=== PATIENT | female | born 1970 | race Caucasian/White ===

== ENCOUNTER → 2017-10-01 | Outpatient (CLI) | payer BC ==
--- NOTE | 2017-10-04 10:13 | MM ---
Reason for exam: screening (asymptomatic). Last mammogram was performed 1 year and 6 months ago. History: Patient is postmenopausal. Cancelled Right Mammotome of the right breast, April 04, 2008. Physical Findings: A clinical breast exam by your physician is recommended on an annual basis and results should be correlated with mammographic findings. MG Screening Mammo w CAD Bilateral CC and MLO view(s) were taken. Prior study comparison: April 14, 2016, bilateral MG screening mammo w CAD. September 18, 2014, bilateral MG screening mammo w CAD. The breast tissue is heterogeneously dense. This may lower the sensitivity of mammography. There is no discrete abnormality. ASSESSMENT: Negative, BI-RAD 1 RECOMMENDATION: Routine screening mammogram of both breasts in 1 year.
== END | disposition home or self-care (01) ==
LOC: RADMAMWWP 13:00
PROVIDERS: ATTEND Family Medicine
DX: Z12.31 Encounter for screening mammogram for malignant neoplasm of breast (principal)
CPT/HCPCS: 77067

== ENCOUNTER → 2018-02-28 | Outpatient (CLI) | payer BC ==
--- NOTE | 2018-03-01 12:53 | MR ---
EXAMINATION TYPE: MR lumbar spine wo con DATE OF EXAM: 02/28/2018 COMPARISON: NONE HISTORY: TECHNIQUE: Multiplanar, multisequence images of the lumbar spine were acquired. L1-L2: Normal disc appearance without desiccation. No herniation, protrusion or disc bulging. No ca nal stenosis is present. Foramina are patent bilaterally. L2-L3: Posterior broad-based disc bulge causes only minimal anterior mass effect on the thecal sac. N o significant foraminal encroachment or central canal stenosis. There is loss of disc height and sign al compatible disc desiccation and degenerative disc disease. L3-L4: There is a minimal posterior broad-based disc bulge causing only slight mass effect on the ant erior thecal sac, no significant foraminal encroachment. L4-L5: Small posterior disc bulge causes minimal anterior mass effect on the thecal sac. No significa nt spinal stenosis or foraminal encroachment. Facet arthropathy with hypertrophy of the ligamentum fl avum encroaches on the lateral recesses. L5-S1: Endplate discogenic marrow signal changes, spondylosis, vacuum phenomenon with loss of disc he ight and signal present at L5-S1, circumferential extension of endplate disc complex encroaches somew hat on the neural foramina. Posterior extension endplate disc complex may contact the anterior thecal sac, proximal S1 nerve roots. Lumbar segments are intact. No paraspinal masses are identified. Conus medullaris has a normal appe arance. Cystic foci present within the liver noted incidentally. IMPRESSION: Degenerative disc disease at, correlate for possible L5, S1 radiculopathy. Facet arthropathy change.
== END | disposition home or self-care (01) ==
LOC: RADMRIMAIN 15:21
PROVIDERS: ATTEND Physician Assistant Medical
DX: M51.16 Intervertebral disc disorders with radiculopathy, lumbar region (principal); M46.96 Unspecified inflammatory spondylopathy, lumbar region; R53.1 Weakness
CPT/HCPCS: 72148

== ENCOUNTER 2018-05-26 13:55 | Observation (INO) | payer BC ==
[2018-05-26] MEDS ORDERED: KETOROLAC 30 MG/ML 1 ML VIAL IVP STA (14:17)
[2018-05-26] MEDS ORDERED: HYDROmorphone 0.5 MG/0.5 ML SYRINGE IVP STA (14:17)
--- NOTE | 2018-05-26 14:28 | ED ---
General Adult HPI - General Chief complaint: Chest Pain Stated complaint: left side chest pain Time Seen by Provider: 05/26/18 13:55 Source: patient, RN notes reviewed Mode of arrival: ambulatory Limitations: no limitations - History of Present Illness Initial comments: This is a 47-year-old female presents emergency Department because of pleuritic like chest pain. Patient states about 2 weeks ago she had an upper respiratory infection and ever since then she's been getting more more chest pain. Patient states is much worse with inspiration or movement. Patient states she's been treated for pleurisy with some steroids but has not improved. Patient states this morning she went to work and the pain was so bad she decided it was time to go back to her doctor but her doctor told her to go to the emergency department. Patient states she's had a low-grade fever a couple weeks ago but not lately. Patient denies any shortness of breath. Patient states she has had no recent sore throat. 2 weeks ago she did have a sore throat as well. Patient denies any control. Patient denies any calf pain. Patient denies any leg swelling. - Related Data Home Medications Medication Instructions Recorded Confirmed Fluconazole [Diflucan] 150 mg PO QMONTH 06/25/16 05/26/18 Cyclobenzaprine [Flexeril] 10 mg PO TID PRN 05/26/18 05/26/18 Ibuprofen [Motrin] 400 mg PO TID PRN 05/26/18 05/26/18 predniSONE See Taper PO DAILY 05/26/18 05/26/18 Allergies Allergy/AdvReac Type Severity Reaction Status Date / Time Penicillins Allergy STRONG Verified 05/26/18 14:14 SIBLING REACTION OF ANAPHYLAXIS tree nut Allergy SKIN Verified 05/26/18 14:14 REACTION wheat Allergy CELIAC Verified 05/26/18 14:14 Review of Systems ROS Statement: Those systems with pertinent positive or pertinent negative responses have been documented in the HPI. ROS Other: All systems not noted in ROS Statement are negative. Past Medical History Past Medical History: GERD/Reflux Additional Past Medical History / Comment(s): celiac disease History of Any Multi-Drug Resistant Organisms: None Reported Past Surgical History: Cholecystectomy, Hysterectomy, Tonsillectomy Additional Past Surgical History / Comment(s): removal of tubal Past Anesthesia/Blood Transfusion Reactions: Previous Problems w/ Anesthesia Additional Past Anesthesia/Blood Transfusion Reaction / Comment(s): "diff coming out of anesthesia" Past Psychological History: No Psychological Hx Reported Smoking Status: Current every day smoker Past Alcohol Use History: Daily Past Drug Use History: None Reported - Past Family History Sister(s) Family Medical History: Cancer General Exam - General Exam Comments Initial Comments: GENERAL: Patient is well-developed and well-nourished. Patient is nontoxic and well- hydrated and is in mild distress. ENT: Neck is soft and supple. No significant lymphadenopathy is noted. Oropharynx is clear. Moist mucous membranes. Neck has full range of motion without eliciting any pain. EYES: The sclera were anicteric and conjunctiva were pink and moist. Extraocular movements were intact and pupils were equal round and reactive to light. Eyelids were unremarkable. PULMONARY: Unlabored respirations. Good breath sounds bilaterally. No audible rales rhonchi or wheezing was noted. CARDIOVASCULAR: There is a regular rate and rhythm without any murmurs gallops or rubs. Patient has chest pain with inspiration. ABDOMEN: Soft and nontender with normal bowel sounds. SKIN: Skin is clear with no lesions or rashes and otherwise unremarkable. NEUROLOGIC: Patient is alert and oriented x3. Cranial nerves II through XII are grossly intact. Motor and sensory are also intact. Normal speech, volume and content. Symmetrical smile. MUSCULOSKELETAL: Normal extremities with adequate strength and full range of motion. LYMPHATICS: No significant lymphadenopathy is noted PSYCHIATRIC: Normal psychiatric evaluation. Limitations: no limitations Course Vital Signs 05/26/18 13:56 Temperature 98.5 F Pulse Rate 77 Respiratory 18 Rate Blood Pressure 184/90 O2 Sat by Pulse 100 Oximetry Medical Decision Making - Medical Decision Making EKG shows normal sinus rhythm at 70 bpm MO interval is 136 QRS is 84 Q-T intervals 408 QTC is 440. Patient's EKG shows no ST segment elevation or depression or T wave abnormalities are noted. Chest x-ray shows no acute abnormality. Patient's not getting much relief from medications given to her in the emergency department. Patient states taking a deep breath causes significant increased pain. Patient did not feel comfortable going home because any time she relates the pain seems to get worse. I spoke with Dr. Mckinley he agreed to admit the patient admitted the patient wrote admitting orders I consult cardiology and ordered an echocardiogram. - Lab Data Result diagrams: 05/26/18 14:43 05/26/18 14:43 Lab Results 05/26/18 05/26/18 05/26/18 Range/Units 14:43 14:43 14:43 WBC 10.6 (3.8-10.6) k/uL RBC 4.29 (3.80-5.40) m/uL Hgb 14.3 (11.4-16.0) gm/dL Hct 44.5 (34.0-46.0) % MCV 103.6 H (80.0-100.0) fL MCH 33.3 (25.0-35.0) pg MCHC 32.2 (31.0-37.0) g/dL RDW 12.4 (11.5-15.5) % Plt Count 335 (150-450) k/uL Neutrophils % 89 % Lymphocytes % 6 % Monocytes % 4 % Eosinophils % 0 % Basophils % 0 % Neutrophils # 9.4 H (1.3-7.7) k/uL Lymphocytes # 0.7 L (1.0-4.8) k/uL Monocytes # 0.4 (0-1.0) k/uL Eosinophils # 0.0 (0-0.7) k/uL Basophils # 0.0 (0-0.2) k/uL Macrocytosis Slight PT (9.0-12.0) sec INR (<1.2) APTT (22.0-30.0) sec D-Dimer (<0.60) mg/L FEU Sodium 143 (137-145) mmol/L Potassium 4.9 (3.5-5.1) mmol/L Chloride 106 (98-107) mmol/L Carbon Dioxide 28 (22-30) mmol/L Anion Gap 9 mmol/L BUN 9 (7-17) mg/dL Creatinine 0.55 (0.52-1.04) mg/dL Est GFR (CKD-EPI)AfAm >90 (>60 ml/min/1.73 sqM) Est GFR (CKD-EPI)NonAf >90 (>60 ml/min/1.73 sqM) Glucose 92 (74-99) mg/dL Calcium 9.9 (8.4-10.2) mg/dL Magnesium 2.0 (1.6-2.3) mg/dL Total Bilirubin 0.4 (0.2-1.3) mg/dL AST 28 (14-36) U/L ALT 30 (9-52) U/L Alkaline Phosphatase 73 (38-126) U/L Total Creatine Kinase 73 (30-135) U/L CK-MB (CK-2) 1.1 (0.0-2.4) ng/mL CK-MB (CK-2) Rel Index 1.5 Troponin I <0.012 (0.000-0.034) ng/mL NT-Pro-B Natriuret Pep pg/mL Total Protein 7.8 (6.3-8.2) g/dL Albumin 4.7 (3.5-5.0) g/dL Amylase 58 (30-110) U/L Lipase 45 (23-300) U/L Heterophile Antibody (Negative) 05/26/18 05/26/18 05/26/18 Range/Units 14:43 14:43 14:43 WBC (3.8-10.6) k/uL RBC (3.80-5.40) m/uL Hgb (11.4-16.0) gm/dL Hct (34.0-46.0) % MCV (80.0-100.0) fL MCH (25.0-35.0) pg MCHC (31.0-37.0) g/dL RDW (11.5-15.5) % Plt Count (150-450) k/uL Neutrophils % % Lymphocytes % % Monocytes % % Eosinophils % % Basophils % % Neutrophils # (1.3-7.7) k/uL Lymphocytes # (1.0-4.8) k/uL Monocytes # (0-1.0) k/uL Eosinophils # (0-0.7) k/uL Basophils # (0-0.2) k/uL Macrocytosis PT 9.8 (9.0-12.0) sec INR 1.0 (<1.2) APTT 25.0 (22.0-30.0) sec D-Dimer 0.35 (<0.60) mg/L FEU Sodium (137-145) mmol/L Potassium (3.5-5.1) mmol/L Chloride (98-107) mmol/L Carbon Dioxide (22-30) mmol/L Anion Gap mmol/L BUN (7-17) mg/dL Creatinine (0.52-1.04) mg/dL Est GFR (CKD-EPI)AfAm (>60 ml/min/1.73 sqM) Est GFR (CKD-EPI)NonAf (>60 ml/min/1.73 sqM) Glucose (74-99) mg/dL Calcium (8.4-10.2) mg/dL Magnesium (1.6-2.3) mg/dL Total Bilirubin (0.2-1.3) mg/dL AST (14-36) U/L ALT (9-52) U/L Alkaline Phosphatase (38-126) U/L Total Creatine Kinase (30-135) U/L CK-MB (CK-2) (0.0-2.4) ng/mL CK-MB (CK-2) Rel Index Troponin I (0.000-0.034) ng/mL NT-Pro-B Natriuret Pep 255 pg/mL Total Protein (6.3-8.2) g/dL Albumin (3.5-5.0) g/dL Amylase (30-110) U/L Lipase (23-300) U/L Heterophile Antibody Negative (Negative) Disposition Clinical Impression: Chest pain Disposition: ADMITTED IP TO THIS HOSP Referrals: Curly Singh DO [Primary Care Provider] - 1-2 days Time of Disposition: 16:30
--- NOTE | 2018-05-26 15:16 | XR ---
EXAMINATION TYPE: XR chest 2V DATE OF EXAM: 05/26/2018 COMPARISON: 12/16/2014 INDICATION: Epigastric pain and chest pain TECHNIQUE: Frontal and lateral views of the chest are obtained. FINDINGS: The heart size is normal. The pulmonary vasculature is normal. The lungs are clear. IMPRESSION: 1. No acute pulmonary process.
[2018-05-26 15:24] LABS: Basophils % (A) 0 %; Eosinophils % (A) 0 %; HCT 44.5 % (34.0-46.0); HGB 14.3 gm/dL (11.4-16.0); Lymphocytes # (A) 0.7 k/uL (1.0-4.8); Lymphocytes % (A) 6 %; MCH 33.3 pg (25.0-35.0); MCHC 32.2 g/dL (31.0-37.0); MCV 103.6 fL (80.0-100.0); Macrocytosis Slight; Monocytes # (A) 0.4 k/uL (0-1.0); Monocytes % (A) 4 %; Neutrophils # (A) 9.4 k/uL (1.3-7.7); Neutrophils % (A) 89 %; Platelet Count 335 k/uL (150-450); RBC 4.29 m/uL (3.80-5.40); RDW 12.4 % (11.5-15.5); WBC 10.6 k/uL (3.8-10.6)
[2018-05-26 15:35] LABS: ALT 30 U/L (9-52); AST 28 U/L (14-36); Albumin 4.7 g/dL (3.5-5.0); Alkaline Phosphatase 73 U/L (38-126); Amylase 58 U/L (30-110); Anion Gap 9 mmol/L; Blood Urea Nitrogen 9 mg/dL (7-17); Calcium 9.9 mg/dL (8.4-10.2); Carbon Dioxide 28 mmol/L (22-30); Chloride 106 mmol/L (98-107); Creatine Kinase 73 U/L (30-135); Glucose 92 mg/dL (74-99); Lipase 45 U/L (23-300); Potassium 4.9 mmol/L (3.5-5.1); Sodium 143 mmol/L (137-145); Total Bilirubin 0.4 mg/dL (0.2-1.3); Total Protein 7.8 g/dL (6.3-8.2)
[2018-05-26 15:39] LABS: D-Dimer 0.35 mg/L FEU (<0.60); Prothrombin Time 9.8 sec (9.0-12.0)
[2018-05-26 15:49] LABS: Creatine Kinase MB 1.1 ng/mL (0.0-2.4); Troponin I <0.012 ng/mL (0.000-0.034)
[2018-05-26] MEDS ORDERED: SODIUM CHLORIDE 0.9% 1,000 ML IV ONE (16:30)
[2018-05-26] MEDS: HYDROmorphone 1 MG/ML 1 ML SYRINGE IVP PRN ×2 (18:30→22:06)
[2018-05-26] MEDS: KETOROLAC 30 MG/ML 1 ML VIAL IVP SCH (20:03)
[2018-05-26] MEDS ORDERED: LORazepam 1 MG TAB PO PRN (21:27)
[2018-05-26] MEDS ORDERED: TEMAZEPAM 15 MG CAP PO PRN (22:29)
[2018-05-26] MEDS ORDERED: ALPRAZolam 0.25 MG TAB PO PRN (22:29)
[2018-05-26] MEDS ORDERED: CYCLOBENZAPRINE 10 MG TAB PO PRN (22:29)
[2018-05-26] MEDS ORDERED: HYDROcodone/APAP 5-325MG 1 EACH TAB PO PRN (22:29)
[2018-05-26] MEDS ORDERED: ACETAMINOPHEN TAB 500 MG TAB PO PRN (22:29)
[2018-05-26] MEDS ORDERED: cloNIDine HCL 0.1 MG TAB PO PRN (22:42)
[2018-05-26] MEDS ORDERED: LEVOFLOXACIN 500MG-D5W PMX 500 MG in DEXTROSE/WATER 1 100ML.BAG IVPB SCH (23:00)
[2018-05-26] MEDS: METOPROLOL TARTRATE 12.5 MG TAB PO SCH (23:01)
--- NOTE | 2018-05-26 23:20 | HP ---
HISTORY AND PHYSICAL CHIEF COMPLAINT: Chest pain. HISTORY OF PRESENT ILLNESS: This 47-year-old woman with a past medical history of fibromyalgia, GERD, history of and cholecystectomy being followed by Dr. Singh in the outpatient setting was not feeling well for the past 2 weeks. The patient had upper respiratory infection about 2 weeks ago with sore throat and the sore throat came back and currently the patient is taking prednisone. Patient also complaining of epigastric pain which radiated to the left side of the chest which increases with respiration and the patient came to [facility] and admitted for further evaluation and treatment. The patient also has some low-grade fever. There is no history of any fever, rigors or chills. No history of headache, loss of consciousness, seizures at this time. The blood pressure was 184/91 on admission. PAST MEDICAL HISTORY: History of fibromyalgia, GERD, celiac disease, history of nicotine dependence, history of alcohol, 2-3 glasses of wine at night, cholecystectomy, history of adenoidectomy. MEDICATIONS: Prior to admission include prednisone taper, Motrin 400 mg t.i.d. p.r.n., Flexeril 10 mg t.i.d. p.r.n. and Diflucan 450 mg monthly. ALLERGIES: PENICILLIN, TREE NUT, WHEAT. FAMILY HISTORY: History of lupus, history of cancer in the family, celiac disease. SOCIAL HISTORY: History of smoking, alcohol as mentioned earlier. REVIEW OF SYSTEMS: ENT: No diminished hearing or vision. CARDIOVASCULAR: As mentioned earlier. RESPIRATORY: As mentioned earlier. GI mentioned earlier. no dysuria. Nervous system: No numbness or weakness. ALLERGY/IMMUNOLOGY: No asthma or hayfever. MUSCULOSKELETAL as mentioned earlier. HEMATOLOGY/ONCOLOGY: No history of anemia. ENDOCRINE: No history of diabetes or hypothyroidism. CONSTITUTIONAL: As mentioned earlier. Dermatology: Negative. Rheumatology: Negative. Psychiatry: As mentioned earlier. PHYSICAL EXAMINATION: Alert and oriented x2. Pulse is 52, blood pressure 160/82, respiratory rate 16, temperature is 98.7, pulse ox 100 percent on room air. HEENT: Conjunctivae normal. Oral mucosa moist. Neck is no jugular venous distention. No carotid bruit. No lymph node enlargement. Cardiovascular: S1, S2 muffled. Respiratory: Breath sounds diminished in the bases. A few scattered rhonchi. No crackles. ABDOMEN: Soft, nontender. No mass palpable. Legs no edema. No swelling. NERVOUS SYSTEM: Higher functions as mentioned earlier. Moves all 4 limbs. No focal motor or sensory deficits. LYMPHATICS: No lymph nodes palpable in the neck, axilla and groin. Skin: No ulcer, rash or bleeding. LABS: At this time shows WBC 10.6 and MCV 103.6. The CBC and BMP within normal limits otherwise. ASSESSMENT: 1. Left-sided chest pain, possible unstable angina, rule out pleural pericarditis. 2. History of nicotine dependence. 3. History of ETOH. 4. History of fibromyalgia. 5. History of gastroesophageal reflux disease. 6. Celiac disease. 7. History of Raynaud's. 8. History of hiatal hernia. 9. History of cholecystectomy. 10.Acute gastritis. 11.Hypertension. RECOMMENDATION AND DISCUSSION: This 47-year-old woman who presented with multiple complex medical issues, I would recommend to continue current medications, management and symptomatic treatment. Otherwise at this time, the EKG showed no acute abnormalities. Except abdomen no acute abnormalities and I recommend to continue to monitor. We will add a small dose of beta blockers. Otherwise, continue the rest of the medications. Cardiology consultation. Ativan p.r.n. Habitrol patch. Possible stress test. 2D echo with Doppler. Overall prognosis guarded because of multiple complex medical issues. Further recommendations to follow. We will rule out acute coronary syndrome by doing a set of troponins as well. Discussed with the patient who understands and agrees. A copy of dictation being forwarded to Dr. Singh who is the primary care physician. I would also recommend clonidine p.r.n. for blood pressure. Also see orders for details. MMODL / IJN: [id number] / MTDD
[2018-05-26 23:42] LABS: Appearance,Urine Clear (Clear); Bilirubin,Urine Negative (Negative); Blood,Urine Negative (Negative); Color,Urine Light Yellow; Glucose,Urine (UA) Negative (Negative); Ketones,Urine Negative (Negative); Leukocyte Esterase,Urine Negative (Negative); Nitrite,Urine Negative (Negative); PH, Urine 7.5 (5.0-8.0); Protein,Urine Negative (Negative); Specific Gravity,Urine 1.005 (1.001-1.035); Urobilinogen,Urine <2.0 mg/dL (<2.0)
[2018-05-27 00:03] LABS: Amphetamine Screen,Urine Not Detected (NotDetected); Barbiturate Screen,Urine Not Detected (NotDetected); Benzodiazepines Screen,Urine Not Detected (NotDetected); Cocaine Screen,Urine Not Detected (NotDetected); Methadone Screen, Urine Not Detected (NotDetected); Opiate Screen,Urine Detected (NotDetected); Oxycodone Screen, Urine Not Detected (NotDetected); Phencyclidine Screen,Urine Not Detected (NotDetected); Tricyclic Antidepressant,Urine Not Detected (NotDetected); Urn Cannabinoid Scrn Not Detected (NotDetected)
[2018-05-27] MEDS: KETOROLAC 30 MG/ML 1 ML VIAL IVP SCH ×3 (00:48→12:04)
[2018-05-27] MEDS: HYDROmorphone 1 MG/ML 1 ML SYRINGE IVP PRN (02:18)
[2018-05-27 03:15] LABS: Basophils # (A) 0.1 k/uL (0-0.2); Basophils % (A) 1 %; Eosinophils # (A) 0.2 k/uL (0-0.7); Eosinophils % (A) 2 %; HCT 38.5 % (34.0-46.0); HGB 12.6 gm/dL (11.4-16.0); Lymphocytes # (A) 2.6 k/uL (1.0-4.8); Lymphocytes % (A) 25 %; MCH 33.8 pg (25.0-35.0); MCHC 32.7 g/dL (31.0-37.0); MCV 103.2 fL (80.0-100.0); Macrocytosis Slight; Mean Platelet Volume 6.9; Monocytes # (A) 0.9 k/uL (0-1.0); Monocytes % (A) 8 %; Neutrophils # (A) 6.5 k/uL (1.3-7.7); Neutrophils % (A) 63 %; Platelet Count 282 k/uL (150-450); RBC 3.73 m/uL (3.80-5.40); RDW 12.3 % (11.5-15.5); WBC 10.3 k/uL (3.8-10.6)
[2018-05-27 03:34] LABS: Anion Gap 6 mmol/L; Blood Urea Nitrogen 7 mg/dL (7-17); C Reactive Protein <5.0 mg/L (<10.0); Calcium 9.1 mg/dL (8.4-10.2); Carbon Dioxide 26 mmol/L (22-30); Chloride 106 mmol/L (98-107); Glucose 83 mg/dL (74-99); Potassium 3.7 mmol/L (3.5-5.1); Sodium 138 mmol/L (137-145)
[2018-05-27 03:38] VITALS: RESP 18
[2018-05-27 04:29] LABS: T4, Free (Free Thyroxine) 0.95 ng/dL (0.78-2.19)
[2018-05-27 05:33] LABS: Erythrocyte Sedimentation Rate 2 mm/hr (0-20)
[2018-05-27] MEDS ORDERED: NICOTINE 14MG/24HR PATCH TRANSDERM SCH (09:00)
[2018-05-27] MEDS: METOPROLOL TARTRATE 12.5 MG TAB PO SCH (09:49)
--- NOTE | 2018-05-27 10:02 | P.CRDCN ---
History of Present Illness History of present illness: This is a pleasant 47-year-old female past medical history significant for fibromyalgia, GERD and chronic nicotine dependence. She denies history of coronary artery disease, hypertension, dyslipidemia or diabetes mellitus. She has never seen a chief of anesthesiology for any reason. We have been asked to see her in consultation for chest pain. She states 2 weeks ago was having throat pain and was diagnosed with upper respiratory infection. Last week Wednesday she started feeling a pain in the left precordial region associated with deep breath and movement. She saw her PCP and was diagnosed with possible pleurisy and started on steroids. The steroids didn't help the pain, it seemed to be getting worse. Yesterday the pain was so intense and constant she became alarmed. The pain starts in the left upper quadrant of her abdomen and radiates up into the precordial region and into the back at times. She denies radiation to the arm, neck or jaw. She doesn't feel short of breath however feels she can' t take a deep breath due to the pain. Denies dizziness, nausea, vomiting or palpitations. Pain has been relieved since admission with toradol, diluadid and norco. She still feels a dull ache in the chest. EKG reveals sinus mechanism with no acute ST or T-wave abnormalities noted. Chest xray negative for an acute cardiopulmonary process. Laboratory data reviewed, hgb 12.6, plt 282, d-dimer 0.35, sodium 138, potassium 3.7, magnesium 2.0, cardiac enzymes negative x3, creatinine 0.52, NTproBNP 255, TSH 5.32. She takes no daily cardiac medications. Review of Systems At the time of my exam: CONSTITUTIONAL: Denies fever. Denies chills. EYES: Denies blurred vision. Denies vision changes. Denies eye pain. EARS, NOSE, MOUTH & THROAT: Denies headache. Denies sore throat. Denies ear pain. CARDIOVASCULAR: Complains of dull pleuritic chest pain. Denies shortness of breath. Denies orthopnea. Denies PND. Denies palpitations. RESPIRATORY: Denies cough. GASTROINTESTINAL: Denies abdominal pain. Denies diarrhea. Denies constipation. Denies nausea. Denies vomiting. MUSCULOSKELETAL: Denies myalgias. INTEGUMENTARY: Denies pruitis. Denies rash. NEUROLOGIC: Denies numbness. Denies tingling. Denies weakness. PSYCHIATRIC: Denies anxiety. Denies depression. ENDOCRINE: Denies fatigue. Denies weight change. Denies polydipsia. Denies polyurina. GENITOURINARY: Denies burning, hematuria or urgency with micturation. HEMATOLOGIC: Denies history of anemia. Denies bleeding. Past Medical History Past Medical History: Fibromyalgia, GERD/Reflux Additional Past Medical History / Comment(s): celiac disease, "told she has raynaulds",small hiatal hernia. "pre cancerous colon polyps removed" History of Any Multi-Drug Resistant Organisms: None Reported Past Surgical History: Adenoidectomy, Cholecystectomy, Hysterectomy, Tonsillectomy Additional Past Surgical History / Comment(s): sx d/t tubal , pt stated" had repair of perforated side of appendix but was told they left the tip of appendix in", egd/colonoscopy, exploratoy laparoscopy,partial hysterectomy Past Anesthesia/Blood Transfusion Reactions: Previous Problems w/ Anesthesia Additional Past Anesthesia/Blood Transfusion Reaction / Comment(s): "diff coming out of anesthesia", clausterphobia Smoking Status: Current every day smoker - Past Family History Sister(s) Family Medical History: Cancer Mother Additional Family Medical History / Comment(s): lupus, mi age 52 Father Family Medical History: AFIB Medications and Allergies Home Medications Medication Instructions Recorded Confirmed Type Fluconazole [Diflucan] 150 mg PO QMONTH 06/25/16 05/26/18 History Cyclobenzaprine [Flexeril] 10 mg PO TID PRN 05/26/18 05/26/18 History Ibuprofen [Motrin] 400 mg PO TID PRN 05/26/18 05/26/18 History predniSONE See Taper PO DAILY 05/26/18 05/26/18 History Allergies Allergy/AdvReac Type Severity Reaction Status Date / Time Penicillins Allergy STRONG Verified 05/26/18 14:14 SIBLING REACTION OF ANAPHYLAXIS tree nut Allergy SKIN Verified 05/26/18 14:14 REACTION wheat Allergy CELIAC Verified 05/26/18 14:14 Physical Exam Vitals: Vital Signs Temp Pulse Pulse Resp BP BP BP 05/27/18 03:55 18 05/27/18 03:36 98.6 F 56 L 18 135/69 09/27/18 23:42 16 05/26/18 23:36 98.3 F 55 L 16 162/88 05/26/18 20:00 16 05/26/18 19:48 98.7 F 52 L 16 165/83 05/26/18 18:14 98.4 F 65 18 169/87 05/26/18 16:53 97.3 F L 75 18 161/76 05/26/18 13:56 98.5 F 77 18 184/90 Pulse Ox 05/27/18 03:55 05/27/18 03:36 99 05/26/18 23:42 05/26/18 23:36 99 05/26/18 20:00 05/26/18 19:48 100 05/26/18 18:14 99 05/26/18 16:53 98 05/26/18 13:56 100 Intake and Output 05/26/18 05/27/18 05/27/18 22:59 06:59 14:59 Intake Total 240 Balance 240 Intake: Oral 240 Other: Voiding Method Toilet Toilet # Voids 2 Weight 62.1 kg Blood pressure 118/75 heart rate 58 afebrile maintaining oxygen saturation GENERAL: This is a 47-year-old female in no apparent distress at the time of my examination. HEENT: Head is atraumatic, normocephalic. Pupils are equal, round. Sclerae anicteric. Conjunctivae are clear. Mucous membranes of the mouth are moist. Neck is supple. There is no jugular venous distention. No carotid bruit is heard. LUNGS: Clear to auscultation no wheezes, rales or rhonchi. No chest wall tenderness is noted on palpation or with deep breathing. HEART: Regular rate and rhythm without murmurs, rubs or gallops. S1 and S2 heard. ABDOMEN: Soft, nontender. Bowel sounds are heard. No organomegaly noted. EXTREMITIES: No evidence of peripheral edema and no calf tenderness noted. VASCULAR: Radial and dorsalis pedis pulses palpated, no evidence of clubbing. NEUROLOGIC: Patient is awake, alert and oriented x3. Results 05/27/18 02:15 05/27/18 02:15 Cardiac Enzymes 05/26/18 05/26/18 05/26/18 Range/Units 14:43 14:43 20:23 AST 28 (14-36) U/L CK-MB (CK-2) 1.1 (0.0-2.4) ng/mL Troponin I <0.012 <0.012 (0.000-0.034) ng/mL 05/27/18 Range/Units 02:15 AST (14-36) U/L CK-MB (CK-2) (0.0-2.4) ng/mL Troponin I <0.012 (0.000-0.034) ng/mL Coagulation 05/26/18 Range/Units 14:43 PT 9.8 (9.0-12.0) sec APTT 25.0 (22.0-30.0) sec CBC 05/26/18 05/27/18 Range/Units 14:43 02:15 WBC 10.6 10.3 (3.8-10.6) k/uL RBC 4.29 3.73 L (3.80-5.40) m/uL Hgb 14.3 12.6 (11.4-16.0) gm/dL Hct 44.5 38.5 (34.0-46.0) % Plt Count 335 282 (150-450) k/uL Comprehensive Metabolic Panel 05/26/18 05/27/18 Range/Units 14:43 02:15 Sodium 143 138 (137-145) mmol/L Potassium 4.9 3.7 (3.5-5.1) mmol/L Chloride 106 106 (98-107) mmol/L Carbon Dioxide 28 26 (22-30) mmol/L BUN 9 7 (7-17) mg/dL Creatinine 0.55 0.52 (0.52-1.04) mg/dL Glucose 92 83 (74-99) mg/dL Calcium 9.9 9.1 (8.4-10.2) mg/dL AST 28 (14-36) U/L ALT 30 (9-52) U/L Alkaline Phosphatase 73 (38-126) U/L Total Protein 7.8 (6.3-8.2) g/dL Albumin 4.7 (3.5-5.0) g/dL Current Medications Generic Name Dose Route Start Last Admin Trade Name Freq PRN Reason Stop Dose Admin Acetaminophen 500 mg 05/26/18 22:29 Tylenol Tab PO Q6HR PRN Fever and/ or Pain Hydrocodone Bitart/Acetaminophen 1 each 05/26/18 22:29 Maybeury 5-325 PO Q6HR PRN Pain Alprazolam 0.25 mg 05/26/18 22:29 05/26/18 23:02 Xanax PO 0.25 mg TID PRN Administration Anxiety Clonidine 0.1 mg 05/26/18 22:42 Catapres PO Q4HR PRN Hypertension Cyclobenzaprine HCl 10 mg 05/26/18 22:29 Flexeril PO TID PRN MUSCLE SPASM Fluconazole 150 mg 06/23/18 09:00 Diflucan PO QMONTH MIKE Folic Acid 1 mg 05/27/18 12:00 Folic Acid PO DAILY@1200 MIKE Hydromorphone HCl 0.5 mg 05/26/18 16:35 05/27/18 02:18 Dilaudid IVP 0.5 mg Q4HR PRN Administration Pain Levofloxacin 500 mg/ IV 100 mls @ 100 mls/hr 05/26/18 23:00 05/27/18 02:15 Solution IVPB 100 mls/hr Q24H MIKE Administration Ketorolac Tromethamine 30 mg 05/26/18 19:00 05/27/18 06:12 Toradol IVP 05/30/18 19:01 30 mg Q6HR MIKE Administration Metoprolol Tartrate 12.5 mg 05/26/18 22:45 05/26/18 23:01 Lopressor PO Not Given BID [facility]–1983 Multivitamins 1 each 05/27/18 12:00 Theragran PO DAILY@1200 MIKE Nicotine 1 patch 05/27/18 09:00 Habitrol 14mg/24hr Patch TRANSDERM DAILY [facility]1983 Temazepam 15 mg 05/26/18 22:29 Restoril PO HS PRN Insomnia Thiamine HCl 100 mg 05/27/18 12:00 Vitamin B-1 PO DAILY@1200 MIKE Intake and Output 05/26/18 05/27/18 05/27/18 22:59 06:59 14:59 Intake Total 240 Balance 240 Intake: Oral 240 Other: Voiding Method Toilet Toilet # Voids 2 Weight 62.1 kg 05/27/18 02:15 05/27/18 02:15 Assessment and Plan Assessment: ASSESSMENT Pleuritic chest pain, an acute coronary event is ruled out with no EKG evidence of ischemia and negative cardiac enzymes. Chronic nicotine dependence Fibromyalgia Gastroesophageal reflux disease PLAN 2-D echocardiogram and Doppler study has been obtained and reviewed and reveals normal LV systolic function with no evidence of valvular heart disease and no pericardial effusion. Chest pain is pleuritic in nature and not associated with exertion. Not indicative of angina. Ongoing medical management and anti-inflammatory pain control. Stable from a cardiac perspective. Thank you kindly for this consultation. Nurse Practitioner note has been reviewed, I agree with a documented findings and plan of care. Patient was seen and examined.
--- NOTE | 2018-05-27 10:16 | ECHOF ---
Referral Reason:Chest pain MEASUREMENTS -------- HEIGHT: 177.8 cm WEIGHT: 61.7 kg BP: 135/69 RVIDd: 3.1 cm (< 3.3) IVSd: 1.1 cm (0.6 - 1.1) LVIDd: 4.5 cm (3.9 - 5.3) LVPWd: 1.2 cm (0.6 - 1.1) IVSs: 1.5 cm LVIDs: 3.2 cm LVPWs: 1.8 cm LA Diam: 2.9 cm (2.7 - 3.8) LAESV Index (A-L): 19.81 ml/m Ao Diam: 3.6 cm (2.0 - 3.7) AV Cusp: 2.1 cm (1.5 - 2.6) MV EXCURSION: 22.560 mm (> 18.000) MV EF SLOPE: 149 mm/s (70 - 150) EPSS: 0.3 cm MV E Jin: 0.97 m/s MV DecT: 247 ms MV A Jin: 0.64 m/s MV E/A Ratio: 1.52 RAP: 5.00 mmHg RVSP: 22.27 mmHg FINDINGS -------- Sinus rhythm. This was a technically excellent study. The left ventricular size is normal. There is borderline concentric left ventricular hypertrophy. Overall left ventricular systolic function is normal with, an EF between 55 - 60 %. The right ventricle is normal in size. Normal LA size by volume 22+/-6 ml/m2. The right atrium is normal in size. The aortic valve is trileaflet and appears structurally normal. The mitral valve is normal. Mild tricuspid regurgitation present. Right ventricular systolic pressure is normal at < 35 mmHg. There is no pulmonic regurgitation present. The aortic root size is normal. Normal inferior vena cava with normal inspiratory collapse consistent with estimated right atrial pre ssure of 5 mmHg. There is no pericardial effusion. CONCLUSIONS -------- 1. Sinus rhythm. 2. This was a technically excellent study. 3. The left ventricular size is normal. 4. There is borderline concentric left ventricular hypertrophy. 5. Overall left ventricular systolic function is normal with, an EF between 55 - 60 %. 6. The right ventricle is normal in size. 7. Normal LA size by volume 22+/-6 ml/m2. 8. The right atrium is normal in size. 9. The aortic valve is trileaflet and appears structurally normal. 10. The mitral valve is normal. 11. Mild tricuspid regurgitation present. 12. Right ventricular systolic pressure is normal at < 35 mmHg. 13. There is no pulmonic regurgitation present. 14. The aortic root size is normal. 15. Normal inferior vena cava with normal inspiratory collapse consistent with estimated right atrial pressure of 5 mmHg. 16. There is no pericardial effusion. FACS TEACHER: Megan Lan RDCS
[2018-05-27 11:27] VITALS: BP 124/81; PULSE 52; TEMP 98.6
[2018-05-27] MEDS ORDERED: THIAMINE 100 MG TAB PO SCH (12:00)
[2018-05-27] MEDS ORDERED: MULTIVITAMINS, THERA 1 EACH TAB PO SCH (12:00)
[2018-05-27] MEDS ORDERED: FOLIC ACID 1 MG TAB PO SCH (12:00)
[2018-05-27] MEDS ORDERED: methylPREDNISolone ACETATE 80 MG/ML 1 ML VIAL IM STA (12:49)
[2018-05-27 13:14] VITALS: BMI 19.6
--- NOTE | 2018-05-27 22:51 | DS ---
DISCHARGE SUMMARY DATE OF SERVICE: 05/27/2018. FINAL DIAGNOSES: 1. Chest pain, possibly pleuritic. 2. Myocardial infarction ruled out. 3. History of nicotine dependence. 4. History of fibromyalgia. 5. History of EtOH. 6. History of gastroesophageal reflux disease. 7. Celiac disease history. 8. History of Raynaud. 9. History of hiatal hernia. 10.History of cholecystectomy. 11.Acute gastritis. 12.Hypertension. DISCHARGE CONDITION: The patient will be discharged in stable condition with guarded prognosis. Cardiology cleared the patient for discharge. HISTORY OF PRESENT ILLNESS: This 47-year-old woman with a past history of multiple medical problems, was admitted with chest pain. Myocardial infarction ruled out. Cardiology recommended outpatient followup. The patient was treated symptomatically. On exam, vital signs stable. Cardiovascular system normal. Abdomen soft. Nervous system, no focal deficits. DISCHARGE MEDICATIONS: 1. Flexeril 10 mg t.i.d. p.r.n. 2. Diflucan 150 mg monthly. 3. Tylenol 500 every 6 hours p.r.n. 4. Levaquin 500 mg p.o. daily for 3 days. 5. Multivitamins 1 p.o. daily. 6. Habitrol 14 daily. 7. Prilosec 40 mg p.o. b.i.d. FOLLOWUP: 1. Follow up with Dr. Singh in 2 to 3 days. 2. Follow up with Cardiology as recommended. MMODL / IJN: [id number] /
[2018-06-23] MEDS ORDERED: FLUCONAZOLE 150 MG TAB PO SCH (09:00)
== END 2018-05-27 14:23 | disposition home or self-care (01) ==
LOC: EC 13:55 → 3OBS 16:31
PROVIDERS: ADMIT Hospitalist; ATTEND Hospitalist
DX: R07.89 Other chest pain (principal); K29.00 Acute gastritis without bleeding; I10 Essential (primary) hypertension; K21.9 Gastro-esophageal reflux disease without esophagitis; K90.0 Celiac disease; J02.9 Acute pharyngitis, unspecified; F17.200 Nicotine dependence, unspecified, uncomplicated; M79.7 Fibromyalgia; Z72.89 Other problems related to lifestyle; I73.00 Raynaud's syndrome without gangrene; K44.9 Diaphragmatic hernia without obstruction or gangrene; F40.240 Claustrophobia; Z79.52 Long term (current) use of systemic steroids; Z79.899 Other long term (current) drug therapy; Z88.0 Allergy status to penicillin; Z91.018 Allergy to other foods; Z87.09 Personal history of other diseases of the respiratory system; Z90.49 Acquired absence of other specified parts of digestive tract; Z90.710 Acquired absence of both cervix and uterus; Z86.010 Personal history of colon polyps; Z80.9 Family history of malignant neoplasm, unspecified; Z83.79 Family history of other diseases of the digestive system; Z83.49 Family history of other endocrine, nutritional and metabolic diseases
CPT/HCPCS: 96365; 96372; 96376 ×2; 96375; 99285; 36415; 93005; 93306; 85379; 84439; 83880; 80053; 80048; 85652; 84443; 82150; 82550; 82553; 83690; 83735; 84484 ×2; 85025 ×2; 85610; 85730; 86140; 86308; 81003; 87040; 80306; 87086; 71046; G0378 ×2; S4990; J1040; J1956; J1885 ×2; J1170 ×3

== ENCOUNTER 2019-02-13 21:46 | Emergency (ER) | payer BC ==
[2019-02-13 22:01] VITALS: RESP 18
[2019-02-13] MEDS ORDERED: KETOROLAC 60 MG/2 ML VIAL IM STA (23:33)
--- NOTE | 2019-02-14 00:27 | CT ---
EXAM: CT Cervical Spine Without Intravenous Contrast CLINICAL HISTORY: Pain TECHNIQUE: Axial computed tomography images of the cervical spine without intravenous contrast. CTDI is 7.1 mGy and DLP is 235.5 mGy-cm. This CT exam was performed using one or more of the following dose reduction techniques: automated exposure control, adjustment of the mA and/or kV according to patient size, and/or use of iterative reconstruction technique. Coronal and sagittal reformatted images were created and reviewed. COMPARISON: No relevant prior studies available. FINDINGS: Vertebrae: Unremarkable. No acute fracture. Discs/spinal canal/neural foramina: No acute findings. No spinal canal stenosis. Minimal degenerative changes of C56. Minimal right neural foraminal effacement Soft tissues: Unremarkable. IMPRESSION: No evidence for fracture or malalignment of the cervical spine area degenerative changes noted at C5-6 with endplate osteophyte formation minimal neural foraminal effacement on the right
[2019-02-14] MEDS ORDERED: ACET/COD 300 MG/30 MG STARTER PACK 6 TAB BTL PO STA (00:54)
--- NOTE | 2019-02-14 00:54 | ED ---
General Adult HPI - General Chief complaint: Neck Pain/Injury Stated complaint: Neck Pain Time Seen by Provider: 02/13/19 22:25 Source: patient, RN notes reviewed, old records reviewed Mode of arrival: ambulatory Limitations: no limitations - History of Present Illness Initial comments: 48-year-old female patient past medical history of hysterectomy, xuan cystectomy, fibromyalgia, celiac disease presents ED with approximately 3 months of worsening neck pain. Patient also reports that she has some waxing and waning paresthesias that run down her upper and lower extremities. Patient states that she has been seen by her primary care provider for this and has been placed on steroids and anti-inflammatories which have not helped. Patient does have an appointment with orthospine surgery on Wednesday. Patient denies any chest pain shortness of breath abdominal pain nausea vomiting or diarrhea. Systemic: Pt denies fatigue, fever/chills, rash. Pt denies weakness, night sweats, weight loss. Neuro: Pt denies headache, visual disturbances, syncope or pre-syncope. HEENT: Pt denies ocular discharge or irritation, otalgia, rhinorrhea, pharyngitis or notable lymphadenopathy. Cardiopulmonary: Pt denies chest pain, SOB, heart palpitations, dyspnea on exertion. Abdominal/GI: Pt denies abdominal pain, n/v/d. : Pt denies dysuria, burning w/ urination, frequency/urgency. Denies new onset urinary or bowel incontinence. MSK: Pt denies myalgia, loss of strength or function in extremities. Neuro: Pt denies new onset weakness, paresthesias. - Related Data Home Medications Medication Instructions Recorded Confirmed Cyclobenzaprine [Flexeril] 10 mg PO TID PRN 05/26/18 02/13/19 Ibuprofen [Motrin] 400 mg PO TID PRN 02/13/19 02/13/19 Allergies Allergy/AdvReac Type Severity Reaction Status Date / Time Penicillins Allergy STRONG Verified 02/13/19 22:30 SIBLING REACTION OF ANAPHYLAXIS tree nut Allergy SKIN Verified 02/13/19 22:30 REACTION wheat Allergy CELIAC Verified 02/13/19 22:30 Review of Systems ROS Statement: Those systems with pertinent positive or pertinent negative responses have been documented in the HPI. ROS Other: All systems not noted in ROS Statement are negative. Past Medical History Past Medical History: Fibromyalgia, GERD/Reflux Additional Past Medical History / Comment(s): celiac disease, "told she has raynaulds",small hiatal hernia. "pre cancerous colon polyps removed" History of Any Multi-Drug Resistant Organisms: None Reported Past Surgical History: Adenoidectomy, Cholecystectomy, Hysterectomy, Tonsillectomy Additional Past Surgical History / Comment(s): sx d/t tubal , pt stated" had repair of perforated side of appendix but was told they left the tip of appendix in", egd/colonoscopy, exploratoy laparoscopy,partial hysterectomy Past Anesthesia/Blood Transfusion Reactions: Previous Problems w/ Anesthesia Additional Past Anesthesia/Blood Transfusion Reaction / Comment(s): "diff coming out of anesthesia", clausterphobia Past Psychological History: No Psychological Hx Reported Smoking Status: Current every day smoker Past Alcohol Use History: Daily Past Drug Use History: None Reported - Past Family History Sister(s) Family Medical History: Cancer Mother Additional Family Medical History / Comment(s): lupus, mi age 52 Father Family Medical History: AFIB General Exam - General Exam Comments Initial Comments: Constitutional: NAD, AOX3, Pt has pleasant affect. HEENT: NC/AT, trachea midline, neck supple, no lymphadenopathy. Posterior pharynx non erythematous, without exudates. External ears appear normal, without discharge. Mucous membranes moist. Eyes PERRLA, EOM intact. There is no scleral icterus. No pallor noted. Cardiopulmonary: RRR, no murmurs, rubs or gallops, no JVD noted. Lungs CTAB in anterior and posterior verduzco. No peripheral edema. Abdominal exam: Abdomen soft and non-distended. Abdomen non-tender to palpation in all 4 quadrants. Bowel sounds active in LLQ. No hepatosplenomegaly. No ecchymosis Neuro: CN II-XII grossly intact. No nuchal rigidity. No raccon eyes, no castillo sign, no hemotympanum. No cervical spinal tenderness. MSK: No cervical, thoracic, lumbar tenderness. Sensation intact in upper or lower extremities. 5 out of 5 strength upper and lower extremities. Ambulatory without difficulty. No posterior calf tenderness bilaterally, homans sign negative bilaterally. Posterior tibialis and radial pulse +2 bilaterally. Sensation intact in upper and lower extremities. Full active ROM in upper and lower extremities. Limitations: no limitations Course Vital Signs 02/13/19 21:59 Temperature 98.1 F Pulse Rate 79 Respiratory 18 Rate Blood Pressure 123/91 O2 Sat by Pulse 99 Oximetry Medical Decision Making - Medical Decision Making 48-year-old female patient past medical history of hysterectomy, cholecystectomy, fibromyalgia, celiac disease presents ED with approximately 3 months of worsening neck pain. Patient also reports that she has some waxing and waning paresthesias that run down her upper and lower extremities. Patient states that she has been seen by her primary care provider for this and has been placed on steroids and anti-inflammatories which have not helped. Patient does have an appointment with orthospine surgery on Wednesday. Patient denies any chest pain shortness of breath abdominal pain nausea vomiting or diarrhea. Patient vital signs stable, afebrile. Physical exam displayed: CN II-XII grossly intact. No nuchal rigidity. No raccon eyes, no castillo sign, no hemotympanum. No cervical spinal tenderness. No cervical, thoracic, lumbar tenderness. Sensation intact in upper or lower extremities. 5 out of 5 strength upper and lower extremities. Ambulatory without difficulty. No posterior calf tenderness bilaterally, homans sign negative bilaterally. Posterior tibialis and radial pulse +2 bilaterally. Sensation intact in upper and lower extremities. Full active ROM in upper and lower extremities. CT cervical spine displayed no evidence of fracture or malalignment cervical spine. Degenerative changes noted C5-C6 with endplate osteophyte formation minimal neural foraminal effacement on the right. Patient feeling improved with Toradol. Patient was discharged with Tylenol 3 starter pack. Pt will follow up with Dr. Barrera as scheduled. Pt will also f/u with PCP in 1-2 days. Pt nuris lreturn to ER if condition worsens anyway. Case discussed with Dr. Hoffman. Disposition Clinical Impression: Cervicalgia Disposition: HOME SELF-CARE Condition: Stable Instructions (If sedation given, give patient instructions): Cervical Strain (ED) Additional Instructions: Patient to adhere to previously discussed treatment plan and will take medication(s) as directed. Patient to follow up with PCP in 1-2 days. Patient to return to ED if symptoms do not improve. Follow up with PCP and orthopedic surgeon in 1-2 days. Return to ER if condition worsens in anyway. Is patient prescribed a controlled substance at d/c from ED?: No Referrals: Curly Singh DO [Primary Care Provider] - 1-2 days Andres Barrera DO [Doctor of Osteopathic Medicine] - 1-2 days
[2019-02-14 01:13] VITALS: BP 126/94; PULSE 84; TEMP 97.1
== END 2019-02-14 01:14 | disposition home or self-care (01) ==
LOC: EC 21:46
DX: M54.2 Cervicalgia (principal); R20.2 Paresthesia of skin; M25.78 Osteophyte, vertebrae; F17.200 Nicotine dependence, unspecified, uncomplicated; Z88.0 Allergy status to penicillin; Z91.018 Allergy to other foods
CPT/HCPCS: 72125; 99284; 96372; J1885

== ENCOUNTER → 2019-02-25 | Outpatient (CLI) | payer BC ==
[2019-02-25 09:30] LABS: Basophils # (A) 0.1 k/uL (0-0.2); Basophils % (A) 1 %; Eosinophils # (A) 0.2 k/uL (0-0.7); Eosinophils % (A) 3 %; HCT 42.8 % (34.0-46.0); HGB 14.1 gm/dL (11.4-16.0); Lymphocytes # (A) 1.2 k/uL (1.0-4.8); Lymphocytes % (A) 18 %; MCH 33.8 pg (25.0-35.0); MCHC 32.8 g/dL (31.0-37.0); MCV 103.1 fL (80.0-100.0); Macrocytosis Slight; Mean Platelet Volume 6.6; Monocytes # (A) 0.4 k/uL (0-1.0); Monocytes % (A) 6 %; Neutrophils # (A) 4.8 k/uL (1.3-7.7); Neutrophils % (A) 69 %; Platelet Count 305 k/uL (150-450); RBC 4.15 m/uL (3.80-5.40); RDW 12.6 % (11.5-15.5); WBC 6.9 k/uL (3.8-10.6)
[2019-02-25 09:39] LABS: INR 0.9 (<1.2); Partial Thromboplastin Time 27.9 sec (22.0-30.0); Prothrombin Time 9.8 sec (9.0-12.0)
[2019-02-25 09:40] LABS: African American GFR (CKD) >90 (>60 ml/min/1.73 sqM); Anion Gap 7 mmol/L; Blood Urea Nitrogen 9 mg/dL (7-17); Calcium 9.4 mg/dL (8.4-10.2); Carbon Dioxide 30 mmol/L (22-30); Chloride 103 mmol/L (98-107); Glucose 83 mg/dL (74-99); Potassium 4.5 mmol/L (3.5-5.1); Sodium 140 mmol/L (137-145)
[2019-02-25 10:36] LABS: Appearance,Urine Clear (Clear); Bilirubin,Urine Negative (Negative); Blood,Urine Negative (Negative); Color,Urine Yellow; Glucose,Urine (UA) Negative (Negative); Ketones,Urine Negative (Negative); Leukocyte Esterase,Urine Negative (Negative); Nitrite,Urine Negative (Negative); Protein,Urine Negative (Negative); Specific Gravity,Urine 1.007 (1.001-1.035); Urobilinogen,Urine <2.0 mg/dL (<2.0)
--- NOTE | 2019-02-25 14:03 | XR ---
EXAMINATION TYPE: XR chest 2V DATE OF EXAM: 02/25/2019 COMPARISON: 05/26/2018 HISTORY: Preoperative exam TECHNIQUE: Frontal and lateral views of the chest are obtained. FINDINGS: There is no focal air space opacity, pleural effusion, or pneumothorax seen. The cardiac silhouette size is within normal limits. The osseous structures are intact. IMPRESSION: No acute cardiopulmonary process.
== END ==
LOC: LABPAT 08:55
PROVIDERS: ATTEND Orthopaedic Surgery Orthopaedic Surgery of the Spine
DX: Z01.818 Encounter for other preprocedural examination (principal); M50.222 Other cervical disc displacement at C5-C6 level; Z01.812 Encounter for preprocedural laboratory examination
CPT/HCPCS: 36415; 71046; 80048; 81003; 85025; 85610; 85730; 86850; 86900; 86901

== ENCOUNTER 2019-03-06 13:06 | Observation (INO) | payer BC ==
[~2019-03-06 13:06] MED LIST: BACITRACIN 50,000 UNIT, POLYMYXIN B 500,000 UNIT in SODIUM CHLORIDE 0.9% IRRIGATIO 1,00... IRRIGATION ONE; KETAMINE 10 MG/ML 20 ML VIAL ONE; LIDOCAINE 1% INJ 10MG/ML (20 ML MDV) ONE; MIDAZOLAM 2 MG/2 ML VIAL ONE; PROPOFOL 10 MG/ML 20 ML VIAL IV ONE; SUCCINYLCHOLINE CHLORIDE 100 MG/5 ML SYR IV ONE; ceFAZolin IN SWFI 2 GM/20 ML SYRINGE IVP ONE; fentaNYL (PF) 50 MCG/ML 2 ML AMP ONE
[2019-03-06] MEDS ORDERED: ONDANSETRON 4 MG/2 ML VIAL IVP ONE (13:10)
[2019-03-06] MEDS ORDERED: LIDOCAINE 1% 20 ML VIAL (10MG/ML) FOR IV START INTRADERMA PRN (13:10)
[2019-03-06] MEDS ORDERED: DEXAMETHASONE SOD PHOSPHATE 10 MG/ML 1 ML VIAL IV ONE (13:10)
[2019-03-06] MEDS ORDERED: LACTATED RINGERS 1,000 ML IV SCH (13:10)
[2019-03-06] MEDS ORDERED: fentaNYL (PF) 50 MCG/ML 2 ML AMP IV ONE (13:30)
[2019-03-06] MEDS ORDERED: MIDAZOLAM (PF) 2 MG/2 ML VIAL IV ONE (14:39)
[2019-03-06] MEDS ORDERED: LIDOCAINE 1%-EPI 1:100,000 20 ML VIAL SQ ONE ×2 (15:35)
[2019-03-06] MEDS ORDERED: GELATIN SPONGE,ABSORBABLE 1 GM POWDER TOPICAL ONE (16:10)
[2019-03-06] MEDS ORDERED: HYDROmorphone 0.5 MG/0.5 ML SYRINGE IVP PRN (16:40)
[2019-03-06] MEDS ORDERED: ACETAMINOPHEN TAB 325 MG TAB PO PRN (16:40)
[2019-03-06] MEDS ORDERED: BENZOCAINE/MENTHOL LOZENG 1 EACH LOZENGE MUCOUS MEM PRN (16:40)
[2019-03-06] MEDS ORDERED: HYDROmorphone 1 MG/ML 1 ML SYRINGE IVP PRN (16:40)
[2019-03-06] MEDS ORDERED: Acetaminophen-Codeine 300-30mg TAB PO PRN ×2 (16:41)
[2019-03-06] MEDS ORDERED: CYCLOBENZAPRINE 10 MG TAB PO PRN (16:42)
--- NOTE | 2019-03-06 16:46 | P.OP ---
Date of Procedure: 03/06/19 Preoperative Diagnosis: Herniated nucleus pulposis C5 6, cervical stenosis C5 6, degenerative disc disease, upper extremity radiculopathy, right upper from a weakness Postoperative Diagnosis: Same Anesthesia: GETA Pathology: none sent Condition: stable Disposition: PACU Description of Procedure: BRIEF OPERATIVE NOTE Preoperative Diagnosis:Herniated nucleus pulposis C5 6, cervical stenosis C5 6, degenerative disc disease, upper extremity radiculopathy, right upper from a weakness Postoperative Diagnosis:Herniated nucleus pulposis C5 6, cervical stenosis C5 6, degenerative disc disease, upper extremity radiculopathy, right upper from a weakness Procedure: Anterior cervical decompression with discectomy and fusion C5 6 Placement of interbody graft C5 6 Application of anterior cervical plate C5 6 Surgeon: Dr. Barrera Dna Analyst: Terrence ADAMS who is present throughout the entire the case persistence during positioning, dissection, exposure, visualization, and all crucial elements of the case as well as closure. Anesthesia: General anesthesia per Dr. Cabello Estimated blood loss: Approximately 30 mL Complications: None apparent Components implanted: K2M [place] anterior cervical plate system with screws and Vikos interbody allograft bone graft OPERATIVE INDICATIONS The patient has had long-standing issues in their neck and upper extremities. She has been having significant worsening over the past several months. She was found have a disc herniation with stenosis at C5 6 with severe disc degeneration at C5 6 and motor changes. These changes correlate well with her neck and upper extremity symptoms where she was having some weakness and progressive worsening. The patient has been through conservative treatment. She is not having any benefit despite aggressive conservative care. We discussed various treatment options including surgery, and the patient wishes to proceed with surgery We discussed the risk, patient's alternatives and benefits of surgery including but not limited to, risk of bleeding risk of infection, risk of need for further surgery, risk of decreased, loss of motion, muscle function, malunion nonunion, hardware failure, nerve damage, paralysis, heart attack, and . OPERATIVE SUMMARY After discussing all the risks, patient alternatives and benefits at length, the patient elected to proceed with surgical intervention, signed informed consent, and presented for their procedure. The patient was seen and examined in the preoperative holding area and the surgical site was marked. The patient was given antibiotics and brought to the operating room. The patient was positioned on the operating room table in a supine position being careful to pad any bony prominences and pressure points. The patient was sedated and intubated by anesthesia in standard fashion. Once the airway and C- spine were stabilized the patient's arms were padded and tucked at her side, with her shoulders gently taped. The head was placed in a donut pad with the neck in good neutral alignment and position. We were careful to maintain the patient's cervical spine and good neutral alignment and position throughout. The patient was prepped and draped in a normal standard fashion. An appropriate timeout and keystone protocol performed. We were able to proceed with the surgery. The local wound area was infiltrated with local anesthetic. An incision was made transversely approximately 2-1/2 cm over the appropriate levels of C5 6. Dissection was taken down subcutaneously to the level of the platysma which was split in line with its fibers. Dissection was taken with a carotid approach, with the trachea and esophagus medial and the carotid sheath laterally. We dissected down to the anterior surface of the vertebral bodies of C5 6. Intraoperative x-ray was taken which showed a marker at the appropriate level of C 6 vertebral body. With the appropriate level positively confirmed, we were able to proceed with discectomy at the appropriate levels located the disc immediately cephalad to be C5 6. All of the operative levels were exposed appropriately. The patient had all their twitches back, and there was no evidence of recurrent laryngeal issue. The wound was copiously irrigated and suctioned dry as had been done periodically throughout the case. At the ap propriate level/of C5 6, I established an annulotomy with an 11 blade scalpel. A discectomy was performed with a combination of pituitary rongeurs, curettes, a high-speed bur, and Kerrison rongeurs. The posterior longitudinal ligament was taken down as were any posterior osteophytes. There was severe disc degeneration and complete disc height loss which was remedied with the decompression. I used a drill and bur as well as pituitaries and Kerrison rongeurs to remove any disc fragments and disc protrusion and herniation. This gave good central and bilateral foraminal decompression. There is no evidence of any dural tear or leak. The endplates were prepared with a high-speed bur. With the endplates in good parallel position, I was able to size for the appropriate size interbody graft. The wound was irrigated and suctioned dry the graft was prepared and malleted into position. It had good alignment and position with the anterior surface flush with the anterior surface of the reece tebral bodies. This was done similarly the appropriate levels at C5 6. With the grafts intact, I was able to measure and contour and appropriate sized plate. The plate was positioned at the midline over the appropriate levels. Screw holes were established with a hand drill and drill guide. Screws were placed in good alignment and position with excellent bony purchase. They were seated under the locking device. The construct was checked and found to be stable. Intraoperative x-ray was taken which showed good alignment and position of the implants at the appropriate levels. There was no evidence of any dural tear or leak. Good hemostasis was maintained. The wound was copiously irrigated and suctioned dry as had been done periodically throughout the case. The platysma was closed with absorbable suture. The subcutaneous tissue was closed. The subcuticular tissue was closed with absorbable suture. The wound was cleaned and dried and dressed appropriately. A soft cervical collar was placed appropriately. The patient was woken up by anesthesia, extubated, transferred back gently to their hospital bed and brought to the recovery room in good stable condition. The patient will be admitted to the hospital for appropriate postoperative care, medical management and monitoring. We will continue to follow them closely about the postoperative course.
--- NOTE | 2019-03-06 16:50 | XR ---
EXAMINATION TYPE: XR cervical spine 1V DATE OF EXAM: 03/06/2019 COMPARISON: None HISTORY: Needle placement intraoperative evaluation TECHNIQUE: A stable lateral cervical spine FINDINGS: There is a metallic needle directed towards the C6 vertebral level. Patient is intubated. T here is narrowing of the C5-6 disc space IMPRESSION: 1. Metallic device directed towards C6.
[2019-03-06] MEDS: HYDROmorphone 1 MG/ML 1 ML SYRINGE IVP ONE ×2 (17:20→17:46)
[2019-03-06] MEDS: SODIUM CHLORIDE 0.9% 1,000 ML IV SCH (20:27)
[2019-03-06] MEDS: ONDANSETRON 4 MG/2 ML VIAL IVP PRN (23:44)
[2019-03-06 23:47] LABS: Glucose,Whole Blood 92 mg/dL (75-99)
[2019-03-07 00:02] VITALS: BMI 20.2
[2019-03-07] MEDS: ceFAZolin IN SWFI 2 GM/20 ML SYRINGE IVP SCH ×2 (00:04→07:19)
--- NOTE | 2019-03-07 00:24 | XR ---
EXAMINATION TYPE: XR cervical spine 1V DATE OF EXAM: 03/06/2019 at 1623 hours COMPARISON: Earlier today at 1351 hours HISTORY: 48-year-old female hardware placement for cervical fusion TECHNIQUE: Single intraoperative crosstable lateral view FINDINGS: Patient is intubated. Interval placement of C5-C6 ACDF hardware. Alignment maintained. IMPRESSION: Interval placement of C5-C6 ACDF.
[2019-03-07 01:33] VITALS: RESP 14
[2019-03-07] MEDS: SODIUM CHLORIDE 0.9% 1,000 ML IV SCH (05:25)
[2019-03-07] MEDS: ONDANSETRON 4 MG/2 ML VIAL IVP PRN (07:14)
[2019-03-07] MEDS ORDERED: PANTOPRAZOLE 40 MG TABLET PO SCH (07:30)
[2019-03-07 07:47] VITALS: BP 127/82; PULSE 59; TEMP 98.6
--- NOTE | 2019-03-07 08:24 | P.DS ---
Providers Date of admission: 03/07/19 01:42 Expected date of discharge: 03/07/19 Attending physician: Andres Barrera Primary care physician: Curly Singh - Discharge Diagnosis(es) (1) Herniated nucleus pulposus, C5-6 Current Visit: Yes Status: Acute (2) Cervical stenosis of spinal canal Current Visit: Yes Status: Acute (3) Radiculopathy affecting upper extremity Current Visit: Yes Status: Acute (4) Upper extremity weakness Current Visit: Yes Status: Acute (5) Degenerative cervical disc Current Visit: Yes Status: Acute (6) Celiac disease Current Visit: Yes Status: Acute (7) Hyperlipidemia Current Visit: Yes Status: Acute Hospital Course: This is a pleasant 48 year old female who presented with C5-6 herniated nucleus pulposus, cervical stenosis, cervical degenerative disc disease, right upper extremity radiculopathy and right upper extremity weakness who failed outpatient conservative therapy. She admitted for an anterior cervical decompression and fusion. The patient tolerated the procedure well and did well postoperatively. She states her right shoulder has had significant improvement of pain postoperatively. She is also experiencing less pain in her lower extremities. She states this is that she is felt over the past 3 months. She is ready for discharge home. She was having some nausea last night postoperatively which has improved. She's been able to eat breakfast this morning. She is voiding without difficulty. Her pain has been adequately controlled. Condition on day of discharge stable. Patient will be discharged home. Patient was cleared preoperatively for surgery by Dr. Singh. Patient currently denies any nausea, vomiting, fever, or chills. Patient may shower Tegaderm dressing intact. Patient may remove Tegaderm dressing in 3 days and shower without a dressing at that time. Patient should keep Steri-Strips intact and allow them to fall off naturally. Patient should refrain from driving until at least after their first follow-up appointment in the office. Patient should avoid excessive neck flexion, extension, rotation, and lateral sidebending; no overhead lifting; no l ifting greater than 10 pounds. She has a medical history which includes celiac disease and hyperlipidemia. She may resume previously prescribed home medications. She should avoid anti-inflammatories over the next 6 weeks postoperatively. 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 strength, thumb strength, interosseous strength, biceps strength, triceps strength, and shoulder strength positive sustained bilaterally Soft cervical collar intact Incision is clean, dry, and intact; no erythema, purulence, or signs of infection Tegaderm dressing and non-stick Telfa intact Procedures: C5-6 anterior cervical decompression and fusion Patient Condition at Discharge: Stable Plan - Discharge Summary Discharge Rx Participant: Yes New Discharge Prescriptions: New Acetaminophen-Codeine 300-30mg [Tylenol w/codeine #3] 1 - 2 tab PO Q4-6H PRN #24 tablet PRN Reason: Pain No Action Cyclobenzaprine [Flexeril] 10 mg PO TID PRN PRN Reason: MUSCLE SPASM Ibuprofen [Motrin] 400 mg PO TID PRN PRN Reason: Pain Acetaminophen-Codeine 300-30mg [Tylenol w/codeine #3] 1 - 2 tab PO Q4-6H PRN PRN Reason: Pain Fluconazole [Diflucan] 150 mg PO Q30D Omeprazole [PriLOSEC] 20 mg PO DAILY Discharge Medication List Cyclobenzaprine [Flexeril] 10 mg PO TID PRN 05/26/18 [History] Ibuprofen [Motrin] 400 mg PO TID PRN 02/13/19 [History] Acetaminophen-Codeine 300-30mg [Tylenol w/codeine #3] 1 - 2 tab PO Q4-6H PRN 02/27/19 [History] Fluconazole [Diflucan] 150 mg PO Q30D 02/27/19 [History] Omeprazole [PriLOSEC] 20 mg PO DAILY 02/27/19 [History] Acetaminophen-Codeine 300-30mg [Tylenol w/codeine #3] 1 - 2 tab PO Q4-6H PRN #24 tablet 03/06/19 [Rx] Follow up Appointment(s)/Referral(s): Andres Barrera DO [Doctor of Osteopathic Medicine] - 2 Weeks Activity/Diet/Wound Care/Special Instructions: Keep site clean. May shower with waterproof Tegaderm intact. Do not soak in a tub. After 72 hours postoperatively, patient May remove dressing and then may shower with area uncovered. Leave Steri-Strips intact and allow them to fray off on their own. May ambulate as tolerated. Avoid heavy or rigorous activity. No repetitive bending twisting or lifting. No overhead work. May apply ice to the area 20 minutes at a time up to 3 times a day as necessary for pain
[2019-04-01] MEDS ORDERED: FLUCONAZOLE 150 MG TAB PO SCH (09:00)
== END 2019-03-07 10:25 | disposition home or self-care (01) ==
LOC: OR 13:06 → 4SSUR 18:22 → OR 03-07 03:42
PROVIDERS: ADMIT Orthopaedic Surgery Orthopaedic Surgery of the Spine; ATTEND Orthopaedic Surgery Orthopaedic Surgery of the Spine
DX: M50.122 Cervical disc disorder at C5-C6 level with radiculopathy (principal); E78.5 Hyperlipidemia, unspecified; K90.0 Celiac disease; F17.210 Nicotine dependence, cigarettes, uncomplicated; K21.9 Gastro-esophageal reflux disease without esophagitis; Z97.3 Presence of spectacles and contact lenses; Z88.0 Allergy status to penicillin; Z98.51 Tubal ligation status; Z90.49 Acquired absence of other specified parts of digestive tract; Z90.711 Acquired absence of uterus with remaining cervical stump; Z79.899 Other long term (current) drug therapy
CPT/HCPCS: 72020; 22551; 22845; 20931; G0378; C1713; C1762; J2250 ×2; J2405 ×2; J2001; J3010; J1170; J0330; J2704; J0690 ×2

== ENCOUNTER 2019-08-07 12:11 | Emergency (ER) | payer BC ==
[2019-08-07 12:24] VITALS: RESP 20; TEMP 98.4
[2019-08-07] MEDS ORDERED: KETOROLAC 30 MG/ML 1 ML VIAL IVP STA (14:02)
[2019-08-07] MEDS ORDERED: SODIUM CHLORIDE 0.9% 1,000 ML IV STA (14:02)
[2019-08-07 14:18] LABS: Appearance,Urine Clear (Clear); Bilirubin,Urine Negative (Negative); Blood,Urine Negative (Negative); Color,Urine Light Yellow; Glucose,Urine (UA) Negative (Negative); Ketones,Urine Negative (Negative); Leukocyte Esterase,Urine Negative (Negative); Nitrite,Urine Negative (Negative); PH, Urine 7.5 (5.0-8.0); Protein,Urine Negative (Negative); Specific Gravity,Urine 1.002 (1.001-1.035); Urobilinogen,Urine <2.0 mg/dL (<2.0)
[2019-08-07 14:26] LABS: Basophils % (A) 0 %; Eosinophils # (A) 0.1 k/uL (0-0.7); Eosinophils % (A) 1 %; HCT 44.1 % (34.0-46.0); HGB 15.6 gm/dL (11.4-16.0); Lymphocytes # (A) 1.2 k/uL (1.0-4.8); Lymphocytes % (A) 13 %; MCH 35.5 pg (25.0-35.0); MCHC 35.3 g/dL (31.0-37.0); MCV 100.5 fL (80.0-100.0); Mean Platelet Volume 8.7; Monocytes # (A) 0.7 k/uL (0-1.0); Monocytes % (A) 8 %; Neutrophils # (A) 7.3 k/uL (1.3-7.7); Neutrophils % (A) 77 %; Platelet Count 358 k/uL (150-450); RBC 4.39 m/uL (3.80-5.40); RDW 12.2 % (11.5-15.5); WBC 9.5 k/uL (3.8-10.6)
--- NOTE | 2019-08-07 14:27 | XR ---
EXAMINATION TYPE: XR KUB DATE OF EXAM: 08/07/2019 COMPARISON: NONE HISTORY: Pain TECHNIQUE: One view abdominal series FINDINGS: The osseous structures are intact. The bowel gas pattern is nonspecific. Lung bases are clear. Surg ical clips right upper quadrant. Calcifications in the pelvis are nonspecific. IMPRESSION: 1. Nonspecific abdomen. Correlate with CT scan as clinically warranted.
[2019-08-07 14:28] LABS: ALT 23 U/L (9-52); AST 27 U/L (14-36); African American GFR (CKD) >90 (>60 ml/min/1.73 sqM); Albumin 4.9 g/dL (3.5-5.0); Alkaline Phosphatase 84 U/L (38-126); Amylase 54 U/L (30-110); Anion Gap 8 mmol/L; Blood Urea Nitrogen 7 mg/dL (7-17); Calcium 9.8 mg/dL (8.4-10.2); Carbon Dioxide 28 mmol/L (22-30); Chloride 104 mmol/L (98-107); Glucose 75 mg/dL (74-99); Non-African American GFR(CKD) >90 (>60 ml/min/1.73 sqM); Potassium 4.6 mmol/L (3.5-5.1); Sodium 140 mmol/L (137-145); Total Bilirubin 0.6 mg/dL (0.2-1.3)
--- NOTE | 2019-08-07 16:08 | ED ---
General Adult HPI <Petey Posey - Last Filed: 08/07/19 16:47> - General Source: patient, RN notes reviewed Mode of arrival: ambulatory Limitations: no limitations <Hany King - Last Filed: 08/07/19 17:06> - General Chief complaint: Abdominal Pain Stated complaint: right side abd pain Time Seen by Provider: 08/07/19 12:56 - History of Present Illness Initial comments: 49-year-old female with a past medical history of celiac disease, fibromyalgia, GERD presents to the emergency determine for a chief complaint of right lower quadrant abdominal pain. Patient states that she has felt "twinges" of pain since March. However the past 2 weeks pain is increased. Sates that comes and goes. States she was seen at [facility] and had a computed tomography scan a few days ago. States that she was told it was normal. Patient is concerned because the last time she had appendicitis only an ultrasound localized and CT did not. Patient states he refused to give her an ultrasound at [facility].Patient has no other complaints at this time including shortness of breath, chest pain, vomiting, headache, or visual changes. (Hany King) - Related Data Home Medications Medication Instructions Recorded Confirmed Cyclobenzaprine [Flexeril] 10 mg PO TID PRN 05/26/18 03/07/19 Ibuprofen [Motrin] 400 mg PO TID PRN 02/13/19 03/07/19 Acetaminophen-Codeine 300-30mg 1 - 2 tab PO Q4-6H PRN 02/27/19 03/07/19 [Tylenol w/codeine #3] Fluconazole [Diflucan] 150 mg PO Q30D 02/27/19 03/07/19 Omeprazole [PriLOSEC] 20 mg PO DAILY 02/27/19 03/07/19 Previous Rx's Medication Instructions Recorded Acetaminophen-Codeine 300-30mg 1 - 2 tab PO Q4-6H PRN #24 tablet 03/06/19 [Tylenol w/codeine #3] Allergies Allergy/AdvReac Type Severity Reaction Status Date / Time Penicillins Allergy STRONG Verified 03/07/19 07:50 SIBLING REACTION OF ANAPHYLAXIS tree nut Allergy SKIN Verified 03/07/19 07:50 REACTION wheat Allergy CELIAC Verified 03/07/19 07:50 Review of Systems ROS Other: All systems not noted in ROS Statement are negative. <Petey Posey - Last Filed: 08/07/19 16:47> ROS Other: All systems not noted in ROS Statement are negative. <Hany King - Last Filed: 08/07/19 17:06> ROS Statement: Those systems with pertinent positive or pertinent negative responses have been documented in the HPI. Past Medical History Past Medical History: Fibromyalgia, GERD/Reflux Additional Past Medical History / Comment(s): celiac disease, "told she has raynaulds",small hiatal hernia. "pre cancerous colon polyps removed" History of Any Multi-Drug Resistant Organisms: None Reported Past Surgical History: Adenoidectomy, Cholecystectomy, Hysterectomy, Tonsillectomy Additional Past Surgical History / Comment(s): sx d/t tubal , pt stated" had repair of perforated side of appendix but was told they left the tip of appendix in", egd/colonoscopy, exploratoy laparoscopy,partial hysterectomy, neck fusion Past Anesthesia/Blood Transfusion Reactions: Previous Problems w/ Anesthesia Additional Past Anesthesia/Blood Transfusion Reaction / Comment(s): "diff coming out of anesthesia", claustrophobia Past Psychological History: No Psychological Hx Reported Smoking Status: Current every day smoker Past Alcohol Use History: Daily Past Drug Use History: None Reported - Past Family History Sister(s) Family Medical History: Cancer Mother Additional Family Medical History / Comment(s): lupus, mi age 52 Father Family Medical History: AFIB <Hany King P - Last Filed: 08/07/19 17:06> General Exam Limitations: no limitations General appearance: alert, in no apparent distress Head exam: Present: atraumatic, normocephalic, normal inspection Eye exam: Present: normal appearance, PERRL, EOMI. Absent: scleral icterus, conjunctival injection, periorbital swelling ENT exam: Present: normal exam, mucous membranes moist Neck exam: Present: normal inspection, full ROM. Absent: tenderness, meningismus, lymphadenopathy Respiratory exam: Present: normal lung sounds bilaterally. Absent: respiratory distress, wheezes, rales, rhonchi, stridor Cardiovascular Exam: Present: regular rate, normal rhythm, normal heart sounds. Absent: systolic murmur, diastolic murmur, rubs, gallop, clicks GI/Abdominal exam: Present: soft, tenderness (Mild tenderness noted right lower quadrant without guarding or rebound. No left lower quadrant tenderness. No upper abdominal tenderness.), normal bowel sounds. Absent: distended, guarding, rebound, rigid External exam: Present: normal external exam. Absent: erythema, swelling, lesions, lacerations, ecchymosis Speculum exam: Present: normal speculum exam. Absent: erythema, vaginal discharge, cervical discharge, vaginal bleeding, foreign body, tissue, laceration By manual exam: Present: normal by manual exam. Absent: cervical motion tenderness, adnexal tenderness, adnexal mass, uterine enlargement, uterine tend erness Neurological exam: Present: alert <Hany King - Last Filed: 08/07/19 17:06> Course <Petey Posey - Last Filed: 08/07/19 16:47> Vital Signs 08/07/19 12:20 Temperature 98.4 F Pulse Rate 86 Respiratory 20 Rate Blood Pressure 157/96 O2 Sat by Pulse 100 Oximetry - Reevaluation(s) Reevaluation #1: 08/07/19 16:47 Patient reevaluated by myself, Dr. Posey. Patient resting comfortably in bed. Patient appears mildly uncomfortable. Abdomen is soft with mild right lower tenderness. Patient states she has been having symptoms intermittently for months, somewhat worse over the past couple of weeks. Ultrasound report revi ewed. Case was discussed in detail Dr. Anguiano including patient presentation, examination and ultrasound report. She states patient can be discharged for follow-up tomorrow. She states ultrasound finding is nonspecific secondary to patient having nonsurgical abdomen and no mass. (Petey Posey) Medical Decision Making - Lab Data Result diagrams: 08/07/19 12:55 08/07/19 12:55 <Petey Posey - Last Filed: 08/07/19 16:47> - Lab Data Result diagrams: 08/07/19 12:55 08/07/19 12:55 <Hany King - Last Filed: 08/07/19 17:06> - Medical Decision Making XR KUB was obtained which is a nonspecific abdomen. Pelvic ultrasound was ordered which shows blood flow within the right ovary that is unable to be visualized. Clinical consideration for torsion is recommended. I did do a pelv ic examination does not have any significant ovarian tenderness. Dr. Posey spoke with Dr. Anguiano about this and at this time she does not believe abdomen is surgical as it is soft, nontender. She recommends following up in the office tomorrow. Patient will be discharged home. She'll return if she has any worsening symptoms. Despite multiple times as unable to obtain CT reports from [facility]. Patient reports that the CT was normal. (Hany King) - Lab Data Lab Results 08/07/19 08/07/19 08/07/19 Range/Units 12:55 12:55 12:55 WBC 9.5 (3.8-10.6) k/uL RBC 4.39 (3.80-5.40) m/uL Hgb 15.6 (11.4-16.0) gm/dL Hct 44.1 (34.0-46.0) % MCV 100.5 H (80.0-100.0) fL MCH 35.5 H (25.0-35.0) pg MCHC 35.3 (31.0-37.0) g/dL RDW 12.2 (11.5-15.5) % Plt Count 358 (150-450) k/uL Neutrophils % 77 % Lymphocytes % 13 % Monocytes % 8 % Eosinophils % 1 % Basophils % 0 % Neutrophils # 7.3 (1.3-7.7) k/uL Lymphocytes # 1.2 (1.0-4.8) k/uL Monocytes # 0.7 (0-1.0) k/uL Eosinophils # 0.1 (0-0.7) k/uL Basophils # 0.0 (0-0.2) k/uL Sodium 140 (137-145) mmol/L Potassium 4.6 (3.5-5.1) mmol/L Chloride 104 (98-107) mmol/L Carbon Dioxide 28 (22-30) mmol/L Anion Gap 8 mmol/L BUN 7 (7-17) mg/dL Creatinine 0.61 (0.52-1.04) mg/dL Est GFR (CKD-EPI)AfAm >90 (>60 ml/min/1.73 sqM) Est GFR (CKD-EPI)NonAf >90 (>60 ml/min/1.73 sqM) Glucose 75 (74-99) mg/dL Calcium 9.8 (8.4-10.2) mg/dL Total Bilirubin 0.6 (0.2-1.3) mg/dL AST 27 (14-36) U/L ALT 23 (9-52) U/L Alkaline Phosphatase 84 (38-126) U/L Total Protein 8.0 (6.3-8.2) g/dL Albumin 4.9 (3.5-5.0) g/dL Amylase 54 (30-110) U/L Lipase 45 (23-300) U/L Urine Color Light Yellow Urine Appearance Clear (Clear) Urine pH 7.5 (5.0-8.0) Ur Specific [place] 1.002 (1.001-1.035) Urine Protein Negative (Negative) Urine Glucose (UA) Negative (Negative) Urine Ketones Negative (Negative) Urine Blood Negative (Negative) Urine Nitrite Negative (Negative) Urine Bilirubin Negative (Negative) Urine Urobilinogen <2.0 (<2.0) mg/dL Ur Leukocyte Esterase Negative (Negative) Disposition <Petey Posey - Last Filed: 08/07/19 16:47> Is patient prescribed a controlled substance at d/c from ED?: No Time of Disposition: 17:00 <Hany King - Last Filed: 08/07/19 17:06> Clinical Impression: Abdominal pain Disposition: HOME SELF-CARE Condition: Good Instructions (If sedation given, give patient instructions): Abdominal Pain (ED) Additional Instructions: Please follow up with Dr Anguiano or Dr Basurto tomorrow. If you have worse ferny symptoms in the meantime return to the emergency department. Referrals: Curly Singh DO [Primary Care Provider] - 1-2 days Kamini Anguiano MD [STAFF PHYSICIAN] - 1-2 days Jordin Palmer MD [STAFF PHYSICIAN] - 1-2 days
--- NOTE | 2019-08-07 16:10 | US ---
EXAMINATION TYPE: US abdomen limited DATE OF EXAM: 08/07/2019 COMPARISON: CT 2015, US 2012 CLINICAL HISTORY: RLQ. Right sided abdomen pain and N/V x 2 weeks, history of cholecystectomy EXAM MEASUREMENTS: Liver Length: 15.0 cm CBD: 0.4 cm Right Kidney: 11.2 x 4.1 x 4.1 cm Pancreas: visualized portions wnl, tail limited by overlying midline bowel gas Liver: 2.9 x 2.9 x 2.9cm cyst adjacent to IVC, 1.0 x 0.7 x 0.7cm cyst posterior right lobe Gallbladder: surgically absent Evidence for sonographic Larkin's sign: yes CBD: wnl Right Kidney: wnl IMPRESSION: 1. Hepatic cysts. 2. No suspicious fluid collection post cholecystectomy
--- NOTE | 2019-08-07 16:16 | US ---
EXAMINATION TYPE: US transvaginal DATE OF EXAM: 08/07/2019 COMPARISON: CT 2015, US 2014 CLINICAL HISTORY: pain RLQ. Right sided abdomen pain and N/V x 2 weeks, 3, para 2, ectopic 1, history of partial hysterectomy 2016 TECHNIQUE: Transvaginal ER exam. Date of LMP: 2016 EXAM MEASUREMENTS: Right Ovary: 3.4 x 1.8 x 3.3 cm Left Ovary: 3.4 x 2.3 x 2.4 cm 1. Uterus: surgically absent 2. Endometrium: surgically absent 3. Right Ovary: small 1.1cm cystic area 4. Left Ovary: 1.3 x 1.2 x 1.4cm complex cyst like area with peripheral vascularity Spectral, color and waveform doppler imaging shows good arterial and venous flow within the left ov vitaly and good arterial flow within the right ovary, unable to obtain venous flow within the right ovar y. 5. Bilateral Adnexa: wnl 6. Posterior cul-de-sac: wnl IMPRESSION: 1. Blood flow within the right ovary is unable to be visualized. Clinical consideration for torsion i s recommended. Report was called to ER BRYAN Correia by Dr. Beaver by telephone at the time of in terpretation 1614 hours 08/07/2019
[2019-08-07] MEDS ORDERED: HYDROcodone/APAP 5-325MG 1 EACH TAB PO STA (16:59)
[2019-08-07 17:07] VITALS: BP 144/84; PULSE 65
== END 2019-08-07 17:08 | disposition home or self-care (01) ==
LOC: EC 12:11
DX: R10.31 Right lower quadrant pain (principal); K21.9 Gastro-esophageal reflux disease without esophagitis; K90.0 Celiac disease; M79.7 Fibromyalgia; F17.200 Nicotine dependence, unspecified, uncomplicated; Z79.899 Other long term (current) drug therapy; Z88.0 Allergy status to penicillin; Z91.018 Allergy to other foods; Z90.49 Acquired absence of other specified parts of digestive tract; Z87.19 Personal history of other diseases of the digestive system
CPT/HCPCS: 36415; 80053; 82150; 83690; 85025; 81003; 74018; 93975; 76705; 76830; 96374; 99284; J1885

== ENCOUNTER 2019-08-08 11:43 | Inpatient (IN) | payer BC ==
[2019-08-08] MEDS ORDERED: ONDANSETRON 4 MG/2 ML VIAL IVP STA (12:46)
[2019-08-08] MEDS ORDERED: SODIUM CHLORIDE 0.9% 1,000 ML IV STA (12:46)
[2019-08-08] MEDS ORDERED: IOPAMIDOL CONTRAST (ORAL USE) VIAL PO PRN ×3 (12:48→18:00)
[2019-08-08] MEDS: HYDROmorphone 1 MG/ML 1 ML SYRINGE IVP STA ×2 (13:15→15:18)
--- NOTE | 2019-08-08 13:15 | ED ---
General Adult HPI - General Chief complaint: Abdominal Pain Stated complaint: abdominal pain Time Seen by Provider: 08/08/19 12:30 Source: patient, RN notes reviewed, old records reviewed Mode of arrival: ambulatory Limitations: no limitations - History of Present Illness Initial comments: This is a 49-year-old female presents emergency Department with a past medical history significant for appendectomy a few years ago. Patient states she's been having right lower quadrant abdominal pain 1 month but a week ago Consider be worse. Patient has been seen in emergency department and followed up with the OB. The OB stated that the patient has no pelvic pain in the pelvic exam was completely normal the ultrasound was also normal according to him patient did have a CAT scan and another emergency department about a week ago and that was negative. OB was requesting we see the patient emergency department and repeat a CAT scan and then consult surgery. - Related Data Home Medications Medication Instructions Recorded Confirmed Cyclobenzaprine [Flexeril] 10 mg PO TID PRN 05/26/18 03/07/19 Ibuprofen [Motrin] 400 mg PO TID PRN 02/13/19 03/07/19 Acetaminophen-Codeine 300-30mg 1 - 2 tab PO Q4-6H PRN 02/27/19 03/07/19 [Tylenol w/codeine #3] Fluconazole [Diflucan] 150 mg PO Q30D 02/27/19 03/07/19 Omeprazole [PriLOSEC] 20 mg PO DAILY 02/27/19 03/07/19 Previous Rx's Medication Instructions Recorded Acetaminophen-Codeine 300-30mg 1 - 2 tab PO Q4-6H PRN #24 tablet 03/06/19 [Tylenol w/codeine #3] Allergies Allergy/AdvReac Type Severity Reaction Status Date / Time Penicillins Allergy STRONG Verified 08/08/19 12:33 SIBLING REACTION OF ANAPHYLAXIS tree nut Allergy SKIN Verified 08/08/19 12:33 REACTION wheat Allergy CELIAC Verified 08/08/19 12:33 Review of Systems ROS Statement: Those systems with pertinent positive or pertinent negative responses have been documented in the HPI. ROS Other: All systems not noted in ROS Statement are negative. Past Medical History Past Medical History: Fibromyalgia, GERD/Reflux Additional Past Medical History / Comment(s): celiac disease, "told she has raynaulds",small hiatal hernia. "pre cancerous colon polyps removed" History of Any Multi-Drug Resistant Organisms: None Reported Past Surgical History: Adenoidectomy, Cholecystectomy, Hysterectomy, Tonsillectomy Additional Past Surgical History / Comment(s): sx d/t tubal , pt stated" had repair of perforated side of appendix but was told they left the tip of appendix in", egd/colonoscopy, exploratoy laparoscopy,partial hysterectomy, neck fusion Past Anesthesia/Blood Transfusion Reactions: Previous Problems w/ Anesthesia Additional Past Anesthesia/Blood Transfusion Reaction / Comment(s): "diff coming out of anesthesia", claustrophobia Past Psychological History: No Psychological Hx Reported Smoking Status: Current every day smoker Past Alcohol Use History: Daily Past Drug Use History: None Reported - Past Family History Sister(s) Family Medical History: Cancer Mother Additional Family Medical History / Comment(s): lupus, mi age 52 Father Family Medical History: AFIB General Exam - General Exam Comments Initial Comments: GENERAL: Patient is well-developed and well-nourished. Patient is nontoxic and well- hydrated and is in mild distress. ENT: Neck is soft and supple. No significant lymphadenopathy is noted. Oropharynx is clear. Moist mucous membranes. Neck has full range of motion without eliciting any pain. EYES: The sclera were anicteric and conjunctiva were pink and moist. Extraocular movements were intact and pupils were equal round and reactive to light. Eyelids were unremarkable. PULMONARY: Unlabored respirations. Good breath sounds bilaterally. No audible rales rhonchi or wheezing was noted. CARDIOVASCULAR: There is a regular rate and rhythm without any murmurs gallops or rubs. ABDOMEN: Patient has pain in the right lower quadrant. SKIN: Skin is clear with no lesions or rashes and otherwise unremarkable. NEUROLOGIC: Patient is alert and oriented x3. Cranial nerves II through XII are grossly intact. Motor and sensory are also intact. Normal speech, volume and content. Symmetrical smile. MUSCULOSKELETAL: Normal extremities with adequate strength and full range of motion. No lower extremity swelling or edema. No calf tenderness. LYMPHATICS: No significant lymphadenopathy is noted PSYCHIATRIC: Normal psychiatric evaluation. Limitations: no limitations Course Vital Signs 08/08/19 12:30 Temperature 98.4 F Pulse Rate 76 Respiratory 18 Rate Blood Pressure 132/86 O2 Sat by Pulse 98 Oximetry Medical Decision Making - Medical Decision Making Computed tomography scan of the abdomen and pelvis with IV contrast and a small dose of oral contrast showed fluid-filled loops of large and small bowel could be an ileus versus an early small bowel structures. I spoke with Dr. Hoffman and she wanted a CAT scan repeated with just oral contrast. That the the admission I admitted the patient. - Lab Data Result diagrams: 08/08/19 12:59 08/08/19 12:59 Lab Results 08/08/19 08/08/19 08/08/19 Range/Units 12:59 12:59 13:15 WBC 6.9 (3.8-10.6) k/uL RBC 4.43 (3.80-5.40) m/uL Hgb 14.8 (11.4-16.0) gm/dL Hct 44.3 (34.0-46.0) % MCV 100.0 (80.0-100.0) fL MCH 33.5 (25.0-35.0) pg MCHC 33.5 (31.0-37.0) g/dL RDW 12.0 (11.5-15.5) % Plt Count 298 (150-450) k/uL Neutrophils % 69 % Lymphocytes % 21 % Monocytes % 7 % Eosinophils % 1 % Basophils % 1 % Neutrophils # 4.8 (1.3-7.7) k/uL Lymphocytes # 1.4 (1.0-4.8) k/uL Monocytes # 0.5 (0-1.0) k/uL Eosinophils # 0.1 (0-0.7) k/uL Basophils # 0.1 (0-0.2) k/uL Sodium 139 (137-145) mmol/L Potassium 4.4 (3.5-5.1) mmol/L Chloride 106 (98-107) mmol/L Carbon Dioxide 25 (22-30) mmol/L Anion Gap 8 mmol/L BUN 7 (7-17) mg/dL Creatinine 0.61 (0.52-1.04) mg/dL Est GFR (CKD-EPI)AfAm >90 (>60 ml/min/1.73 sqM) Est GFR (CKD-EPI)NonAf >90 (>60 ml/min/1.73 sqM) Glucose 78 (74-99) mg/dL Calcium 9.8 (8.4-10.2) mg/dL Total Bilirubin 0.7 (0.2-1.3) mg/dL AST 25 (14-36) U/L ALT 23 (9-52) U/L Alkaline Phosphatase 88 (38-126) U/L Total Protein 7.4 (6.3-8.2) g/dL Albumin 4.5 (3.5-5.0) g/dL Amylase 41 (30-110) U/L Lipase 35 (23-300) U/L Urine Color Light Yellow Urine Appearance Clear (Clear) Urine pH 6.5 (5.0-8.0) Ur Specific [place] 1.005 (1.001-1.035) Urine Protein Negative (Negative) Urine Glucose (UA) Negative (Negative) Urine Ketones Trace H (Negative) Urine Blood Trace H (Negative) Urine Nitrite Negative (Negative) Urine Bilirubin Negative (Negative) Urine Urobilinogen <2.0 (<2.0) mg/dL Ur Leukocyte Esterase Negative (Negative) Urine RBC 1 (0-5) /hpf Urine WBC <1 (0-5) /hpf Urine Bacteria Rare H (None) /hpf Disposition Clinical Impression: Small bowel obstruction Disposition: ADMITTED IP TO THIS HOSP Referrals: Curly Singh DO [Primary Care Provider] - 1-2 days Time of Disposition: 14:35
[2019-08-08 13:17] LABS: Basophils # (A) 0.1 k/uL (0-0.2); Basophils % (A) 1 %; Eosinophils # (A) 0.1 k/uL (0-0.7); Eosinophils % (A) 1 %; HCT 44.3 % (34.0-46.0); HGB 14.8 gm/dL (11.4-16.0); Lymphocytes # (A) 1.4 k/uL (1.0-4.8); Lymphocytes % (A) 21 %; MCH 33.5 pg (25.0-35.0); MCHC 33.5 g/dL (31.0-37.0); Mean Platelet Volume 7.5; Monocytes # (A) 0.5 k/uL (0-1.0); Monocytes % (A) 7 %; Neutrophils # (A) 4.8 k/uL (1.3-7.7); Neutrophils % (A) 69 %; Platelet Count 298 k/uL (150-450); RBC 4.43 m/uL (3.80-5.40); WBC 6.9 k/uL (3.8-10.6)
[2019-08-08 13:33] LABS: ALT 23 U/L (9-52); AST 25 U/L (14-36); African American GFR (CKD) >90 (>60 ml/min/1.73 sqM); Albumin 4.5 g/dL (3.5-5.0); Alkaline Phosphatase 88 U/L (38-126); Amylase 41 U/L (30-110); Anion Gap 8 mmol/L; Blood Urea Nitrogen 7 mg/dL (7-17); Calcium 9.8 mg/dL (8.4-10.2); Carbon Dioxide 25 mmol/L (22-30); Chloride 106 mmol/L (98-107); Glucose 78 mg/dL (74-99); Non-African American GFR(CKD) >90 (>60 ml/min/1.73 sqM); Potassium 4.4 mmol/L (3.5-5.1); Sodium 139 mmol/L (137-145); Total Bilirubin 0.7 mg/dL (0.2-1.3); Total Protein 7.4 g/dL (6.3-8.2)
[2019-08-08 13:41] LABS: Appearance,Urine Clear (Clear); Bacteria,Urine Rare /hpf; Bilirubin,Urine Negative (Negative); Blood,Urine Trace (Negative); Color,Urine Light Yellow; Glucose,Urine (UA) Negative (Negative); Ketones,Urine Trace (Negative); Leukocyte Esterase,Urine Negative (Negative); Nitrite,Urine Negative (Negative); PH, Urine 6.5 (5.0-8.0); Protein,Urine Negative (Negative); RBC,Urine 1 /hpf (0-5); Specific Gravity,Urine 1.005 (1.001-1.035); Urobilinogen,Urine <2.0 mg/dL (<2.0)
--- NOTE | 2019-08-08 14:16 | CT ---
EXAMINATION TYPE: CT abdomen pelvis w con DATE OF EXAM: 08/08/2019 HISTORY: Severe RLQ pain CT DLP: 775.2mGycm Automated Exposure Control for Dose Reduction was Utilized. CONTRAST: CT scan of the abdomen and pelvis is performed with IV Contrast, patient injected with 100 mL of Isov ue 300. COMPARISON: 06/25/2016 FINDINGS: LUNG BASES: The medial right basilar groundglass opacities likely represent atelectasis. LIVER/GB: Hepatic cyst is present adjacent to the inferior vena cava. Other smaller scattered hypoatt enuated lesions in the liver are too small to characterize but also likely represent cysts. Minimal i ntrahepatic biliary ductal dilatation likely on the basis of this patient's postcholecystectomy statu s.. PANCREAS: No significant abnormality is seen. SPLEEN: No significant abnormality is seen. ADRENALS: No significant abnormality is seen. KIDNEYS: Kidneys enhance and excrete symmetrically without hydronephrosis. BOWEL: Diffuse thickening of the gastric rugal folds particularly in the gastric fundus and body. Air -fluid levels are seen within the nondilated colon and small bowel is fluid-filled. Surgical sutures are seen around the cecum and appendix is presumed to be absent. Cecum is low-lying in the pelvis. r-fluid levels are seen within the nondilated small bowel. Multiple hyperdensities within the pelvis appear to be present on the prior of 06/25/2016 and could represent calcified lymph nodes or postsurg ical change. Multiple loops of matted bowel are seen in the low pelvis with some nondilated loops of bowel. LYMPH NODES: No greater than 1cm abdominal or pelvic lymph nodes are appreciated. OSSEOUS STRUCTURES: Mild retrolisthesis of L5 on S1 and posterior projecting osteophytes. Overall mil d multilevel degenerative disc disease of the lumbar spine. IMPRESSION: 1. Fluid-filled loops of large and small bowel may relate to ileus or early bowel obstruction as ther e is diffuse prominence without soco dilation of large or small bowel. Matted loops of bowel are see n in the central pelvis near postsurgical change and could be related to an area of adhesions. 2. Thickened gastric rugal folds, most commonly related to gastritis.
[2019-08-08] MEDS ORDERED: SODIUM CHLORIDE 0.9% 1,000 ML IV ONE (14:36)
[2019-08-08 15:21] VITALS: RESP 16
[2019-08-08] MEDS ORDERED: HYDROmorphone 0.5 MG/0.5 ML SYRINGE IVP PRN (16:03)
[2019-08-08] MEDS ORDERED: NALOXONE 0.4 MG/ML 1 ML VIAL IV PRN (16:03)
[2019-08-08] MEDS ORDERED: ONDANSETRON 4 MG/2 ML VIAL IVP PRN (16:03)
--- NOTE | 2019-08-08 16:03 | P.GSHP ---
History of Present Illness H&P Date: 08/08/19 Chief Complaint: Abdominal pain The patient is a 49-year-old female who has complaints of right lower quadrant abdominal pain. The pain is been present several months as twinges of pain. Nothing in particular would bring it on. The past 2 weeks the pain is gotten progressively worse. Over the last week she's developed nausea and lack of appetite. She feels "warm" but denies a fever. No chills. No cough or sore throat. No diarrhea or constipation. No blood in the stool or dark tarry stool. No one else is been ill. She was seen in the emergency department in [facility] and lab and CT were done which were unremarkable. Yesterday the pain got worse so she came to the emergency department in [place] and lab and CT were done along with a pelvic ultrasound. 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 That was ruled out. Dr. Palmer called my office this morning and I recommendation was a computed tomography scan repeated with oral and IV contrast. She came to the emergency room and I was called. The patient's concerned that this is appendicitis. She had an episode 7 years ago with what sounds like appendicitis with abscess. She had this treated laparoscopically along with several drains. She received IV antibiotics . Dr. Palmer reports that at the time of her hysterectomy and there was an elongated appendiceal stump. The patient had a colonoscopy in 2016 with removal of 2 polyps. No family history of inflammatory bowel disease. There is a family history of colon cancer - Review of Systems All systems: negative Past Medical History Past Medical History: Fibromyalgia, GERD/Reflux Additional Past Medical History / Comment(s): celiac disease, "told she has raynaulds",small hiatal hernia. "pre cancerous colon polyps removed" History of Any Multi-Drug Resistant Organisms: None Reported Past Surgical History: Adenoidectomy, Cholecystectomy, Hysterectomy, Tonsillectomy Additional Past Surgical History / Comment(s): sx d/t tubal , pt stated" had repair of perforated side of appendix but was told they left the tip of appendix in", egd/colonoscopy, exploratoy laparoscopy,partial hysterectomy, neck fusion Past Anesthesia/Blood Transfusion Reactions: Previous Problems w/ Anesthesia Additional Past Anesthesia/Blood Transfusion Reaction / Comment(s): "diff coming out of anesthesia", claustrophobia Past Psychological History: No Psychological Hx Reported Smoking Status: Current every day smoker Past Alcohol Use History: Daily Past Drug Use History: None Reported - Past Family History Sister(s) Family Medical History: Cancer Mother Additional Family Medical History / Comment(s): lupus, mi age 52 Father Family Medical History: AFIB Medications and Allergies Home Medications Medication Instructions Recorded Confirmed Type Ibuprofen [Motrin] 400 mg PO TID PRN 02/13/19 08/08/19 History Fluconazole [Diflucan] 150 mg PO Q30D 02/27/19 08/08/19 History Omeprazole [PriLOSEC] 20 mg PO DAILY 02/27/19 08/08/19 History Allergies Allergy/AdvReac Type Severity Reaction Status Date / Time Penicillins Allergy STRONG Verified 08/08/19 14:57 SIBLING REACTION OF ANAPHYLAXIS tree nut Allergy SKIN Verified 08/08/19 14:57 REACTION wheat Allergy CELIAC Verified 08/08/19 14:57 Surgical - Exam Osteopathic Statement: *. No significant issues noted on an osteopathic structural exam other than those noted in the History and Physical/Consult. Vital Signs Temp Pulse Resp BP Pulse Ox 98.4 F 76 18 132/86 98 08/08/19 12:30 08/08/19 12:30 08/08/19 12:30 08/08/19 12:30 08/08/19 12:30 - General Anxious - Eyes normal ocular movement - Neck trachea midline, no lymphadectomy - Respiratory normal expansion, normal respiratory effort, clear to auscultation - Cardiovascular Rhythm: regular Abnormal Heart Sounds: no systolic murmur - Abdomen Abdomen: soft, tender (Right lower quadrant without guarding or rebound), bowel sounds, distended (Mildly distended and tympanitic) Results - Labs 08/08/19 12:59 08/08/19 12:59 Abnormal Lab Results - Last 24 Hours (Table) 08/08/19 Range/Units 13:15 Urine Ketones Trace H (Negative) Urine Blood Trace H (Negative) Urine Bacteria Rare H (None) /hpf Diabetes panel 08/08/19 Range/Units 12:59 Sodium 139 (137-145) mmol/L Potassium 4.4 (3.5-5.1) mmol/L Chloride 106 (98-107) mmol/L Carbon Dioxide 25 (22-30) mmol/L BUN 7 (7-17) mg/dL Creatinine 0.61 (0.52-1.04) mg/dL Glucose 78 (74-99) mg/dL Calcium 9.8 (8.4-10.2) mg/dL AST 25 (14-36) U/L ALT 23 (9-52) U/L Alkaline Phosphatase 88 (38-126) U/L Total Protein 7.4 (6.3-8.2) g/dL Albumin 4.5 (3.5-5.0) g/dL Calcium panel 08/08/19 Range/Units 12:59 Calcium 9.8 (8.4-10.2) mg/dL Albumin 4.5 (3.5-5.0) g/dL Pituitary panel 08/08/19 Range/Units 12:59 Sodium 139 (137-145) mmol/L Potassium 4.4 (3.5-5.1) mmol/L Chloride 106 (98-107) mmol/L Carbon Dioxide 25 (22-30) mmol/L BUN 7 (7-17) mg/dL Creatinine 0.61 (0.52-1.04) mg/dL Glucose 78 (74-99) mg/dL Calcium 9.8 (8.4-10.2) mg/dL Adrenal panel 08/08/19 Range/Units 12:59 Sodium 139 (137-145) mmol/L Potassium 4.4 (3.5-5.1) mmol/L Chloride 106 (98-107) mmol/L Carbon Dioxide 25 (22-30) mmol/L BUN 7 (7-17) mg/dL Creatinine 0.61 (0.52-1.04) mg/dL Glucose 78 (74-99) mg/dL Calcium 9.8 (8.4-10.2) mg/dL Total Bilirubin 0.7 (0.2-1.3) mg/dL AST 25 (14-36) U/L ALT 23 (9-52) U/L Alkaline Phosphatase 88 (38-126) U/L Total Protein 7.4 (6.3-8.2) g/dL Albumin 4.5 (3.5-5.0) g/dL - Imaging CT scan - abdomen: report reviewed, image reviewed (The bowel does not have a good amount of oral contrast to evaluate the possible "matted loops "or to see whether there is an appendiceal stump) US - pelvic: report reviewed Assessment and Plan (1) Dehydration Current Visit: Yes Status: Acute Code(s): E86.0 - DEHYDRATION SNOMED Code(s): 37535982 (2) Abdominal pain Current Visit: No Status: Acute Code(s): R10.9 - UNSPECIFIED ABDOMINAL PAIN SNOMED Code(s): 55645833 Plan: The patient will be admitted. Serial exams and serial lab. Hydrate. Pain control. DVT and ulcer prophylaxis. The computed tomography scan will be repeated with a normal amount of oral contrast. Further recommendations to follow.
[2019-08-08] MEDS ORDERED: LEVOFLOXACIN 500MG-D5W PMX 500 MG in DEXTROSE/WATER 1 100ML.BAG IVPB STA (16:08)
--- NOTE | 2019-08-08 17:01 | CT ---
EXAMINATION TYPE: CT abdomen pelvis wo con DATE OF EXAM: 08/08/2019 COMPARISON: CT abdomen pelvis of 08/08/2019 earlier the same date HISTORY: Right sided abdominal pain and hematuria. CT DLP: 618 mGycm Automated exposure control for dose reduction was used. TECHNIQUE: Helical acquisition of images was performed from the lung bases through the pelvis. FINDINGS: The findings within the abdomen and pelvis other than the bowel findings are unchanged from the prior CT earlier on the same date. In regards to the bowel oral contrast extends through the nondilated loops of fluid-filled small bettie l into the pelvis and right lower quadrant however no extent into the colon is appreciated. Some thic kening of the ascending colon is now noted on image 44 and 42. A number of air-fluid levels in the [place] have decreased from the prior. Thickened rugal folds have improved given distention with oral con trast. Cluster loops of small bowel in the pelvis appear more than on the prior given admin istration of oral contrast. IMPRESSION: 1. Oral contrast extends into the prominent small bowel loops of the right lower quadrant and pelvis. Diminished air-fluid levels in the colon in comparison to the prior and improved separation of bowel loops in the pelvis after oral contrast administration. Findings are most likely related to ileus an d follow-up short-term x-ray could ensure oral contrast extends into the colon. 2. Haustral thickening and soft tissue density in the ascending colon. This may relate to nonformed s tool although colonoscopy could be considered if not recently performed after resolution of symptoms.
[2019-08-08] MEDS: HYDROmorphone 0.5 MG/0.5 ML SYRINGE IVP PRN (17:42)
[2019-08-08] MEDS: D5-0.45% NACL WITH KCL 20MEQ/L 1,000 ML IV SCH (17:48)
[2019-08-08] MEDS ORDERED: FLUCONAZOLE 100 MG TAB PO ONE (18:00)
[2019-08-08] MEDS: FAMOTIDINE 20 MG TAB PO SCH (21:15)
[2019-08-08] MEDS: KETOROLAC 30 MG/ML 1 ML VIAL IVP PRN (21:15)
[2019-08-09] MEDS: D5-0.45% NACL WITH KCL 20MEQ/L 1,000 ML IV SCH ×3 (03:35→23:07)
[2019-08-09] MEDS: KETOROLAC 30 MG/ML 1 ML VIAL IVP PRN ×2 (04:28→21:56)
[2019-08-09] MEDS: FAMOTIDINE 20 MG TAB PO SCH ×2 (08:28→21:55)
[2019-08-09 08:40] LABS: Basophils # (A) 0.1 k/uL (0-0.2); Basophils % (A) 1 %; Eosinophils # (A) 0.2 k/uL (0-0.7); Eosinophils % (A) 4 %; HCT 42.3 % (34.0-46.0); HGB 14.5 gm/dL (11.4-16.0); Lymphocytes % (A) 21 %; MCH 34.3 pg (25.0-35.0); MCHC 34.3 g/dL (31.0-37.0); MCV 100.1 fL (80.0-100.0); Mean Platelet Volume 7.4; Monocytes # (A) 0.4 k/uL (0-1.0); Monocytes % (A) 9 %; Neutrophils % (A) 63 %; Platelet Count 323 k/uL (150-450); RBC 4.23 m/uL (3.80-5.40); WBC 4.7 k/uL (3.8-10.6)
[2019-08-09 08:52] LABS: ALT 14 U/L (9-52); AST 23 U/L (14-36); African American GFR (CKD) >90 (>60 ml/min/1.73 sqM); Albumin 3.8 g/dL (3.5-5.0); Alkaline Phosphatase 57 U/L (38-126); Anion Gap 6 mmol/L; Blood Urea Nitrogen 5 mg/dL (7-17); Calcium 9.4 mg/dL (8.4-10.2); Carbon Dioxide 27 mmol/L (22-30); Chloride 105 mmol/L (98-107); Glucose 144 mg/dL (74-99); Non-African American GFR(CKD) >90 (>60 ml/min/1.73 sqM); Potassium 4.3 mmol/L (3.5-5.1); Sodium 138 mmol/L (137-145); Total Protein 6.4 g/dL (6.3-8.2)
[2019-08-09] MEDS ORDERED: FLUCONAZOLE 100 MG TAB PO ONE (09:00)
[2019-08-09 10:27] LABS: C Reactive Protein <5.0 mg/L (<10.0)
[2019-08-09] MEDS: HYDROmorphone 0.5 MG/0.5 ML SYRINGE IVP PRN (10:32)
[2019-08-09 10:42] LABS: Erythrocyte Sedimentation Rate 4 mm/hr (0-20)
[2019-08-09] MEDS ORDERED: METOCLOPRAMIDE 10 MG TAB PO PRN (11:16)
[2019-08-09] MEDS ORDERED: PEG 3350-NA SULF,BICARB,CL/KCL 4,000 ML BOTTLE PO ONE ×2 (11:17→17:00)
[2019-08-09 11:19] VITALS: BMI 18.6
--- NOTE | 2019-08-09 11:26 | P.PN ---
Subjective Progress Note Date: 08/09/19 Principal diagnosis: Abdominal pain The patient continues to have abdominal pain. It is right lower quadrant and burning. Radiates through to the back. She had several episodes of nausea and vomiting through the night. Pain is improved with pain medication. Objective - Vital Signs Vital signs: Vital Signs Temp 97.8 F 08/09/19 04:45 Pulse 44 L 08/09/19 04:45 Resp 16 08/09/19 08:00 BP 129/68 08/09/19 04:45 Pulse Ox 98 08/09/19 04:45 Intake & Output 08/08/19 08/09/19 08/09/19 18:59 06:59 18:59 Intake Total 100 Output Total 100 Balance 0 Weight 58.967 kg 58.967 kg Intake: Oral 100 Output: Emesis 100 Other: Voiding Method Toilet Toilet Toilet # Voids 3 # Emeses 2 - Constitutional General appearance: Present: cooperative, no acute distress - Respiratory Respiratory: bilateral: CTA - Cardiovascular Rhythm: regular - Gastrointestinal General gastrointestinal: Present: normal bowel sounds, soft, tenderness (Right lower quadrant without guarding or rebound). Absent: distended - Labs CBC & Chem 7: 08/09/19 08:18 08/09/19 08:18 Labs: Abnormal Lab Results - Last 24 Hours (Table) 08/08/19 08/09/19 08/09/19 Range/Units 13:15 08:18 08:18 MCV 100.1 H (80.0-100.0) fL BUN 5 L (7-17) mg/dL Glucose 144 H (74-99) mg/dL Urine Ketones Trace H (Negative) Urine Blood Trace H (Negative) Urine Bacteria Rare H (None) /hpf - Imaging and Cardiology CT scan - abdomen: report reviewed, image reviewed Assessment and Plan (1) Dehydration Current Visit: Yes Status: Acute Code(s): E86.0 - DEHYDRATION SNOMED Code(s): 64040369 (2) Abdominal pain Current Visit: No Status: Acute Code(s): R10.9 - UNSPECIFIED ABDOMINAL PAIN SNOMED Code(s): 05664667 (3) History of colon polyps Current Visit: Yes Status: Acute Code(s): Z86.010 - PERSONAL HISTORY OF COLONIC POLYPS SNOMED Code(s): 117577824 (4) Family history of colon cancer Current Visit: Yes Status: Acute Code(s): Z80.0 - FAMILY HISTORY OF MALIGNANT NEOPLASM OF DIGESTIVE ORGANS SNOMED Code(s): 215344700 Plan: The CT done with full oral contrast does not show any inflammatory change or bowel obstruction. What was previously loosely reported as possible matting of the small bowel is normal when the contrast was given. The wall of the cecum does appear to be somewhat thickened. No evidence of any localized inflammatory change or typhlitis. The patient was due for a colonoscopy this past summer, it was delayed as she had surgery for herniated disks in her neck. I'd recommend a colonoscopy to make sure that portion of the cecum is normal and there is no ulceration or inflammation causing the pain. Due to the nausea, do a EGD at the same time. Procedures and complications were discussed. The prep Will be started today. I'll do this for her tomorrow.
[2019-08-10] MEDS: FAMOTIDINE 20 MG TAB PO SCH (07:53)
[2019-08-10] MEDS: D5-0.45% NACL WITH KCL 20MEQ/L 1,000 ML IV SCH (07:55)
[2019-08-10] MEDS ORDERED: LIDOCAINE 1% INJ 10MG/ML (20 ML MDV) ONE (13:08)
[2019-08-10] MEDS ORDERED: PROPOFOL 10 MG/ML 20 ML VIAL IV ONE (13:08)
[2019-08-10] MEDS ORDERED: SODIUM CHLORIDE 0.9% 500 ML 500 ML IV ONE (13:12)
[2019-08-10 13:15] VITALS: BP 123/80; PULSE 48; TEMP 97.8
--- NOTE | 2019-08-10 13:49 | P.OP ---
Date of Procedure: 08/10/19 Preoperative Diagnosis: Abdominal pain, abnormal ct scan abdomen Postoperative Diagnosis: abdominal pain, abnormal ct scan abdomen, colon polyps Anesthesia: MAC Surgeon: Yanely Silva Pathology: other Condition: stable Disposition: PACU Description of Procedure: the patient presented with abdominal pain and a computed tomography scan showing possible thickening of the wall of the cecum. She's taken to the endoscopy suite were gastroscope is passed per mouth to the third and fourth portions of duodenum. Pharynx is unremarkable. The esophagus is without evidence of esophagitis or mass lesion. The stomach is without evidence of polyp, mass lesion, ulcer, other mucosal abnormality. Pylorus is unremarkable. There is possible villous thinning in the duodenum and cold biopsies were obtained. She is then repositioned in a colonoscope is passed per rectum to the cecum. She had a fairly good prep. There is some thicker fluid which could not totally be aspirated. A very small polyp could have been missed. The colon was very redundant. There was a small polyp in the cecum removed with hot biopsy forceps and another one at about 20 cm removed with hot biopsy forceps. Otherwise there is no evidence ofmass lesion ulcer or other mucosal abnormality. The cecum was without inflammatory change or mucosal thickening. The appendiceal orifice was obliterated without any evidence of external mass effect. Small internal hemorrhoids were seen on retroflexion of the scope. She tolerated the procedure without difficulty and was taken to her room in satisfactory condition. We'll start her on a diet and if she tolerates that she'll be discharged later today. Likely repeat colonoscopy in 5 years due to the family history.
--- NOTE | 2019-08-10 13:51 | P.PN ---
Subjective Progress Note Date: 08/10/19 Principal diagnosis: Abdominal pain the patient's feeling better today. The sharp pains have resolved. She has some aching near the umbilicus. She tolerated the prep without difficulty Objective - Vital Signs Vital signs: Vital Signs Temp 97.8 F 08/10/19 13:14 Pulse 48 L 08/10/19 13:14 Resp 16 08/10/19 13:14 BP 123/80 08/10/19 13:14 Pulse Ox 100 08/10/19 13:14 Intake & Output 08/09/19 08/10/19 08/10/19 18:59 06:59 18:59 Intake Total 540 Balance 540 Weight 58.967 kg Intake: Oral 540 Other: Voiding Method Toilet Toilet Toilet # Voids 3 3 # Bowel Movements 6 - Constitutional General appearance: Present: cooperative, no acute distress - Gastrointestinal General gastrointestinal: Present: normal bowel sounds, soft. Absent: tenderness - Labs CBC & Chem 7: 08/09/19 08:18 08/09/19 08:18 Assessment and Plan (1) Dehydration Current Visit: Yes Status: Acute Code(s): E86.0 - DEHYDRATION SNOMED Code(s): 28559675 (2) Abdominal pain Current Visit: No Status: Acute Code(s): R10.9 - UNSPECIFIED ABDOMINAL PAIN SNOMED Code(s): 12674441 (3) History of colon polyps Current Visit: Yes Status: Acute Code(s): Z86.010 - PERSONAL HISTORY OF COLONIC POLYPS SNOMED Code(s): 654841574 (4) Family history of colon cancer Current Visit: Yes Status: Acute Code(s): Z80.0 - FAMILY HISTORY OF MALIGNANT NEOPLASM OF DIGESTIVE ORGANS SNOMED Code(s): 954584239 Plan: we'll proceed with EGD and colonoscopy. If she tolerates that without difficulty she'll be discharged if she tolerates a meal.
== END 2019-08-10 16:14 | disposition home or self-care (01) | DRG 392 ==
LOC: EC 11:43 → 4MS4W 14:53
PROVIDERS: ADMIT Surgery; ATTEND Surgery
PROC: 0DB98ZX Excision of Duodenum, Via Natural or Artificial Opening Endoscopic, Diagnostic (ICD-10-PCS; principal; 2019-08-10 13:00)
PROC: 0DBH8ZX Excision of Cecum, Via Natural or Artificial Opening Endoscopic, Diagnostic (ICD-10-PCS; principal; 2019-08-10 13:00)
DX: R10.9 Unspecified abdominal pain (principal); E86.0 Dehydration; F17.200 Nicotine dependence, unspecified, uncomplicated; F40.240 Claustrophobia; K90.0 Celiac disease; M79.7 Fibromyalgia; Z80.0 Family history of malignant neoplasm of digestive organs; Z87.19 Personal history of other diseases of the digestive system; Z90.49 Acquired absence of other specified parts of digestive tract; Z90.711 Acquired absence of uterus with remaining cervical stump; Z98.1 Arthrodesis status; Z86.010 Personal history of colon polyps; Z82.49 Family history of ischemic heart disease and other diseases of the circulatory system; Z79.1 Long term (current) use of non-steroidal anti-inflammatories (NSAID); Z79.899 Other long term (current) drug therapy; Z91.018 Allergy to other foods; Z88.0 Allergy status to penicillin; K64.8 Other hemorrhoids
CPT/HCPCS: 36415; 43239; 45384; 74176; 74177; 80053; 81001; 82150; 83690; 85025; 85652; 86140; 88305; 96361; 96374; 96375; 96376; 99285

== ENCOUNTER → 2020-01-16 | Outpatient (CLI) | payer BC ==
--- NOTE | 2020-01-16 11:16 | XR ---
EXAMINATION TYPE: XR chest 2V DATE OF EXAM: 01/16/2020 COMPARISON: 02/25/2019 INDICATION: Presurgical lumbar spine x-ray TECHNIQUE: Frontal and lateral views of the chest are obtained. FINDINGS: The heart size is normal. The pulmonary vasculature is normal. The lungs are clear. Air is within loops of bowel under the right diaphragm. IMPRESSION: 1. No acute pulmonary process.
[2020-01-16 11:18] LABS: Appearance,Urine Clear (Clear); Bilirubin,Urine Negative (Negative); Blood,Urine Negative (Negative); Color,Urine Light Yellow; Glucose,Urine (UA) Negative (Negative); Ketones,Urine Negative (Negative); Leukocyte Esterase,Urine Negative (Negative); Nitrite,Urine Negative (Negative); Protein,Urine Negative (Negative); Specific Gravity,Urine 1.004 (1.001-1.035); Urobilinogen,Urine <2.0 mg/dL (<2.0)
[2020-01-16 11:23] LABS: Partial Thromboplastin Time 26.3 sec (22.0-30.0); Prothrombin Time 10.1 sec (9.0-12.0)
[2020-01-16 11:29] LABS: Basophils # (A) 0.1 k/uL (0-0.2); Basophils % (A) 2 %; Eosinophils # (A) 0.1 k/uL (0-0.7); Eosinophils % (A) 3 %; HCT 46.9 % (34.0-46.0); HGB 14.9 gm/dL (11.4-16.0); Lymphocytes # (A) 1.1 k/uL (1.0-4.8); Lymphocytes % (A) 27 %; MCH 33.7 pg (25.0-35.0); MCHC 31.8 g/dL (31.0-37.0); MCV 105.9 fL (80.0-100.0); Macrocytosis Slight; Mean Platelet Volume 7.7; Monocytes # (A) 0.4 k/uL (0-1.0); Monocytes % (A) 10 %; Neutrophils # (A) 2.1 k/uL (1.3-7.7); Neutrophils % (A) 55 %; Platelet Count 334 k/uL (150-450); RBC 4.43 m/uL (3.80-5.40); RDW 12.1 % (11.5-15.5); WBC 3.9 k/uL (3.8-10.6)
[2020-01-16 18:56] LABS: African American GFR (CKD) 117.1 (60.0-200.0); Albumin 4.7 g/dL (3.80-4.90); Albumin/Globulin Ratio 1.96 (1.60-3.17); Anion Gap 7.6 mmol/L (4.00-12.00); Calcium 9.8 mg/dL (8.7-10.3); Carbon Dioxide 30.4 mmol/L (21.6-31.8); Globulin 2.4 g/dL (1.6-3.3); Potassium 4.7 mmol/L (3.5-5.5); Total Bilirubin 0.8 mg/dL (0.2-1.2); Total Protein 7.1 g/dL (6.2-8.2)
== END | disposition home or self-care (01) ==
LOC: LABWHC1 10:12
PROVIDERS: ATTEND Orthopaedic Surgery Orthopaedic Surgery of the Spine
DX: Z01.818 Encounter for other preprocedural examination (principal); Z01.812 Encounter for preprocedural laboratory examination; M43.10 Spondylolisthesis, site unspecified
CPT/HCPCS: 36415; 71046; 80053; 81003; 85025; 85610; 85730; 87070

== ENCOUNTER → 2020-01-26 | Outpatient (CLI) | payer BC ==
[2020-01-30 08:09] LABS: Cotinine <2.0 ng/mL (<2.0); Nicotine <2.0 ng/mL (<2.0)
== END | disposition home or self-care (01) ==
LOC: LABPAT 14:01
PROVIDERS: ATTEND Orthopaedic Surgery Orthopaedic Surgery of the Spine
DX: Z01.818 Encounter for other preprocedural examination (principal); Z11.59 Encounter for screening for other viral diseases
CPT/HCPCS: 80323; U0003

== ENCOUNTER 2020-01-31 06:14 | Day surgery (SDC) | payer BC ==
[2020-01-30 09:27] VITALS: BMI 19.3
[~2020-01-31 06:14] MED LIST changes: +CLINDAMYCIN 900 MG in DEXTROSE 5% IN WATER 50 ML IVPB ONE; +DEXAMETHASONE SOD PHOSPHATE 10 MG/ML 1 ML VIAL IV ONE; -KETAMINE 10 MG/ML 20 ML VIAL ONE; +LIDOCAINE 1% (10MG/ML) FOR IV START INTRADERMA PRN; -LIDOCAINE 1% INJ 10MG/ML (20 ML MDV) ONE; +MIDAZOLAM 2 MG/2 ML VIAL IV PRN; -MIDAZOLAM 2 MG/2 ML VIAL ONE; +ONDANSETRON 4 MG/2 ML VIAL IVP ONE; -PROPOFOL 10 MG/ML 20 ML VIAL IV ONE; -SUCCINYLCHOLINE CHLORIDE 100 MG/5 ML SYR IV ONE; -ceFAZolin IN SWFI 2 GM/20 ML SYRINGE IVP ONE; +fentaNYL (PF) 50 MCG/ML 2 ML AMP IVP PRN; -fentaNYL (PF) 50 MCG/ML 2 ML AMP ONE
[2020-01-31] MEDS: LACTATED RINGERS 1,000 ML IV SCH (06:57)
[2020-01-31] MEDS ORDERED: fentaNYL (PF) 50 MCG/ML 2 ML AMP ONE (07:32)
[2020-01-31] MEDS ORDERED: PHENYLEPHRINE-0.9% NACL SYG 1 MG/10 ML SYRINGE ONE (07:32)
[2020-01-31] MEDS ORDERED: ROCURONIUM BROMIDE 10 MG/ML 5 ML VIAL IV ONE (07:32)
[2020-01-31] MEDS ORDERED: LIDOCAINE 1% INJ 10MG/ML (20 ML MDV) ONE (07:32)
[2020-01-31] MEDS ORDERED: ePHEDrine SULFATE/0.9% NACL/PF 50 MG/5 ML SYRINGE IV ONE (07:32)
[2020-01-31] MEDS ORDERED: KETAMINE 10 MG/ML 20 ML VIAL ONE (07:32)
[2020-01-31] MEDS ORDERED: MIDAZOLAM 2 MG/2 ML VIAL ONE (07:32)
[2020-01-31] MEDS ORDERED: SUCCINYLCHOLINE CHLORIDE 100 MG/5 ML SYR IV ONE (07:32)
[2020-01-31] MEDS ORDERED: ALFENTANIL 500 MCG/ML 2 ML AMP IV ONE (07:32)
[2020-01-31] MEDS ORDERED: PROPOFOL 10 MG/ML 20 ML VIAL IV ONE (07:32)
[2020-01-31] MEDS ORDERED: LIDOCAINE 0.5%-EPI 1:200,000 50 ML VIAL SQ ONE (07:39)
[2020-01-31] MEDS ORDERED: THROMBIN (BOVINE) 5,000 UNIT VIAL TOPICAL ONE (07:39)
[2020-01-31] MEDS ORDERED: GELATIN SPONGE,ABSORB (LARGE) 1 EACH SPONGE TOPICAL ONE (07:39)
[2020-01-31] MEDS ORDERED: LACTATED RINGERS 1,000 ML IV ONE ×3 (08:30→11:35)
--- NOTE | 2020-01-31 10:18 | FL ---
EXAMINATION TYPE: FL guidance operating room, XR lumbar spine 2 or 3V DATE OF EXAM: 01/31/2020 CLINICAL HISTORY: Low back pain. TECHNIQUE: Fluoroscopy. COMPARISON: CT abdomen and pelvis August 08, 2019. FINDINGS: Fluoroscopic guidance was provided during low back procedure performed by Dr. Barrera. A to eber of 30 seconds of fluoroscopic time was utilized during the procedure and four spot intraoperative images are acquired. Images acquired show placement of posterior interpedicular rods and screws at L 5-S1 level with stable and satisfactory alignment after surgery. IMPRESSION: As Above.
[2020-01-31] MEDS ORDERED: HYDROcodone/APAP 5-325MG 1 EACH TAB PO PRN ×2 (10:24)
[2020-01-31] MEDS ORDERED: MAGNESIUM HYDROXIDE 2,400 MG/10 ML CUP PO PRN (10:24)
[2020-01-31] MEDS ORDERED: BENZOCAINE/MENTHOL LOZENG 1 EACH LOZENGE MUCOUS MEM PRN (10:24)
[2020-01-31] MEDS ORDERED: HYDROmorphone 0.5 MG/0.5 ML SYRINGE IVP PRN (10:24)
[2020-01-31] MEDS ORDERED: traMADol 50 MG TAB PO PRN (10:27)
--- NOTE | 2020-01-31 10:42 | P.OP ---
Date of Procedure: 01/31/20 Preoperative Diagnosis: Retrolisthesis L5-S1, degenerative disc disease L5-S1, foraminal stenosis L5-S1, lower extremity radiculopathy, low back pain Postoperative Diagnosis: Same Anesthesia: GETA Pathology: none sent Condition: stable Disposition: PACU Description of Procedure: DESCRIPTION OF PROCEDURE(S): BRIEF OPERATIVE NOTE Preoperative Diagnosis: Spondylolisthesis L5-S1, degenerative disc disease L5- S1, foraminal stenosis L5-S1, low back pain, lower extremity radiculopathy Postoperative Diagnosis:Spondylolisthesis L5-S1, degenerative disc disease L5- S1, foraminal stenosis L5-S1, low back pain, lower extremity radiculopathy Procedure: Laminectomy and decompression L5-S1 Minimally invasive Posterior lateral decompression and fusion L5-S1 Minimally invasive Transforaminal lumbar interbody fusion for a 360 fusion L5-S1 Use of computer navigation for fusion at L5-S1 Use of fluoroscopic guidance Discectomy for decompression L5-S1 Placement of interbody graft L5-S1 Local autogenous bone grafting L5-S1 Harvesting of bone marrow aspirate via the pedicle and vertebral body of L5 Use of bone graft extenders Surgeon: Dr. Barrera [employer] Drier: Terrence Rodriguez is present throughout the entire the case persistence during positioning, dissection, exposure, visualization, and all crucial elements of the case as well as closure. Anesthesia: General anesthesia per Dr. Leong Estimated blood loss: Approximately 75 mL Complications: None apparent Components implanted: K2M minimally invasive Curran pedicle screw system with use of 4 screws measuring 6.5 mm in diameter with 2 rods and 1 [place] interbody peek cage measuring 6 mm along with DBX bone fibers and osteoamp bone graft enhancer to supplemental local otitis bone graft and bone marrow aspirate Disposition: To recovery room in good stable condition. OPERATIVE INDICATIONS The patient has had long-standing issues in their lower back and lower extremities. She has been having severe pain at her back and her lower extremit ies. She was found have dynamic instability at L5-S1 along with her foraminal stenosis. Her symptoms of severe pain correlate well with her imaging studies with MRI and x-rays. She had been through significant conservative treatment. She has been able to stop smoking completely over the past several months. The patient has been through conservative treatment. She is not having any benefit despite aggressive conservative care. We discussed various treatment options including surgery, and the patient wishes to proceed with surgery We discussed the risk, patient's alternatives and benefits of surgery including but not limited to, risk of bleeding risk of infection, risk of need for further surgery, risk of decreased, loss of motion, muscle function, malunion nonunion, hardware failure, nerve damage, paralysis, heart attack, blindness and . We also discussed with her the fact that there is a current pandemic and there is no way to completely eliminate risk of exposure. The patient understood these issues. OPERATIVE SUMMARY After discussing all the risks, patient alternatives and benefits at length, the patient elected to proceed with surgical intervention, signed informed consent, and presented for their procedure. The patient was seen and examined in the preoperative holding area and the surgical site was marked. The patient was given antibiotics and brought to the operating room. The patient was sedated and intubated by anesthesia in standard fashion. The patient was positioned on to the operating room table in a prone position on the appropriate frame which was well-padded and well molded. We were careful to pad any bony prominences and pressure points. We were careful to maintain the patient's cervical spine and good neutral alignment and position throughout. The patient was prepped and draped in a normal standard fashion. An appropriate timeout and keystone protocol performed. We were able to proceed with the surgery. The local wound area was infiltrated with local anesthetic. I was able utilize C-arm guidance to establish appropriate position over the pedicles bilaterally at the appropriate levels Of L5-S1 and the iliac crest. With the appropriate levels confirmed was able to make small stab incisions over the appropriate pedicle sites bilaterally. I was also able to establish access to the right iliac crest for placement of the computed navigation device guidance. I was able to place 2 guide pins into the iliac crest securely. This was used to seat the computer navigation guidance. Once the guidance was established as able to then use, patient of fluoroscopy and the navigation guidance for placement of the pedicle screws at L5 and S1. Utilizing C-arm in his house able to establish a Jamshidi needle over the lateral aspect of the pedicle and advanced the trocar into the pedicle being careful not to breech superiorly inferiorly medially or laterally. Position was confirmed regularly with AP and lateral images on C-arm. I was able to establish the trocar into the pedicle appropriately into the posterior aspect of the vertebral body bilaterally at the appropriate levels. This was done at each of the pedicle positions and each of the vertebrae At L5 and S1 bilaterally. I was able place the guidewire into the trocar and into the vertebral body appropriately under C- arm guidance. Dissection was taken down over the wire to the appropriate starting position for the screw placed. The appropriate length screw was chosen, threaded over the guidewire and screwed appropriately into the pedicle and vertebral body under C-arm guidance in excellent alignment and position with good bony purchase. This is done at each of the screw sites at the appropriate levels At L5 and S1 bilaterally. With the screws intact I extended the incision to connect the screw hole sites on the most symptomatic side On the left. I dissected down to establish access over the pars and lamina to the base of the spinous process. I was able to expose the facet joint. The capsule the facet was taken down and showed some facet arthrosis at the joint. note was made of significant arthrosis at the facet joints bilaterally. I was able to use a combination of curettes and Kerrison rongeurs and a high-speed drill to take down the facet joint and do a facetectomy. Partial laminectomy was also performed. I was able get excellent foraminal decompression and central decompression with undermining across midline to perform a laminectomy centrally and contralaterally. As able get good central decompression. The ligamentum flavum was taken down to further decompress centrally and at bilateral neural foramen. I was able to expose the disc space and visualize the traversing nerve root. Note was made of some disc protrusion at the level causing further compression of the nerve root. I was able to establish a annulotomy at the appropriate level protecting soft tissue and neural structures. Note was made of some severe disc desiccation at the disc and complete loss of disc height. I performed a complete discectomy with accommodation of curettes and rasps and scrapers. I was able get good endplate preparation at the disc space. I sized for the appropriate size interbody spacer protecting the soft tissue and neural structures. The wound was copiously irrigated and suctioned dry. There is no evidence of any dural tear or leak. I was able to pack the disc space with local autogenous bone graft as well as a small amount of bone graft which was also placed into the interbody cage itself. Protecting the soft tissue structures and neural structures I was able place the interbody cage which was 6 mm in good alignment and good position with good fit and fill at the interbody space Position was confirmed with C-arm guidance. Good hemostasis maintained. There is no evidence of any dural tear or leak. The wound was irrigated and suctioned dry. With the hardware intact, intraoperative C-arm imaging was again taken which showed good alignment and position of the hardware at the appropriate levels. We were then able to measure, contour and place the rods and appropriate hardware bilaterally. I was able to place capcrews, tighten them down, and torque them with the torque screwdriver appropriately. With this intact I was able to place the local autogenous bone graft with additional bone graft enhancer as necessary into the posterior lateral gutters over the decorticated transverse processes. The remainder of the bone graft was placed over the facet joint on the contralateral side after taking down the facet joint capsule. With the bone graft intact, a stable construct, and good decompression at the appropriate levels, we were able to proceed with closure. Good hemostasis was maintained. There is no evidence of dural tear or leak. The fascia was closed for a watertight closure. he subcuticular tissue was closed with absorbable suture. The wound was cleaned and dried and dressed with the appropriate dressing. The drapes were broken down. The patient was gently rolled back onto their hospital bed being careful to maintain their cervical spine and good neutral alignment and position. They were woken up by anesthesia, extubated, and brought to the recovery room in good stable condition. The patient will be admitted to the hospital for appropriate postoperative care, medical management and monitoring. We will continue to follow them closely about the postoperative course.
[2020-01-31] MEDS: HYDROmorphone 0.5 MG/0.5 ML SYRINGE IVP PRN ×4 (10:53→13:29)
[2020-01-31] MEDS: SODIUM CHLORIDE 0.9% 1,000 ML IV SCH (15:32)
[2020-01-31] MEDS: CLINDAMYCIN 900 MG in DEXTROSE 5% IN WATER 50 ML IVPB SCH ×4 (16:25→21:44)
[2020-01-31] MEDS: ONDANSETRON 4 MG/2 ML VIAL IVP PRN (16:44)
[2020-01-31] MEDS: HYDROmorphone 1 MG/ML 1 ML SYRINGE IVP PRN (21:09)
[2020-02-01] MEDS: SODIUM CHLORIDE 0.9% 1,000 ML IV SCH ×2 (00:05→13:46)
[2020-02-01] MEDS: HYDROmorphone 1 MG/ML 1 ML SYRINGE IVP PRN ×4 (01:20→13:47)
[2020-02-01] MEDS: ONDANSETRON 4 MG/2 ML VIAL IVP PRN (04:56)
[2020-02-01 07:01] LABS: Basophils % (A) 0 %; Eosinophils # (A) 0.1 k/uL (0-0.7); Eosinophils % (A) 2 %; HCT 39.3 % (34.0-46.0); HGB 13.2 gm/dL (11.4-16.0); Lymphocytes # (A) 0.4 k/uL (1.0-4.8); Lymphocytes % (A) 5 %; MCH 34.9 pg (25.0-35.0); MCHC 33.6 g/dL (31.0-37.0); MCV 103.8 fL (80.0-100.0); Macrocytosis Slight; Mean Platelet Volume 7.7; Monocytes # (A) 0.5 k/uL (0-1.0); Monocytes % (A) 6 %; Neutrophils # (A) 6.1 k/uL (1.3-7.7); Neutrophils % (A) 86 %; Platelet Count 289 k/uL (150-450); RBC 3.78 m/uL (3.80-5.40); RDW 12.1 % (11.5-15.5); WBC 7.1 k/uL (3.8-10.6)
[2020-02-01 07:11] LABS: African American GFR (CKD) >90 (>60 ml/min/1.73 sqM); Anion Gap 5 mmol/L; Blood Urea Nitrogen 7 mg/dL (7-17); Carbon Dioxide 32 mmol/L (22-30); Chloride 97 mmol/L (98-107); Glucose 99 mg/dL (74-99); Non-African American GFR(CKD) >90 (>60 ml/min/1.73 sqM); Potassium 3.9 mmol/L (3.5-5.1); Sodium 134 mmol/L (137-145)
[2020-02-01] MEDS ORDERED: PANTOPRAZOLE 40 MG TABLET PO SCH (07:30)
[2020-02-01] MEDS ORDERED: FLUCONAZOLE 150 MG TAB PO SCH (09:00)
[2020-02-01] MEDS ORDERED: SENNOSIDES-DOCUSATE SODIUM 1 EACH TAB PO SCH (09:00)
[2020-02-01] MEDS: LACTATED RINGERS 1,000 ML IV SCH (09:07)
--- NOTE | 2020-02-01 09:30 | P.DS ---
Providers Date of admission: 01/31/2020 Attending physician: Andres Barrera Consults: 01/31/20 10:24 Consult Physician Routine Consulting Provider: Mike Vásquez Consult Reason/Comments: Medical management Do you want consulting provider notified?: Yes [facility] Course: The patient presented on the day of admission as per their operative note.she had a spondylolisthesis with severe disc degeneration and stenosis at L5-S1 causing her severe low back pain and lower extremity radicular symptoms. She says that her pain at her leg is significantly improved. She says the pain off to the side of her back is significant better with her surgery. She has soreness around her incision site which is understandable. She denies any fevers chills or nausea or vomiting currently. She did have nausea last night but she says it has resolved. Physical Exam The incision site is clean dry and intact. There is no erythema no drainage. There is no purulence no evidence of infection.her back dressing is in tact. Her back is clear. Abdomen soft and nontender. Chest has good excursion with deep inspiration and expiration. The patient has active and passive range of motion intact at the upper and lower extremities. There is no acute change in neurologic status.she has sustained dorsal to plantar flexion and EHL intact. Her calves and thighs are soft and nontender. Hospital Course postoperative day #1 status post minimally invasive decompression and fusion L5- S1 for her spondylolisthesis with stenosis and lower extremity radiculopathy. The patient feels that she is doing much better. She has soreness around her surgical site but she feels that this is adequately controlled with pain medicine. The patient has been making good progress postoperatively. They have completed the prophylactic antibiotics without any signs or symptoms of infection. The patient has been able to advance their diet, and is tolerating diet adequately. The pain was initially controlled with IV medications and is now controlled appropriately with oral medications. The patient has been able to increase their mobilization.the patient has been able to get in and out of bed on her own several times and is voiding freely. She is tolerating her breakfast well. The patient has progressed appropriately. I think they are in good stable condition for discharge todayas long she continues to maintain her progress. They will be sent home with appropriate prescriptions. I answered their questions to the best of my ability in a language that they can understand and they are agreeable with the plan. we will send her home with oral pain medications and muscle relaxants. I gave her some instructions to ice her lower back to her 3 times a day for 20 minutes of time. Her bedroom is upstairs but the bathroom is on the main level. I will give her prescription for a bedside commode for short-term use for home if she needs it. They will follow up as directedin the proximal we 2 weeks or sooner if she is having any problems. Plan - Discharge Summary Discharge Rx Participant: Yes New Discharge Prescriptions: New Cyclobenzaprine [Flexeril] 10 mg PO TID PRN #90 tab PRN Reason: Spasms HYDROcodone/APAP 7.5-325MG [[place] 7.5-325] 1 tab PO Q4H PRN 7 Days #42 tab PRN Reason: Pain No Action Omeprazole [PriLOSEC] 20 mg PO DAILY traMADol HCL [Ultram] 50 mg PO Q6HR PRN PRN Reason: Pain Fluconazole [Diflucan] 150 mg PO Q30D Discharge Medication List Omeprazole [PriLOSEC] 20 mg PO DAILY 02/27/19 [History] Fluconazole [Diflucan] 150 mg PO Q30D 01/30/20 [History] traMADol HCL [Ultram] 50 mg PO Q6HR PRN 01/30/20 [History] Cyclobenzaprine [Flexeril] 10 mg PO TID PRN #90 tab 02/01/20 [Rx] HYDROcodone/APAP 7.5-325MG [[place] 7.5-325] 1 tab PO Q4H PRN 7 Days #42 tab 02/01/20 [Rx] Activity/Diet/Wound Care/Special Instructions: Keep site clean. May shower with waterproof Tegaderm intact. Do not soak in a tub. After 72 hours postoperatively, patient May remove dressing and then may shower with area uncovered. Leave Steri-Strips intact and allow them to fray off on their own. May ambulate as tolerated. Avoid heavy or rigorous activity. No repetitive bending twisting or lifting. No overhead work. Discharge Disposition: HOME SELF-CARE
--- NOTE | 2020-02-01 12:55 | P.CONS ---
History of Present Illness - Reason for Consult Hyponatremia - History of Present Illness Patient was a pleasant 49-year-old female admitted for spondylolisthesis and patient underwent the laminectomy and decompression surgery for L5 and S1. Patient denied any fever chills nausea vomiting dysuria patient fully catheter is out patient is mildly hyponatremic patient is presently receiving IV fluids in the form of normal saline at this time. Patient also has elevated MCV patient denied any cough Review of Systems REVIEW OF SYSTEMS: CONSTITUTIONAL: No fever, no malaise, no fatigue. HEENT: No recent visual problems or hearing problems. Denied any sore throat. CARDIOVASCULAR: No chest pain, orthopnea, PND, no palpitations, no syncope. PULMONARY: No shortness of breath, no cough, no hemoptysis. GASTROINTESTINAL: No diarrhea, no nausea, no vomiting, no abdominal pain. NEUROLOGICAL: No headaches, no weakness, no numbness. HEMATOLOGICAL: Denies any bleeding or petechiae. GENITOURINARY: Denies any burning micturition, frequency, or urgency. MUSCULOSKELETAL/RHEUMATOLOGICAL: Denies any joint pain, swelling, or any muscle pain. ENDOCRINE: Denies any polyuria or polydipsia. The rest of the 14-point review of systems is negative. Past Medical History Past Medical History: Fibromyalgia, GERD/Reflux, Musculoskeletal Disorder Additional Past Medical History / Comment(s): celiac disease, "told she has raynauds", small hiatal hernia. numbess toes on left foot, burning sensation hip History of Any Multi-Drug Resistant Organisms: None Reported Past Surgical History: Adenoidectomy, Appendectomy, Cholecystectomy, Hysterectomy, Orthopedic Surgery, Tonsillectomy Additional Past Surgical History / Comment(s): Appendectomy with mesenteric mass excision, diagnostic exploratory laprascopy, surgery for tubal , EGD, colonoscopy, cervical fusion/decompression. Past Anesthesia/Blood Transfusion Reactions: Previous Problems w/ Anesthesia, Motion Sickness, Postoperative Nausea & Vomiting (PONV) Additional Past Anesthesia/Blood Transfusion Reaction / Comm: Slow to wake Past Psychological History: No Psychological Hx Reported Additional Psychological History / Comment(s): Pt resides with her spouse. She is independent. Smoking Status: Former smoker Past Alcohol Use History: Daily Additional Past Alcohol Use History / Comment(s): quit smoking 4 1/2 months ago, started smoking in 2007 3 ppd smoker. She drinks 2 glasses of wine at night. Past Drug Use History: None Reported - Past Family History Sister(s) Family Medical History: Cancer Additional Family Medical History / Comment(s): Stage III colon cancer. Mother Additional Family Medical History / Comment(s): lupus, mi of at age 52 Father Family Medical History: AFIB Medications and Allergies Home Medications Medication Instructions Recorded Confirmed Type Omeprazole [PriLOSEC] 20 mg PO DAILY 02/27/19 01/31/20 History Fluconazole [Diflucan] 150 mg PO Q30D 01/30/20 01/31/20 History traMADol HCL [Ultram] 50 mg PO Q6HR PRN 01/30/20 01/30/20 History Cyclobenzaprine [Flexeril] 10 mg PO TID PRN #90 tab 02/01/20 Rx HYDROcodone/APAP 7.5-325MG [[place] 1 tab PO Q4H PRN 7 Days #42 tab 02/01/20 Rx 7.5-325] Allergies Allergy/AdvReac Type Severity Reaction Status Date / Time Penicillins Allergy STRONG Verified 01/31/20 06:37 SIBLING REACTION OF ANAPHYLAXIS tree nut Allergy SKIN Verified 01/31/20 06:37 REACTION wheat Allergy CELIAC Verified 01/31/20 06:37 Physical Exam Vitals: Vital Signs Temp Pulse Pulse Resp BP Pulse Ox 02/01/20 05:32 98.6 F 72 18 119/69 99 01/31/20 22:02 97.9 F 79 22 167/96 99 01/31/20 16:23 77 130/81 99 01/31/20 16:00 77 16 01/31/20 15:30 78 150/88 95 01/31/20 15:15 75 16 144/79 97 01/31/20 14:45 97.8 F 75 16 124/71 98 01/31/20 14:32 97.8 F 75 16 124/71 98 01/31/20 14:02 82 16 113/71 99 01/31/20 13:29 79 16 110/57 99 01/31/20 12:48 82 16 134/74 94 L Intake and Output 01/31/20 02/01/20 02/01/20 22:59 06:59 14:59 Intake Total 650 Balance 650 Intake: Intake, IV Titration 650 Amount Clindamycin 900 mg In 50 Dextrose 5% in Water 50 ml @ 50 mls/hr IVPB Q6H [facility] Rx#:[id number] Sodium Chloride 0.9% 1, 600 000 ml @ 75 mls/hr IV . [id number] [facility] Rx#:[id number] Other: Voiding Method Toilet Toilet # Voids 1 PHYSICAL EXAMINATION: GENERAL: The patient is alert and oriented x3, not in any acute distress. Well developed, well nourished. HEENT: Pupils are round and equally reacting to light. EOMI. No scleral icterus. No conjunctival pallor. Normocephalic, atraumatic. No pharyngeal erythema. No thyromegaly. CARDIOVASCULAR: S1 and S2 present. No murmurs, rubs, or gallops. PULMONARY: Chest is clear to auscultation, no wheezing or crackles. ABDOMEN: Soft, nontender, nondistended, normoactive bowel sounds. No palpable organomegaly. MUSCULOSKELETAL: No joint swelling or deformity. EXTREMITIES: No cyanosis, clubbing, or pedal edema. NEUROLOGICAL: Gross neurological examination did not reveal any focal deficits. SKIN: Surgical site area and the back appears to be clean Results CBC & Chem 7: 02/01/20 06:31 02/01/20 06:31 Labs: Abnormal Lab Results - Last 24 Hours (Table) 02/01/20 02/01/20 Range/Units 06:31 06:31 RBC 3.78 L (3.80-5.40) m/uL MCV 103.8 H (80.0-100.0) fL Lymphocytes # 0.4 L (1.0-4.8) k/uL Sodium 134 L (137-145) mmol/L Chloride 97 L (98-107) mmol/L Carbon Dioxide 32 H (22-30) mmol/L Assessment and Plan Plan: -Hyponatremia possibly hypervolemic hypernatremia patient received IV fluids may have improved by now patient can be discharged from medical perspective patient only has mild hyponatremia -Elevated MCV patient patient will need to be checked for B12 and folate levels patient had a B12 level in 2013 was within normal limits patient will not need to stay in the hospital for this. -Gastroesophageal reflux disease -Low back pain status post a laminectomy pain management and due to prophylaxis as per primary service. Patient can be discharged from medical perspective
[2020-02-01 13:15] VITALS: BP 127/78; TEMP 98.1
[2020-02-01 13:17] VITALS: RESP 17
[2020-02-01 13:42] VITALS: PULSE 72
== END 2020-02-01 14:35 | disposition home or self-care (01) ==
LOC: OR 06:14 → 5NMEDONC 13:49 → OR 02-01 14:35
PROVIDERS: ATTEND Orthopaedic Surgery Orthopaedic Surgery of the Spine
DX: M51.17 Intervertebral disc disorders with radiculopathy, lumbosacral region (principal); M43.17 Spondylolisthesis, lumbosacral region; M48.062 Spinal stenosis, lumbar region with neurogenic claudication; K90.0 Celiac disease; E87.1 Hypo-osmolality and hyponatremia; M79.7 Fibromyalgia; K21.9 Gastro-esophageal reflux disease without esophagitis; E78.5 Hyperlipidemia, unspecified; K44.9 Diaphragmatic hernia without obstruction or gangrene; Z98.1 Arthrodesis status; Z98.51 Tubal ligation status; Z90.710 Acquired absence of both cervix and uterus; Z90.49 Acquired absence of other specified parts of digestive tract; Z90.89 Acquired absence of other organs; Z98.890 Other specified postprocedural states; Z88.0 Allergy status to penicillin; Z97.3 Presence of spectacles and contact lenses; Z79.899 Other long term (current) drug therapy; Z88.1 Allergy status to other antibiotic agents; Z91.011 Allergy to milk products; Z91.018 Allergy to other foods; Z87.891 Personal history of nicotine dependence; Z80.0 Family history of malignant neoplasm of digestive organs; Z82.49 Family history of ischemic heart disease and other diseases of the circulatory system
CPT/HCPCS: 97162; 81025; 86900; 86901; 80048; 85025; 86850; 72100; 22633; 22853; 20939; 20936; C1713; J2250; J2405 ×2; J2001; J3010; J1170 ×3; J2370; J0330; J2704

== ENCOUNTER 2024-03-23 23:42 | Inpatient (IN) | payer BC ==
[2024-03-24] MEDS ORDERED: NALOXONE 0.4 MG/ML 1 ML VIAL IV PRN ×2 (02:00→19:53)
--- NOTE | 2024-03-24 02:04 | ED ---
Recheck HPI - General Stated Complaint: Abd pain Time Seen by Provider: 03/23/24 23:50 Source: RN notes reviewed, old records reviewed Limitations: no limitations - History of Present Illness Initial Comments: This is a 53-year-old female to the ER for evaluation of significant abdominal pain persistent abdominal pain with nausea vomiting here in the ER, patient was transferred to us for evaluation MD Complaint: other -: days(s) Returns Today for: Called Because of Abnormal Lab/Test, persistent/worsening pain related to initial visit Symptoms Since Prior Visit: worsening pain Associated Symptoms: malaise, nausea Treatments Prior to Arrival: other (0) - Related Data Home Medications Medication Instructions Recorded Confirmed Omeprazole [PriLOSEC] 20 mg PO DAILY 02/27/19 01/31/20 Fluconazole [Diflucan] 150 mg PO Q30D 01/30/20 01/31/20 traMADol HCL [Ultram] 50 mg PO Q6HR PRN 01/30/20 01/30/20 Previous Rx's Medication Instructions Recorded Cyclobenzaprine [Flexeril] 10 mg PO TID PRN #90 tab 02/01/20 HYDROcodone/APAP 7.5-325MG [[place] 1 tab PO Q4H PRN 7 Days #42 tab 02/01/20 7.5-325] Allergies Allergy/AdvReac Type Severity Reaction Status Date / Time Penicillins Allergy STRONG Verified 01/31/20 06:37 SIBLING REACTION OF ANAPHYLAXIS tree nut Allergy SKIN Verified 01/31/20 06:37 REACTION wheat Allergy CELIAC Verified 01/31/20 06:37 Review of Systems ROS Statement: Those systems with pertinent positive or pertinent negative responses have been documented in the HPI. ROS Other: All systems not noted in ROS Statement are negative. Past Medical History Past Medical History: Fibromyalgia, GERD/Reflux Additional Past Medical History / Comment(s): celiac disease, "told she has raynaulds", small hiatal hernia. "precancerous colon polyps removed" History of Any Multi-Drug Resistant Organisms: None Reported Past Surgical History: Adenoidectomy, Appendectomy, Cholecystectomy, Hysterectomy, Orthopedic Surgery, Tonsillectomy Additional Past Surgical History / Comment(s): Appendectomy with mesenteric mass excision, diagnostic exploratory laprascopy, surgery for tubal , EGD, colonoscopy, cervical fusion/decompression. Past Anesthesia/Blood Transfusion Reactions: Previous Problems w/ Anesthesia, Motion Sickness, Postoperative Nausea & Vomiting (PONV) Additional Past Anesthesia/Blood Transfusion Reaction / Comment(s): Slow to wake Additional Past Alcohol Use History / Comment(s): Pt started smoking in 2007 and is 3/4 ppd smoker. She drinks 2-3 glasses of wine at night. - Past Family History Sister(s) Family Medical History: Cancer Additional Family Medical History / Comment(s): Stage III colon cancer. Mother Additional Family Medical History / Comment(s): lupus, mi of at age 52 Father Family Medical History: AFIB General Exam General appearance: alert, in no apparent distress Head exam: Present: atraumatic, normocephalic, normal inspection Eye exam: Present: normal appearance, PERRL, EOMI. Absent: scleral icterus, conjunctival injection, periorbital swelling ENT exam: Present: normal exam, mucous membranes moist Neck exam: Present: normal inspection. Absent: tenderness, meningismus, lymp hadenopathy Respiratory exam: Present: normal lung sounds bilaterally. Absent: respiratory distress, wheezes, rales, rhonchi, stridor Cardiovascular Exam: Present: regular rate, normal rhythm, normal heart sounds. Absent: systolic murmur, diastolic murmur, rubs, gallop, clicks GI/Abdominal exam: Present: soft, normal bowel sounds. Absent: distended, tenderness, guarding, rebound, rigid Extremities exam: Present: normal inspection, full ROM, normal capillary refill. Absent: tenderness, pedal edema, joint swelling, calf tenderness Back exam: Present: normal inspection Neurological exam: Present: alert, oriented X3, CN II-XII intact Psychiatric exam: Present: normal affect, normal mood Skin exam: Present: warm, dry, intact, normal color. Absent: rash Course Vital Signs 03/24/24 03/24/24 03:14 03:55 Pulse Rate 67 72 Respiratory 16 16 Rate Blood Pressure 107/54 123/87 O2 Sat by Pulse 96 93 L Oximetry - Reevaluation(s) Reevaluation #1: 03/24/24 02:03 Medical records reviewed Reevaluation #2: 03/24/24 02:03 Patient symptoms improved Reevaluation #3: 03/24/24 02:03 Patient informed of results and questions answered Reevaluation #4: Was pt. sent in by a medical professional or institution (BRYAN Vaughn, [employer], urgent care, hospital, or detention...) When possible be specific @ -no Did you speak to anyone other than the patient for history (EMS, parent, family, police, friend...)? What history was obtained from this source @ -no Did you review nursing and triage notes (agree or disagree)? Why? @ -agree Are old charts reviewed (outside hosp., previous admission, EMS record, old EKG, old radiological studies, urgent care reports/EKG's, detention records)? Report findings @ -yes Differential Diagnosis (chest pain, altered mental status, abdominal pain women, abdominal pain men, vaginal bleeding, weakness, fever, dyspnea, syncope, headache, dizziness, GI bleed, back pain, seizure, CVA, palpatations, mental health, musculoskeletal)? @ -prior EKG interpreted by me (3pts min.). @ -no X-rays interpreted by me (1pt min.). @ -no CT interpreted by me (1pt min.). @ -no U/S interpreted by me (1pt. min.). @ -no What testing was considered but not performed or refused? (CT, X-rays, U/S, labs)? Why? @ -none What meds were considered but not given or refused? Why? @ -none Did you discuss the management of the patient with other professionals (professionals i.e. BRYAN Vaughn, [employer], lab, RT, psych nurse, social research assistant, dietary assistant, teacher, commanding officer traffic division, assistant case manager)? Give summary @ -no Was smoking cessation discussed for >3mins.? @ -no Was critical care preformed (if so, how long)? @ -no Were there social determinants of health that impacted care today? How? (Homelessness, low income, unemployed, alcoholism, drug addiction, transportation, low edu. Level, literacy, decrease access to med. care, detention, rehab)? @ -none Was there de-escalation of care discussed even if they declined (Discuss DNR or withdrawal of care, Hospice)? DNR status @ -no What co-morbidities impacted this encounter? (DM, HTN, Smoking, COPD, CAD, Cancer, CVA, ARF, Chemo, Hep., AIDS, mental health diagnosis, sleep apnea, morbid obesity)? @ -none Was patient admitted / discharged? Hospital course, mention meds given and route, prescriptions, significant lab abnormalities, going to OR and other pertinent info. @ - 53 female to the ER for evaluation patient will be admitted for cecal volvulus as well as nausea vomiting abdominal pain for surgical evaluation Admitted Undiagnosed new problem with uncertain prognosis? @ -no Drug Therapy requiring intensive monitoring for toxicity (Heparin, Nitro, Insulin, Cardizem)? @ -no Were any procedures done? @ -no Diagnosis/symptom? @ - Acute, or Chronic, or Acute on Chronic? @ -Acute Uncomplicated (without systemic symptoms) or Complicated (systemic symptoms)? @ -Complicated Side effects of treatment? @ -no Exacerbation, Progression, or Severe Exacerbation? @ -exacerbation Poses a threat to life or bodily function? How? (Chest pain, [place], [place], pneumonia, PE, COPD, DKA, ARF, appy, cholecystitis, CVA, Diverticulitis, Homicidal, Suicidal, threat to staff... and all critical care pts) @ -yes significant surgical complaint cecal volvulus Reevaluation #5: Differential Abdominal Pain Women: Appendicitis, Cholecystitis, diverticulosis, ischemic bowel, pancreatitis, hepatitis, UTI, gastroenteritis, AAA, incarcerated hernia, bowel obstruction, constipation, inflammatory bowel, hepatitis, peptic ulcer disease, splenic infarction, perforated viscus, vulvitis, ovarian torsion, PID, kidney stone, placenta abruption, this is not meant to be an all-inclusive list - Consultations Consultation #1: Admitting sound who agrees to admit this patient Medical Decision Making - Medical Decision Making 53 female to the ER for evaluation patient will be admitted for cecal volvulus as well as nausea vomiting abdominal pain for surgical evaluation Disposition Clinical Impression: Cecal volvulus, Dehydration, Abdominal pain, Nausea & vomiting Disposition: ADMITTED IP TO THIS HOSP Condition: Fair Is patient prescribed a controlled substance at d/c from ED?: No Time of Disposition: 02:00
[2024-03-24] MEDS: ONDANSETRON 4 MG/2 ML VIAL IVP PRN ×2 (02:10→14:50)
[2024-03-24] MEDS: SODIUM CHLORIDE 0.9% 1,000 ML IV SCH (02:10)
--- NOTE | 2024-03-24 05:46 | P.HPIM ---
History of Present Illness H&P Date: 03/24/24 Chief Complaint: Abdominal pain, cecal volvulus Patient is a 53-year-old female with history of GERD and celiac disease as a transfer from [facility] where she presented earlier with a sudden onset of epigastric abdominal pain. Patient reports that she came back from work around 4:30 PM and had a bowel soup when she experienced sudden onset, sharp, 10/10, epigastric pain radiating to her chest and neck associated with nausea and multiple episodes of nonbloody bloody vomitus. Patient reports that it was worse with the movement such as walking and better with rest. Patient denies any previous episodes of abdominal pain of this kind. At the time of interview, patient is still complaining of abdominal pain which she states is 5/10 and is diffuse. She continues to be nauseated but no vomiting. She is also feeling generalized weakness, lightheadedness, but no chest pain, shortness of breath, numbness or tingling in upper and lower extremities. Patient had extensive medical evaluation at the [facility]. Laboratory evaluation in [facility] showed WBC 8.3, with neutrophil count of 4.6, sodium 138, potassium 4.7, chloride 102, bicarb 31, glucose 117, AST 45, ALT 22, alkaline phos at 99, total bili 0.4, INR 0.96, PTT 29.1, D-dimer 0.26, lipase 93, magnesium 2.1, phosphorus 4.0, troponin I less than 0.012, lactic acid 1.6, EKG at [facility] was unremarkable with sinus rhythm. Heart rate 72, ID interval 139, QTc 450, no ST or T wave changes noted. CT abdomen and pelvis at [facility] shows distended loop of bowel rotated into the left upper quadrant of the abdomen concerning for cecal volvulus closed-loop bowel obstruction. Review of systems: Pertinent positives and negatives as discussed in HPI, a complete review of systems was performed and all other systems are negative. Social history: Tobacco: 1 pack/day x 20 years Alcohol: 2 glass of wine x 5 years Recreational drugs: None Travel: None Occupation: Employed Family History: Nonsignificant Physical examination: Vital signs reviewed General: non toxic, no distress, appears at stated age, normal weight Derm: no unusual rashes/lesions, warm Head: atraumatic, normocephalic, symmetric Eyes: EOMI, no lid lag, anicteric sclera, pupils equal round reactive to light ENT: Nose and ears atraumatic Neck: No cervical lymphadenopathy, trachea midline, supple Mouth: no lip lesion, mucus membranes moist Cardiovascular: S1S2 reg, no murmur, positive dorsalis pedis pulse bilateral, no edema Lungs: CTA bilateral, no rhonchi, no rales, no accessory muscle use Abdominal: soft, diffuse tenderness to palpation, no guarding, bowel sounds are positive Ext: muscle strength 5 out of 5 in all 4 extremities grossly, no gross muscle atrophy, no contractures, Neuro: CN II-XI grossly intact, no gross focal neuro deficits Psych: Alert, oriented, appropriate affect Assessment/Plan: 53-year-old female with a past history of GERD and celiac disease is a transfer from [facility] with a chief complaint of sudden onset epigastric abdominal pain that started on the evening of 03/23/[address] of the abdomen/pelvis at the [facility] shows cecal volvulus. # Cecal volvulus CT abdomen and pelvis shows distended loop of bowel rotated into the left upper quadrant of the abdomen concerning for cecal volvulus closed-loop bowel obst ruction Continue with Dilaudid 1 mg IVP every 3 hours as needed for pain Continue with Zofran 4 mg IVP every 6 hours as needed for nausea and vomiting Continue IV normal saline 75 cc/h Consult general surgery Continue with n.p.o. diet Blood culture order WBC 8.3, with neutrophil count of 4.6 Continue monitor CBC with differential #Metabolic alkalosis secondary to vomiting sodium 138, potassium 4.7, chloride 102, bicarb 31 Continue monitor bicarb levels IVF hydration as above #Hyperglycemia Glucose 117 Check HbA1c Ordered sliding scale short acting insulin Continue monitor glucose level DVT prophylaxis: Lovenox 40 mg subcu daily The patient is admitted with an anticipated greater than than 2 midnight stay for evaluation of cecal volvulus CODE STATUS: Full code Discussed with: Patient Anticipated discharge place: Home Past Medical History Past Medical History: Fibromyalgia, GERD/Reflux Additional Past Medical History / Comment(s): celiac disease, "told she has raynaulds", small hiatal hernia. "precancerous colon polyps removed" History of Any Multi-Drug Resistant Organisms: None Reported Past Surgical History: Adenoidectomy, Appendectomy, Cholecystectomy, Hysterectomy, Orthopedic Surgery, Tonsillectomy Additional Past Surgical History / Comment(s): Appendectomy with mesenteric mass excision, diagnostic exploratory laprascopy, surgery for tubal , EGD, c olonoscopy, cervical fusion/decompression. Past Anesthesia/Blood Transfusion Reactions: Previous Problems w/ Anesthesia, Motion Sickness, Postoperative Nausea & Vomiting (PONV) Additional Past Anesthesia/Blood Transfusion Reaction / Comment(s): Slow to wake Additional Past Alcohol Use History / Comment(s): Pt started smoking in 2007 and is 3/4 ppd smoker. She drinks 2-3 glasses of wine at night. - Past Family History Sister(s) Family Medical History: Cancer Additional Family Medical History / Comment(s): Stage III colon cancer. Mother Additional Family Medical History / Comment(s): lupus, mi of at age 52 Father Family Medical History: AFIB Medications and Allergies Home Medications Medication Instructions Recorded Confirmed Type Omeprazole [PriLOSEC] 20 mg PO DAILY 02/27/19 01/31/20 History Fluconazole [Diflucan] 150 mg PO Q30D 01/30/20 01/31/20 History traMADol HCL [Ultram] 50 mg PO Q6HR PRN 01/30/20 01/30/20 History Cyclobenzaprine [Flexeril] 10 mg PO TID PRN #90 tab 02/01/20 Rx HYDROcodone/APAP 7.5-325MG [[place] 1 tab PO Q4H PRN 7 Days #42 tab 02/01/20 Rx 7.5-325] Allergies Allergy/AdvReac Type Severity Reaction Status Date / Time Penicillins Allergy STRONG Verified 01/31/20 06:37 SIBLING REACTION OF ANAPHYLAXIS tree nut Allergy SKIN Verified 01/31/20 06:37 REACTION wheat Allergy CELIAC Verified 01/31/20 06:37 Physical Exam Vitals: Vital Signs Pulse Resp BP Pulse Ox 03/24/24 03:55 72 16 123/87 93 L 03/24/24 03:14 67 16 107/54 96 Intake and Output 03/23/24 03/23/24 03/24/24 14:59 22:59 06:59 Other: Weight 61.235 kg Assessment and Plan Assessment: I have seen and evaluated the patient today. I Discussed the case with the resident and agree with the resident's findings I edited the assessment and plan as necessary as documented in the resident's note.
[2024-03-24] MEDS: HYDROmorphone 1 MG/ML 1 ML SYRINGE IVP PRN (09:23)
[2024-03-24] MEDS: HEPARIN SODIUM,PORCINE 5,000 UNIT/ML 1 ML VIAL SQ SCH (09:24)
[2024-03-24] MEDS: PANTOPRAZOLE 40 MG/10 ML VIAL IV SCH (09:24)
[2024-03-24 12:00] LABS: Glucose,Whole Blood 93 mg/dL (70-110)
[2024-03-24 12:20] LABS: Basophils % (A) 0 %; Eosinophils # (A) 0.1 k/uL (0-0.7); Eosinophils % (A) 1 %; HCT 39.8 % (34.0-46.0); HGB 13.5 gm/dL (11.4-16.0); Lymphocytes # (A) 1.7 k/uL (1.0-4.8); Lymphocytes % (A) 22 %; MCH 33.6 pg (25.0-35.0); MCV 98.8 fL (80.0-100.0); Mean Platelet Volume 8.1; Monocytes # (A) 0.5 k/uL (0-1.0); Monocytes % (A) 7 %; Neutrophils # (A) 5.3 k/uL (1.3-7.7); Neutrophils % (A) 69 %; Platelet Count 285 k/uL (150-450); RBC 4.03 m/uL (3.80-5.40); RDW 12.6 % (11.5-15.5); WBC 7.7 k/uL (3.8-10.6)
[2024-03-24 12:39] LABS: ALT 14 U/L (4-34); AST 23 U/L (14-36); African American GFR (CKD) >90 (>60 ml/min/1.73 sqM); Albumin 3.8 g/dL (3.5-5.0); Albumin/Globulin Ratio 1.7; Alkaline Phosphatase 89 U/L (38-126); Amylase 39 U/L (30-110); Anion Gap 3 mmol/L; Blood Urea Nitrogen 11 mg/dL (7-17); Calcium 9.2 mg/dL (8.4-10.2); Carbon Dioxide 29 mmol/L (22-30); Chloride 107 mmol/L (98-107); Globulin 2.2 g/dL; Glucose 91 mg/dL (74-99); Lipase 38 U/L (23-300); Non-African American GFR(CKD) >90 (>60 ml/min/1.73 sqM); Potassium 4.1 mmol/L (3.5-5.1); Sodium 139 mmol/L (137-145); Total Bilirubin 0.6 mg/dL (0.2-1.3)
--- NOTE | 2024-03-24 14:19 | P.GSCN ---
History of Present Illness Consult date: 03/24/24 History of present illness: CHIEF COMPLAINT: Abdominal pain HISTORY OF PRESENT ILLNESS: The patient is a 53-year-old female who presents as a transfer [facility] after developing acute onset abdominal pain late yesterday afternoon. She reports otherwise she had been done well. Her last event of a pain of this character was for her appendicitis over 14 years ago. She reports having a hysterectomy, cholecystectomy, appendectomy in the past. Her last bowel movement was yesterday morning. No recent blood. She reports unable to pass flatus as of yesterday evening. She reports thirst. She has a pre-existing history of celiac disease as well. She reports new abdominal distention since yesterday evening. PAST MEDICAL HISTORY: See list and reviewed PAST SURGICAL HISTORY: See list and reviewed MEDICATIONS: See list and reviewed ALLERGIES: See list and reviewed SOCIAL HISTORY: See list and reviewed FAMILY HISTORY: See list and reviewed REVIEW OF ORGAN SYSTEMS: CONSTITUTIONAL: No fevers or chills. No recent weight loss. EYES: Denies any trouble with vision. No glasses. HEENT: No difficulties with hearing. No nosebleeds. No difficulty swallowing. RESPIRATORY: Denies pneumonia. Denies any troubles with breathing or dyspnea on exertion. CARDIOVASCULAR: Denies any chest pain, palpitations, or recent heart attacks. GASTROINTESTINAL: Has celiac disease. Prior appendectomy, cholecystectomy. Reports food intolerances due to celiac disease. She avoids artificial sweeteners. Gastroesophageal reflux disease GENITOURINARY: Denies any blood in urine or increased urinary frequency. Prior hysterectomy. NEUROLOGICAL: Denies any numbness or tingling along the distal extremities. No seizure disorders or headaches. MUSCULOSKELETAL: Has back pain, stiffness or joint arthritis. Has fibromyalgia SKIN: No current skin cancer. No rash. PSYCHIATRIC: Denies current depression or suicidal thoughts. ENDOCRINE: Denies current thyroid disorders. Denies any blood sugar glucose intolerance. HEME/LYMPHATIC: Denies any lumps and bumps around the neck. No recent deep venous thrombosis. ALLERGY/IMMUNOLOGY: No immunoglobulin therapy. No immune deficiencies. BREAST: Denies current breast lumps, pain or nipple discharge. PHYSICAL EXAM: VITALS: Reviewed CONSTITUTIONAL: Well developed and in no acute distress. EYES: Conjuctivae without sclera icterus. Extraocular movements grossly intact. HEAD, EARS, NOSE, THROAT: Moist buccal mucosa. Head is atraumatic, normocephalic. Hears conversational speech. No nasal drainage. NECK: Supple. No JV distention. No thyroidomegaly. RESPIRATORY: Non-labored respirations and equal bilateral excursions. No gross wheezes. CARDIOVASCULAR: Palpable 2+ radial pulses. ABDOMEN: Mildly distended. No diffuse peritonitis. Mild tenderness left upper quadrant. LYMPH: No neck lymphadenopathy. MUSCULOSKELETAL: No clubbing cyanosis or edema SKIN: Warm and well perfused with good skin turgor. NEUROLOGIC: Cranial nerves II through XII grossly intact. No focal or lateralizing signs. PSYCH: Appropriate affect. Alert and oriented to person, place and time. Displays appropriate insight. CLINCAL LABS: Reviewed. New labs ordered by me demonstrates no lactic acidosis or leukocytosis. IMAGING: Independently reviewed. CT of the abdomen pelvis from outside facility reviewed demonstrates moderate distention of the cecum over 8 cm with mesenteric swirl. Findings consistent with cecal volvulus. RECORDS: previous old records reviewed. Prior CT of the abdomen pelvis from 2019 reviewed including hospital records from 2019 demonstrates patient was being treated for bowel obstruction. Colonoscopy demonstrated colon polyps. ASSESSMENT: 1. Abdominal pain due to cecal volvulus 2. Celiac disease 3. Gastroesophageal reflux disease 4. Fibromyalgia PLAN: 1. Patient may have ice chips in the interim. She declined popsicles due to allergy to additives. 2. Initial option for further diagnostic imaging with barium enema described however CT findings consistent with cecal volvulus. Given the large size of the cecum, endoscopic decompression versus immediate surgery was offered to the patient. She elected for surgical intervention. 3. Possibility of open colectomy, colostomy bag also described with patient. 4. I had personally ordered her CBC, CMP, amylase, lipase, lactic acid level which were all grossly within normal limits. ADVANCE DIRECTIVE: CODE STATUS in chart Thank you for this kind consultation. Past Medical History Past Medical History: Fibromyalgia, GERD/Reflux Additional Past Medical History / Comment(s): celiac disease, "told she has raynaulds", small hiatal hernia. "precancerous colon polyps removed" History of Any Multi-Drug Resistant Organisms: None Reported Past Surgical History: Adenoidectomy, Appendectomy, Cholecystectomy, Hysterectomy, Orthopedic Surgery, Tonsillectomy Additional Past Surgical History / Comment(s): Appendectomy with mesenteric mass excision, diagnostic exploratory laprascopy, surgery for tubal , EGD, colonoscopy, cervical fusion/decompression. Past Anesthesia/Blood Transfusion Reactions: Previous Problems w/ Anesthesia, Motion Sickness, Postoperative Nausea & Vomiting (PONV) Additional Past Anesthesia/Blood Transfusion Reaction / Comm: Slow to wake Additional Past Alcohol Use History / Comment(s): Pt started smoking in 2007 and is 3/4 ppd smoker. She drinks 2-3 glasses of wine at night. - Past Family History Sister(s) Family Medical History: Cancer Additional Family Medical History / Comment(s): Stage III colon cancer. Mother Additional Family Medical History / Comment(s): lupus, mi of at age 52 Father Family Medical History: AFIB Medications and Allergies Home Medications Medication Instructions Recorded Confirmed Type Omeprazole Magnesium [PriLOSEC OTC] 20 mg PO DAILY 03/24/24 03/24/24 History Allergies Allergy/AdvReac Type Severity Reaction Status Date / Time gluten Allergy CELIAC Verified 03/24/24 08:56 Penicillins Allergy STRONG Verified 03/24/24 08:56 SIBLING REACTION OF ANAPHYLAXIS Sulfa (Sulfonamide Allergy Unknown Verified 03/24/24 08:56 Antibiotics) Childhood tree nut Allergy SKIN Verified 03/24/24 08:56 REACTION wheat Allergy CELIAC Verified 03/24/24 08:56 Surgical - Exam Vital Signs Pulse Resp BP Pulse Ox 67 16 107/54 96 03/24/24 03:14 03/24/24 03:14 03/24/24 03:14 03/24/24 03:14 Results - Labs 03/24/24 12:02 03/24/24 12:02 Abnormal Lab Results - Last 24 Hours (Table) 03/24/24 Range/Units 12:02 Total Protein 6.0 L (6.3-8.2) g/dL Diabetes panel 03/24/24 Range/Units 12:02 Sodium 139 (137-145) mmol/L Potassium 4.1 (3.5-5.1) mmol/L Chloride 107 (98-107) mmol/L Carbon Dioxide 29 (22-30) mmol/L BUN 11 (7-17) mg/dL Creatinine 0.59 (0.52-1.04) mg/dL Glucose 91 (74-99) mg/dL Calcium 9.2 (8.4-10.2) mg/dL AST 23 (14-36) U/L ALT 14 (4-34) U/L Alkaline Phosphatase 89 (38-126) U/L Total Protein 6.0 L (6.3-8.2) g/dL Albumin 3.8 (3.5-5.0) g/dL Calcium panel 03/24/24 Range/Units 12:02 Calcium 9.2 (8.4-10.2) mg/dL Albumin 3.8 (3.5-5.0) g/dL Pituitary panel 03/24/24 Range/Units 12:02 Sodium 139 (137-145) mmol/L Potassium 4.1 (3.5-5.1) mmol/L Chloride 107 (98-107) mmol/L Carbon Dioxide 29 (22-30) mmol/L BUN 11 (7-17) mg/dL Creatinine 0.59 (0.52-1.04) mg/dL Glucose 91 (74-99) mg/dL Calcium 9.2 (8.4-10.2) mg/dL Adrenal panel 03/24/24 Range/Units 12:02 Sodium 139 (137-145) mmol/L Potassium 4.1 (3.5-5.1) mmol/L Chloride 107 (98-107) mmol/L Carbon Dioxide 29 (22-30) mmol/L BUN 11 (7-17) mg/dL Creatinine 0.59 (0.52-1.04) mg/dL Glucose 91 (74-99) mg/dL Calcium 9.2 (8.4-10.2) mg/dL Total Bilirubin 0.6 (0.2-1.3) mg/dL AST 23 (14-36) U/L ALT 14 (4-34) U/L Alkaline Phosphatase 89 (38-126) U/L Total Protein 6.0 L (6.3-8.2) g/dL Albumin 3.8 (3.5-5.0) g/dL
[2024-03-24] MEDS: DEXAMETHASONE SOD PHOSPHATE 4 MG/ML 1 ML VIAL IM STA (15:26)
[2024-03-24] MEDS: FAMOTIDINE 20 MG/2 ML VIAL IV STA (15:26)
[2024-03-24] MEDS: MIDAZOLAM 2 MG/2 ML VIAL IV ONE (15:27)
[2024-03-24] MEDS ORDERED: DEXAMETHASONE SOD PHOSPHATE 4 MG/ML 1 ML VIAL ONE (15:39)
[2024-03-24] MEDS ORDERED: HEPARIN SODIUM,PORCINE 5,000 UNIT/ML 1 ML VIAL ONE (15:39)
[2024-03-24] MEDS ORDERED: HYDROmorphone (PF) 1 MG/ML ONE (15:39)
[2024-03-24] MEDS ORDERED: SUCCINYLCHOLINE CHLORIDE 200 MG/10 ML VIAL IV ONE (15:39)
[2024-03-24] MEDS ORDERED: PHENYLEPHRINE-0.9% NACL SYG 1,000 MCG/10 ML SYRINGE ONE (15:39)
[2024-03-24] MEDS ORDERED: ROCURONIUM 10 MG/ML (5 ML VIAL) IV ONE (15:39)
[2024-03-24] MEDS ORDERED: KETAMINE HCL IN 0.9 % NACL 50 MG/5 ML SYRINGE ONE (15:39)
[2024-03-24] MEDS ORDERED: PROPOFOL 10 MG/ML 20 ML VIAL IV ONE (15:39)
[2024-03-24] MEDS ORDERED: MIDAZOLAM 2 MG/2 ML VIAL ONE (15:39)
[2024-03-24] MEDS ORDERED: ROPIVACAINE 5 MG/ML 30 ML VIAL ONE (15:39)
[2024-03-24] MEDS ORDERED: SUGAMMADEX SODIUM 200 MG/2 ML SDV IV ONE (15:39)
[2024-03-24] MEDS ORDERED: LIDOCAINE 1% INJ 10MG/ML (20 ML MDV) ONE (15:39)
[2024-03-24] MEDS ORDERED: fentaNYL (PF) 50 MCG/ML 2 ML AMP ONE (15:39)
--- NOTE | 2024-03-24 15:40 | P.ANPRN ---
Procedure Note - Anesthesia - Nerve Block Performed Bilateral Erector Spinae Single Time Out Performed: Yes Date of Procedure: 03/24/24 Procedure Start Time: 15: Procedure Stop Time: 15:32 Location of Patient: PreOp Indication: Acute Post-Operative Pain, Analgesia, Requested by Surgeon Sedation Type: Sedate with meaningful contact maintained Preparation: Sterile Prep Position: Sitting Catheter: None Needle Types: Pajunk Needle Gauge: 21 Ultrasound used to visualize needle placement: Yes Ultrasound used to observe medication spread: Yes Injectate: 0.5% Ropivacaine (see comment for volume) (rOPIV 20ML+dECADRON 4MG---eACH SIDE) Blood Aspirated: No Pain Paresthesia on Injection Noted: No Resistance on Injection: Normal Image Stored and Saved: Yes Events: Uneventful and Well Tolerated
[2024-03-24] MEDS: LACTATED RINGERS 1,000 ML IV ONE ×3 (15:43→19:15)
[2024-03-24] MEDS: LIDOCAINE 1%-EPI 1:100,000 20 ML VIAL SQ ONE (16:31)
[2024-03-24] MEDS ORDERED: diphenhydrAMINE 50 MG/ML 1 ML VIAL IVP PRN (19:57)
--- NOTE | 2024-03-24 20:15 | P.OP ---
Date of Procedure: 03/24/24 Description of Procedure: SURGEON: TIFFANIE ARELLANO MD Preoperative Diagnosis: 1. Cecal volvulus 2. Large bowel obstruction 3. Celiac disease 4. Tobacco abuse disorder 5. Gastroesophageal reflux disease 6. History of appendectomy 7. History of bowel obstruction Postoperative Diagnosis: 1. 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 Large bowel obstruction 3. Celiac disease 4. Tobacco abuse disorder 5. Gastroesophageal reflux disease 6. History of appendectomy 7. History of bowel obstruction 8. Retained chronic appendicitis 9. Internal hernia 10. Early intestinal ischemia, cecum Procedure(s) Performed: 1. Robot-assisted daVinci Xi laparoscopic partial colectomy with right hemicolectomy 2. Decompressive colotomy with closure of colotomy Anesthesia: GETA, local, regional block Estimated Blood Loss (ml): 20 Condition: stable SPECIMENS REMOVED: terminal ileum and extended right colon en bloc COMPLICATIONS: None. Disposition: floor Operative Findings: 1. Intestinal volvulus involving small bowel, ileum, jejunum and cecum with moderate dilation due to internal hernia 2. Moderate distention cecum with early intestinal ischemia 3. Moderate residual appendix from prior appendectomy 4. Highly redundant transverse colon 5. Due to moderately distended cecum, decompressive colotomy performed along the anterior serosa allowing performance of laparoscopic approach. INDICATIONS: The patient is a 53-year-old female transferred from outside facility for cecal volvulus. She reports obstipation with bowel obstruction. Benefits and risks, including infection, injury to adjacent structures, open surgery possibility for additional surgery was discussed at length. Informed consent was obtained. All questions of the patient and family were answered. DESCRIPTION: Preoperatively, patient had a regional block. The patient was transferred to the operating room and placed in supine position. After general anesthetic, a almeida catheter was placed. The abdomen was prepped and draped in standard sterile fashion as Ioban was placed along the abdomen to minimize any contamination of skin floor. Patient pre-existing CT scan demonstrated moderate distention of the cecum incorporating the entire left upper quadrant. First entry was performed along t he contralateral upper abdomen. After a timeout protocol was performed, attention was then brought to the right upper quadrant whereby a 0 degree 5 mm laparoscopic trocar entry was performed. The abdominal cavity was entered and insufflated to 15 mmHg pressure, which was tolerated well. Diagnostic laparoscopy demonstrated no injury to bowel or mesentery. A small 5 mm defect of the right lower lobe serosa was identified without bleeding. This area was later cauterized. Moderate distention of the cecum incorporating the left side of the abdomen was found. Next trochars were placed along the left lateral abdomen under direct respiratory localization as the cecum was mobilized from the left side of the abdomen to the right side of the abdomen. Two robotic 8-mm trocars were placed along the left lower abdomen. Two 12 mm ports was placed along the left upper quadrant. Ports were placed 9 cm apart from each other including 15-20 cm away from the target anatomy of the right pelvis. The patient was then placed in reverse Trendelenburg 7. The robotic da Amado XI system was primed and docked from the left side of the patient. Using atraumatic graspers and vessel sealer, the robotic system was docked and primed as described. Instruments were interchanged by the insurance assistant including scissors, needle truck driver, robotic stapler and vessel sealer. Next, attention was brought to the cecum anterior surface. A pursestring suture using 3-0 silk was placed along the anterior serosa of the cecum. A colotomy was performed with immediate suction of the air and stool decompressed in the cecum. A 60 mm blue staple load was fired across the colotomy without spillage of stool. A tight portion of the cecum was confirmed also incorporating the terminal ileum. The ascending colon was also incorporated within the torsion. The mid transverse colon was identified and tagged using 3-0 silk. A window along the mesentery of the mid transverse colon was performed using hook cautery including blunt dissection. A 60 mm robotic screen load was fired right lateral to the mid transverse colon. Hemostasis was checked using hook cautery along the staple edges. Once divided, attempted reduction from the terminal ileum was performed however without success. Next attention was brought to the ligament of Treitz. The small bowel was run distally from the ligament of Treitz where a confirmed internal hernia with small bowel volvulus involvement was found of the left abdomen. The internal hernia was reduced including the reduction of the cecal volvulus. The terminal ileum was tagged for division approximately 5 cm distal to the ileocecal valve. A window was created along the mesentery using hook cautery and blunt dissection. A robotic 60 mm blue staple load was fired across the terminal ileum proximal to the tagged edge. Tube appeared for a ileocolic anastomosis, the mid transverse colon and ileum were tagged together using 3-0 silk. The rest of terminal ileum and ascending colon mesentery were mobilized using a vessel sealer. The cecum was moderately redundant requiring additional dissection including blunt dissection. The vascular pedicle of the ileocolic ar yaritza was controlled using vessel sealer. The mid transverse colon and distal ileum was brought in a side to side antiperistaltic anastomotic fashion after placing interrupted sutures along the proposed michele-lumen using 3-0 silk. A colotomy and enterotomy was prepared along both limbs along the antimesenteric border. Next, 60 mm green stapler loads were fired to create the michele-lumen and hemostatic. The michele-lumen was reapproximated using 3-0 silk followed by 60 mm green loads for closure of the enterostomy. The mesenteric defect was closed using green 9 inch 2-0 VLOC to prevent internal hernia. All needles and sponges were removed from the abdominal cavity. Next, a 15 mm Endo Catch bag was placed by the insurance assistant through the 12 mm trocar of the left upper quadrant. Specimen was placed. The robot was undocked. I re-scrubbed into the case. Via the 12 mm port of the left upper quadrant, the right colon was removed after widening the skin incision to 3-cm using Bovie cautery for the 15-mm Endo Catch bag. The fascial defect was oversewn using 0 Vicryl and Bernardo Jefferson. Next all pneumoperitoneum was evacuated from the abdominal cavity. The 8-mm trocar sites were reapproximated using 4-0 Monocryl in an interrupted subcuticular fashion. Local anesthetic was infiltrated to all wounds for postop analgesia. All incisions were also cleansed with diluted hydrogen peroxide. Liquid was applied to the rest of the skin incisions. An Optifoam dressing was placed along the specimen extraction site. Abdominal binder was placed. The patient had tolerated the procedure well. The patient was extubated successfully. Intraoperative photos were reviewed with the patient's family who were overall pleased with the level of care. The patient was transferred to the postanesthe [facility] care unit in stable condition.
[2024-03-24] MEDS: fentaNYL PCA 500 MCG/50 ML BAG IV SCH (21:23)
[2024-03-24] MEDS: SODIUM CHLORIDE 0.9% 2,000 ML IV ONE (22:00)
[2024-03-24] MEDS: GABAPENTIN 300 MG CAP PO SCH (22:07)
[2024-03-24] MEDS: ACETAMINOPHEN TAB 325 MG TAB PO SCH (23:43)
[2024-03-24] MEDS: FLUCONAZOLE 150 MG TAB PO STA (23:44)
[2024-03-24] MEDS: metroNIDAZOLE-NS PMX 500 MG in SALINE 1 100ML.BAG IVPB SCH (23:45)
[2024-03-25 04:03] LABS: Basophils % (A) 0 %; Eosinophils % (A) 0 %; HCT 38.2 % (34.0-46.0); HGB 12.6 gm/dL (11.4-16.0); Lymphocytes # (A) 0.8 k/uL (1.0-4.8); Lymphocytes % (A) 7 %; MCH 32.5 pg (25.0-35.0); MCV 98.8 fL (80.0-100.0); Mean Platelet Volume 8.1; Monocytes # (A) 0.8 k/uL (0-1.0); Monocytes % (A) 6 %; Neutrophils # (A) 11.1 k/uL (1.3-7.7); Neutrophils % (A) 86 %; Platelet Count 273 k/uL (150-450); RBC 3.87 m/uL (3.80-5.40); RDW 12.6 % (11.5-15.5); WBC 12.9 k/uL (3.8-10.6)
[2024-03-25 04:19] LABS: ALT 16 U/L (4-34); AST 30 U/L (14-36); African American GFR (CKD) >90 (>60 ml/min/1.73 sqM); Albumin 3.5 g/dL (3.5-5.0); Albumin/Globulin Ratio 1.7; Alkaline Phosphatase 83 U/L (38-126); Anion Gap 5 mmol/L; Blood Urea Nitrogen 8 mg/dL (7-17); Calcium 8.4 mg/dL (8.4-10.2); Carbon Dioxide 25 mmol/L (22-30); Chloride 103 mmol/L (98-107); Globulin 2.1 g/dL; Glucose 121 mg/dL (74-99); Lipase 23 U/L (23-300); Magnesium 1.3 mg/dL (1.6-2.3); Non-African American GFR(CKD) >90 (>60 ml/min/1.73 sqM); Phosphorus 4.4 mg/dL (2.5-4.5); Potassium 3.9 mmol/L (3.5-5.1); Sodium 133 mmol/L (137-145); Total Bilirubin 0.4 mg/dL (0.2-1.3); Total Protein 5.6 g/dL (6.3-8.2)
[2024-03-25 06:04] LABS: Glucose,Whole Blood 131 mg/dL (70-110)
[2024-03-25] MEDS: MAGNESIUM SULFATE-D5W PMX 1 GM in DEXTROSE/WATER 1 100ML.BAG IVPB SCH (10:21)
--- NOTE | 2024-03-25 11:03 | P.PN ---
Subjective Progress Note Date: 03/25/24 Subjective: Patient seen and examined at bedside. No acute events overnight. Villa catheter removed. She is ambulating across room. In moderate pain. Pertinent positives and negatives as discussed above, a complete review of systems was performed and all other systems are negative. Vitals: Signs Reviewed Physical Exam: General: nontoxic, no distress, appears at stated age Derm: warm, dry, intact Head: atraumatic, normocephalic, symmetric Eyes: EOMI, no lid lag, anicteric sclera Mouth: no lip lesion, mucus membranes moist Cardiovascular: S1 S2 reg, no murmur, rubs, or gallops Lungs: CTA bilateral, no rhonchi, no rales, no accessory muscle use Abdominal: soft, non-tender to palpataion, no appreciable organomegaly Extremities: no gross muscle atrophy, no edema, no contractures Neuro: Alert, Oriented, CNII-XII grossly intact, gait normal Psych: well appearing, appropriate affect Data Received Today: Pertinent Labs: WBC 12.9 Imaging: None Assessment and Plan: 53-year-old female with a past history of GERD and celiac disease is a transfer from [facility] with a chief complaint of sudden onset epigastric abdominal pain that started on the evening of 03/23/[address] of the abdomen/pelvis at the [facility] shows cecal volvulus. POD 1. Cecal volvulus: POD 1. Pain management with Fentanyl BOOMBOAT OPERATOR pump. Dilaudid 1 mg IV Q3H PRN for pain. Reglan 10 mg IV Q6H PRN or Zofran 4 mg IV Q6H PRN for N/V. Protonix 40 mg IV QD. Tylenol 650 mg PO Q4H scheduled. Leukocytosis likely reactive from surgery without any signs of infection. Currently on Flagyl 500 mg IV TID and Cefzolin 2g IV TID per surgery. Hyponatremia: Continue NS at 75 cc/hr. Hypomagnesemia: 4g Mag sulfate ordered. DVT prophylaxis: Lovenox 40 mg subcu daily F: NS at 75cc/hr E: Replete as needed N: Low fiber diet, gluten-free, vegetarian A: Ambulatory DVT ppx: Heparin subcu Code status: Full Anticipated discharge place: Pending clinical course Anticipated discharge time: Pending clinical course I have seen and evaluated the patient today. Discussed with the resident and agree with the residents subjective and objective as documented in the resident's note. The assessment and plan was discussed and outlined as below. Patient reports moderately controlled pain at the site of surgery. Tolerating diet well. POD 1 laparoscopic partial colectomy with right hemicolectomy, decompressive colotomy with closure of colotomy. Cecal volvulus: POD 1. Pain management with Fentanyl BOOMBOAT OPERATOR pump. Dilaudid 1 mg IV Q3H PRN for pain. Reglan 10 mg IV Q6H PRN or Zofran 4 mg IV Q6H PRN for N/V. Protonix 40 mg IV QD. Tylenol 650 mg PO Q4H scheduled. Leukocytosis likely reactive from surgery without any signs of infection. Cur rently on Flagyl 500 mg IV TID and Cefzolin 2g IV TID per surgery. Hyponatremia: Continue NS at 75 cc/hr. Hypomagnesemia: 4g Mag sulfate ordered. Objective - Vital Signs Vital signs: Vital Signs Temp 97.9 F 03/25/24 07:37 Pulse 58 L 03/25/24 07:37 Resp 18 03/25/24 07:37 BP 133/68 03/25/24 07:37 Pulse Ox 96 03/25/24 07:37 FiO2 Intake & Output 03/24/24 03/25/24 03/25/24 18:59 06:59 18:59 Intake Total 1999 400 Output Total 2069 3100 Balance 1999 -1670 -3100 Intake: IV 1999 400 Output: Urine 2049 3100 Uretheral (Villa) 2400 Estimated Blood Loss 20 Other: Voiding Method Indwelling Catheter Indwelling Catheter # Voids 1 - Labs CBC & Chem 7: 03/25/24 03:21 03/25/24 03:21 Labs: Abnormal Lab Results - Last 24 Hours (Table) 03/24/24 03/25/24 03/25/24 Range/Units 12:02 03:21 03:21 WBC 12.9 H (3.8-10.6) k/uL Neutrophils # 11.1 H (1.3-7.7) k/uL Lymphocytes # 0.8 L (1.0-4.8) k/uL Sodium 133 L (137-145) mmol/L Creatinine 0.46 L (0.52-1.04) mg/dL Glucose 121 H (74-99) mg/dL POC Glucose (mg/dL) (70-110) mg/dL Magnesium 1.3 L (1.6-2.3) mg/dL Total Protein 6.0 L 5.6 L (6.3-8.2) g/dL 03/25/24 Range/Units 06:02 WBC (3.8-10.6) k/uL Neutrophils # (1.3-7.7) k/uL Lymphocytes # (1.0-4.8) k/uL Sodium (137-145) mmol/L Creatinine (0.52-1.04) mg/dL Glucose (74-99) mg/dL POC Glucose (mg/dL) 131 H (70-110) mg/dL Magnesium (1.6-2.3) mg/dL Total Protein (6.3-8.2) g/dL
[2024-03-25 11:35] LABS: Glucose,Whole Blood 139 mg/dL (70-110)
[2024-03-25 16:36] LABS: Glucose,Whole Blood 116 mg/dL (70-110)
[2024-03-25 20:24] LABS: Glucose,Whole Blood 127 mg/dL (70-110)
--- NOTE | 2024-03-26 00:25 | P.PN ---
Subjective Patient seen and evaluated at bedside. Doing well, moving around easily, admits to discomfort only, tolerated diet. Objective - Vital Signs Vital signs: Vital Signs Temp 98.1 F 03/25/24 19:32 Pulse 65 03/25/24 19:32 Resp 18 03/25/24 19:32 BP 166/93 03/25/24 19:32 Pulse Ox 96 03/25/24 19:32 FiO2 Intake & Output 03/25/24 03/25/24 03/26/24 06:59 18:59 06:59 Intake Total 400 Output Total 2069 3800 Balance -1670 -3800 Intake: IV 400 Output: Urine 2049 380 Uretheral (Villa) 2400 Estimated Blood Loss 20 Other: Voiding Method Indwelling Catheter Indwelling Catheter - Exam gen: nad cv: rrr pul: non labored breathing abd: incisions are c/d/i, abdominal binder in place, patient c/o discomfort with binder - Labs CBC & Chem 7: 03/25/24 03:21 03/25/24 03:21 Labs: Abnormal Lab Results - Last 24 Hours (Table) 03/25/24 03/25/24 03/25/24 Range/Units 03:21 03:21 06:02 WBC 12.9 H (3.8-10.6) k/uL Neutrophils # 11.1 H (1.3-7.7) k/uL Lymphocytes # 0.8 L (1.0-4.8) k/uL Sodium 133 L (137-145) mmol/L Creatinine 0.46 L (0.52-1.04) mg/dL Glucose 121 H (74-99) mg/dL POC Glucose (mg/dL) 131 H (70-110) mg/dL Magnesium 1.3 L (1.6-2.3) mg/dL Total Protein 5.6 L (6.3-8.2) g/dL 03/25/24 03/25/24 03/25/24 Range/Units 11:34 16:35 20:22 WBC (3.8-10.6) k/uL Neutrophils # (1.3-7.7) k/uL Lymphocytes # (1.0-4.8) k/uL Sodium (137-145) mmol/L Creatinine (0.52-1.04) mg/dL Glucose (74-99) mg/dL POC Glucose (mg/dL) 139 H 116 H 127 H (70-110) mg/dL Magnesium (1.6-2.3) mg/dL Total Protein (6.3-8.2) g/dL Assessment and Plan Assessment: 53 yo female s/p right dell colectomy -patient not comfortable going home today, will attemmpt tomorrow continue diet encourage ambulation encourage incentive spirometer use Time with Patient: Less than 30
[2024-03-26] MEDS: hydrALAZINE HCL 25 MG TAB PO STA (03:06)
[2024-03-26] MEDS: METOCLOPRAMIDE 5 MG/ML 2 ML VIAL IVP PRN (03:12)
[2024-03-26 05:32] LABS: African American GFR (CKD) >90 (>60 ml/min/1.73 sqM); Anion Gap 7 mmol/L; Blood Urea Nitrogen 10 mg/dL (7-17); Calcium 9.4 mg/dL (8.4-10.2); Carbon Dioxide 28 mmol/L (22-30); Chloride 101 mmol/L (98-107); Glucose 134 mg/dL (74-99); Non-African American GFR(CKD) >90 (>60 ml/min/1.73 sqM); Potassium 3.6 mmol/L (3.5-5.1); Sodium 136 mmol/L (137-145)
[2024-03-26] MEDS: SIMETHICONE 40 MG/0.6 ML DROPS 2,000 MG/30 ML BOTTLE PO PRN (05:39)
[2024-03-26 05:46] LABS: HCT 47.9 % (34.0-46.0); MCH 32.3 pg (25.0-35.0); MCHC 32.8 g/dL (31.0-37.0); MCV 98.5 fL (80.0-100.0); Mean Platelet Volume 8.1; Platelet Count 272 k/uL (150-450); RBC 4.86 m/uL (3.80-5.40); RDW 12.5 % (11.5-15.5); WBC 12.8 k/uL (3.8-10.6)
[2024-03-26 06:02] LABS: HGB 15.7 gm/dL (11.4-16.0)
[2024-03-26 06:16] LABS: Glucose,Whole Blood 126 mg/dL (70-110)
--- NOTE | 2024-03-26 07:59 | XR ---
KUB. HISTORY: Abdominal pain. COMPARISON: None. TECHNIQUE: 2 upright views of the abdomen were obtained. FINDINGS: The lung bases are clear. There is no free intraperitoneal air beneath the diaphragm. There are multiple air and fluid-filled dilated loops of small bowel with air-fluid levels consistent with a mid to distal small bowel obstruction. No suspicious abdominal or pelvic calcifications are seen. The osseous structures are intact. IMPRESSION: Bowel gas pattern consistent with a mid to distal small bowel obstruction.
[2024-03-26] MEDS: METOCLOPRAMIDE 5 MG/ML 2 ML VIAL IVP SCH (10:44)
[2024-03-26] MEDS: SIMETHICONE 40 MG/0.6 ML DROPS 2,000 MG/30 ML BOTTLE PO SCH (10:46)
[2024-03-26 11:23] LABS: Glucose,Whole Blood 111 mg/dL (70-110)
--- NOTE | 2024-03-26 12:17 | P.PN ---
Subjective Progress Note Date: 03/26/24 CHIEF COMPLAINT: Cecal volvulus HISTORY OF PRESENT ILLNESS: The patient is a 53-year-old female with pre- existing history of cecal volvulus. She is status post partial colectomy, robotic she ate high-fiber food yesterday including grapes and cantaloupe and had immediate abdominal pain. She reports abdominal gas bloat. She had nausea and vomiting throughout the night. This is now settled this morning. No passage of flatus. She is ambulating. is at bedside. Patient reports family history of colon cancer versus at the age of [age] years old. Last colonoscopy 4 years ago. ROS: No bowel movements. No fevers or chills. No new chest pain. No productive sputum PHYSICAL EXAM: VITAL SIGNS: Reviewed CONSTITUTIONAL: Well developed and in no acute distress. EYES: Conjuctivae without sclera icterus. Extraocular movements grossly intact. HEAD, EARS, NOSE, THROAT: Moist buccal mucosa. Head is atraumatic, normocephalic. Hears conversational speech. No nasal drainage. RESPIRATORY: Non-labored respirations and equal bilateral excursions. CARDIOVASCULAR: Palpable 2+ radial pulses. ABDOMEN: Incision clean dry intact. MUSCULOSKELETAL: No gross deformity of the lower extremities noted. No clubbing. No cyanosis. SKIN: Good skin turgor. Well perfused. NEUROLOGIC: Cranial nerves II through XII grossly intact. No focal or lateralizing signs. PSYCH: Appropriate affect. Alert and oriented to person, place and time. CLINICAL LABS: Reviewed. Labs reviewed demonstrating postinflammatory leukocytosis 12.6. Hemoglobin artificially elevated 15.6. STUDIES: Abdominal x-ray independently reviewed demonstrates ileus. ASSESSMENT: 1. Cecal volvulus. 2. Family history colon cancer. PLAN: 1. Recommend downgrade and education of low fiber diet. Patient accidentally had high-fiber diet yesterday which was contraindicated for her dietary plan. 2. Ice chips and cup of water given at bedside. 3. Recommend bowel rest. 4. Medications adjusted including Zofran scheduled, Reglan scheduled, simethicone scheduled 5. Will need protein intake of 75 to 80 g daily for optimal nutrition and recovery. 6. Return to work anticipated for May 03. 7. Images of her surgery reviewed in given to her for her partial colectomy Objective - Vital Signs Vital signs: Vital Signs Temp 98.6 F 03/26/24 07:04 Pulse 75 03/26/24 07:04 Resp 18 03/26/24 07:04 BP 167/89 03/26/24 08:49 Pulse Ox 97 03/26/24 07:04 FiO2 Intake & Output 03/25/24 03/26/24 03/26/24 18:59 06:59 18:59 Output Total 3800 200 Balance -3800 -200 Output: Urine 3800 Uretheral (Villa) 2400 Emesis 200 Other: Voiding Method Indwelling Catheter # Voids 2 - Labs CBC & Chem 7: 03/26/24 04:57 03/26/24 04:57 Labs: Abnormal Lab Results - Last 24 Hours (Table) 03/25/24 03/25/24 03/26/24 Range/Units 16:35 20:22 04:57 WBC 12.8 H (3.8-10.6) k/uL Hct 47.9 H (34.0-46.0) % Sodium (137-145) mmol/L Creatinine (0.52-1.04) mg/dL Glucose (74-99) mg/dL POC Glucose (mg/dL) 116 H 127 H (70-110) mg/dL 03/26/24 03/26/24 03/26/24 Range/Units 04:57 06:14 11:22 WBC (3.8-10.6) k/uL Hct (34.0-46.0) % Sodium 136 L (137-145) mmol/L Creatinine 0.50 L (0.52-1.04) mg/dL Glucose 134 H (74-99) mg/dL POC Glucose (mg/dL) 126 H 111 H (70-110) mg/dL
--- NOTE | 2024-03-26 12:39 | P.PN ---
Subjective Progress Note Date: 03/26/24 53 year old F with PMH of GERD and celiac disease presents as a transfer from [facility] for acute onset abdominal pain. Hospital course from [facility] was reviewed. CBC, CMP, Coag panel significant for bicarb 31, glu 117. D-Dimer 0.26. Lipase 93. Mag 2.1. Phos 4.0. Troponin < 0.012. Lactic acid 1.6. EKG showed NSR. CT AP showed distended loop of bowel rotated into the LUQ of the abdomen concerning for cecal volvulus closed-loop bowel obstruction. She was transferred to [facility] for surgery evaluation. She underwent laparoscopic partial colectomy with right hemicolectomy, decompressive colotomy with closure of colotomy with Dr. Dudley on 03/24. 03/26 Patient was seen and examined. Last night she had elevated BP as high as SBP 194 requiring Hydralazine 25 mg PO x 1. She reports moderate abdominal pain and distention. Currently on Fentayl QA MANAGER pump. KUB was obtained which seems to suggest ileus. CBC WBC 12.8, Hct 47.9. BMP Na 136, Cr 0.5, glu 134. Mag 2.0. General: non toxic, mild distress, appears at stated age Derm: warm, dry Head: atraumatic, normocephalic, symmetric Eyes: EOMI, no lid lag, anicteric sclera Mouth: no lip lesion, mucus membranes moist Cardiovascular: S1S2 reg, no murmur Lungs: CTA bilateral, no rhonchi, no rales , no accessory muscle use Abd: Surgical scar clean. + BS. Distended. TTP in bilateral LQs without rebound. Ext: no gross muscle atrophy, no edema, no contractures Neuro: no focal neuro deficits Psych: Alert, oriented, appropriate affect Based on my assessment of this patient, this patient meets a high complexity level of care. Cecal volvulus: POD 2. Pain management with Fentanyl QA MANAGER pump. Dilaudid 1 mg IV Q3H PRN for pain. Reglan 10 mg IV Q6H scheduled + Zofran 4 mg IV Q6H scheduled. Protonix 40 mg IV QD. Tylenol 650 mg PO Q4H scheduled. Post operative ileus: As seen on KUB. Reglan has been scheduled rather than PRN. Diet downgraded. Surgery on board. Elevated BP without the diagnosis of HTN: Likely related to the above. Pain appears well controlled. Most recent BP 167/89. Continue to monitor and start antihypertensive medication if necessary. Leukocytosis likely reactive from surgery without any signs of infection. Currently on Flagyl 500 mg IV TID and Cefzolin 2g IV TID per surgery. Hyponatremia: Continue NS at 75 cc/hr. Resolved: Hypomagnesemia CODE STATUS: FULL CODE DVT Prophylaxis: SCD GI Prophylaxis: Protonix IV Designated medical POA if patient is not able to make medical decisions for themselves: I have reviewed the following business development consultant notes: Surgery note. I have reviewed the results of the following tests: CBC, BMP, Mag. I have ordered the following tests: I have discussed the care of this patient with the following independent historian: I have independently interpreted the following test below: KUB I have discussed the management of this patient with the following physician: Objective - Vital Signs Vital signs: Vital Signs Temp 98.6 F 03/26/24 07:04 Pulse 75 03/26/24 07:04 Resp 18 03/26/24 07:04 BP 167/89 03/26/24 08:49 Pulse Ox 97 03/26/24 07:04 FiO2 Intake & Output 03/25/24 03/26/24 03/26/24 18:59 06:59 18:59 Output Total 3800 200 Balance -3800 -200 Output: Urine 3800 Uretheral (Villa) 2400 Emesis 200 Other: Voiding Method Indwelling Catheter # Voids 2 - Labs CBC & Chem 7: 03/26/24 04:57 03/26/24 04:57 Labs: Abnormal Lab Results - Last 24 Hours (Table) 03/25/24 03/25/24 03/26/24 Range/Units 16:35 20:22 04:57 WBC 12.8 H (3.8-10.6) k/uL Hct 47.9 H (34.0-46.0) % Sodium (137-145) mmol/L Creatinine (0.52-1.04) mg/dL Glucose (74-99) mg/dL POC Glucose (mg/dL) 116 H 127 H (70-110) mg/dL 03/26/24 03/26/24 03/26/24 Range/Units 04:57 06:14 11:22 WBC (3.8-10.6) k/uL Hct (34.0-46.0) % Sodium 136 L (137-145) mmol/L Creatinine 0.50 L (0.52-1.04) mg/dL Glucose 134 H (74-99) mg/dL POC Glucose (mg/dL) 126 H 111 H (70-110) mg/dL
[2024-03-26] MEDS: ONDANSETRON 4 MG/2 ML VIAL IVP SCH (12:46)
[2024-03-26 16:23] LABS: Glucose,Whole Blood 122 mg/dL (70-110)
[2024-03-26 20:21] LABS: Glucose,Whole Blood 113 mg/dL (70-110)
[2024-03-27 06:35] LABS: Glucose,Whole Blood 107 mg/dL (70-110)
[2024-03-27 09:48] LABS: HCT 48.2 % (34.0-46.0); MCH 32.8 pg (25.0-35.0); MCHC 33.2 g/dL (31.0-37.0); Mean Platelet Volume 7.3; Platelet Count 332 k/uL (150-450); RBC 4.87 m/uL (3.80-5.40); RDW 12.1 % (11.5-15.5); WBC 10.5 k/uL (3.8-10.6)
[2024-03-27 10:04] LABS: African American GFR (CKD) >90 (>60 ml/min/1.73 sqM); Anion Gap 7 mmol/L; Blood Urea Nitrogen 16 mg/dL (7-17); Calcium 9.6 mg/dL (8.4-10.2); Carbon Dioxide 29 mmol/L (22-30); Chloride 101 mmol/L (98-107); Glucose 107 mg/dL (74-99); Magnesium 1.8 mg/dL (1.6-2.3); Non-African American GFR(CKD) >90 (>60 ml/min/1.73 sqM); Potassium 4.4 mmol/L (3.5-5.1); Sodium 137 mmol/L (137-145)
[2024-03-27 11:07] LABS: Glucose,Whole Blood 98 mg/dL (70-110)
--- NOTE | 2024-03-27 11:26 | P.PN ---
Subjective Progress Note Date: 03/27/24 Principal diagnosis: 53 year old F with PMH of GERD and celiac disease presents as a transfer from [facility] for acute onset abdominal pain. Hospital course from [facility] was reviewed. CBC, CMP, Coag panel significant for bicarb 31, glu 117. D-Dimer 0.26. Lipase 93. Mag 2.1. Phos 4.0. Troponin < 0.012. Lactic acid 1.6. EKG showed NSR. CT AP showed distended loop of bowel rotated into the LUQ of the abdomen concerning for cecal volvulus closed-loop bowel obstruction. She was transferred to [facility] for surgery evaluation. She underwent laparoscopic partial colectomy with right hemicolectomy, decompressive colotomy with closure of colotomy with Dr. Dudley on 03/24. 03/26 Patient was seen and examined. Last night she had elevated BP as high as SBP 194 requiring Hydralazine 25 mg PO x 1. She reports moderate abdominal pain and distention. Currently on Fentayl PILOT CAPTAIN pump. KUB was obtained which seems to suggest ileus. CBC WBC 12.8, Hct 47.9. BMP Na 136, Cr 0.5, glu 134. Mag 2.0. 03/27 patient was seen and examined today. BP today is 161/94. She reports tender abdomen and abdominal distention and weakness. Currently on fentanyl PILOT CAPTAIN pump. Labs show hematocrit 48.2, glucose 107, magnesium 1.8. General: non toxic, mild distress, appears at stated age Derm: warm, dry Head: atraumatic, normocephalic, symmetric Eyes: EOMI, no lid lag, anicteric sclera Mouth: no lip lesion, mucus membranes moist Cardiovascular: S1S2 reg, no murmur Lungs: CTA bilateral, no rhonchi, no rales , no accessory muscle use Abd: Surgical scar clean. + BS. Distended. TTP in bilateral LQs without rebound. Ext: no gross muscle atrophy, no edema, no contractures Neuro: no focal neuro deficits Psych: Alert, oriented, appropriate affect Based on my assessment of this patient, this patient meets a high complexity level of care. Cecal volvulus: POD 3. Pain management with Fentanyl PILOT CAPTAIN pump. Dilaudid 1 mg IV Q3H PRN for pain. Reglan 10 mg IV Q6H scheduled + Zofran 4 mg IV Q6H scheduled. Protonix 40 mg IV QD. Tylenol 650 mg PO Q4H scheduled. Post operative ileus: As seen on KUB. Reglan has been scheduled rather than PRN. Diet downgraded. Surgery on board. Elevated BP without the diagnosis of HTN: Likely related to the above. Pain appears well controlled. Most recent BP 161/94. Continue to monitor and start antihypertensive medication if necessary. Leukocytosis likely reactive from surgery without any signs of infection. Currently on Flagyl 500 mg IV TID and Cefzolin 2g IV TID per surgery. Hyponatremia: Continue NS at 75 cc/hr. Resolved: Hypomagnesemia CODE STATUS: FULL CODE DVT Prophylaxis: SCD GI Prophylaxis: Protonix IV Designated medical POA if patient is not able to make medical decisions for themselves: I have reviewed the following senior microsoft consultant notes: Surgery note. I have reviewed the results of the following tests: CBC, BMP, Mag. I have ordered the following tests: I have discussed the care of this patient with the following independent historian: I have independently interpreted the following test below: KUB I have discussed the management of this patient with the following physician: I have seen and evaluated the patient today. Discussed with the resident and agree with the residents subjective and objective as documented in the resident's note. The assessment and plan was discussed and changes outlined bel ow. Patient still distended. Pain better than yesterday. Bloated. Surgery note reviewed: Continue NPO and present management. Leukocytosis has resolved. No KUB was performed or interpreted today. Objective - Vital Signs Vital signs: Vital Signs Temp 97.5 F L 03/27/24 07:08 Pulse 84 03/27/24 08:24 Resp 18 03/27/24 08:24 BP 142/83 03/27/24 07:08 Pulse Ox 95 03/27/24 07:08 FiO2 Intake & Output 03/26/24 03/27/24 03/27/24 18:59 06:59 18:59 Other: Voiding Method Toilet Toilet # Voids 3 1 - Labs CBC & Chem 7: 03/27/24 09:25 03/27/24 09:25 Labs: Abnormal Lab Results - Last 24 Hours (Table) 03/26/24 03/26/24 03/26/24 Range/Units 11:22 16:21 20:19 Hct (34.0-46.0) % Glucose (74-99) mg/dL POC Glucose (mg/dL) 111 H 122 H 113 H (70-110) mg/dL 03/27/24 03/27/24 Range/Units 09:25 09:25 Hct 48.2 H (34.0-46.0) % Glucose 107 H (74-99) mg/dL POC Glucose (mg/dL) (70-110) mg/dL
--- NOTE | 2024-03-27 12:55 | P.PN ---
Subjective Progress Note Date: 03/27/24 CHIEF COMPLAINT: Cecal volvulus HISTORY OF PRESENT ILLNESS: The patient is a 53-year-old female with pre- existing history of cecal volvulus. She is status post Robotic partial colectomy. After eating high fiber food patient had abdominal pain with nausea and vomiting. Patient reports that her pain is improving. However her abdomen does remain distended. She is having a lot of belching. She does reports nausea and vomiting improved. However a bedside bucket does have a clearish liquid noted. She denies any flatus or bowel movement. Afebrile. WBC is down from 12.8-10.5 Hgb 16 platelets 332 magnesium 1.8 PHYSICAL EXAM: VITAL SIGNS: Reviewed GENERAL: Well-developed in no acute distress. HEENT: No sclera icterus. Extraocular movements grossly intact. Moist buccal mucosa. Head is atraumatic, normocephalic. Hears conversational speech. No nasal drainage. NECK: Supple without lymphadenopathy. CHEST: Non-labored respirations and equal bilateral excursions. CARDIOVASCULAR: Palpable 2+ radial pulses. ABDOMEN: Mildly distended. Incision clean dry and intact MUSCULOSKELETAL: No clubbing or cyanosis. NEUROLOGIC: No focal or lateralizing signs. Cranial nerves II through XII gr ossly intact. PSYCH: Appropriate affect. Alert and oriented to person, place and time. SKIN: Well perfused. Good skin turgor. ASSESSMENT: 1. Cecal volvulus. 2. Family history colon cancer. PLAN: -Keep patient n.p.o. except for ice chips -Continue bowel rest -Encourage patient to ambulate -Continue Reglan -Continue antibiotics -Continue pain management -Continue IV fluids -DVT prophylaxis subcu heparin Physician Installation Tech note has been reviewed by physician. Signing provider agrees with the documented findings, assessment, and plan of care. Objective - Vital Signs Vital signs: Vital Signs Temp 97.5 F L 03/27/24 07:08 Pulse 84 03/27/24 08:24 Resp 18 03/27/24 08:24 BP 142/83 03/27/24 07:08 Pulse Ox 95 03/27/24 07:08 FiO2 Intake & Output 03/26/24 03/27/24 03/27/24 18:59 06:59 18:59 Other: Voiding Method Toilet Toilet # Voids 3 1 - Labs CBC & Chem 7: 03/27/24 09:25 03/27/24 09:25 Labs: Abnormal Lab Results - Last 24 Hours (Table) 03/26/24 03/26/24 03/27/24 Range/Units 16:21 20:19 09:25 Hct 48.2 H (34.0-46.0) % Glucose (74-99) mg/dL POC Glucose (mg/dL) 122 H 113 H (70-110) mg/dL 03/27/24 Range/Units 09:25 Hct (34.0-46.0) % Glucose 107 H (74-99) mg/dL POC Glucose (mg/dL) (70-110) mg/dL
--- NOTE | 2024-03-27 13:56 | CDI ---
Documentation Clarification Form Date: 03/27/2024 From: Pretty Damon Phone: [phone] Admit Date: 03/24/2024 02:01:00 AM Patient Name: Glenny Jimenez Visit Number: [id number] Discharge Date: ATTENTION: The Clinical Documentation Specialists (CDI) and [facility] Coding Staff appreciate your assistance in clarifying documentation. Please respond to the clarification below the line at the bottom and electronically sign. The CDI & [facility] Coding staff will review the response and follow-up if needed. Please note: Queries are made part of the Legal Health Record. If you have any questions, please contact the author of this message via ITS. Doctor/Provider: Bella Dudley MD: Post-operative ileus is documented in the IM progress note 03/26. Additional clarification regarding the post-operative ileus is requested. 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 Robot-assisted daVinci Xi laparoscopic partial colectomy with right hemicolectomy. 2. Decompressive colotomy with closure of colotomy." History/Risk Factors: 53-year-old Female with a history of GERD and celiac disease who presented with sudden onset of epigastric pain Clinical Indicators: 03/26 IM PN: "Post-operative ileus: As seen on KUB. Reglan has been scheduled rather than PRN. Diet downgraded." 03/26 Surgery PN, Studies: "Abdominal x-ray independently reviewed demonstrates ileus." 03/26 KUB, Impression: "Bowel gas pattern consistent with a mid to distal small bowel obstruction." Treatment: NPO for surgery, Clear liquid diet 03/24, Low fiber diet 03/25, NPO 03/26 Please clarify if post-operative ileus is a complication of the surgical procedure? [ ] Yes [X ] No -not a complication of procedure, consistent with intestinal ischemia and comorbidity [ ] Other, please specify [ ] Unable to determine MTDD
[2024-03-27 16:35] LABS: Glucose,Whole Blood 98 mg/dL (70-110)
[2024-03-27 20:39] LABS: Glucose,Whole Blood 93 mg/dL (70-110)
[2024-03-28 05:51] LABS: Glucose,Whole Blood 88 mg/dL (70-110)
[2024-03-28 05:53] LABS: HGB 14.2 gm/dL (11.4-16.0); MCH 32.1 pg (25.0-35.0); MCV 97.2 fL (80.0-100.0); Mean Platelet Volume 7.5; Platelet Count 306 k/uL (150-450); RBC 4.42 m/uL (3.80-5.40); RDW 11.8 % (11.5-15.5); WBC 9.3 k/uL (3.8-10.6)
[2024-03-28 06:02] LABS: African American GFR (CKD) >90 (>60 ml/min/1.73 sqM); Anion Gap 8 mmol/L; Blood Urea Nitrogen 14 mg/dL (7-17); Calcium 8.7 mg/dL (8.4-10.2); Carbon Dioxide 22 mmol/L (22-30); Chloride 100 mmol/L (98-107); Glucose 87 mg/dL (74-99); Magnesium 1.6 mg/dL (1.6-2.3); Non-African American GFR(CKD) >90 (>60 ml/min/1.73 sqM); Potassium 3.6 mmol/L (3.5-5.1); Sodium 130 mmol/L (137-145)
--- NOTE | 2024-03-28 09:55 | P.PN ---
Subjective Progress Note Date: 03/28/24 Principal diagnosis: 03/27 patient was seen and examined today. BP today is 161/94. She reports tender abdomen and abdominal distention and weakness. Currently on fentanyl ENVIRONMENTAL TECHNICIAN pump. Labs show hematocrit 48.2, glucose 107, magnesium 1.8. 03/28 43-year-old female seen in her room 454 today. She is feeling better today. She was up walking last night and did pass flatus, no bowel movement. There is some improvement but still has abdominal distention. She is currently on the fentanyl pump, normal saline at 75 cc/h. Her blood pressure today is 148/82. Her labs are significant for a sodium of 130. She is postop day 4 today and is currently n.p.o. with being able to consume hot beverages and is on metronidazole 40 mg, cefazolin 2 g and metoclopramide 10 mg. Physical Exam: General: nontoxic, no distress, appears at stated age Derm: warm, dry, intact Head: atraumatic, normocephalic, symmetric Eyes: EOMI, no lid lag, anicteric sclera Mouth: no lip lesion, mucus membranes moist Cardiovascular: S1 S2 reg, no murmur, rubs, or gallops Lungs: CTA bilateral, no rhonchi, no rales, no accessory muscle use Abdominal: abdominal distension, no appreciable organomegaly Extremities: no gross muscle atrophy, no edema, no contractures Neuro: Alert, Oriented, CNII-XII grossly intact, gait normal Psych: well appearing, appropriate affect Assessment and Plan: Cecal volvulus:. Today's postop day 4 and she is getting fentanyl ENVIRONMENTAL TECHNICIAN pump, Dilaudid 1 mg IV every 3 hours as needed, acetaminophen 650 mg for pain. Also currently on cefazolin 2 g, metronidazole 500mg, metoclopramide 10 mg, ondansetron 4 mg. Elevated Blood Pressure: BP today is 148/82. Will continue to monitor Hyponatremia: Patient is on 75 cc/h of normal saline GI prophylaxis: Pantoprazole 40 mg IV daily DVT prophylaxis: Heparin 5000 units Resolved: Hypomagnesemia I have seen and evaluated the patient today. Discussed with the resident and agree with the residents subjective and objective as documented in the resident's note. The assessment and plan was discussed and changes outlined below. Patient improved distention. Pain better than yesterday. Passing gas. Mag 1.6. Replace Mag sulfate 4g IV. Diet upgraded to low fiber diet. Surgery is on board. Objective - Vital Signs Vital signs: Vital Signs Temp 98.2 F 03/28/24 07:18 Pulse 67 03/28/24 07:18 Resp 17 03/28/24 07:18 BP 148/82 03/28/24 07:18 Pulse Ox 98 03/28/24 07:18 FiO2 Intake & Output 03/27/24 03/28/24 03/28/24 18:59 06:59 18:59 Other: Voiding Method Toilet # Voids 3 - Labs CBC & Chem 7: 03/28/24 05:31 03/28/24 05:31 Labs: Abnormal Lab Results - Last 24 Hours (Table) 03/27/24 03/27/24 03/28/24 Range/Units 09:25 09:25 05:31 Hct 48.2 H (34.0-46.0) % Sodium 130 L (137-145) mmol/L Glucose 107 H (74-99) mg/dL
[2024-03-28 11:38] LABS: Glucose,Whole Blood 87 mg/dL (70-110)
[2024-03-28] MEDS: MAGNESIUM SULFATE-D5W PMX 1 GM in DEXTROSE/WATER 1 100ML.BAG IVPB SCH (13:14)
[2024-03-28] MEDS: POTASSIUM CHLORIDE 10 MEQ in WATER FOR INJECTION 1 100ML.BAG IVPB SCH (14:07)
--- NOTE | 2024-03-28 14:24 | P.PN ---
Subjective Progress Note Date: 03/28/24 CHIEF COMPLAINT: Cecal volvulus HISTORY OF PRESENT ILLNESS: The patient is a 53-year-old female with pre- existing history of cecal volvulus. She is status post Robotic partial colectomy. After eating high fiber food patient had abdominal pain with nausea and vomiting. Patient reports that she is feeling better today. Patient reports her abdomen distention is than yesterday. She is having a large amount of flatus. She denies any nausea or vomiting. She is not belching as frequently. She has been up and ambulating. Patient reports that she is starving and wants to eat. Afebrile. WBC 9.3 Hgb 14.2 platelets 306 sodium 130 PHYSICAL EXAM: VITAL SIGNS: Reviewed GENERAL: Well-developed in no acute distress. HEENT: No sclera icterus. Extraocular movements grossly intact. Moist buccal m ucosa. Head is atraumatic, normocephalic. Hears conversational speech. No nasal drainage. NECK: Supple without lymphadenopathy. CHEST: Non-labored respirations and equal bilateral excursions. CARDIOVASCULAR: Palpable 2+ radial pulses. ABDOMEN: distended. Less distended than yesterday. incision clean dry and intact MUSCULOSKELETAL: No clubbing or cyanosis. NEUROLOGIC: No focal or lateralizing signs. Cranial nerves II through XII grossly intact. PSYCH: Appropriate affect. Alert and oriented to person, place and time. SKIN: Well perfused. Good skin turgor. ASSESSMENT: 1. Cecal volvulus. 2. Family history colon cancer. PLAN: -Advance diet to low fiber -Encourage patient to ambulate -Continue Reglan -Continue antibiotics -Continue pain management -Continue IV fluids -Continue to correct electrolytes -DVT prophylaxis subcu heparin Physician Manager Machine note has been reviewed by physician. Signing provider agrees with the documented findings, assessment, and plan of care. Objective - Vital Signs Vital signs: Vital Signs Temp 98.2 F 03/28/24 13:12 Pulse 74 03/28/24 13:12 Resp 16 03/28/24 13:12 BP 185/96 03/28/24 13:12 Pulse Ox 98 03/28/24 13:12 FiO2 Intake & Output 03/27/24 03/28/24 03/28/24 18:59 06:59 18:59 Other: Voiding Method Toilet # Voids 3 - Labs CBC & Chem 7: 03/28/24 05:31 03/28/24 05:31 Labs: Abnormal Lab Results - Last 24 Hours (Table) 03/28/24 Range/Units 05:31 Sodium 130 L (137-145) mmol/L
[2024-03-28 16:30] LABS: Glucose,Whole Blood 102 mg/dL (70-110)
[2024-03-28 21:01] LABS: Glucose,Whole Blood 119 mg/dL (70-110)
[2024-03-28] MEDS: hydrALAZINE HCL 25 MG TAB PO STA (22:55)
[2024-03-29 06:18] LABS: Glucose,Whole Blood 105 mg/dL (70-110)
[2024-03-29 07:29] VITALS: RESP 15
[2024-03-29 10:32] LABS: HCT 41.1 % (37.2-46.3); HGB 14.8 g/dL (12.0-15.0); MCV 91.5 FL (80.0-97.0); Mean Platelet Volume 10.4 FL (9.5-12.2); NRBC Per 100 WBC 0 X 10*3/uL (0.00-0.01); Platelet Count 328 X 10*3/uL (140-440); RBC 4.49 X 10*6/uL (4.10-5.20); RDW 11.8 % (11.5-14.5); WBC 9.77 X 10*3/uL (4.50-10.00)
--- NOTE | 2024-03-29 10:44 | P.PN ---
Subjective Progress Note Date: 03/29/24 Principal diagnosis: 03/27 patient was seen and examined today. BP today is 161/94. She reports tender abdomen and abdominal distention and weakness. Currently on fentanyl ORTHODONTIC TREATMENT COORDINATOR pump. Labs show hematocrit 48.2, glucose 107, magnesium 1.8. 03/28 43-year-old female seen in her room 454 today. She is feeling better today. She was up walking last night and did pass flatus, no bowel movement. There is some improvement but still has abdominal distention. She is currently on the fentanyl pump, normal saline at 75 cc/h. Her blood pressure today is 148/82. Her labs are significant for a sodium of 130. She is postop day 4 today and is currently n.p.o. with being able to consume hot beverages and is on metronidazole 40 mg, cefazolin 2 g and metoclopramide 10 mg. 03/29 patient is a 43 female seen in room 454 today. Over the night she experienced some headache and her blood pressure was high 174 x 92 and she was given hydralazine 25 mg. We will start her on antihypertensive medications today. She also vomited twice last night, the contents were watery. Abdomen is still feels bloated and she reports gurgling sounds. Denies abdominal pain or tenderness. She is postop day 5 today and is currently on low fiber diet. She has consumed some crackers and hot beverages and has passed flatus. The patient complains of left sided labial swelling, denies pain or burning. She will follow up with PCP about this upon discharge. Will follow and make recommendations. Physical Exam: General: nontoxic, no distress, appears at stated age Derm: warm, dry, intact Head: atraumatic, normocephalic, symmetric Eyes: EOMI, no lid lag, anicteric sclera Mouth: no lip lesion, mucus membranes moist Cardiovascular: S1 S2 reg, no murmur, rubs, or gallops Lungs: CTA bilateral, no rhonchi, no rales, no accessory muscle use Abdominal: abdominal distension, no appreciable organomegaly Genitourinary: Left sided labial swelling Extremities: no gross muscle atrophy, no edema, no contractures Neuro: Alert, Oriented, CNII-XII grossly intact, gait normal Psych: well appearing, appropriate affect Assessment and Plan: Cecal volvulus: Today's postop day 5 and she is currently on cefazolin 2 g, metronidazole 500mg, metoclopramide 10 mg IVP Q6H, ondansetron 4 mg IVP Q6HR. Elevated Blood Pressure: Patient will be started on hydrochlorthiazide 12.5mg PO QD and Lisinopril 10mg PO QD Patient received Hydralazine 25mg last night. BP today is 179/84. Will continue to monitor Hyponatremia: Will continue to monitor BMP. Patient will follow up with PCP upon discharge. GI prophylaxis: Pantoprazole 40 mg IV daily DVT prophylaxis: Heparin 5000 units Resolved: Hypomagnesemia I have seen and evaluated the patient today. Discussed with the resident and agree with the residents subjective and objective as documented in the resident's note. The assessment and plan was discussed and changes outlined below. Patient improved distention. Pain better than yesterday. Did have an episode of N/V overnight. Passing gas. Objective - Vital Signs Vital signs: Vital Signs Temp 98.9 F 03/29/24 07:03 Pulse 78 03/29/24 07:03 Resp 15 03/29/24 07:03 BP 179/89 03/29/24 07:03 Pulse Ox 98 03/29/24 07:03 FiO2 Intake & Output 03/28/24 03/29/24 03/29/24 18:59 06:59 18:59 Other: # Voids 4 2 - Labs CBC & Chem 7: 03/29/24 08:12 03/29/24 08:12 Labs: Abnormal Lab Results - Last 24 Hours (Table) 03/28/24 Range/Units 20:59 POC Glucose (mg/dL) 119 H (70-110) mg/dL
[2024-03-29 11:29] LABS: Glucose,Whole Blood 104 mg/dL (70-110)
[2024-03-29] MEDS: LISINOPRIL-HCTZ 10-12.5 MG 1 EACH TAB PO SCH (11:36)
[2024-03-29 13:31] VITALS: BP 171/91; PULSE 74; TEMP 98.4
--- NOTE | 2024-03-29 14:46 | P.PN ---
Subjective Progress Note Date: 03/29/24 CHIEF COMPLAINT: Cecal volvulus HISTORY OF PRESENT ILLNESS: The patient is a 53-year-old female with pre- existing history of cecal volvulus. She is status post Robotic partial colectomy. After eating high fiber food patient had abdominal pain with nausea and vomiting. Since then patient has had improvement in her abdominal pain and she is having flatus. She is tolerating a low fiber diet. She did have an episode of self-induced vomiting because of severe heartburn after drinking cranberry juice and eating a popsicle earlier this morning. Since then she has tolerated cottage cheese for breakfast. Patient feels ready for discharge. Afebrile. She has been up and ambulating. WBC 9.7 Hgb 14.8 PHYSICAL EXAM: VITAL SIGNS: Reviewed GENERAL: Well-developed in no acute distress. HEENT: No sclera icterus. Extraocular movements grossly intact. Moist buccal mucosa. Head is atraumatic, normocephalic. Hears conversational speech. No nasal drainage. NECK: Supple without lymphadenopathy. CHEST: Non-labored respirations and equal bilateral excursions. CARDIOVASCULAR: Palpable 2+ radial pulses. ABDOMEN: mildly distended. Nontender. Incision sites clean dry and intact. MUSCULOSKELETAL: No clubbing or cyanosis. NEUROLOGIC: No focal or lateralizing signs. Cranial nerves II through XII grossly intact. PSYCH: Appropriate affect. Alert and oriented to person, place and time. SKIN: Well perfused. Good skin turgor. ASSESSMENT: 1. Cecal volvulus. 2. Family history colon cancer. PLAN: -Patient can be discharged from surgical standpoint -Continue low fiber diet -DVT prophylaxis subcu heparin Physician Circulation Analyst note has been reviewed by physician. Signing provider agrees with the documented findings, assessment, and plan of care. Objective - Vital Signs Vital signs: Vital Signs Temp 98.4 F 03/29/24 13:06 Pulse 74 03/29/24 13:06 Resp 15 03/29/24 13:06 BP 171/91 03/29/24 13:06 Pulse Ox 97 03/29/24 13:06 FiO2 Intake & Output 03/28/24 03/29/24 03/29/24 18:59 06:59 18:59 Other: # Voids 4 2 - Labs CBC & Chem 7: 03/29/24 08:12 03/28/24 05:31 Labs: Abnormal Lab Results - Last 24 Hours (Table) 03/28/24 03/29/24 Range/Units 20:59 08:12 MCH 33.0 H (27.0-32.0) pg POC Glucose (mg/dL) 119 H (70-110) mg/dL
[2024-03-29 15:15] LABS: Blood Urea Nitrogen 9.5 mg/dL (9.0-27.0); Calcium 8.6 mg/dL (8.7-10.3); Carbon Dioxide 25.4 mmol/L (21.6-31.8); Chloride 93 mmol/L (96-109); Glucose 104 mg/dL (70-110); Potassium 3.6 mmol/L (3.5-5.5); Sodium 132 mmol/L (135-145)
--- NOTE | 2024-03-29 15:35 | P.DS ---
Providers Date of admission: 03/24/24 02:01 Discharge diagnosis: Cecal volvulus Elevated Blood Pressure Hyponatremia Resolved: Hypomagnesemia Hospital course: Patient is a 53-year-old female with past medical history of GERD and celiac disease who presented to the ED after transfer from [facility] with sudden onset of epigastric abdominal pain. Patient admits to experiencing sudden onset sharp 10 out of 10 epigastric pain after consuming a bowl of soup. The pain radiated to her chest and neck, was worse with movement like walking and better with rest. Associated with nausea and multiple episodes of nonbloody vomitus. She admits to generalized weakness, lightheadedness. The last time she experienced such pain was when she had appendicitis which was over 14 years ago. Denies chest pain, shortness of breath, numbness or tingling in the upper and lower extremities. Vitals on presentation were BP 107/54, pulse 67, respiratory rate 16, O2 saturation 96% on room air. EKG done at [facility] was unremarkable with sinus rhythm. CT abdomen done at [facility] showed distended loops of bowel radiated into the left upper quadrant of the abdomen concerning for cecal volvulus closed-loop bowel obstruction. At that point surgery was consulted and she was admitted for laparoscopic right colectomy. On 03/24/2024 she received a robot-assisted da Amado Xi laparoscopic partial colectomy with right hemicolectomy and decompressive colotomy with closure of colotomy. Postsurgery she was put on Dilaudid for pain, Reglan for nausea vomiting, Protonix for GI prophylaxis and Tylenol as needed. She had leukocytosis likely reactive from surgery without any signs of infection so she was put on Flagyl and cefazolin. Magnesium was replaced and she was on IV fluids for hyponatremia. The next day she had abdominal pain and her abdomen was distended and she was put on fentanyl ORTHODONTIST ASSISTANT pump. KUB suggested ileus. She was n.p.o. for a couple of days and is now on low fiber diet. She has passed flatus after the surgery and her abdominal distention has improved and she denies any abdominal pain today. She did have a couple episodes of vomiting but she is better now. Since then she has tolerated cartridges for breakfast. Her blood pressure was high 174/92 and she was given hydralazine 25 mg. Today she has been put on hydrochlorothiazide 12.5 mg p.o. daily and lisinopril 10 mg p.o. daily. Her sodium today is 130 and she is advised to follow that up along with high blood pressure medications with her PCP. Surgery has cleared her for discharge. She will be discharged home today and is advised to follow-up with a primary care provider in 1 to 2 days and her surgeon on 04/04/2024. Patient seen at bedside today and is feeling good and excited about discharge. Vital signs reviewed and stable General: nontoxic, no distress, appears at stated age Derm: warm, dry, intact Head: atraumatic, normocephalic, symmetric Eyes: EOMI, no lid lag, anicteric sclera Mouth: no lip lesion, mucus membranes moist Cardiovascular: S1 S2 reg, no murmur, rubs, or gallops Lungs: CTA bilateral, no rhonchi, no rales, no accessory muscle use Abdominal: abdominal distension, no appreciable organomegaly Genitourinary: Left sided labial swelling Extremities: no gross muscle atrophy, no edema, no contractures Neuro: Alert, Oriented, CNII-XII grossly intact, gait normal Psych: well appearing, appropriate affect Attending physician: Jamar Romero MD Consults: 03/24/24 02:00 Consult Physician Routine Consulting Provider: Bella Dudley Consult Reason/Comments: volvulus Do you want consulting provider notified?: Yes 03/24/24 14:19 Consult Physician Routine Consulting Provider: [facility] Consult Reason/Comments: Regional block Do you want consulting provider notified?: Yes Primary care physician: [facility] Course: I reviewed the documentation as provided by the GLADIS above, who is the original author of this note. I agree with the documented assessment and plan, with the following changes: none Patient Condition at Discharge: Fair Plan - Discharge Summary Discharge Rx Participant: No New Discharge Prescriptions: New Ibuprofen [Motrin] 600 mg PO Q8HR PRN #30 tab PRN Reason: Pain Acetaminophen Tab [Tylenol] 1,000 mg PO Q6HR PRN #30 tablet PRN Reason: Pain Continue Omeprazole Magnesium [PriLOSEC OTC] 20 mg PO DAILY No Action Lisinopril-Hctz 10-12.5 mg [Zestoretic 10-12.5] 1 tab PO DAILY Discharge Medication List Omeprazole Magnesium [PriLOSEC OTC] 20 mg PO DAILY 03/24/24 [History] Acetaminophen Tab [Tylenol] 1,000 mg PO Q6HR PRN #30 tablet 03/29/24 [Rx] Ibuprofen [Motrin] 600 mg PO Q8HR PRN #30 tab 03/29/24 [Rx] Lisinopril-Hctz 10-12.5 mg [Zestoretic 10-12.5] 1 tab PO DAILY 03/31/24 [History] Follow up Appointment(s)/Referral(s): Bella Dudley MD [STAFF PHYSICIAN] - 04/04/24 Curly Singh DO [Primary Care Provider] - 1-2 days Activity/Diet/Wound Care/Special Instructions: Patient scheduled for telehealth office visit with Dr. Dudley on April 04, 2024 No lifting over 10 pounds over the next 4 weeks You May shower. No bath tub soaks for two weeks Use Tylenol and ibuprofen scheduled for the next 24-48 hours for best pain relief. Continue a low fiber diet Ok to return to work on 05/03/2024 Discharge Disposition: HOME SELF-CARE
--- NOTE | 2024-04-25 15:45 | US ---
Patient: Glenny Jimenez Ordering Physician: Unknown, Unknown ID: [id number] Phone, Pager: Phone: N/ A Pager: N/A : 1970 Age/Gender: 53Y, F Primary Location: N/A Procedure: US venous doppler du plex LE LT Study Date: 04/05/2024 10:41:00 PM EXAMINATION TYPE: US venous doppler duplex LE LT DATE OF EXAM: 04/22/2024 3:40 PM COMPARISON: NONE CLINICAL INDICATION: : LEFT LEG SWELLING. PATIENT ON THINNERS. NO HX DVT SIDE PERFORMED: Left TECHNIQUE: The lower extremity deep venous system is examined utilizing real time linear array sonog ari with graded compression, doppler sonography and color-flow sonography. VESSELS IMAGED: Common Femoral Vein Deep Femoral Vein Greater Saphenous Vein * Femoral Vein Popliteal Vein Small Saphenous Vein * Proximal Calf Veins (* superficial vessels) Left Leg: Negative for DVT IMPRESSION: Grayscale, color doppler, spectral doppler imaging performed of the deep veins of the lo wer extremities. There is normal flow, compressibility, vascular waveforms.
--- NOTE | 2024-05-02 13:02 | US ---
Patient: Glenny Jimenez Ordering Physician: Unknown, Unknown ID: [id number] Phone, Pager: Phone: N/A Pager: N/A : 1970 Age/Gender: 53Y, O Primary Location: N/A Procedure: US venous doppler dupl ex UE LT Study Date: 04/05/2024 10:50:00 PM EXAMINATION TYPE: US venous doppler duplex UE LT DATE OF EXAM: 04/22/2024 COMPARISON: NONE CLINICAL INDICATION: HISTORY: LEFT ARM SWELLING. PATIENT HAS PICC LINE. PATIENT ON THINNERS, NO HX DV T SIDE PERFORMED: Left Left Arm: Positive for DVT IMPRESSION: OCCLUSIVE THROMBUS SEEN IN THE SUBCLAVIAN AND BASILIC VEINS WITH THREADY COLOR DOPPLER FLOW. THROMBUS ALSO SEEN IN CEPHALIC VEIN, NO FLOW SEEN WITHIN.
== END 2024-03-29 15:45 | disposition home or self-care (01) | DRG 330 ==
LOC: EC 23:42 → 4SSUR 03-24 02:01
PROVIDERS: ADMIT Internal Medicine; ATTEND Internal Medicine
PROC: 0DTF4ZZ Resection of Right Large Intestine, Percutaneous Endoscopic Approach (ICD-10-PCS; principal; 2024-03-24 11:35)
PROC: 0DSH4ZZ Reposition Cecum, Percutaneous Endoscopic Approach (ICD-10-PCS; principal; 2024-03-24 11:35)
PROC: 0WQF4ZZ Repair Abdominal Wall, Percutaneous Endoscopic Approach (ICD-10-PCS; principal; 2024-03-24 11:35)
PROC: 8E0W4CZ Robotic Assisted Procedure of Trunk Region, Percutaneous Endoscopic Approach (ICD-10-PCS; principal; 2024-03-24 11:35)
DX: K56.2 Volvulus (principal); E87.1 Hypo-osmolality and hyponatremia; E87.3 Alkalosis; K55.9 Vascular disorder of intestine, unspecified; E83.42 Hypomagnesemia; E86.0 Dehydration; K21.9 Gastro-esophageal reflux disease without esophagitis; K46.9 Unspecified abdominal hernia without obstruction or gangrene; Z28.310 Unvaccinated for COVID-19; R73.9 Hyperglycemia, unspecified; R03.0 Elevated blood-pressure reading, without diagnosis of hypertension; K36 Other appendicitis; K90.0 Celiac disease; M79.7 Fibromyalgia; K44.9 Diaphragmatic hernia without obstruction or gangrene; F17.210 Nicotine dependence, cigarettes, uncomplicated; Z79.899 Other long term (current) drug therapy; Z88.0 Allergy status to penicillin; Z88.2 Allergy status to sulfonamides
CPT/HCPCS: 64999; 74018; 80048; 80053; 82150; 83036; 83605; 83690; 83735; 84100; 85025; 85027; 86850; 86900; 86901; 88304; 88307; 96361; 96374; 96375; 99285

== ENCOUNTER 2024-03-31 00:46 | Inpatient (IN) | payer BC ==
[2024-03-31] MEDS: MORPHINE SULFATE 4 MG/ML SYRINGE IV STA (01:32)
[2024-03-31] MEDS: SODIUM CHLORIDE 0.9% 1,000 ML IV ONE (01:32)
--- NOTE | 2024-03-31 01:32 | ED ---
Abdominal Pain HPI - General Chief Complaint: Abdominal Pain Stated Complaint: Post-Op Abdominal Pain Time Seen by Provider: 03/31/24 00:58 Source: EMS Mode of arrival: EMS Limitations: no limitations - History of Present Illness Initial Comments: This patient is a 53-year-old woman who presents with complaint of abdominal pain. 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 The patient had resection of approximately 1 foot of colon with Dr. Dudley. She was discharged on Wednesday. She states that she had a little bit of burning epigastric pain that she attributed to not having been on her Prilosec for about a week. The patient states that over the course of today she has had progressively worse diffuse abdominal pain. She describes it as aching with sharp stabbing exacerbations. She also has been feeling weak and lightheaded. Pain flared tonight and they called EMS who brought her here for further evaluation. MD Complaint: abdominal pain Onset/Timin -: days(s) Location: diffuse Radiation: none Migration to: no migration Severity: severe Quality: stabbing, aching Consistency: colicky Improves With: nothing Worsens With: nothing Associated Symptoms: nausea - Related Data Home Medications Medication Instructions Recorded Confirmed Apixaban [Eliquis] 5 mg PO BID 04/26/24 04/26/24 Ciprofloxacin HCl [Cipro] 500 mg PO Q12HR 04/26/24 04/26/24 Cyclobenzaprine [Flexeril] 10 mg PO TID PRN 04/26/24 04/26/24 Omeprazole 40 mg PO DAILY 04/26/24 04/26/24 metroNIDAZOLE [Flagyl] 500 mg PO TID 04/26/24 04/26/24 Previous Rx's Medication Instructions Recorded Ibuprofen [Motrin] 600 mg PO Q8HR PRN #30 tab 03/29/24 Allergies Allergy/AdvReac Type Severity Reaction Status Date / Time gluten Allergy CELIAC Verified 04/26/24 11:52 Penicillins Allergy STRONG Verified 04/26/24 11:52 SIBLING REACTION OF ANAPHYLAXIS Sulfa (Sulfonamide Allergy Unknown Verified 04/26/24 11:52 Antibiotics) Childhood tree nut Allergy SKIN Verified 04/26/24 11:52 REACTION wheat Allergy CELIAC Verified 04/26/24 11:52 Review of Systems ROS Statement: Those systems with pertinent positive or pertinent negative responses have been documented in the HPI. ROS Other: All systems not noted in ROS Statement are negative. Constitutional: Reports: weakness. Denies: fever, chills Respiratory: Denies: cough, dyspnea Cardiovascular: Denies: chest pain, palpitations, edema Gastrointestinal: Reports: abdominal pain, nausea. Denies: diarrhea, constipation, hematemesis, melena, hematochezia Genitourinary: Denies: dysuria, hematuria Musculoskeletal: Denies: back pain Skin: Denies: rash Neurological: Denies: headache, weakness, numbness Hematological/Lymphatic: Denies: easy bleeding Past Medical History Past Medical History: Fibromyalgia, GERD/Reflux Additional Past Medical History / Comment(s): celiac disease, "told she has raynaulds", small hiatal hernia. "precancerous colon polyps removed" History of Any Multi-Drug Resistant Organisms: None Reported Past Surgical History: Adenoidectomy, Appendectomy, Cholecystectomy, Hysterectomy, Orthopedic Surgery, Tonsillectomy Additional Past Surgical History / Comment(s): Appendectomy with mesenteric mass excision, diagnostic exploratory laprascopy, surgery for tubal , EGD, colonoscopy, cervical fusion/decompression. Past Anesthesia/Blood Transfusion Reactions: Previous Problems w/ Anesthesia, Motion Sickness, Postoperative Nausea & Vomiting (PONV) Additional Past Anesthesia/Blood Transfusion Reaction / Comment(s): Slow to wake Past Psychological History: No Psychological Hx Reported Smoking Status: Former smoker Past Alcohol Use History: Daily Past Drug Use History: None Reported - Past Family History Sister(s) Family Medical History: Cancer Additional Family Medical History / Comment(s): Stage III colon cancer. Mother Additional Family Medical History / Comment(s): lupus, mi of at age 52 Father Family Medical History: AFIB General Exam Limitations: no limitations General appearance: alert, in no apparent distress Head exam: Present: atraumatic, normocephalic Eye exam: Present: normal appearance. Absent: scleral icterus, conjunctival injection ENT exam: Present: mucous membranes dry Neck exam: Present: normal inspection, full ROM. Absent: tenderness Respiratory exam: Present: normal lung sounds bilaterally. Absent: respiratory distress, wheezes, rales, rhonchi, stridor, accessory muscle use Cardiovascular Exam: Present: regular rate, normal rhythm, normal heart sounds. Absent: systolic murmur, diastolic murmur, rubs, gallop GI/Abdominal exam: Present: soft, tenderness (Mild diffuse tenderness without rebound or guarding), other (The patient has clean dry and intact surgical incisions with no erythema or drainage.). Absent: distended, guarding, rebound, rigid, mass Extremities exam: Present: normal inspection, normal capillary refill. Absent: pedal edema, calf tenderness Back exam: Present: normal inspection. Absent: CVA tenderness (R), CVA tenderness (L) Neurological exam: Present: alert Skin exam: Present: warm, dry, intact, normal color. Absent: rash Course Vital Signs 03/31/24 03/31/24 03/31/24 00:49 01:05 01:54 Temperature 97.8 F Pulse Rate 77 77 68 Respiratory 16 18 18 Rate Blood Pressure 77/50 81/61 100/60 O2 Sat by Pulse 97 100 99 Oximetry 03/31/24 03/31/24 03/31/24 03:00 04:07 05:30 Temperature Pulse Rate 70 78 80 Respiratory 16 16 16 Rate Blood Pressure 95/55 89/56 95/65 O2 Sat by Pulse 98 93 L 96 Oximetry 03/31/24 03/31/24 03/31/24 07:00 08:00 09:00 Temperature Pulse Rate 90 92 82 Respiratory 16 18 16 Rate Blood Pressure 95/60 101/60 97/63 O2 Sat by Pulse 96 96 97 Oximetry 03/31/24 03/31/24 03/31/24 11:00 13:00 15:00 Temperature Pulse Rate 82 79 76 Respiratory 18 16 16 Rate Blood Pressure 96/61 102/56 102/59 O2 Sat by Pulse 95 96 97 Oximetry 03/31/24 03/31/24 03/31/24 18:00 20:21 23:15 Temperature Pulse Rate 72 82 56 L Respiratory 16 16 16 Rate Blood Pressure 92/57 104/60 107/56 O2 Sat by Pulse 98 99 93 L Oximetry 04/01/24 04/01/24 04/01/24 01:13 03:45 04:04 Temperature Pulse Rate 82 67 Respiratory 16 16 18 Rate Blood Pressure 99/55 92/56 90/58 O2 Sat by Pulse 93 L Oximetry 04/01/24 04/01/24 04/01/24 07:02 08:50 13:23 Temperature 100.7 F H 98.0 F 97.6 F Pulse Rate 84 58 L 80 Respiratory 18 97 H 16 Rate Blood Pressure 91/56 101/55 90/56 O2 Sat by Pulse 98 97 96 Oximetry 04/01/24 15:03 Temperature 97.7 F Pulse Rate 86 Respiratory 16 Rate Blood Pressure 99/66 O2 Sat by Pulse 96 Oximetry Medical Decision Making - Medical Decision Making The patient had CT scan of the abdomen pelvis which I interpreted to show small bowel obstruction. No free air. Was pt. sent in by a medical professional or institution (, PA, LAUNDRY OPERATOR FINISHING, urgent care, hospital, or retirement...) When possible be specific @ -[No] Did you speak to anyone other than the patient for history (EMS, parent, family, police, friend...)? What history was obtained from this source @ -[No] Did you review nursing and triage notes (agree or disagree)? Why? @ -[I reviewed and agree with nursing and triage notes] Were old charts reviewed (outside hosp., previous admission, EMS record, old EKG, old radiological studies, urgent care reports/EKG's, retirement records)? Report findings @ -[Yes, old charts were reviewed] Differential Diagnosis (chest pain, altered mental status, abdominal pain women, abdominal pain men, vaginal bleeding, weakness, fever, dyspnea, syncope, headache, dizziness, GI bleed, back pain, seizure, CVA, palpatations, mental health, musculoskeletal)? @ -[Differential Abdominal Pain Men: Appendicitis, cholecystitis, diverticulosis, ischemic bowel, pancreatitis, hepatitis, UTI, gastroenteritis, AAA, incarcerated hernia, bowel obstruction, constipation, inflammatory bowel, hepatitis, peptic ulcer disease, splenic infarction, perforated viscus, testicular torsion, this is not meant to be an all-inclusive list ] EKG interpreted by me (3pts min.). @ -[As above] X-rays interpreted by me (1pt min.). @ -[I interpreted as above CT interpreted by me (1pt min.). @ -[I interpreted as above U/S interpreted by me (1pt. min.). @ -[None done] What testing was considered but not performed or refused? (CT, X-rays, U/S, labs)? Why? @ -[None] What meds were considered but not given or refused? Why? @ -[None] Did you discuss the management of the patient with other professionals (professionals i.e. , PA, LAUNDRY OPERATOR FINISHING, lab, RT, psych nurse, mental health social worker, administrative support manager, teacher, deputy juvenile officer, rehabilitation case coordinator)? Give summary @ -[Case discussed with admitting physician and treatment recommendations are incorporated Was smoking cessation discussed for >3mins.? @ -[No] Was critical care preformed (if so, how long)? @ -[No] Were there social determinants of health that impacted care today? How? (Homelessness, low income, unemployed, alcoholism, drug addiction, transporta tion, low edu. Level, literacy, decrease access to med. care, correction, rehab)? @ -[No] Was there de-escalation of care discussed even if they declined (Discuss DNR or withdrawal of care, Hospice)? DNR status @ -[No] What co-morbidities impacted this encounter? (DM, HTN, Smoking, COPD, CAD, Cancer, CVA, ARF, Chemo, Hep., AIDS, mental health diagnosis, sleep apnea, morbid obesity)? @ -[Recent bowel resection Was patient admitted / discharged? Hospital course, mention meds given and route, prescriptions, significant lab abnormalities, going to OR and other pertinent info. @ -[Patient is 53-year-old woman with recent bowel resection secondary to sigmoid volvulus. She presents with abdominal pain, nausea and the workup consistent with developing small bowel obstruction. Patient will be admitted to have further surgical consultation Undiagnosed new problem with uncertain prognosis? @ -[No] Drug Therapy requiring intensive monitoring for toxicity (Heparin, Nitro, Insulin, Cardizem)? @ -[No] Were any procedures done? @ -[No] Diagnosis/symptom? @ -[Acute abdominal pain Acute small bowel obstruction Acute, or Chronic, or Acute on Chronic? @ -[Acute Uncomplicated (without systemic symptoms) or Complicated (systemic symptoms)? @ -Uncomplicated Side effects of treatment? @ -[No] Exacerbation, Progression, or Severe Exacerbation? @ -[No] Poses a threat to life or bodily function? How? (Chest pain, USA, CT, pneumonia, PE, COPD, DKA, ARF, appy, cholecystitis, CVA, Diverticulitis, Homicidal, Suicidal, threat to staff... and all critical care pts) @ -[Yes - Lab Data Result diagrams: 04/01/24 14:56 04/03/24 06:41 Lab Results 03/31/24 03/31/24 03/31/24 Range/Units 01:54 01:54 01:54 WBC 2.4 L (3.8-10.6) k/uL RBC 4.42 (3.80-5.40) m/uL Hgb 14.5 (11.4-16.0) gm/dL Hct 42.4 (34.0-46.0) % MCV 96.0 (80.0-100.0) fL MCH 32.8 (25.0-35.0) pg MCHC 34.2 (31.0-37.0) g/dL RDW 11.9 (11.5-15.5) % Plt Count 361 (150-450) k/uL MPV 7.3 Neutrophils % (Manual) 59 % Band Neuts % (Manual) 10 % Lymphocytes % (Manual) 25 % Monocytes % (Manual) 5 % Eosinophils % (Manual) 1 % Neutrophils # (Manual) 1.60 (1.3-7.7) k/uL Lymphocytes # (Manual) 0.60 L (1.0-4.8) k/uL Monocytes # (Manual) 0.12 (0-1.0) k/uL Eosinophils # (Manual) 0.02 (0-0.7) k/uL Nucleated RBCs 0 (0-0) /100 WBC Manual Slide Review Performed Sodium 125 L (137-145) mmol/L Potassium 3.2 L (3.5-5.1) mmol/L Chloride 93 L (98-107) mmol/L Carbon Dioxide 24 (22-30) mmol/L Anion Gap 8 mmol/L BUN 14 (7-17) mg/dL Creatinine 0.64 (0.52-1.04) mg/dL Est GFR (CKD-EPI)AfAm >90 (>60 ml/min/1.73 sqM) Est GFR (CKD-EPI)NonAf >90 (>60 ml/min/1.73 sqM) Glucose 71 L (74-99) mg/dL Plasma Lactic Acid Royer 1.0 (0.7-2.0) mmol/L Calcium 8.2 L (8.4-10.2) mg/dL Total Bilirubin 1.0 (0.2-1.3) mg/dL AST 38 H (14-36) U/L ALT 14 (4-34) U/L Alkaline Phosphatase 52 (38-126) U/L Troponin I (0.000-0.034) ng/mL Total Protein 4.7 L (6.3-8.2) g/dL Albumin 2.7 L (3.5-5.0) g/dL Amylase <30 L (30-110) U/L Lipase 32 (23-300) U/L 03/31/24 03/31/24 Range/Units 01:54 05:41 WBC (3.8-10.6) k/uL RBC (3.80-5.40) m/uL Hgb (11.4-16.0) gm/dL Hct (34.0-46.0) % MCV (80.0-100.0) fL MCH (25.0-35.0) pg MCHC (31.0-37.0) g/dL RDW (11.5-15.5) % Plt Count (150-450) k/uL MPV Neutrophils % (Manual) % Band Neuts % (Manual) % Lymphocytes % (Manual) % Monocytes % (Manual) % Eosinophils % (Manual) % Neutrophils # (Manual) (1.3-7.7) k/uL Lymphocytes # (Manual) (1.0-4.8) k/uL Monocytes # (Manual) (0-1.0) k/uL Eosinophils # (Manual) (0-0.7) k/uL Nucleated RBCs (0-0) /100 WBC Manual Slide Review Sodium (137-145) mmol/L Potassium (3.5-5.1) mmol/L Chloride (98-107) mmol/L Carbon Dioxide (22-30) mmol/L Anion Gap mmol/L BUN (7-17) mg/dL Creatinine (0.52-1.04) mg/dL Est GFR (CKD-EPI)AfAm (>60 ml/min/1.73 sqM) Est GFR (CKD-EPI)NonAf (>60 ml/min/1.73 sqM) Glucose (74-99) mg/dL Plasma Lactic Acid Royer (0.7-2.0) mmol/L Calcium (8.4-10.2) mg/dL Total Bilirubin (0.2-1.3) mg/dL AST (14-36) U/L ALT (4-34) U/L Alkaline Phosphatase (38-126) U/L Troponin I 0.043 H* 0.034 (0.000-0.034) ng/mL Total Protein (6.3-8.2) g/dL Albumin (3.5-5.0) g/dL Amylase (30-110) U/L Lipase (23-300) U/L - EKG Data -: EKG Interpreted by De EKG shows normal: sinus rhythm, axis (Normal), intervals (Normal), QRS complexes ( incomplete right bundle branch block.), ST-T waves (Possible anterior ischemia, T inversions lead V3 and V4) Rate: normal (Rate 71 bpm) Disposition Clinical Impression: Small bowel obstruction, Hyponatremia Disposition: ADMITTED IP TO THIS HOSP Condition: Fair Is patient prescribed a controlled substance at d/c from ED?: No
[2024-03-31 02:05] LABS: HCT 42.4 % (34.0-46.0); HGB 14.5 gm/dL (11.4-16.0); MCH 32.8 pg (25.0-35.0); MCHC 34.2 g/dL (31.0-37.0); Mean Platelet Volume 7.3; Platelet Count 361 k/uL (150-450); RBC 4.42 m/uL (3.80-5.40); RDW 11.9 % (11.5-15.5); WBC 2.4 k/uL (3.8-10.6)
[2024-03-31] MEDS: SODIUM CHLORIDE 0.9% 1,000 ML IV STA (02:14)
[2024-03-31 02:19] LABS: ALT 14 U/L (4-34); AST 38 U/L (14-36); African American GFR (CKD) >90 (>60 ml/min/1.73 sqM); Albumin 2.7 g/dL (3.5-5.0); Alkaline Phosphatase 52 U/L (38-126); Amylase <30 U/L (30-110); Anion Gap 8 mmol/L; Blood Urea Nitrogen 14 mg/dL (7-17); Calcium 8.2 mg/dL (8.4-10.2); Carbon Dioxide 24 mmol/L (22-30); Chloride 93 mmol/L (98-107); Glucose 71 mg/dL (74-99); Lipase 32 U/L (23-300); Non-African American GFR(CKD) >90 (>60 ml/min/1.73 sqM); Potassium 3.2 mmol/L (3.5-5.1); Sodium 125 mmol/L (137-145); Total Protein 4.7 g/dL (6.3-8.2)
--- NOTE | 2024-03-31 03:32 | XR ---
EXAM: XR Abdomen, 2 Views CLINICAL HISTORY: Abdominal pain TECHNIQUE: Frontal view of the abdomen/pelvis with upright view of the abdomen. COMPARISON: No relevant prior studies available. FINDINGS: Intraperitoneal space: No definite pneumoperitoneum. Gastrointestinal tract: Diffuse abnormally gas dilated small bowel loops throughout the abdomen and pelvis, measuring up to 5.4 cm. Organs: Cholecystectomy clips in the right upper quadrant. Bones/joints: Postsurgical changes noted involving the lumbosacral junction with posterior pedicle screws and paraspinal rods. No acute osseous abnormality. IMPRESSION: Diffuse abnormally gas dilated small bowel loops throughout the abdomen and pelvis, measuring up to 5.4 cm. Findings are most consistent with mid to distal small bowel obstruction. No definite pneumoperitoneum on the upright examination.
--- NOTE | 2024-03-31 03:55 | CT ---
EXAM: CT Abdomen and Pelvis Without Intravenous Contrast CLINICAL HISTORY: Evaluate for bowel obstruction TECHNIQUE: Axial computed tomography images of the abdomen and pelvis without intravenous contrast. CTDI is 8.1 mGy and DLP is 519.5 mGy-cm. This CT exam was performed using one or more of the following dose reduction techniques: automated exposure control, adjustment of the mA and/or kV according to patient size, and/or use of iterative reconstruction technique. COMPARISON: Plain radiographs performed earlier; CT abdomen and pelvis without contrast 08/08/2019 FINDINGS: Lung bases: Subsegmental changes in the posterior lower lobes. ABDOMEN: Liver: Unremarkable. Gallbladder and bile ducts: Cholecystectomy. No ductal dilation. Pancreas: Unremarkable. No ductal dilation. Spleen: Unremarkable. No splenomegaly. Adrenals: Unremarkable. No mass. Kidneys and ureters: Unremarkable. No obstructing stones. No hydronephrosis. Stomach and bowel: Abnormal fluid and gas dilated small bowel loops throughout the abdomen and pelvis evaluation is somewhat limited without contrast and respiratory artifact. However, there appears to be dilation of the entire small bowel to the level of the postsurgical changes adjacent to the ileocecal region. Diffuse mucosal prominence. Mild stool burden throughout the colon. PELVIS: Appendix: The appendix is not clearly evident and is presumed surgically absent. Bladder: The bladder is mild to moderately distended. There is minimal gas in the anterior bladder. No stones. Reproductive: The uterus is not clearly delineated and is presumed surgically absent. ABDOMEN and PELVIS: Intraperitoneal space: Mild free fluid in the dependent pelvis. No loculation. No free air. Bones/joints: Postsurgical changes with pedicle screws and paraspinal rods at L5-S1. No acute osseous abnormality. No dislocation. Soft tissues: Extensive subcutaneous soft tissue swelling and edema throughout the superficial soft tissues of the abdomen and pelvis, most prominent posteriorly and left laterally with some fluid tracking between the lateral abdominal wall musculature. There are also regions of subcutaneous emphysema superficial to the right inguinal region, along the right lateral gluteal region and lateral abdominopelvic wall musculature. There is also minimal subcutaneous emphysema along the left anterior and lateral inferior thorax. Vasculature: Unremarkable. No abdominal aortic aneurysm. Lymph nodes: Unremarkable. No enlarged lymph nodes. IMPRESSION: 1. Abnormal fluid and gas dilated small bowel loops throughout the abdomen and pelvis evaluation is somewhat limited without contrast and respiratory artifact. However, there appears to be dilation of the entire small bowel to the level of the postsurgical changes adjacent to the ileocecal region. Findings are most consistent with distal high- grade small bowel obstruction. No pneumoperitoneum. 2. Extensive subcutaneous soft tissue swelling and edema throughout the superficial soft tissues of the abdomen and pelvis, most prominent posteriorly and left laterally with some fluid tracking between the lateral abdominal wall musculature. There are also regions of subcutaneous emphysema superficial to the right inguinal region, along the right lateral gluteal region and lateral abdominopelvic wall musculature. There is also minimal subcutaneous emphysema along the left anterior and lateral inferior thorax. Suspect residual edema from potential recent laparoscopic access. Please correlate clinically. 3. Mild free fluid in the dependent pelvis. No loculation.
[2024-03-31] MEDS: HYDROmorphone 0.5 MG/0.5 ML SYRINGE IVP STA (04:06)
--- NOTE | 2024-03-31 05:34 | XR ---
EXAM: XR Chest, 1 View CLINICAL HISTORY: NG placement TECHNIQUE: Frontal view of the chest. COMPARISON: 01/16/2020 FINDINGS: Lungs: Slightly diminished lung volumes with subsegmental changes noted in the lower lung zones. The pulmonary vasculature is unremarkable. Pleural space: Unremarkable. No pneumothorax. No large pleural effusion. Heart: Unremarkable. No cardiomegaly. Mediastinum: No significant abnormality identified. The trachea is midline. Bones/joints: Unremarkable. No acute fracture. Tubes, lines and devices: Nasogastric tube tip in the stomach. IMPRESSION: The nasogastric tube tip is identified in the left upper quadrant, presumed in the proximal stomach.
[2024-03-31 05:41] LABS: Band Neutrophils % 10 %; Eosinophils # (M) 0.02 k/uL (0-0.7); Monocytes # (M) 0.12 k/uL (0-1.0); Neutrophils % (M) 59 %; Nucleated Red Blood Cells 0 /100 WBC (0-0); Total Cells Counted 100
[2024-03-31] MEDS ORDERED: NALOXONE 0.4 MG/ML 1 ML VIAL IV PRN (05:55)
[2024-03-31] MEDS ORDERED: ONDANSETRON 4 MG/2 ML VIAL IVP PRN (05:55)
[2024-03-31] MEDS: SODIUM CHLORIDE 0.9% 1,000 ML IV SCH (06:02)
[2024-03-31] MEDS: MORPHINE SULFATE 4 MG/ML SYRINGE IV PRN (07:36)
[2024-03-31] MEDS: PANTOPRAZOLE 40 MG/10 ML VIAL IV SCH (09:40)
[2024-03-31] MEDS: HYDROmorphone 0.5 MG/0.5 ML SYRINGE IVP PRN (10:14)
--- NOTE | 2024-03-31 12:19 | P.GSHP ---
History of Present Illness H&P Date: 03/31/24 CHIEF COMPLAINT: Bowel obstruction HISTORY OF PRESENT ILLNESS: The patient is a 53-year-old female status post right hemicolectomy for acute cecal volvulus 03/24/2024. Patient was recently discharged 03/29/2024 after tolerating diet and passing moderate flatus. Patient reports being started on new blood pressure medication prior to discharge. Patient was given instructions for low fiber diet including avoiding seeds. Patient reports going home and starting to eat grilled cheese sandwich including peaches. She reports she developed fainting spell after taking blood pressure medication. She reports her blood pressure was systolic 60s to 70s for which ambulance was sent to her home and she was hypotensive. Patient denies any abdominal pain. She reports at home passing flatus. Since admission, she reports not passing flatus. PAST MEDICAL HISTORY: See list and reviewed PAST SURGICAL HISTORY: See list and reviewed MEDICATIONS: See list and reviewed ALLERGIES: See list and reviewed SOCIAL HISTORY: See list and reviewed FAMILY HISTORY: See list and reviewed REVIEW OF ORGAN SYSTEMS: CONSTITUTIONAL: No fevers or chills. EYES: Denies any trouble with vision. No glasses. HEENT: No difficulties with hearing. No nosebleeds. No difficulty swallowing. RESPIRATORY: Denies pneumonia. Denies any troubles with breathing or dyspnea on exertion. CARDIOVASCULAR: Recent hypertension upon last admission with new hypotension. GASTROINTESTINAL: Has celiac disease. Prior appendectomy, cholecystectomy. Reports food intolerances due to celiac disease. She avoids artificial sweeteners. Gastroesophageal reflux disease. Recent colectomy for cecal volvulus. GENITOURINARY: Denies any blood in urine or increased urinary frequency. Prior hysterectomy. NEUROLOGICAL: Denies any numbness or tingling along the distal extremities. No seizure disorders or headaches. MUSCULOSKELETAL: Has back pain, stiffness or joint arthritis. Has fibromyalgia SKIN: No current skin cancer. No rash. PSYCHIATRIC: Denies current depression or suicidal thoughts. ENDOCRINE: Denies current thyroid disorders. Denies any blood sugar glucose intolerance. HEME/LYMPHATIC: Denies any lumps and bumps around the neck. No recent deep venous thrombosis. ALLERGY/IMMUNOLOGY: No immunoglobulin therapy. No immune deficiencies. BREAST: Denies current breast lumps, pain or nipple discharge. PHYSICAL EXAM: VITALS: Reviewed CONSTITUTIONAL: Well developed and in no acute distress. EYES: Conjuctivae without sclera icterus. Extraocular movements grossly intact. HEAD, EARS, NOSE, THROAT: Moist buccal mucosa. Head is atraumatic, normocephalic. Hears conversational speech. No nasal drainage. NECK: Supple. No JV distention. No thyroidomegaly. RESPIRATORY: Non-labored respirations and equal bilateral excursions. No gross wheezes. CARDIOVASCULAR: Palpable 2+ radial pulses. ABDOMEN: Moderately distended. No peritonitis. Incisions clean dry intact. LYMPH: No neck lymphadenopathy. MUSCULOSKELETAL: No clubbing cyanosis or edema SKIN: Warm and well perfused with good skin turgor. NEUROLOGIC: Cranial nerves II through XII grossly intact. No focal or lateralizing signs. PSYCH: Appropriate affect. Alert and oriented to person, place and time. Displays appropriate insight. CLINCAL LABS: Reviewed. WBC low at 2.4. No leukocytosis. Sodium low 125. Potassium low 3.2. Troponins mildly elevated however normalized. Total protein low. Albumin low. Blood sugar glucose low, hypoglycemia. IMAGING: Independently reviewed. CT of the abdomen pelvis reviewed without oral or IV contrast demonstrated diffuse gaseous distention involving the small bowel with stool within the rectum. Fluid and stool found within the colon as well. This is my independent interpretation. REPORT: CT report demonstrates bowel obstruction. ASSESSMENT: 1. Acute hypotensive event with bowel obstruction 2. Celiac disease 3. Gastroesophageal reflux disease 4. Fibromyalgia 5. Hyponatremia 6. Hypokalemia 7. Hypoglycemia PLAN: 1. NG tube was placed prior to my assessment. At bedside, NG tube was not functioning. Over 30 minutes used to flush NG tube and function with over 300 cc of green bile. As result, clinical picture most consistent with bowel obstruction. 2. Patient will need bowel rest with nasogastric tube decompression. Surgical invention with diagnostic laparoscopy with robotic lysis of adhesions was described to the patient. Significant bowel decompression needed to perform laparoscopic approach versus open exploratory laparotomy discussed with patient and family at bedside. 3. In the interim, may have ice chips. 4. May need assessment for PICC line and TPN for prolonged n.p.o. nutritional status. 5. Correction of sodium for hyponatremia 6. Avoid antihypertensive medications 7. Inpatient admission advised. ADVANCE DIRECTIVE: CODE STATUS in chart Past Medical History Past Medical History: Fibromyalgia, GERD/Reflux Additional Past Medical History / Comment(s): celiac disease, "told she has raynaulds", small hiatal hernia. "precancerous colon polyps removed" History of Any Multi-Drug Resistant Organisms: None Reported Past Surgical History: Adenoidectomy, Appendectomy, Cholecystectomy, Hysterectomy, Orthopedic Surgery, Tonsillectomy Additional Past Surgical History / Comment(s): Appendectomy with mesenteric mass excision, diagnostic exploratory laprascopy, surgery for tubal , EGD, colonoscopy, cervical fusion/decompression. Past Anesthesia/Blood Transfusion Reactions: Previous Problems w/ Anesthesia, Motion Sickness, Postoperative Nausea & Vomiting (PONV) Additional Past Anesthesia/Blood Transfusion Reaction / Comment(s): Slow to wake Past Psychological History: No Psychological Hx Reported Smoking Status: Former smoker Past Alcohol Use History: Daily Past Drug Use History: None Reported - Past Family History Sister(s) Family Medical History: Cancer Additional Family Medical History / Comment(s): Stage III colon cancer. Mother Additional Family Medical History / Comment(s): lupus, mi of at age 52 Father Family Medical History: AFIB Medications and Allergies Home Medications Medication Instructions Recorded Confirmed Type Omeprazole Magnesium [PriLOSEC OTC] 20 mg PO DAILY 03/24/24 03/31/24 History Acetaminophen Tab [Tylenol] 1,000 mg PO Q6HR PRN #30 tablet 03/29/24 03/31/24 Rx Ibuprofen [Motrin] 600 mg PO Q8HR PRN #30 tab 03/29/24 03/31/24 Rx Lisinopril-Hctz 10-12.5 mg 1 tab PO DAILY 03/31/24 03/31/24 History [Zestoretic 10-12.5] Allergies Allergy/AdvReac Type Severity Reaction Status Date / Time gluten Allergy CELIAC Verified 03/31/24 08:32 Penicillins Allergy STRONG Verified 03/31/24 08:32 SIBLING REACTION OF ANAPHYLAXIS Sulfa (Sulfonamide Allergy Unknown Verified 03/31/24 08:32 Antibiotics) Childhood tree nut Allergy SKIN Verified 03/31/24 08:32 REACTION wheat Allergy CELIAC Verified 03/31/24 08:32 Surgical - Exam Vital Signs Temp Pulse Resp BP Pulse Ox 97.8 F 77 16 77/50 97 03/31/24 00:49 03/31/24 00:49 03/31/24 00:49 03/31/24 00:49 03/31/24 00:49 Results - Labs 03/31/24 01:54 03/31/24 01:54 Abnormal Lab Results - Last 24 Hours (Table) 03/31/24 03/31/24 03/31/24 Range/Units 01:54 01:54 01:54 WBC 2.4 L (3.8-10.6) k/uL Lymphocytes # (Manual) 0.60 L (1.0-4.8) k/uL Sodium 125 L (137-145) mmol/L Potassium 3.2 L (3.5-5.1) mmol/L Chloride 93 L (98-107) mmol/L Glucose 71 L (74-99) mg/dL Calcium 8.2 L (8.4-10.2) mg/dL AST 38 H (14-36) U/L Troponin I 0.043 H* (0.000-0.034) ng/mL Total Protein 4.7 L (6.3-8.2) g/dL Albumin 2.7 L (3.5-5.0) g/dL Amylase <30 L (30-110) U/L Diabetes panel 03/31/24 Range/Units 01:54 Sodium 125 L (137-145) mmol/L Potassium 3.2 L (3.5-5.1) mmol/L Chloride 93 L (98-107) mmol/L Carbon Dioxide 24 (22-30) mmol/L BUN 14 (7-17) mg/dL Creatinine 0.64 (0.52-1.04) mg/dL Glucose 71 L (74-99) mg/dL Calcium 8.2 L (8.4-10.2) mg/dL AST 38 H (14-36) U/L ALT 14 (4-34) U/L Alkaline Phosphatase 52 (38-126) U/L Total Protein 4.7 L (6.3-8.2) g/dL Albumin 2.7 L (3.5-5.0) g/dL Calcium panel 03/31/24 Range/Units 01:54 Calcium 8.2 L (8.4-10.2) mg/dL Albumin 2.7 L (3.5-5.0) g/dL Pituitary panel 03/31/24 Range/Units 01:54 Sodium 125 L (137-145) mmol/L Potassium 3.2 L (3.5-5.1) mmol/L Chloride 93 L (98-107) mmol/L Carbon Dioxide 24 (22-30) mmol/L BUN 14 (7-17) mg/dL Creatinine 0.64 (0.52-1.04) mg/dL Glucose 71 L (74-99) mg/dL Calcium 8.2 L (8.4-10.2) mg/dL Adrenal panel 03/31/24 Range/Units 01:54 Sodium 125 L (137-145) mmol/L Potassium 3.2 L (3.5-5.1) mmol/L Chloride 93 L (98-107) mmol/L Carbon Dioxide 24 (22-30) mmol/L BUN 14 (7-17) mg/dL Creatinine 0.64 (0.52-1.04) mg/dL Glucose 71 L (74-99) mg/dL Calcium 8.2 L (8.4-10.2) mg/dL Total Bilirubin 1.0 (0.2-1.3) mg/dL AST 38 H (14-36) U/L ALT 14 (4-34) U/L Alkaline Phosphatase 52 (38-126) U/L Total Protein 4.7 L (6.3-8.2) g/dL Albumin 2.7 L (3.5-5.0) g/dL
[2024-03-31] MEDS: SODIUM CHLORIDE 0.9% 1,000 ML with POTASSIUM CHLORIDE 20 MEQ IV SCH (13:16)
[2024-03-31 14:05] LABS: Appearance,Urine Cloudy (Clear); Bilirubin,Urine 1+ (Negative); Blood,Urine Negative (Negative); Color,Urine Yellow; Glucose,Urine (UA) Negative (Negative); Hyaline Casts,Urine 25 /lpf (0-2); Ketones,Urine 2+ (Negative); Leukocyte Esterase,Urine Negative (Negative); Mucus,Urine Few /hpf; Nitrite,Urine Negative (Negative); Protein,Urine Trace (Negative); RBC,Urine 1 /hpf (0-5); Specific Gravity,Urine 1.019 (1.001-1.035); Squamous Epithelial Cell,Urine 1 /hpf (0-4); Urobilinogen,Urine <2.0 mg/dL (<2.0); WBC,Urine 2 /hpf (0-5)
[2024-04-01] MEDS: 0.9% NACL WITH KCL 20 MEQ/L 1,000 ML IV SCH (01:44)
[2024-04-01 10:15] VITALS: BMI 18.6
--- NOTE | 2024-04-01 11:36 | XR ---
EXAMINATION TYPE: XR abdomen 2V DATE OF EXAM: 04/01/2024 5:54 AM CLINICAL INDICATION:Female, 53 years old with history of Bowel obstruction; [facility] COMPARISON: KUB and CT 03/31/2024 TECHNIQUE: Supine and upright views of the abdomen were obtained. FINDINGS: NG tube side hole and tip over the stomach. The diffuse gaseous distention of small bowel with air-fl uid levels shows no significant interval change. There does appear to be some stool and gas yet in th e colon. Multiple clips in the right upper quadrant probably from cholecystectomy. Surgical clips also over th e lumbosacral junction with bilateral pedicle screws and fixation rods in place. Soft tissues and oss eous structures appear grossly unchanged. Body wall edematous and emphysematous changes are similar t o those described on the prior CT. An acute bony abnormality is not identified. IMPRESSION: 1. Abnormal bowel gas pattern, not significantly changed from prior. 2. NG tube over the stomach.
[2024-04-01 15:06] LABS: Basophils % (A) 0 %; Eosinophils # (A) 0.1 k/uL (0-0.7); Eosinophils % (A) 1 %; HCT 38.2 % (34.0-46.0); HGB 12.9 gm/dL (11.4-16.0); Lymphocytes # (A) 0.4 k/uL (1.0-4.8); Lymphocytes % (A) 4 %; MCHC 33.8 g/dL (31.0-37.0); MCV 97.6 fL (80.0-100.0); Mean Platelet Volume 7.9; Monocytes # (A) 0.4 k/uL (0-1.0); Monocytes % (A) 4 %; Neutrophils # (A) 10.1 k/uL (1.3-7.7); Neutrophils % (A) 91 %; Platelet Count 424 k/uL (150-450); RBC 3.91 m/uL (3.80-5.40); RDW 12.1 % (11.5-15.5); WBC 11.2 k/uL (3.8-10.6)
[2024-04-01 15:47] LABS: Ionized Calcium 4.8 mg/dL (4.5-5.3)
[2024-04-01 15:53] LABS: Glucose,Whole Blood 55 mg/dL (70-110)
[2024-04-01 15:56] LABS: ALT 19 U/L (4-34); AST 33 U/L (14-36); African American GFR (CKD) >90 (>60 ml/min/1.73 sqM); Albumin 2.4 g/dL (3.5-5.0); Alkaline Phosphatase 63 U/L (38-126); Anion Gap 8 mmol/L; Blood Urea Nitrogen 18 mg/dL (7-17); Calcium 8.3 mg/dL (8.4-10.2); Carbon Dioxide 24 mmol/L (22-30); Chloride 97 mmol/L (98-107); Glucose 56 mg/dL (74-99); Magnesium 1.9 mg/dL (1.6-2.3); Non-African American GFR(CKD) >90 (>60 ml/min/1.73 sqM); Potassium 3.5 mmol/L (3.5-5.1); Sodium 129 mmol/L (137-145); Total Bilirubin 0.5 mg/dL (0.2-1.3); Total Protein 4.4 g/dL (6.3-8.2)
[2024-04-01] MEDS: DEXTROSE 50% SYRINGE 50 ML IVP ONE (16:03)
[2024-04-01 16:20] LABS: Glucose,Whole Blood 116 mg/dL (70-110)
[2024-04-01] MEDS ORDERED: Magnesium Replacement Protocol 1 EACH MISC MISCELLANE PRN (17:55)
[2024-04-01] MEDS ORDERED: Potassium Replacement Protocol 1 EACH MISC MISCELLANE PRN (17:56)
[2024-04-01] MEDS: POTASSIUM CHLORIDE 20 MEQ in WATER FOR INJECTION 1 100ML.BAG IVPB SCH (18:33)
[2024-04-01] MEDS: MAGNESIUM SULFATE-D5W PMX 1 GM in DEXTROSE/WATER 1 100ML.BAG IVPB ONE (18:34)
--- NOTE | 2024-04-01 19:08 | P.PN ---
Subjective Patient seen and evaluated at bedside. Patient complains of abdominal distention. Objective - Vital Signs Vital signs: Vital Signs Temp 97.9 F 04/01/24 16:00 Pulse 84 04/01/24 18:00 Resp 16 04/01/24 18:00 BP 103/58 04/01/24 18:00 Pulse Ox 95 04/01/24 18:00 FiO2 Intake & Output 04/01/24 04/01/24 04/02/24 06:59 18:59 06:59 Intake Total 75 Output Total 1400 Balance -1400 75 Weight 58.967 kg Intake: Intake, IV Titration 75 Amount 0.9% NaCl with KCl 20 Meq 75 /l 1,000 ml @ 75 mls/hr IV .[id number] [facility] Rx#: [id number] Output: Gastric Drainage 1400 Other: Voiding Method External Catheter - Exam gen: nad cv: rrr pul: non labored breathing abd: soft, distended, tender to palpation, no guarding or rebound tenderness ng in place - Labs CBC & Chem 7: 04/01/24 14:56 04/01/24 14:56 Labs: Abnormal Lab Results - Last 24 Hours (Table) 04/01/24 04/01/24 04/01/24 Range/Units 14:56 14:56 15:52 WBC 11.2 H (3.8-10.6) k/uL Neutrophils # 10.1 H (1.3-7.7) k/uL Lymphocytes # 0.4 L (1.0-4.8) k/uL Sodium 129 L (137-145) mmol/L Chloride 97 L (98-107) mmol/L BUN 18 H (7-17) mg/dL Glucose 56 L (74-99) mg/dL POC Glucose (mg/dL) 55 L (70-110) mg/dL Calcium 8.3 L (8.4-10.2) mg/dL Total Protein 4.4 L (6.3-8.2) g/dL Albumin 2.4 L (3.5-5.0) g/dL 04/01/24 Range/Units 16:19 WBC (3.8-10.6) k/uL Neutrophils # (1.3-7.7) k/uL Lymphocytes # (1.0-4.8) k/uL Sodium (137-145) mmol/L Chloride (98-107) mmol/L BUN (7-17) mg/dL Glucose (74-99) mg/dL POC Glucose (mg/dL) 116 H (70-110) mg/dL Calcium (8.4-10.2) mg/dL Total Protein (6.3-8.2) g/dL Albumin (3.5-5.0) g/dL Assessment and Plan Assessment: 53 yo female s/p right hemicolectomy now presenting w/ possible obstruction -nasogastric tube placed -npo, exceptions: ice chips prior to eval -pain control -possible intervention on Wednesday once decompressed Time with Patient: Greater than 30
[2024-04-02 06:22] LABS: Ionized Calcium 4.8 mg/dL (4.5-5.3)
[2024-04-02 06:32] LABS: ALT 15 U/L (4-34); AST 25 U/L (14-36); African American GFR (CKD) >90 (>60 ml/min/1.73 sqM); Albumin 2.4 g/dL (3.5-5.0); Alkaline Phosphatase 73 U/L (38-126); Anion Gap 6 mmol/L; Blood Urea Nitrogen 15 mg/dL (7-17); Calcium 8.3 mg/dL (8.4-10.2); Carbon Dioxide 24 mmol/L (22-30); Chloride 99 mmol/L (98-107); Glucose 75 mg/dL (74-99); Magnesium 1.9 mg/dL (1.6-2.3); Non-African American GFR(CKD) >90 (>60 ml/min/1.73 sqM); Phosphorus 2.1 mg/dL (2.5-4.5); Sodium 129 mmol/L (137-145); Total Bilirubin 0.5 mg/dL (0.2-1.3); Total Protein 4.3 g/dL (6.3-8.2)
[2024-04-02 06:40] LABS: Glucose,Whole Blood 83 mg/dL (70-110)
[2024-04-02] MEDS: SODIUM PHOSPHATE 30 MMOL in DEXTROSE 5% IN WATER 250 ML IVPB ONE (08:37)
--- NOTE | 2024-04-02 08:37 | XR ---
EXAMINATION TYPE: XR abdomen 2V DATE OF EXAM: 04/02/2024 5:34 AM CLINICAL INDICATION:Female, 53 years old with history of Bowel obstruction; [facility] COMPARISON: 04/01/2024 and older TECHNIQUE: 3 views of the abdomen including upright view. FINDINGS: No dense consolidative process in the lung bases. Mild infiltrate or atelectasis suggested in the lef t lung base. No sizable pleural effusion. Heart is not grossly enlarged. NG tube side hole and tip are again over the stomach. Essentially stable diffuse gaseous distention of small bowel with air-fluid levels. There does appear to be some stool and gas yet in the colon, especially the rectum. Multiple clips in the right upper quadrant probably from cholecystectomy. Surgical clips also over th e lumbosacral junction with bilateral pedicle screws and fixation rods in place. Soft tissues and oss eous structures appear grossly unchanged. Body wall edematous and emphysematous changes are similar t o those described on the recent prior CT. An acute bony abnormality is not identified. IMPRESSION: 1. Overall similar, abnormal bowel gas pattern. Considerations include partial high-grade distal SBO . Continued follow-up. 2. NG tube is stable.
--- NOTE | 2024-04-02 11:15 | P.PN ---
Subjective Progress Note Date: 04/02/24 Principal diagnosis: Small bowel obstruction Patient remains in the ICU as a 3 S. overflow. Feels about the same. No bowel movement or flatus. Complaining of discomfort from the nasogastric tube. She is afebrile. Objective - Vital Signs Vital signs: Vital Signs Temp 97.8 F 04/02/24 08:00 Pulse 87 04/02/24 10:00 Resp 13 04/02/24 10:00 BP 109/67 04/02/24 09:00 Pulse Ox 94 L 04/02/24 08:00 FiO2 Intake & Output 04/01/24 04/02/24 04/02/24 18:59 06:59 18:59 Intake Total 75 Output Total 450 200 Balance 75 -450 -200 Weight 58.967 kg Intake: Intake, IV Titration 75 Amount 0.9% NaCl with KCl 20 Meq 75 /l 1,000 ml @ 75 mls/hr IV .[id number] [facility] Rx#: [id number] Output: Gastric Drainage 200 Urine 450 Other: Voiding Method External Catheter External Catheter # Voids 3 - Exam Abdomen: Soft, mild distention, mild diffuse tenderness - Labs CBC & Chem 7: 04/01/24 14:56 04/02/24 05:32 Labs: Abnormal Lab Results - Last 24 Hours (Table) 04/01/24 04/01/24 04/01/24 Range/Units 14:56 14:56 15:52 WBC 11.2 H (3.8-10.6) k/uL Neutrophils # 10.1 H (1.3-7.7) k/uL Lymphocytes # 0.4 L (1.0-4.8) k/uL Sodium 129 L (137-145) mmol/L Chloride 97 L (98-107) mmol/L BUN 18 H (7-17) mg/dL Glucose 56 L (74-99) mg/dL POC Glucose (mg/dL) 55 L (70-110) mg/dL Calcium 8.3 L (8.4-10.2) mg/dL Phosphorus (2.5-4.5) mg/dL Total Protein 4.4 L (6.3-8.2) g/dL Albumin 2.4 L (3.5-5.0) g/dL 08/03/24 08/04/24 Range/Units 16:19 05:32 WBC (3.8-10.6) k/uL Neutrophils # (1.3-7.7) k/uL Lymphocytes # (1.0-4.8) k/uL Sodium 129 L (137-145) mmol/L Chloride (98-107) mmol/L BUN (7-17) mg/dL Glucose (74-99) mg/dL POC Glucose (mg/dL) 116 H (70-110) mg/dL Calcium 8.3 L (8.4-10.2) mg/dL Phosphorus 2.1 L (2.5-4.5) mg/dL Total Protein 4.3 L (6.3-8.2) g/dL Albumin 2.4 L (3.5-5.0) g/dL Assessment and Plan (1) Small bowel obstruction Narrative/Plan: 53-year-old female with small bowel obstruction. Plans for laparoscopic lysis of adhesions tomorrow. Continue gastric decompression. Continue IV hydration. Current Visit: Yes Status: Acute Code(s): K56.609 - UNSP INTESTNL OBST, UNSP TO PARTIAL VERSUS COMPLETE OBST SNOMED Code(s): 464562419
[2024-04-02 21:02] VITALS: TEMP 98.6
[2024-04-03] MEDS ORDERED: FAT EMULSION 20% 250 ML BAG ONE (00:01)
[2024-04-03] MEDS ORDERED: SIMETHICONE 40 MG/0.6 ML DROPS 2,000 MG/30 ML BOTTLE ONE (00:01)
[2024-04-03] MEDS ORDERED: TRACE (CONC-1ML/DOSE) 1 ML VIAL IV ONE (00:01)
[2024-04-03] MEDS ORDERED: AMINO ACID 5% IV ONE (00:01)
[2024-04-03] MEDS ORDERED: SODIUM CHLORIDE 0.9% 1,000 ML BAG ONE (00:01)
[2024-04-03] MEDS ORDERED: [UNRECOGNIZED DRUG - OTHER] IV ONE (00:01)
[2024-04-03] MEDS ORDERED: MVI, ADULT NO.4 WITH VIT K 10 ML VIAL IV ONE (00:01)
[2024-04-03 06:18] VITALS: BP 115/94; PULSE 86
[2024-04-03 07:06] VITALS: RESP 18
[2024-04-03 07:14] LABS: African American GFR (CKD) >90 (>60 ml/min/1.73 sqM); Anion Gap 9 mmol/L; Blood Urea Nitrogen 11 mg/dL (7-17); Calcium 8.4 mg/dL (8.4-10.2); Carbon Dioxide 24 mmol/L (22-30); Chloride 100 mmol/L (98-107); Glucose 72 mg/dL (74-99); Magnesium 1.8 mg/dL (1.6-2.3); Non-African American GFR(CKD) >90 (>60 ml/min/1.73 sqM); Phosphorus 2.8 mg/dL (2.5-4.5); Sodium 133 mmol/L (137-145)
[2024-04-03] MEDS ORDERED: PANTOPRAZOLE 40 MG/10 ML VIAL ONE (09:26)
[2024-04-03] MEDS ORDERED: HYDROmorphone 0.5 MG/0.5 ML SYRINGE ONE ×3 (09:27→18:01)
[2024-04-03] MEDS ORDERED: MAGNESIUM SULFATE-D5W PMX 100 ML IVPB ONE ×2 (16:12→18:45)
[2024-04-03] MEDS ORDERED: ROCURONIUM 10 MG/ML (5 ML VIAL) IV ONE (21:13)
[2024-04-03] MEDS ORDERED: SUGAMMADEX SODIUM 200 MG/2 ML SDV IV ONE (21:13)
[2024-04-03] MEDS ORDERED: fentaNYL (PF) 50 MCG/ML 2 ML AMP ONE (21:13)
[2024-04-03] MEDS ORDERED: PHENYLEPHRINE 10 MG/ML VIAL ONE (21:13)
[2024-04-03] MEDS ORDERED: ceFAZolin 1 GM/50 ML BAG (PMX) ONE (21:13)
[2024-04-03] MEDS ORDERED: SUCCINYLCHOLINE CHLORIDE 200 MG/10 ML VIAL IV ONE (21:13)
[2024-04-03] MEDS ORDERED: HYDROmorphone (PF) 1 MG/ML ONE (21:13)
[2024-04-03] MEDS ORDERED: PROPOFOL 10 MG/ML 20 ML VIAL IV ONE (21:13)
[2024-04-03] MEDS ORDERED: LIDOCAINE 1%-EPI 1:100,000 20 ML VIAL ONE (21:49)
[2024-04-04] MEDS ORDERED: ceFAZolin 10 GM VIAL IVPB ONE (00:01)
[2024-04-04] MEDS ORDERED: [UNRECOGNIZED DRUG - OTHER] IV ONE (00:01)
[2024-04-04] MEDS ORDERED: 0.9% NACL WITH KCL 20 MEQ/L 1,000 ML BAG IV ONE (00:01)
[2024-04-04] MEDS ORDERED: INSULIN ASPART (NovoLOG) 100 UNIT/ML VIAL SQ ONE ×3 (00:01→20:35)
[2024-04-04] MEDS ORDERED: SODIUM CHLORIDE 0.9% 50 ML BAG ONE (00:01)
[2024-04-04] MEDS ORDERED: AMINO ACID 5% IV ONE (00:01)
[2024-04-04 06:53] LABS: Glucose,Whole Blood 173 mg/dL (70-110)
[2024-04-04] MEDS ORDERED: PANTOPRAZOLE 40 MG/10 ML VIAL ONE ×2 (07:26→20:35)
[2024-04-04] MEDS ORDERED: HEPARIN SODIUM,PORCINE 5,000 UNIT/ML 1 ML VIAL ONE ×2 (07:28→20:35)
[2024-04-04] MEDS ORDERED: MORPHINE SULFATE 4 MG/ML SYRINGE ONE ×4 (08:13→22:12)
[2024-04-04] MEDS ORDERED: ACETAMINOPHEN IV (For NPO) 100 ML ONE ×2 (11:54→19:05)
[2024-04-04] MEDS ORDERED: ONDANSETRON 4 MG/2 ML VIAL ONE ×2 (11:54→17:57)
[2024-04-04 12:10] LABS: Glucose,Whole Blood 175 mg/dL (70-110)
[2024-04-04] MEDS ORDERED: cefTRIAXone 1 GM VIAL ONE (15:44)
[2024-04-04 17:43] LABS: Glucose,Whole Blood 188 mg/dL (70-110)
[2024-04-04] MEDS ORDERED: MAGNESIUM SULFATE-D5W PMX 100 ML IVPB ONE (18:45)
[2024-04-04 20:33] LABS: Glucose,Whole Blood 198 mg/dL (70-110)
[2024-04-05] MEDS ORDERED: 0.9% NACL WITH KCL 20 MEQ/L 1,000 ML BAG IV ONE (00:01)
[2024-04-05] MEDS ORDERED: [UNRECOGNIZED DRUG - OTHER] IV ONE (00:01)
[2024-04-05] MEDS ORDERED: MVI, ADULT NO.4 WITH VIT K 10 ML VIAL IV ONE (00:01)
[2024-04-05] MEDS ORDERED: TRACE (CONC-1ML/DOSE) 1 ML VIAL IV ONE (00:01)
[2024-04-05] MEDS ORDERED: AMINO ACID 5% IV ONE (00:01)
[2024-04-05] MEDS ORDERED: ONDANSETRON 4 MG/2 ML VIAL ONE ×3 (00:06→16:58)
[2024-04-05] MEDS ORDERED: ACETAMINOPHEN IV (For NPO) 100 ML ONE ×3 (00:10→17:41)
[2024-04-05] MEDS ORDERED: HYDROmorphone 0.5 MG/0.5 ML SYRINGE ONE ×5 (01:42→23:24)
[2024-04-05] MEDS ORDERED: MORPHINE SULFATE 4 MG/ML SYRINGE ONE ×4 (04:11→21:43)
[2024-04-05 06:09] LABS: Glucose,Whole Blood 155 mg/dL (70-110)
[2024-04-05] MEDS ORDERED: INSULIN ASPART (NovoLOG) 100 UNIT/ML VIAL SQ ONE (06:41)
[2024-04-05] MEDS ORDERED: PANTOPRAZOLE 40 MG/10 ML VIAL ONE ×2 (08:28→21:43)
[2024-04-05] MEDS ORDERED: HEPARIN SODIUM,PORCINE 5,000 UNIT/ML 1 ML VIAL ONE ×2 (08:28→21:43)
[2024-04-05 11:07] LABS: Glucose,Whole Blood 136 mg/dL (70-110)
[2024-04-05 16:12] LABS: Glucose,Whole Blood 140 mg/dL (70-110)
[2024-04-05 21:07] LABS: Glucose,Whole Blood 133 mg/dL (70-110)
[2024-04-06] MEDS ORDERED: 0.9% NACL WITH KCL 20 MEQ/L 1,000 ML BAG IV ONE (00:01)
[2024-04-06] MEDS ORDERED: [UNRECOGNIZED DRUG - OTHER] IV ONE (00:01)
[2024-04-06] MEDS ORDERED: AMINO ACID 5% IV ONE (00:01)
[2024-04-06] MEDS ORDERED: ACETAMINOPHEN IV (For NPO) 100 ML ONE ×4 (00:20→17:10)
[2024-04-06] MEDS ORDERED: MORPHINE SULFATE 4 MG/ML SYRINGE ONE ×2 (02:12→16:54)
[2024-04-06] MEDS ORDERED: HYDROmorphone 0.5 MG/0.5 ML SYRINGE ONE ×6 (03:29→22:13)
[2024-04-06] MEDS ORDERED: ONDANSETRON 4 MG/2 ML VIAL ONE ×3 (05:38→17:10)
[2024-04-06 05:56] LABS: Glucose,Whole Blood 135 mg/dL (70-110)
[2024-04-06] MEDS ORDERED: HEPARIN SODIUM,PORCINE 5,000 UNIT/ML 1 ML VIAL ONE (09:28)
[2024-04-06] MEDS ORDERED: PANTOPRAZOLE 40 MG/10 ML VIAL ONE ×2 (09:28→22:13)
[2024-04-06] MEDS ORDERED: bisacodyL 5 MG TABLET.DR PO ONE ×2 (09:28)
[2024-04-06 11:19] LABS: Glucose,Whole Blood 120 mg/dL (70-110)
[2024-04-06] MEDS ORDERED: METOCLOPRAMIDE 5 MG/ML 2 ML VIAL ONE ×4 (12:38→17:10)
[2024-04-06] MEDS ORDERED: MAGNESIUM SULFATE-D5W PMX 100 ML IVPB ONE ×2 (12:39→12:42)
[2024-04-06] MEDS ORDERED: HEPARIN SOD,PORK IN 0.45% NACL 250 ML IV ONE (14:24)
[2024-04-06 16:17] LABS: Glucose,Whole Blood 127 mg/dL (70-110)
[2024-04-06 21:12] LABS: Glucose,Whole Blood 120 mg/dL (70-110)
[2024-04-06] MEDS ORDERED: HEPARIN SODIUM 1,000 UN/ML (10ML VL) ONE (22:09)
[2024-04-07] MEDS ORDERED: FAT EMULSION 20% 250 ML BAG ONE (00:01)
[2024-04-07] MEDS ORDERED: 0.9% NACL WITH KCL 20 MEQ/L 1,000 ML BAG IV ONE (00:01)
[2024-04-07] MEDS ORDERED: ONDANSETRON 4 MG/2 ML VIAL ONE ×3 (00:13→17:26)
[2024-04-07] MEDS ORDERED: MORPHINE SULFATE 4 MG/ML SYRINGE ONE ×2 (00:13→21:45)
[2024-04-07] MEDS ORDERED: HYDROmorphone 0.5 MG/0.5 ML SYRINGE ONE ×5 (03:10→16:36)
[2024-04-07 06:11] LABS: Glucose,Whole Blood 127 mg/dL (70-110)
[2024-04-07] MEDS ORDERED: ACETAMINOPHEN IV (For NPO) 100 ML ONE ×4 (06:31→17:26)
[2024-04-07] MEDS ORDERED: HEPARIN SODIUM 1,000 UN/ML (10ML VL) ONE (08:27)
[2024-04-07] MEDS ORDERED: HEPARIN SOD,PORK IN 0.45% NACL 250 ML IV ONE (08:50)
[2024-04-07] MEDS ORDERED: bisacodyL 5 MG TABLET.DR PO ONE (10:33)
[2024-04-07] MEDS ORDERED: CYCLOBENZAPRINE 5 MG TAB ONE (10:33)
[2024-04-07] MEDS ORDERED: CYCLOBENZAPRINE 10 MG TAB ONE (10:33)
[2024-04-07] MEDS ORDERED: PANTOPRAZOLE 40 MG/10 ML VIAL ONE ×2 (10:33→21:44)
[2024-04-07 11:16] LABS: Glucose,Whole Blood 132 mg/dL (70-110)
[2024-04-07] MEDS ORDERED: METOCLOPRAMIDE 5 MG/ML 2 ML VIAL ONE ×2 (13:28→17:26)
[2024-04-07 17:52] LABS: Glucose,Whole Blood 122 mg/dL (70-110)
[2024-04-07] MEDS ORDERED: ALVIMOPAN 12 MG CAPSULE ONE (21:44)
[2024-04-08] MEDS ORDERED: AMINO ACID 5% IV ONE (00:01)
[2024-04-08] MEDS ORDERED: [UNRECOGNIZED DRUG - OTHER] IV ONE (00:01)
[2024-04-08] MEDS ORDERED: TRACE (CONC-1ML/DOSE) 1 ML VIAL IV ONE (00:01)
[2024-04-08] MEDS ORDERED: MVI, ADULT NO.4 WITH VIT K 10 ML VIAL IV ONE (00:01)
[2024-04-08 00:11] LABS: Glucose,Whole Blood 100 mg/dL (70-110)
[2024-04-08] MEDS ORDERED: ONDANSETRON 4 MG/2 ML VIAL ONE ×4 (00:44→17:28)
[2024-04-08] MEDS ORDERED: METOCLOPRAMIDE 5 MG/ML 2 ML VIAL ONE ×4 (00:44→17:28)
[2024-04-08] MEDS ORDERED: ACETAMINOPHEN IV (For NPO) 100 ML ONE ×4 (00:45→17:29)
[2024-04-08] MEDS ORDERED: HEPARIN SODIUM 1,000 UN/ML (10ML VL) ONE ×2 (00:57→17:29)
[2024-04-08] MEDS ORDERED: HEPARIN SOD,PORK IN 0.45% NACL 250 ML IV ONE ×3 (01:00→15:16)
[2024-04-08] MEDS ORDERED: HYDROmorphone 0.5 MG/0.5 ML SYRINGE ONE ×4 (04:06→19:14)
[2024-04-08 06:23] LABS: Glucose,Whole Blood 124 mg/dL (70-110)
[2024-04-08] MEDS ORDERED: PANTOPRAZOLE 40 MG/10 ML VIAL ONE ×2 (09:47→21:14)
[2024-04-08 12:09] LABS: Glucose,Whole Blood 117 mg/dL (70-110)
[2024-04-08 17:33] LABS: Glucose,Whole Blood 113 mg/dL (70-110)
[2024-04-09] MEDS ORDERED: ACETAMINOPHEN IV (For NPO) 1,000 MG/100 ML VIAL ONE (00:01)
[2024-04-09] MEDS ORDERED: HYDROmorphone 0.5 MG/0.5 ML SYRINGE ONE ×6 (00:22→21:21)
[2024-04-09] MEDS ORDERED: ONDANSETRON 4 MG/2 ML VIAL ONE ×3 (00:22→20:10)
[2024-04-09] MEDS ORDERED: ACETAMINOPHEN IV (For NPO) 100 ML ONE ×4 (00:22→17:17)
[2024-04-09] MEDS ORDERED: METOCLOPRAMIDE 5 MG/ML 2 ML VIAL ONE ×4 (00:22→17:17)
[2024-04-09] MEDS ORDERED: HEPARIN SOD,PORK IN 0.45% NACL 250 ML IV ONE (05:00)
[2024-04-09 06:04] LABS: Glucose,Whole Blood 122 mg/dL (70-110)
[2024-04-09] MEDS ORDERED: CYCLOBENZAPRINE 5 MG TAB ONE (20:10)
[2024-04-09] MEDS ORDERED: PANTOPRAZOLE 40 MG/10 ML VIAL ONE (21:20)
[2024-04-09] MEDS ORDERED: ALVIMOPAN 12 MG CAPSULE ONE (21:20)
[2024-04-09] MEDS ORDERED: APIXABAN 5 MG TAB ONE (21:20)
[2024-04-10 00:19] LABS: Glucose,Whole Blood 110 mg/dL (70-110)
[2024-04-10] MEDS ORDERED: HYDROmorphone 0.5 MG/0.5 ML SYRINGE ONE ×4 (00:43→22:16)
[2024-04-10] MEDS ORDERED: ACETAMINOPHEN IV (For NPO) 100 ML ONE ×2 (00:43→05:43)
[2024-04-10] MEDS ORDERED: METOCLOPRAMIDE 5 MG/ML 2 ML VIAL ONE ×3 (05:43→17:43)
[2024-04-10] MEDS ORDERED: CYCLOBENZAPRINE 5 MG TAB ONE (05:43)
[2024-04-10 05:50] LABS: Glucose,Whole Blood 113 mg/dL (70-110)
[2024-04-10] MEDS ORDERED: APIXABAN 5 MG TAB ONE ×2 (08:22→20:08)
[2024-04-10] MEDS ORDERED: PANTOPRAZOLE 40 MG TABLET PO ONE (08:22)
[2024-04-10] MEDS ORDERED: ALVIMOPAN 12 MG CAPSULE ONE ×2 (08:23→20:03)
[2024-04-10 12:28] LABS: Glucose,Whole Blood 94 mg/dL (70-110)
[2024-04-10 17:43] LABS: Glucose,Whole Blood 92 mg/dL (70-110)
[2024-04-10] MEDS ORDERED: CYCLOBENZAPRINE 10 MG TAB ONE (20:03)
[2024-04-10] MEDS ORDERED: PANTOPRAZOLE 40 MG/10 ML VIAL ONE (20:03)
[2024-04-10] MEDS ORDERED: MORPHINE SULFATE 4 MG/ML SYRINGE ONE (20:03)
[2024-04-10] MEDS ORDERED: metroNIDAZOLE 500 MG TAB ONE (20:37)
[2024-04-11 00:17] LABS: Glucose,Whole Blood 82 mg/dL (70-110)
[2024-04-11] MEDS ORDERED: METOCLOPRAMIDE 5 MG/ML 2 ML VIAL ONE ×3 (00:41→17:43)
[2024-04-11] MEDS ORDERED: CEFEPIME 2 GM VIAL IVPB ONE ×3 (00:41→16:19)
[2024-04-11] MEDS ORDERED: MORPHINE SULFATE 4 MG/ML SYRINGE ONE ×3 (00:41→16:11)
[2024-04-11] MEDS ORDERED: HYDROmorphone 0.5 MG/0.5 ML SYRINGE ONE ×4 (02:19→13:39)
[2024-04-11] MEDS ORDERED: metroNIDAZOLE 500 MG TAB ONE ×2 (05:22→16:17)
[2024-04-11 05:58] LABS: Glucose,Whole Blood 89 mg/dL (70-110)
[2024-04-11] MEDS ORDERED: PANTOPRAZOLE 40 MG/10 ML VIAL ONE ×2 (08:26→21:30)
[2024-04-11] MEDS ORDERED: ALVIMOPAN 12 MG CAPSULE ONE ×2 (08:26→21:30)
[2024-04-11] MEDS ORDERED: APIXABAN 5 MG TAB ONE ×2 (08:26→21:30)
[2024-04-11] MEDS ORDERED: IOPAMIDOL CONTRAST (ORAL USE) VIAL PO ONE ×2 (10:20→11:21)
[2024-04-11] MEDS ORDERED: ONDANSETRON 4 MG/2 ML VIAL ONE (21:31)
[2024-04-11] MEDS ORDERED: HYDROmorphone 1 MG/ML 1 ML SYRINGE ONE (21:31)
[2024-04-12] MEDS ORDERED: SODIUM CHLORIDE 0.9% 100 ML BAG IV ONE (00:01)
[2024-04-12] MEDS ORDERED: [UNRECOGNIZED DRUG - OTHER] IV ONE (00:01)
[2024-04-12] MEDS ORDERED: VANCOMYCIN 1,000 MG VIAL ONE (00:01)
[2024-04-12] MEDS ORDERED: TRACE (CONC-1ML/DOSE) 1 ML VIAL IV ONE (00:01)
[2024-04-12] MEDS ORDERED: SODIUM CHLORIDE 0.9% 500 ML BAG ONE (00:01)
[2024-04-12] MEDS ORDERED: AMINO ACID 5% IV ONE (00:01)
[2024-04-12] MEDS ORDERED: MVI, ADULT NO.4 WITH VIT K 10 ML VIAL IV ONE (00:01)
[2024-04-12 00:12] LABS: Glucose,Whole Blood 95 mg/dL (70-110)
[2024-04-12] MEDS ORDERED: metroNIDAZOLE 500 MG TAB ONE ×3 (00:22→18:06)
[2024-04-12] MEDS ORDERED: CYCLOBENZAPRINE 10 MG TAB ONE ×2 (00:22→08:40)
[2024-04-12] MEDS ORDERED: HYDROmorphone 1 MG/ML 1 ML SYRINGE ONE ×6 (00:22→22:56)
[2024-04-12] MEDS ORDERED: CEFEPIME 2 GM VIAL IVPB ONE ×3 (00:22→18:07)
[2024-04-12 06:09] LABS: Glucose,Whole Blood 108 mg/dL (70-110)
[2024-04-12] MEDS ORDERED: METOCLOPRAMIDE 5 MG/ML 2 ML VIAL ONE ×3 (06:58→18:06)
[2024-04-12] MEDS ORDERED: PANTOPRAZOLE 40 MG/10 ML VIAL ONE ×2 (08:40→20:43)
[2024-04-12] MEDS ORDERED: APIXABAN 5 MG TAB ONE ×2 (08:40→20:43)
[2024-04-12] MEDS ORDERED: ALVIMOPAN 12 MG CAPSULE ONE ×2 (08:41→20:43)
[2024-04-12] MEDS ORDERED: ACETAMINOPHEN TAB 500 MG TAB ONE (13:57)
[2024-04-12] MEDS ORDERED: hydrALAZINE HCL 25 MG TAB ONE (18:06)
[2024-04-12] MEDS ORDERED: CYCLOBENZAPRINE 5 MG TAB ONE (18:13)
[2024-04-12] MEDS ORDERED: bisacodyL 10 MG SUPP RECTAL ONE (20:43)
[2024-04-13] MEDS ORDERED: VANCOMYCIN 1,000 MG VIAL ONE ×2 (00:01)
[2024-04-13] MEDS ORDERED: SODIUM CHLORIDE 0.9% 100 ML BAG IV ONE (00:01)
[2024-04-13] MEDS ORDERED: VANCOMYCIN 500 MG VIAL ONE (00:01)
[2024-04-13] MEDS ORDERED: SODIUM CHLORIDE 0.9% 500 ML BAG ONE ×2 (00:01)
[2024-04-13] MEDS ORDERED: [UNRECOGNIZED DRUG - OTHER] IV ONE (00:01)
[2024-04-13] MEDS ORDERED: AMINO ACID 5% IV ONE (00:01)
[2024-04-13] MEDS ORDERED: HYDROmorphone 1 MG/ML 1 ML SYRINGE ONE ×7 (03:12→22:52)
[2024-04-13] MEDS ORDERED: metroNIDAZOLE 500 MG TAB ONE ×4 (03:12→22:52)
[2024-04-13] MEDS ORDERED: CEFEPIME 2 GM VIAL IVPB ONE ×4 (03:12→22:53)
[2024-04-13] MEDS ORDERED: METOCLOPRAMIDE 5 MG/ML 2 ML VIAL ONE ×4 (06:13→22:52)
[2024-04-13] MEDS ORDERED: CYCLOBENZAPRINE 5 MG TAB ONE (09:24)
[2024-04-13] MEDS ORDERED: PANTOPRAZOLE 40 MG/10 ML VIAL ONE ×2 (09:25→20:02)
[2024-04-13] MEDS ORDERED: APIXABAN 5 MG TAB ONE ×2 (09:27→20:02)
[2024-04-13] MEDS ORDERED: ALVIMOPAN 12 MG CAPSULE ONE ×2 (09:28→20:18)
[2024-04-14] MEDS ORDERED: [UNRECOGNIZED DRUG - OTHER] IV ONE (00:01)
[2024-04-14] MEDS ORDERED: MVI, ADULT NO.4 WITH VIT K 10 ML VIAL IV ONE (00:01)
[2024-04-14] MEDS ORDERED: TRACE (CONC-1ML/DOSE) 1 ML VIAL IV ONE (00:01)
[2024-04-14] MEDS ORDERED: AMINO ACID 5% IV ONE (00:01)
[2024-04-14] MEDS ORDERED: HYDROmorphone 1 MG/ML 1 ML SYRINGE ONE ×7 (01:08→22:22)
[2024-04-14] MEDS ORDERED: ONDANSETRON 4 MG/2 ML VIAL ONE ×2 (03:20→18:58)
[2024-04-14] MEDS ORDERED: ALPRAZolam 0.25 MG TAB ONE (03:51)
[2024-04-14] MEDS ORDERED: METOCLOPRAMIDE 5 MG/ML 2 ML VIAL ONE ×3 (05:40→17:42)
[2024-04-14] MEDS ORDERED: CYCLOBENZAPRINE 10 MG TAB ONE ×2 (10:22→22:21)
[2024-04-14] MEDS ORDERED: PANTOPRAZOLE 40 MG/10 ML VIAL ONE (10:22)
[2024-04-14] MEDS ORDERED: metroNIDAZOLE 500 MG TAB ONE ×2 (10:23→16:06)
[2024-04-14] MEDS ORDERED: APIXABAN 5 MG TAB ONE ×2 (10:23→22:21)
[2024-04-14 11:43] LABS: Glucose,Whole Blood 116 mg/dL (70-110)
[2024-04-14] MEDS ORDERED: KETOROLAC 15 MG/ML 1 ML VIAL ONE ×3 (12:08→17:43)
[2024-04-14] MEDS ORDERED: CEFEPIME 2 GM VIAL IVPB ONE (15:57)
[2024-04-14] MEDS ORDERED: POTASSIUM CHLORIDE ER 20 MEQ TAB.ER PO ONE ×2 (16:05→17:43)
[2024-04-14 16:17] LABS: Glucose,Whole Blood 103 mg/dL (70-110)
[2024-04-15] MEDS ORDERED: KETOROLAC 15 MG/ML 1 ML VIAL ONE ×5 (00:32→23:55)
[2024-04-15] MEDS ORDERED: METOCLOPRAMIDE 5 MG/ML 2 ML VIAL ONE ×5 (00:32→23:55)
[2024-04-15] MEDS ORDERED: metroNIDAZOLE 500 MG TAB ONE ×4 (00:33→23:56)
[2024-04-15] MEDS ORDERED: CEFEPIME 2 GM VIAL IVPB ONE ×4 (00:33→23:56)
[2024-04-15] MEDS ORDERED: HYDROmorphone 1 MG/ML 1 ML SYRINGE ONE ×6 (02:19→20:06)
[2024-04-15] MEDS ORDERED: CYCLOBENZAPRINE 10 MG TAB ONE ×3 (06:55→22:27)
[2024-04-15] MEDS ORDERED: PANTOPRAZOLE 40 MG/10 ML VIAL ONE (07:39)
[2024-04-15] MEDS ORDERED: APIXABAN 5 MG TAB ONE ×2 (07:39→22:27)
[2024-04-16] MEDS ORDERED: HYDROmorphone 1 MG/ML 1 ML SYRINGE ONE ×3 (01:54→08:17)
[2024-04-16] MEDS ORDERED: METOCLOPRAMIDE 5 MG/ML 2 ML VIAL ONE (06:05)
[2024-04-16] MEDS ORDERED: KETOROLAC 15 MG/ML 1 ML VIAL ONE (06:05)
[2024-04-16] MEDS ORDERED: metroNIDAZOLE 500 MG TAB ONE (06:05)
[2024-04-16] MEDS ORDERED: CYCLOBENZAPRINE 10 MG TAB ONE (06:05)
[2024-04-16] MEDS ORDERED: APIXABAN 5 MG TAB ONE (08:15)
[2024-04-16] MEDS ORDERED: CEFEPIME 2 GM VIAL IVPB ONE (08:16)
[2024-04-16] MEDS ORDERED: PANTOPRAZOLE 40 MG/10 ML VIAL ONE (08:16)
--- NOTE | 2024-04-21 15:52 | CONS ---
Date of service is 04/10/2024 CONSULTATION LOCATION: 8. REASON FOR CONSULTATION: Abdominal abscess. HISTORY OF PRESENT ILLNESS: The patient is a 53-year-old female, initial presentation to the hospital as a transfer from a different facility and this patient did have a cecal volvulus, status post right hemicolectomy. The patient presented back to the hospital and has been diagnosed with small-bowel obstruction in this patient, who is status post laparotomy and ileocolectomy. The patient has been in hospital day 7. Today, she was noticed to have a white count up to 18,000 and also noted to have some purulent drainage from one of the incision, prompting this consultation. Patient is complaining of feeling cold in the room, did have some chills but denies high-grade fever. Denies any headache or URI symptoms. No chest pain, shortness of breath, or cough. Some nausea, but no vomiting. Did have some dull, aching abdominal pain, mostly mild to moderate, without any radiation. No nausea, no vomiting. Having bowel movement. REVIEW OF SYSTEMS: Positive points have been mentioned in HPI. Rest of the systems has been negative. PAST MEDICAL HISTORY: Cecal volvulus bowel obstruction, left lower extremity DVT. PAST SURGICAL HISTORY: Recent laparotomy for right hemicolectomy and subsequent laparotomy for bowel obstruction. SOCIAL HISTORY: Reviewed. ALLERGIES: To penicillin with a rash. No history of anaphylaxis. MEDICATIONS: Include the patient is currently on, 1. Reglan. 2. Heparin. 3. Zofran. 4. Simethicone. 5. Protonix. 6. TPN. 7. Benadryl. 8. Dilaudid. 9. Magnesium sulfate. PHYSICAL EXAMINATION: VITAL SIGNS: Blood pressure is 161/86, pulse of 97, temperature 98.5, oxygen saturation 97% on room air. GENERAL DESCRIPTION: This is a middle-aged female, lying in bed in no distress. No tachypnea or accessory muscle of respiration use. HEENT: No pallor or scleral icterus. Oral mucous membrane is dry. No pharyngeal erythema or thrush. NECK: Trachea central. No thyromegaly. LUNGS: Unlabored breathing. Clear to auscultation. HEART: S1, S2. Regular rate and rhythm. ABDOMEN: Soft. She did have purulent drainage from the one of the incisions. Culture has been obtained. Mild distention. No guarding or rigidity. EXTREMITIES: No edema. Feet examination, no rash or masses palpable. NEUROLOGICAL: Patient is awake, alert, oriented x3. Affect is normal. LABORATORY DATA: White count is 18.68. Creatinine is 0.36. Electrolytes are normal. DIAGNOSTIC IMPRESSION AND PLAN: Patient with purulent drainage from a surgical incision in this patient who did have recent laparotomy for bowel obstruction. We have initially called for the enteric gram- negative both aerobes and anaerobes and less likely gram-positive pathogen. 2-The patient with penicillin allergy that will limit the number of antibiotics she use. 3-We will obtain blood cultures as well as local culture has been obtained. A sample was given to the nursing staff. We will start the patient on cefepime 2 grams q.8 hours, vancomycin pharmacy to dose, and Flagyl, pending culture. The patient is scheduled for CAT scan tomorrow. Care has been discussed with the surgeon. ABIEL / ALYN: [id number] / MTDD
--- NOTE | 2024-04-21 15:53 | PN ---
Date of service is 04/11/2024 PROGRESS NOTE LOCATION: [facility]. REASON FOR FOLLOWUP: Intraabdominal abscess. INTERVAL HISTORY: The patient is afebrile, has been complaining of more abdominal pain after the patient did have a CAT scan completed this morning. The patient denies any chest pain, shortness of breath, or cough. Currently on room air. No vomiting has been reported. PHYSICAL EXAMINATION: VITAL SIGNS: Blood pressure 133/84, pulse of 97, temperature 98.6, 97% on room air. GENERAL DESCRIPTION: This is a middle-aged female lying in bed, in no distress. RESPIRATORY SYSTEM: Unlabored breathing. Clear to auscultation anteriorly. HEART: S1, S2. Regular rate and rhythm. ABDOMEN: Soft, slightly distended and tender. EXTREMITIES: No edema of the feet. LABS: No CBC was done today. Creatinine 0.4. Culture from yesterday currently pending. DIAGNOSTIC IMPRESSION AND PLAN: 1. Patient with intraabdominal abscess. 2. Patient with a complicated history of multiple abdominal surgeries. We will wait for the CAT scan to be finalized as well as cultures to finalize. Continue cefepime, Flagyl, and vancomycin and monitor clinical course closely. Prognosis remains to be guarded. MMODL / IJN: [id number] / MTDD
--- NOTE | 2024-04-21 15:54 | PN ---
Date of service is 04/13/2024 PROGRESS NOTE LOCATION: [facility]. REASON FOR FOLLOWUP: Abdominal wall abscess. INTERVAL HISTORY: The patient is afebrile. The patient is breathing comfortably. The patient's abdominal pain has slightly decreased in intensity. Still has significant abdominal distention, though. No nausea. No vomiting, passing small amount of gas and BM. PHYSICAL EXAMINATION: VITAL SIGNS: Blood pressure 126/76, pulse of 90, temperature 98.1. GENERAL DESCRIPTION: This is a middle-aged female, lying in bed, in no distress. RESPIRATORY SYSTEM: Unlabored breathing. Clear to auscultation anteriorly. HEART: S1, S2. Regular rate. ABDOMEN: Soft, remains to be distended. No guarding, no rigidity. LABORATORY DATA: White count is around 13.75, creatinine 0.36. Culture still pending. DIAGNOSTIC IMPRESSION AND PLAN: Abdominal wall abscess and cellulitis and this patient recently did have multiple abdominal surgeries. CT of abdomen and pelvis did not show any intraabdominal abscess. The patient is broadly covered with vancomycin, cefepime, and Flagyl to continue while waiting for the culture to finalize. Family at the bedside. Questions were answered. MMODL / IJN: [id number] / MTDD
--- NOTE | 2024-04-21 15:54 | PN ---
Date of service is 04/12/2024 PROGRESS NOTE LOCATION: [facility]. REASON FOR FOLLOWUP: Abdominal wall abscess. INTERVAL HISTORY: The patient is afebrile. The patient is breathing comfortably. The patient's abdominal pain has decreased in intensity. Denies any chest pain, shortness of breath, or cough. No nausea, no vomiting. PHYSICAL EXAMINATION: VITAL SIGNS: Blood pressure 127/88, pulse of 84, temperature 98.9. GENERAL DESCRIPTION: This is a middle-aged female, lying in bed, in no distress. RESPIRATORY SYSTEM: Unlabored breathing. Clear to auscultation anteriorly. HEART: S1, S2. Regular rate and rhythm. ABDOMEN: Soft, mildly distended. No abdominal rigidity. EXTREMITIES: No edema in the feet. LABORATORY DATA: White count is 15.4, creatinine 0.7. CT of abdomen and pelvis did show some polyps, did not mention any abscess. DIAGNOSTIC IMPRESSION AND PLAN: The patient with purulent drainage from the abdominal wall incision, concerning for abdominal wall cellulitis. No evidence of any intraabdominal abscess on the CT. The patient is broadly covered with cefepime, vancomycin, and Flagyl to continue while waiting for the culture to finalize and need to monitor kidney function closely. Continue supportive care. Discharge antibiotic on the basis of final culture. MMODL / IJN: [id number] / MTDLinda
--- NOTE | 2024-04-21 15:55 | PN ---
PROGRESS NOTE DATE OF SERVICE: 04/15/2024 LOCATION: [facility]. REASON FOR FOLLOWUP: Abdominal wall abscess and cellulitis. INTERVAL HISTORY: The patient is afebrile, has been breathing comfortably. Did complain of more abdominal distention if she took more fluid to swallow her potassium pill. The patient denies having any chest pain, shortness of breath, or cough. Mild amount of gas. No bowel movement. PHYSICAL EXAMINATION: VITAL SIGNS: Blood pressure 122/70 with a pulse of 80, temperature 98.8. GENERAL DESCRIPTION: This is a middle-aged female, lying in bed, in no distress. RESPIRATORY SYSTEM: Unlabored breathing. Clear to auscultation anteriorly. HEART: S1, S2. Regular rhythm. ABDOMEN: Soft, remains to be distended. No guarding. No rigidity. EXTREMITIES: No edema of the feet. LABORATORY DATA: White count normalized to 10, creatinine 0.6. DIAGNOSTIC IMPRESSION AND PLAN: The patient with abdominal wall abscess. Culture positive for Pseudomonas. The patient is covered with cefepime and Flagyl to continue while inpatient and monitor clinical course closely. MMODL / IJN: [id number] /
--- NOTE | 2024-04-21 15:55 | PN ---
PROGRESS NOTE DATE OF SERVICE: 04/14/2024 LOCATION: [facility]. REASON FOR FOLLOWUP: Abdominal wall abscess. INTERVAL HISTORY: The patient is afebrile. The patient is breathing comfortably. Denies any chest pain, shortness of breath, or cough. Abdominal pain is decreased in intensity. Denies any nausea, or vomiting. PHYSICAL EXAMINATION: VITAL SIGNS: Blood pressure 138/84, pulse of 97, temperature 98.9. GENERAL DESCRIPTION: This is a middle-aged female, lying in bed, in no distress. RESPIRATORY SYSTEM: Unlabored breathing. Clear to auscultation anteriorly. HEART: S1, S2. Regular rate. ABDOMEN: Soft. Midline incision intact. No further drainage was noticed. LABORATORY DATA: Creatinine 0.35, white count is 7.16. Wound culture finalized with Pseudomonas. DIAGNOSTIC IMPRESSION AND PLAN: The patient with abdominal wall abscess. Urine culture finalized with Pseudomonas. The patient is covered with cefepime and Flagyl. Discontinue vancomycin. Hopefully transition to oral antibiotic on discharge. Questions were answered. MMODL / IJN: [id number] /
--- NOTE | 2024-04-21 15:55 | PN ---
Date of service is 04/16/2024 PROGRESS NOTE LOCATION: [facility]. REASON FOR FOLLOWUP: Abdominal wall abscess. INTERVAL HISTORY: The patient is afebrile. The patient is breathing comfortably on room air. The patient denies having any chest pain, shortness of breath, or cough. No nausea or vomiting. Abdominal pain has decreased in intensity. Did have a bowel movement, feeling better, wants to go home. PHYSICAL EXAMINATION: VITAL SIGNS: Blood pressure is 116/73, pulse of 77, temperature 98.2, and oxygen saturation 98% on room air. GENERAL DESCRIPTION: This is a middle-aged female, lying in bed, in no distress. RESPIRATORY SYSTEM: Unlabored breathing. Clear to auscultation anteriorly. HEART: S1 and S2. Regular rate and rhythm. ABDOMEN: Soft. No tenderness. EXTREMITIES: No edema in the feet. LABORATORY DATA: White count is 10,000. Creatinine 0.46. Abdominal wall culture shows Pseudomonas aeruginosa. DIAGNOSTIC IMPRESSION AND PLAN: The patient has abdominal wall abscess. CT of the abdomen and pelvis did not show any intraabdominal abscess. The patient shows overall improvement on IV cefepime. Consider short course of oral Cipro and Flagyl on discharge. Discussed with the surgeon, who was working on discharge. MMODL / IJN: [id number] / JACK
--- NOTE | 2024-04-25 15:44 | US ---
Patient: Glenny Jimenez Ordering Physician: Unknown, Unknown ID: [id number] Phone, Pager: Phone: N/A Pager: N/A : 1970 Age/Gender: 53Y, O Primary Location: N/A Procedure: US venous doppler dupl ex UE LT Study Date: 04/04/2024 9:00:00 PM EXAMINATION TYPE: US venous doppler duplex UE LT DATE OF EXAM: 04/22/2024 COMPARISON: NONE CLINICAL INDICATION: HX: LEFT ARM SWELLING, ON THINNERS. NO HX DVT. DONE ON 04/04/2024. PICC LINE. TECH IMPRESSION: NO FLOW SEEN WITHIN BASILIC VEIN SIDE PERFORMED: Left Left Arm: No evidence for deep vein tendinosis. Superficial thrombophlebitis within the basilic vein.
--- NOTE | 2024-05-10 15:53 | XR ---
EXAM: 2 view abdominal radiograph DATE: 04/07/2024 16:52 INDICATION: Patient age:DIANE WEI : 1970 Reason for study: Post Surgical. Possible obstruction COMPARISON: None, please note PACS downtime occurred during the radiologist interpretation of these i mages with limited priors/reports. TECHNIQUE: 2 radiographic views of the abdomen FINDINGS ABDOMEN: Bowel gas pattern: Scattered air-fluid levels seen throughout the abdomen. Surgical suture in the rig ht upper colon quadrant. Abnormal calcifications: None. Musculoskeletal: Fixation hardware in the spine appears intact. Other: None. IMPRESSION: Air-fluid levels which could represent ileus change versus obstruction.
--- NOTE | 2024-05-11 19:54 | CDI ---
Documentation Clarification Form Date: 05/11/2024 07:34:53 PM From: Jewels Gong Phone: Admit Date: 03/31/2024 05:57:00 AM Patient Name: Glenny Jimenez Visit Number: [id number] Discharge Date: 04/16/2024 08:10:00 PM ATTENTION: The Clinical Documentation Specialists (CDI) and [facility] Coding Staff appreciate your assistance in clarifying documentation. Please respond to the clarification below the line at the bottom and electronically sign. The CDI & [facility] Coding staff will review the response and follow-up if needed. Please note: Queries are made part of the Legal Health Record. If you have any questions, please contact the author of this message via ITS. Doctor/Provider: Bella Dudley Sepsis likely due to intraabdominal infection versus surgical site infection is documented per Progress Note 04/11 (page 21 of 27 paper chart). Additional clarification regarding the sepsis is requested. History/Risk Factors: 53yo F, Acutehypotensiveevent withL/S bowel obstruction, Celiac disease, GERD, Fibromyalgia, Hyponatremia, Hypokalemia, hypoglycemia, abdominal wall abscess d/t Pseudomonas aeruginosa Clinical Indicators: vitals 133/84 98.6 97 97% RA MO 16 Treatment: [id number] IVPB, vancomycin 2mg IVPR, Flagyl 500mg PO Please clarify if the timing and etiology of sepsis: [ ] Sepsis likely due to intraabdominal infection [ ] Present on Admission [ ] Not Present on Admission [ ] Sepsis likely due to surgical site infection [ ] Present on Admission [ ] Not Present on Admission [ X ] Other Etiology: (please specify)_ No sepsis on admission. (Template Last Revised: October 2020) MTDD
--- NOTE | 2024-05-11 20:10 | CDI ---
Documentation Clarification Form Date: 05/11/2024 07:54:51 PM From: Jewels Gong Phone: Admit Date: 03/31/2024 05:57:00 AM Patient Name: Glenny Jimenez Visit Number: [id number] Discharge Date: 04/16/2024 08:10:00 PM ATTENTION: The Clinical Documentation Specialists (CDI) and [facility] Coding Staff appreciate your assistance in clarifying documentation. Please respond to the clarification below the line at the bottom and electronically sign. The CDI & [facility] Coding staff will review the response and follow-up if needed. Please note: Queries are made part of the Legal Health Record. If you have any questions, please contact the author of this message via ITS. Doctor/Provider: Bella Dudley Your patient is receiving the following: TPN via PICC. Please clarify what condition/diagnosis is being treated. History/Risk Factors: 53yo F, Acute ischemic enteritis, acute serositis and subserosal fibrosis consistent with clinical adhesions, acute hypotensive event with L/S bowel obstruction, HTNHD, Celiac disease, GERD, Fibromyalgia, Hyponatremia, Hypokalemia, hypoglycemia, abdominal wall abscess d/t Pseudomonas aeruginosa, sepsis Clinical indicators: inadequate protein intake, moderate to severe with multiple abdominal surgeries Current BMI: 22.9 Treatment: sp ileocolectomy; TPN via PICC; dc PICC once TPN not indicated What diagnosis are you treating with TPN? [ ] Mild Protein-Calorie Malnutrition [ X ] Moderate Protein-Calorie Malnutrition [ ] Severe Protein-Calorie Malnutrition [ ] Malnutrition, unknown severity [ ] Other condition, please specify [ ] Unable to Determine (Template Last Revised: February 2023) MTDD
--- NOTE | 2024-05-17 06:30 | XR ---
Patient Glenny Jimenez ID [id number] Order # EXAMINATION TYPE: XR abdomen complete w decub DATE OF EXAM: 04/15/2024 COMPARISON: CT abdomen and pelvis 04/11/2024 INDICATION: Small bowel obstruction TECHNIQUE: Abdomen is examined in supine and upright views. Left lateral decubitus views were obtaine d. FINDINGS: There are dilated air-filled loops of bowel. Multiple air-fluid levels are present. Differential air- fluid levels appear to be present within the mid abdomen. Mass effect is not identified no free air i s evident. Psoas margins are poorly visualized. No organomegaly is present. IMPRESSION: 1. Dilated air-filled loops of bowel with multiple air-fluid levels. Findings compatible with bowel o bstruction. The zone of transition is not identified.
--- NOTE | 2024-05-25 11:34 | CT ---
Patient Glenny Jimenez ID [id number] Order # Procedure ABD/PEL W/ EXAMINATION TYPE: CT abdomen pelvis w con CT DLP: 687.9 mGycm, Automated exposure control for dose reduction was used. DATE OF EXAM: 04/11/2024 12:40 PM COMPARISON: THIS EXAM WAS READ DURING PACS DOWNTIME, NO PRIORS AVAILABLE. CLINICAL INDICATION: Post OP Complications. Hx twisted bowels. TECHNIQUE: Axial CT abdomen pelvis w con;Sagittal and coronal reformats were created on a separate w orkstation. Contrast used: ISO 300 100 ml. Oral contrast used: (none if empty) FINDINGS: LOWER CHEST: Unremarkable ABDOMEN LIVER: Scattered simple appearing cyst. GALLBLADDER AND BILE DUCTS: The gallbladder surgically absent. PANCREAS: Unremarkable. SPLEEN: Unremarkable. ADRENAL GLANDS: Unremarkable. KIDNEYS AND URETERS: No evidence of hydronephrosis or renal calculus. The ureters are unremarkable. PELVIS BLADDER: Unremarkable REPRODUCTIVE: Unremarkable. ABDOMEN & PELVIS STOMACH AND BOWEL: Gaseous dilated loops of small bowel throughout the abdomen measuring up to 4.0 cm in the pelvis. There is twisting of bowel throughout the abdomen. Postsurgical change present involv ing the bowel with anastomosis thought to be involving the transverse colon near the hepatic flexure. The colon is relatively nondistended extending from splenic flexure to the rectum and gaseous dilati on from the anastomosis to the splenic flexure.. Focus of gas within the right abdomen possibly withi n a compressed mall bowel loop series 20 image 45. PERITONEUM/RETROPERITONEUM: No evidence of pneumoperitoneum or free fluid. VASCULATURE: No evidence of aortic aneurysm. MUSCULOSKELETAL: No acute osseous abnormalities, fixation changes at L5-S1 with hardware intact. Mild degeneration changes throughout the spine otherwise. LYMPH NODES: No gross evidence for lymphadenopathy. SOFT TISSUE/ABDOMINAL WALL: Unremarkable IMPRESSION: Small bowel obstruction suspected with transition point possibly in the right abdomen likely due to c ompression of a loop of bowel extending to the mesentery.There is minimal feces within the colon from the splenic flexure to the rectum. No priors are available for comparison. Consider short-term follo w-up radiographs to follow the oral contrast to see if it extends into the large bowel. Nasogastric t ube recommended.
== END 2024-04-16 14:34 | disposition home or self-care (01) | DRG 329 ==
LOC: EC 00:46 → 3SCARD 05:57 → 2SICU 04-01 14:03
PROVIDERS: ADMIT Surgery Plastic and Reconstructive Surgery; ATTEND Surgery Plastic and Reconstructive Surgery
PROC: 0DTB0ZZ Resection of Ileum, Open Approach (ICD-10-PCS; 2024-04-03)
PROC: 0W9G4ZZ Drainage of Peritoneal Cavity, Percutaneous Endoscopic Approach (ICD-10-PCS; 2024-04-03)
PROC: 0DTK0ZZ Resection of Ascending Colon, Open Approach (ICD-10-PCS; 2024-04-03)
PROC: 02HV33Z Insertion of Infusion Device into Superior Vena Cava, Percutaneous Approach (ICD-10-PCS; 2024-04-03)
PROC: 3E0436Z Introduction of Nutritional Substance into Central Vein, Percutaneous Approach (ICD-10-PCS; 2024-04-03)
PROC: 0DNB4ZZ Release Ileum, Percutaneous Endoscopic Approach (ICD-10-PCS; principal; 2024-04-03 07:30)
DX: K55.039 Acute (reversible) ischemia of large intestine, extent unspecified (principal); K56.2 Volvulus; K63.1 Perforation of intestine (nontraumatic); R18.8 Other ascites; E87.1 Hypo-osmolality and hyponatremia; L03.311 Cellulitis of abdominal wall; I82.612 Acute embolism and thrombosis of superficial veins of left upper extremity; K56.51 Intestinal adhesions [bands], with partial obstruction; T82.868A Thrombosis due to vascular prosthetic devices, implants and grafts, initial encounter; K56.0 Paralytic ileus; L02.211 Cutaneous abscess of abdominal wall; E44.0 Moderate protein-calorie malnutrition; K90.0 Celiac disease; I95.9 Hypotension, unspecified; B96.5 Pseudomonas (aeruginosa) (mallei) (pseudomallei) as the cause of diseases classified elsewhere; K21.9 Gastro-esophageal reflux disease without esophagitis; E16.2 Hypoglycemia, unspecified; M79.7 Fibromyalgia; Y71.1 Therapeutic (nonsurgical) and rehabilitative cardiovascular devices associated with adverse incidents; E87.6 Hypokalemia; Z88.0 Allergy status to penicillin; Z88.2 Allergy status to sulfonamides; Z90.49 Acquired absence of other specified parts of digestive tract; Z91.018 Allergy to other foods; Z79.01 Long term (current) use of anticoagulants; Z79.899 Other long term (current) drug therapy; Z87.19 Personal history of other diseases of the digestive system; Z87.891 Personal history of nicotine dependence; Z86.718 Personal history of other venous thrombosis and embolism; I11.9 Hypertensive heart disease without heart failure; T40.605A Adverse effect of unspecified narcotics, initial encounter; Z91.198 Patient's noncompliance with other medical treatment and regimen for other reason; E83.42 Hypomagnesemia; K46.9 Unspecified abdominal hernia without obstruction or gangrene; Z68.22 Body mass index [BMI] 22.0-22.9, adult
CPT/HCPCS: 36415; 71045; 74018; 74019; 74021; 74176; 74177; 80048; 80053; 81001; 82150; 82330; 83605; 83690; 83735; 84100; 84478; 84484; 85025; 87070; 87077; 87186; 87205; 88307; 93005; 96361; 96365; 96366; 96375; 96376; 99285

== ENCOUNTER 2024-04-26 08:24 | Inpatient (IN) | payer BC ==
--- NOTE | 2024-04-26 09:19 | ED ---
Abdominal Pain HPI - General Chief Complaint: Abdominal Pain Stated Complaint: abd pain Time Seen by Provider: 04/26/24 08:40 Source: patient, RN/MD, EMS Mode of arrival: EMS Limitations: no limitations - History of Present Illness Initial Comments: 53-year-old female with past medical history of bowel obstruction who presents to the emergency department reporting abdominal pain. Patient had cecal volvulus with recent surgery x 2. patient was just discharged on the . She had surgery by Dr. Dudley. She reports to continued abdominal pain which worsened today. Reports some nausea with no vomiting. She has had some small bowel movements however states that she has not been eating much. No fevers. No worsening of her abdominal distention. Patient is taking Motrin and Tylenol at home for pain. No chest pain or difficulty breathing. No other alleviating, precipitating or modifying factors - Related Data Home Medications Medication Instructions Recorded Confirmed Apixaban [Eliquis] 5 mg PO BID 04/26/24 04/26/24 Ciprofloxacin HCl [Cipro] 500 mg PO Q12HR 04/26/24 04/26/24 Cyclobenzaprine [Flexeril] 10 mg PO TID PRN 04/26/24 04/26/24 Omeprazole 40 mg PO DAILY 04/26/24 04/26/24 metroNIDAZOLE [Flagyl] 500 mg PO TID 04/26/24 04/26/24 Previous Rx's Medication Instructions Recorded Ibuprofen [Motrin] 600 mg PO Q8HR PRN #30 tab 03/29/24 Allergies Allergy/AdvReac Type Severity Reaction Status Date / Time gluten Allergy CELIAC Verified 04/26/24 11:52 Penicillins Allergy STRONG Verified 04/26/24 11:52 SIBLING REACTION OF ANAPHYLAXIS Sulfa (Sulfonamide Allergy Unknown Verified 04/26/24 11:52 Antibiotics) Childhood tree nut Allergy SKIN Verified 04/26/24 11:52 REACTION wheat Allergy CELIAC Verified 04/26/24 11:52 Review of Systems ROS Statement: Those systems with pertinent positive or pertinent negative responses have been documented in the HPI. ROS Other: All systems not noted in ROS Statement are negative. Past Medical History Past Medical History: Fibromyalgia, GERD/Reflux Additional Past Medical History / Comment(s): celiac disease, "told she has raynaulds", small hiatal hernia. "precancerous colon polyps removed" History of Any Multi-Drug Resistant Organisms: None Reported Past Surgical History: Adenoidectomy, Appendectomy, Cholecystectomy, Hys terectomy, Orthopedic Surgery, Tonsillectomy Additional Past Surgical History / Comment(s): Appendectomy with mesenteric mass excision, diagnostic exploratory laprascopy, surgery for tubal , EGD, colonoscopy, cervical fusion/decompression; 03/24/24 Right hemicolectomy and decompressive colotomy Past Anesthesia/Blood Transfusion Reactions: Previous Problems w/ Anesthesia, Motion Sickness, Postoperative Nausea & Vomiting (PONV) Additional Past Anesthesia/Blood Transfusion Reaction / Comment(s): Slow to wake Past Psychological History: No Psychological Hx Reported Smoking Status: Former smoker Past Alcohol Use History: Daily Past Drug Use History: None Reported - Past Family History Sister(s) Family Medical History: Cancer Additional Family Medical History / Comment(s): Stage III colon cancer. Mother Additional Family Medical History / Comment(s): lupus, mi of at age 52 Father Family Medical History: AFIB General Exam Limitations: no limitations General appearance: alert, in no apparent distress Head exam: Present: atraumatic, normocephalic, normal inspection Eye exam: Present: normal appearance, PERRL, EOMI. Absent: scleral icterus, conjunctival injection, periorbital swelling ENT exam: Present: normal exam, mucous membranes moist Neck exam: Present: normal inspection. Absent: tenderness, meningismus, lymphadenopathy Respiratory exam: Present: normal lung sounds bilaterally. Absent: respiratory distress, wheezes, rales, rhonchi, stridor Cardiovascular Exam: Present: regular rate, normal rhythm, normal heart sounds. Absent: systolic murmur, diastolic murmur, rubs, gallop, clicks GI/Abdominal exam: Present: soft, distended, tenderness (Generalized), normal bowel sounds. Absent: guarding, rebound, rigid Extremities exam: Present: normal inspection, full ROM, normal capillary refill. Absent: tenderness, pedal edema, joint swelling, calf tenderness Back exam: Present: normal inspection Neurological exam: Present: alert, oriented X3, CN II-XII intact Psychiatric exam: Present: normal affect, normal mood Skin exam: Present: warm, dry, intact, normal color. Absent: rash Course Vital Signs 04/26/24 04/26/24 04/26/24 08:29 10:33 13:53 Temperature 98.3 F Pulse Rate 86 83 82 Pulse Rate [ Pulse Oximetery ] Respiratory 20 18 18 Rate Blood Pressure 115/84 125/89 153/99 Blood Pressure [Right Arm] O2 Sat by Pulse 96 98 100 Oximetry 04/26/24 04/26/24 04/27/24 20:00 21:02 02:50 Temperature 98.4 F 98.2 F Pulse Rate 63 Pulse Rate [ 77 89 Pulse Oximetery ] Respiratory 18 18 Rate Blood Pressure 164/92 Blood Pressure 139/84 156/94 [Right Arm] O2 Sat by Pulse 95 97 99 Oximetry Medical Decision Making - Medical Decision Making Was pt. sent in by a medical professional or institution (, PA, AVIONICS MANAGER, urgent care, hospital, or [facility]...) When possible be specific @ -No Did you speak to anyone other than the patient for history (EMS, parent, family, police, friend...)? What history was obtained from this source @ -Spoke with EMS for history Did you review nursing and triage notes (agree or disagree)? Why? @ -I reviewed and agree with nursing and triage notes Were old charts reviewed (outside hosp., previous admission, EMS record, old EKG, old radiological studies, urgent care reports/EKG's, [facility] records)? Report findings @ -No old charts were reviewed Differential Diagnosis (chest pain, altered mental status, abdominal pain women, abdominal pain men, vaginal bleeding, weakness, fever, dyspnea, syncope, headache, dizziness, GI bleed, back pain, seizure, CVA, palpatations, mental health, musculoskeletal)? @ -Differential Abdominal Pain Women: Appendicitis, Cholecystitis, diverticulosis, ischemic bowel, pancreatitis, hepatitis, UTI, gastroenteritis, AAA, incarcerated hernia, bowel obstruction, constipation, inflammatory bowel, hepatitis, peptic ulcer disease, splenic infarction, perforated viscus, vulvitis, ovarian torsion, PID, kidney stone, placenta abruption, this is not meant to be an all-inclusive list EKG interpreted by me (3pts min.). @ -Not done X-rays interpreted by me (1pt min.). @ -None done CT interpreted by me (1pt min.). @ -Yes and demonstrates small bowel obstruction U/S interpreted by me (1pt. min.). @ -None done What testing was considered but not performed or refused? (CT, X-rays, U/S, labs)? Why? @ -None What meds were considered but not given or refused? Why? @ -None Did you discuss the management of the patient with other professionals (professionals i.e. , PA, AVIONICS MANAGER, lab, RT, psych nurse, social group worker, unit secy, teacher, development officer, correctional casework specialist)? Give summary @ -Spoke with Dr. Denney as Dr. Dudley is on vacation Was smoking cessation discussed for >3mins.? @ -No Was critical care preformed (if so, how long)? @ -No Were there social determinants of health that impacted care today? How? (Homelessness, low income, unemployed, alcoholism, drug addiction, transportation, low edu. Level, literacy, decrease access to med. care, group home, rehab)? @ -No Was there de-escalation of care discussed even if they declined (Discuss DNR or withdrawal of care, Hospice)? DNR status @ -No What co-morbidities impacted this encounter? (DM, HTN, Smoking, COPD, CAD, Cancer, CVA, ARF, Chemo, Hep., AIDS, mental health diagnosis, sleep apnea, morbid obesity)? @ -Small bowel obstruction Was patient admitted / discharged? Hospital course, mention meds given and route, prescriptions, significant lab abnormalities, going to OR and other pertinent info. @ -Upon arrival patient seen and evaluated in room 7. Thorough history and physical exam was performed. IV is established. Pain medications are given. Laboratory studies are conducted and patient close for CAT scan which demonstrates small bowel obstruction. Spoke with Dr. Denney. Recommends antibiotics, fluids, pain control and NG tube administration. Patient will be admitted to his service Undiagnosed new problem with uncertain prognosis? @ -No Drug Therapy requiring intensive monitoring for toxicity (Heparin, Nitro, Insulin, Cardizem)? @ -No Were any procedures done? @ -No Diagnosis/symptom? @ -Acute abdominal pain, recurrent bowel obstruction Acute, or Chronic, or Acute on Chronic? @ -Acute, recurrent Uncomplicated (without systemic symptoms) or Complicated (systemic symptoms)? @ -Complicated Side effects of treatment? @ -No Exacerbation, Progression, or Severe Exacerbation? @ -No Poses a threat to life or bodily function? How? (Chest pain, USA, DC, pneumonia, PE, COPD, DKA, ARF, appy, cholecystitis, CVA, Diverticulitis, Homicidal, Suicidal, threat to staff... and all critical care pts) @ -No - Lab Data Result diagrams: 04/29/24 04:35 04/29/24 04:35 Lab Results 04/26/24 04/26/24 04/26/24 Range/Units 09:00 09:00 09:00 WBC 6.6 (3.8-10.6) k/uL RBC 3.53 L (3.80-5.40) m/uL Hgb 11.0 L (11.4-16.0) gm/dL Hct 33.2 L (34.0-46.0) % MCV 94.3 (80.0-100.0) fL MCH 31.2 (25.0-35.0) pg MCHC 33.1 (31.0-37.0) g/dL RDW 12.6 (11.5-15.5) % Plt Count 472 H (150-450) k/uL MPV 7.3 Neutrophils % 57 % Lymphocytes % 24 % Monocytes % 11 % Eosinophils % 5 % Basophils % 1 % Neutrophils # 3.7 (1.3-7.7) k/uL Lymphocytes # 1.6 (1.0-4.8) k/uL Monocytes # 0.7 (0-1.0) k/uL Eosinophils # 0.3 (0-0.7) k/uL Basophils # 0.1 (0-0.2) k/uL Sodium 136 L (137-145) mmol/L Potassium 3.5 (3.5-5.1) mmol/L Chloride 100 (98-107) mmol/L Carbon Dioxide 28 (22-30) mmol/L Anion Gap 8 mmol/L BUN <2 L (7-17) mg/dL Creatinine 0.46 L (0.52-1.04) mg/dL Est GFR (CKD-EPI)AfAm >90 (>60 ml/min/1.73 sqM) Est GFR (CKD-EPI)NonAf >90 (>60 ml/min/1.73 sqM) Glucose 100 H (74-99) mg/dL Plasma Lactic Acid Royer 0.7 (0.7-2.0) mmol/L Calcium 8.5 (8.4-10.2) mg/dL Total Bilirubin 0.5 (0.2-1.3) mg/dL AST 20 (14-36) U/L ALT 8 (4-34) U/L Alkaline Phosphatase 73 (38-126) U/L Total Protein 5.4 L (6.3-8.2) g/dL Albumin 2.8 L (3.5-5.0) g/dL Lipase 39 (23-300) U/L Urine Color Urine Appearance (Clear) Urine pH (5.0-8.0) Ur Specific Hannacroix (1.001-1.035) Urine Protein (Negative) Urine Glucose (UA) (Negative) Urine Ketones (Negative) Urine Blood (Negative) Urine Nitrite (Negative) Urine Bilirubin (Negative) Urine Urobilinogen (<2.0) mg/dL Ur Leukocyte Esterase (Negative) Urine RBC (0-5) /hpf Urine WBC (0-5) /hpf Ur Squamous Epith Cells (0-4) /hpf 04/26/24 Range/Units 10:37 WBC (3.8-10.6) k/uL RBC (3.80-5.40) m/uL Hgb (11.4-16.0) gm/dL Hct (34.0-46.0) % MCV (80.0-100.0) fL MCH (25.0-35.0) pg MCHC (31.0-37.0) g/dL RDW (11.5-15.5) % Plt Count (150-450) k/uL MPV Neutrophils % % Lymphocytes % % Monocytes % % Eosinophils % % Basophils % % Neutrophils # (1.3-7.7) k/uL Lymphocytes # (1.0-4.8) k/uL Monocytes # (0-1.0) k/uL Eosinophils # (0-0.7) k/uL Basophils # (0-0.2) k/uL Sodium (137-145) mmol/L Potassium (3.5-5.1) mmol/L Chloride (98-107) mmol/L Carbon Dioxide (22-30) mmol/L Anion Gap mmol/L BUN (7-17) mg/dL Creatinine (0.52-1.04) mg/dL Est GFR (CKD-EPI)AfAm (>60 ml/min/1.73 sqM) Est GFR (CKD-EPI)NonAf (>60 ml/min/1.73 sqM) Glucose (74-99) mg/dL Plasma Lactic Acid Royer (0.7-2.0) mmol/L Calcium (8.4-10.2) mg/dL Total Bilirubin (0.2-1.3) mg/dL AST (14-36) U/L ALT (4-34) U/L Alkaline Phosphatase (38-126) U/L Total Protein (6.3-8.2) g/dL Albumin (3.5-5.0) g/dL Lipase (23-300) U/L Urine Color Light Yellow Urine Appearance Clear (Clear) Urine pH 7.0 (5.0-8.0) Ur Specific Hannacroix >1.050 H (1.001-1.035) Urine Protein Negative (Negative) Urine Glucose (UA) Negative (Negative) Urine Ketones Negative (Negative) Urine Blood Trace H (Negative) Urine Nitrite Negative (Negative) Urine Bilirubin Negative (Negative) Urine Urobilinogen <2.0 (<2.0) mg/dL Ur Leukocyte Esterase Negative (Negative) Urine RBC 4 (0-5) /hpf Urine WBC 3 (0-5) /hpf Ur Squamous Epith Cells <1 (0-4) /hpf Disposition Clinical Impression: Abdominal pain, Small bowel obstruction Disposition: ADMITTED IP TO THIS [facility] Condition: Serious Is patient prescribed a controlled substance at d/c from ED?: No Time of Disposition: 11:28 Decision to Admit Reason: Admit from EC Decision Date: 04/26/24 Decision Time: 11:28
[2024-04-26 09:53] LABS: Basophils # (A) 0.1 k/uL (0-0.2); Basophils % (A) 1 %; Eosinophils # (A) 0.3 k/uL (0-0.7); Eosinophils % (A) 5 %; HCT 33.2 % (34.0-46.0); Lymphocytes # (A) 1.6 k/uL (1.0-4.8); Lymphocytes % (A) 24 %; MCH 31.2 pg (25.0-35.0); MCHC 33.1 g/dL (31.0-37.0); MCV 94.3 fL (80.0-100.0); Mean Platelet Volume 7.3; Monocytes # (A) 0.7 k/uL (0-1.0); Monocytes % (A) 11 %; Neutrophils # (A) 3.7 k/uL (1.3-7.7); Neutrophils % (A) 57 %; Platelet Count 472 k/uL (150-450); RBC 3.53 m/uL (3.80-5.40); RDW 12.6 % (11.5-15.5); WBC 6.6 k/uL (3.8-10.6)
[2024-04-26 10:06] LABS: ALT 8 U/L (4-34); AST 20 U/L (14-36); African American GFR (CKD) >90 (>60 ml/min/1.73 sqM); Albumin 2.8 g/dL (3.5-5.0); Alkaline Phosphatase 73 U/L (38-126); Anion Gap 8 mmol/L; Blood Urea Nitrogen <2 mg/dL (7-17); Calcium 8.5 mg/dL (8.4-10.2); Carbon Dioxide 28 mmol/L (22-30); Chloride 100 mmol/L (98-107); Glucose 100 mg/dL (74-99); Lipase 39 U/L (23-300); Non-African American GFR(CKD) >90 (>60 ml/min/1.73 sqM); Potassium 3.5 mmol/L (3.5-5.1); Sodium 136 mmol/L (137-145); Total Bilirubin 0.5 mg/dL (0.2-1.3); Total Protein 5.4 g/dL (6.3-8.2)
--- NOTE | 2024-04-26 10:26 | CT ---
EXAMINATION TYPE: CT abdomen pelvis w con DATE OF EXAM: 04/26/2024 COMPARISON: 03/31/2024 HISTORY: 53-year-old female status post right hemicolectomy and decompressive colectomy on 03/24/2024, Abdominal pain TECHNIQUE: Contiguous axial scanning of the abdomen and pelvis following administration of 100 ml Iso warren 300 IV contrast. Delayed images through the kidneys and coronal/sagittal reconstructions perform ed. CT DLP: 601.7 mGycm Automated exposure control for dose reduction was used. FINDINGS: Heart normal size with a similar small pericardial effusion measuring up to 9 mm along the left heart margin. Hazy dependent atelectasis is present. Minimal emphysematous change. No pleural ef fusion. A few benign hepatic cysts measuring up to 2.2 cm. Portal venous system is patent. No biliary ductal dilatation. Cholecystectomy clips. Right adrenal gland, kidneys, spleen, and pancreas within normal limits. Nonspecific tiny 7 mm nodularity left renal gland. Symmetric uptake and excretion of contrast from erin th kidneys. Patient status post partial right hemicolectomy. There are some clustered collapsed and mildly thicke nisha small bowel loops in the right mid to lower abdomen and right side of the pelvis. There are dilat ed, fluid-filled small bowel loops throughout, dilated up to 5.3 cm (up to 5.6 cm, previously). Moderate stool burden. Possible trace pelvic free fluid. Bladder partially distended. Multiple pelvic phlebolith. Uterus appears to be surgically absent. No d efinite pelvic lymphadenopathy. Bones: Patient status post L5-S1 posterior and interbody lumbar lesion. No osseous destructive proces s. IMPRESSION: 1. STATUS POST PARTIAL RIGHT HEMICOLECTOMY. DIFFUSELY DILATED, FLUID-FILLED SMALL BOWEL LOOPS REMAIN THROUGHOUT, DISTENDED UP TO 5.3 CM (VERSUS 5.6 CM, PREVIOUSLY). SMALL BOWEL LOOPS IN THE RIGHT MID TO LOWER ABDOMEN AND RIGHT SIDE OF THE PELVIS ARE CLUSTERED AND COLLAPSED, POSSIBLE ADHESIONS OR LOCAL INFLAMMATION CONTRIBUTING TO SMALL BOWEL OBSTRUCTION. 2. Moderate stool throughout the colon. 3. No free air seen. There appears to be trace pelvic free fluid.
[2024-04-26 11:09] LABS: Appearance,Urine Clear (Clear); Bilirubin,Urine Negative (Negative); Blood,Urine Trace (Negative); Color,Urine Light Yellow; Glucose,Urine (UA) Negative (Negative); Ketones,Urine Negative (Negative); Leukocyte Esterase,Urine Negative (Negative); Nitrite,Urine Negative (Negative); Protein,Urine Negative (Negative); RBC,Urine 4 /hpf (0-5); Squamous Epithelial Cell,Urine <1 /hpf (0-4); Urobilinogen,Urine <2.0 mg/dL (<2.0); WBC,Urine 3 /hpf (0-5)
[2024-04-26] MEDS ORDERED: NALOXONE 0.4 MG/ML 1 ML VIAL IV PRN (11:29)
[2024-04-26 11:45] LABS: Specific Gravity,Urine >1.050 (1.001-1.035)
[2024-04-26] MEDS: HYDROmorphone 1 MG/ML 1 ML SYRINGE IVP PRN (11:45)
[2024-04-26] MEDS: SODIUM CHLORIDE 0.9% 1,000 ML IV SCH (11:59)
[2024-04-26] MEDS: SODIUM CHLORIDE 0.9% 1,000 ML IV ONE (11:59)
[2024-04-26] MEDS: PANTOPRAZOLE 40 MG/10 ML VIAL IV SCH (11:59)
--- NOTE | 2024-04-26 13:16 | P.GSHP ---
History of Present Illness H&P Date: 04/26/24 CHIEF COMPLAINT: Abdominal pain HISTORY OF PRESENT ILLNESS: This is a 53-year-old female who presented with increasing abdominal pain. She has a history of bowel obstructions. She had a cecal volvulus and is status post a right hemicolectomy on March [address] Dudley. Patient then had a large and small bowel obstruction and is status post exploratory laparotomy with lysis of adhesions on April [address] Dudley. That surgery was during the downtime and paper charting documentation is not available to me at this time. Patient presented to the hospital with complaints of abdominal pain mostly on the left side and abdominal distention. She has been more bloated. She has had decreased appetite and nauseated. She denies any vomiting. She has been having very small tiny pellet bowel movements. She reports having flatus. She was discharged from the hospital about 10 days ago per patient. Past surgical history also includes appendectomy cholecystectomy and hysterectomy. She had a CT scan abdomen and pelvis that reported reports diffusely dilated small bowel loops. Small bowel loops in the right mid to lower abdomen and right side of the pelvis are clustered and collapse possible adhesions or local inflammation contributing to small bowel obstruction. Moderate stool throughout the colon. No free air seen. Patient mated to the hospital for small bowel obstruction. NG tube placed. PAST MEDICAL HISTORY: Cecal volvulus, small bowel obstruction, fibromyalgia, GERD, celiac disease, small to hernia, precancerous colon polyps removed, Left arm DVT PAST SURGICAL HISTORY: Adenoidectomy, Appendectomy, Cholecystectomy, Hysterectomy, Orthopedic Surgery, Tonsillectomy, Appendectomy with mesenteric mass excision, diagnostic exploratory laprascopy, surgery for tubal , EGD, colonoscopy, cervical fusion/decompression; 03/24/24 Right hemicolectomy and decompressive colotomy MEDICATIONS: See below ALLERGIES: See below SOCIAL HISTORY: No illicit drug use. REVIEW OF SYSTEMS: CONSTITUTIONAL: Denies fever or chills. HEENT: Denies blurred vision, vision changes, or eye pain. Denies hemoptysis CARDIOVASCULAR: Denies chest pain or pressure. RESPIRATORY: No shortness of breath. GASTROINTESTINAL: See HPI for pertinent findings HEMATOLOGIC: Denies bleeding disorders. GENITOURINARY: Denies any blood in urine or increased urinary frequency. SKIN: Denies pruitis. Denies rash. PHYSICAL EXAM: VITAL SIGNS: Reviewed GENERAL: Well-developed in no acute distress. HEENT: No sclera icterus. Extraocular movements grossly intact. Moist buccal mucosa. Head is atraumatic, normocephalic. No nasal drainage. ABDOMEN: Soft. Distended. Diffuse tenderness but more tender on the left lower abdomen. Midline incision with 2 small areas that are opened with minimal drainage at the top of the incision NEUROLOGIC: Alert and oriented. Cranial nerves II through XII grossly intact. LABORATORY DATA: WBC 6.6 Hgb 11 platelets 472 Sodium 136 potassium 3.5 creatinine 0.46 Lactic acid 0.7 IMAGING: CT scan abdomen pelvis status post partial right hemicolectomy. Diffusely dilated fluid-filled small bowel loops distended up to 5.3 cm. Small bowel loops in the right mid to lower abdomen and right side of the pelvis are clustered and collapse. Possible adhesions or local inflammation contributing to small bowel obstruction. Moderate stool throughout the colon. No free air. ASSESSMENT: 1. Small bowel obstruction CT scan reporting possible adhesions or local inflammation contributing to small bowel obstruction 2. Patient with recent small bowel and large bowel obstruction status post lysis of adhesions on April 03 3. History of cecal volvulus status post right hemicolectomy 4. History of multiple abdominal surgeries PLAN: -Place NG tube for decompression -Keep patient n.p.o. -Continue antibiotics -Consult infectious disease for antibiotic management. Patient with recent abdominal wall abscess. -Continue IV fluids -Continue pain management -Consult medicine service for medical management -Hold Eliquis for now Physician Floor Cashier note has been reviewed by physician. Signing provider agrees with the documented findings, assessment, and plan of care. Past Medical History Past Medical History: Fibromyalgia, GERD/Reflux Additional Past Medical History / Comment(s): celiac disease, "told she has raynaulds", small hiatal hernia. "precancerous colon polyps removed" History of Any Multi-Drug Resistant Organisms: None Reported Past Surgical History: Adenoidectomy, Appendectomy, Cholecystectomy, Hysterectomy, Orthopedic Surgery, Tonsillectomy Additional Past Surgical History / Comment(s): Appendectomy with mesenteric mass excision, diagnostic exploratory laprascopy, surgery for tubal , EGD, colonoscopy, cervical fusion/decompression; 03/24/24 Right hemicolectomy and decompressive colotomy Past Anesthesia/Blood Transfusion Reactions: Previous Problems w/ Anesthesia, Motion Sickness, Postoperative Nausea & Vomiting (PONV) Additional Past Anesthesia/Blood Transfusion Reaction / Comment(s): Slow to wake Past Psychological History: No Psychological Hx Reported Smoking Status: Former smoker Past Alcohol Use History: Daily Past Drug Use History: None Reported - Past Family History Sister(s) Family Medical History: Cancer Additional Family Medical History / Comment(s): Stage III colon cancer. Mother Additional Family Medical History / Comment(s): lupus, mi of at age 52 Father Family Medical History: AFIB Medications and Allergies Home Medications Medication Instructions Recorded Confirmed Type Ibuprofen [Motrin] 600 mg PO Q8HR PRN #30 tab 03/29/24 04/26/24 Rx Apixaban [Eliquis] 5 mg PO BID 04/26/24 04/26/24 History Ciprofloxacin HCl [Cipro] 500 mg PO Q12HR 04/26/24 04/26/24 History Cyclobenzaprine [Flexeril] 10 mg PO TID PRN 04/26/24 04/26/24 History Omeprazole 40 mg PO DAILY 04/26/24 04/26/24 History metroNIDAZOLE [Flagyl] 500 mg PO TID 04/26/24 04/26/24 History Allergies Allergy/AdvReac Type Severity Reaction Status Date / Time gluten Allergy CELIAC Verified 04/26/24 11:52 Penicillins Allergy STRONG Verified 04/26/24 11:52 SIBLING REACTION OF ANAPHYLAXIS Sulfa (Sulfonamide Allergy Unknown Verified 04/26/24 11:52 Antibiotics) Childhood tree nut Allergy SKIN Verified 04/26/24 11:52 REACTION wheat Allergy CELIAC Verified 04/26/24 11:52 Surgical - Exam Vital Signs Temp Pulse Resp BP Pulse Ox 98.3 F 86 20 115/84 96 04/26/24 08:29 04/26/24 08:29 04/26/24 08:29 04/26/24 08:29 04/26/24 08:29 Results - Labs 04/26/24 09:00 04/26/24 09:00 Abnormal Lab Results - Last 24 Hours (Table) 04/26/24 04/26/24 04/26/24 Range/Units 09:00 09:00 10:37 RBC 3.53 L (3.80-5.40) m/uL Hgb 11.0 L (11.4-16.0) gm/dL Hct 33.2 L (34.0-46.0) % Plt Count 472 H (150-450) k/uL Sodium 136 L (137-145) mmol/L BUN <2 L (7-17) mg/dL Creatinine 0.46 L (0.52-1.04) mg/dL Glucose 100 H (74-99) mg/dL Total Protein 5.4 L (6.3-8.2) g/dL Albumin 2.8 L (3.5-5.0) g/dL Ur Specific [place] >1.050 H (1.001-1.035) Urine Blood Trace H (Negative) Diabetes panel 04/26/24 Range/Units 09:00 Sodium 136 L (137-145) mmol/L Potassium 3.5 (3.5-5.1) mmol/L Chloride 100 (98-107) mmol/L Carbon Dioxide 28 (22-30) mmol/L BUN <2 L (7-17) mg/dL Creatinine 0.46 L (0.52-1.04) mg/dL Glucose 100 H (74-99) mg/dL Calcium 8.5 (8.4-10.2) mg/dL AST 20 (14-36) U/L ALT 8 (4-34) U/L Alkaline Phosphatase 73 (38-126) U/L Total Protein 5.4 L (6.3-8.2) g/dL Albumin 2.8 L (3.5-5.0) g/dL Calcium panel 04/26/24 Range/Units 09:00 Calcium 8.5 (8.4-10.2) mg/dL Albumin 2.8 L (3.5-5.0) g/dL Pituitary panel 04/26/24 Range/Units 09:00 Sodium 136 L (137-145) mmol/L Potassium 3.5 (3.5-5.1) mmol/L Chloride 100 (98-107) mmol/L Carbon Dioxide 28 (22-30) mmol/L BUN <2 L (7-17) mg/dL Creatinine 0.46 L (0.52-1.04) mg/dL Glucose 100 H (74-99) mg/dL Calcium 8.5 (8.4-10.2) mg/dL Adrenal panel 04/26/24 Range/Units 09:00 Sodium 136 L (137-145) mmol/L Potassium 3.5 (3.5-5.1) mmol/L Chloride 100 (98-107) mmol/L Carbon Dioxide 28 (22-30) mmol/L BUN <2 L (7-17) mg/dL Creatinine 0.46 L (0.52-1.04) mg/dL Glucose 100 H (74-99) mg/dL Calcium 8.5 (8.4-10.2) mg/dL Total Bilirubin 0.5 (0.2-1.3) mg/dL AST 20 (14-36) U/L ALT 8 (4-34) U/L Alkaline Phosphatase 73 (38-126) U/L Total Protein 5.4 L (6.3-8.2) g/dL Albumin 2.8 L (3.5-5.0) g/dL
--- NOTE | 2024-04-26 13:43 | XR ---
EXAMINATION TYPE: XR chest 1V portable DATE OF EXAM: 04/26/2024 COMPARISON: 03/31/2024 HISTORY: NG tube placement TECHNIQUE: Single frontal view of the chest is obtained. FINDINGS: NG tube is seen to the level of the GE junction. Underlying emphysematous changes with lef t basilar scarring or atelectasis. Surgical change involving the cervical spine. No overt failure or focal pneumonia. Visualized upper abdominal bowel gas pattern demonstrates dilated bowel loops and no nspecific. IMPRESSION: NG tube is seen with the tip only identified to level of the GE junction correlate for p ositioning.
[2024-04-26] MEDS: metroNIDAZOLE-NS PMX 500 MG in SALINE 1 100ML.BAG IVPB SCH (13:49)
[2024-04-26] MEDS: LEVOFLOXACIN 750MG-D5W PMX 750 MG in DEXTROSE/WATER 1 150ML.BAG IVPB STA (14:52)
--- NOTE | 2024-04-26 17:39 | P.CONS ---
History of Present Illness - Reason for Consult Consult date: 04/26/24 medical management - Chief Complaint abdominal pain - History of Present Illness 53-year-old female with history of GERD and celiac disease, fibromyalgia, bowel obstructions, complex past surgical history including ruptured appendix, cholecystectomy, hysterectomy and ectopic , has history cecal volvulus and is status post a right hemicolectomy on March [address] Dudley, subsequently had a large and small bowel obstruction and is status post exploratory laparotomy with lysis of adhesions on April [address] Dudley presented with increasing abdominal pain. Abdominal pain mostly on the left side and radiates to the epigastric area. Associated with abdominal distention and bloating. She has had decreased appetite and nauseated. Anything she eats makes her feel full. She denies any vomiting. She has been having very small tiny pellet bowel movements. She reports having flatus. She was discharged from the hospital about 10 days ago per patient. In the ER she had a CT scan abdomen and pelvis that shows diffusely dilated small bowel loops. Small bowel loops in the right mid to lower abdomen and right side of the pelvis are clustered and collapse possible adhesions or local inflammation contributing to small bowel obstruction. Moderate stool throughout the colon. No free air seen. NG tube placed in the ER and that relieved her pain. Review of Systems complete review of system performed, pertinent positives per HPI, otherwise neg ative Past Medical History Past Medical History: Fibromyalgia, GERD/Reflux Additional Past Medical History / Comment(s): celiac disease, "told she has raynaulds", small hiatal hernia. "precancerous colon polyps removed" History of Any Multi-Drug Resistant Organisms: None Reported Past Surgical History: Adenoidectomy, Appendectomy, Cholecystectomy, Hysterectomy, Orthopedic Surgery, Tonsillectomy Additional Past Surgical History / Comment(s): Appendectomy with mesenteric mass excision, diagnostic exploratory laprascopy, surgery for tubal , EGD, colonoscopy, cervical fusion/decompression; 03/24/24 Right hemicolectomy and decompressive colotomy Past Anesthesia/Blood Transfusion Reactions: Previous Problems w/ Anesthesia, Motion Sickness, Postoperative Nausea & Vomiting (PONV) Additional Past Anesthesia/Blood Transfusion Reaction / Comm: Slow to wake Past Psychological History: No Psychological Hx Reported Smoking Status: Former smoker Past Alcohol Use History: Daily Past Drug Use History: None Reported - Past Family History Sister(s) Family Medical History: Cancer Additional Family Medical History / Comment(s): Stage III colon cancer. Mother Additional Family Medical History / Comment(s): lupus, mi of at age 52 Father Family Medical History: AFIB Medications and Allergies Home Medications Medication Instructions Recorded Confirmed Type Ibuprofen [Motrin] 600 mg PO Q8HR PRN #30 tab 03/29/24 04/26/24 Rx Apixaban [Eliquis] 5 mg PO BID 04/26/24 04/26/24 History Ciprofloxacin HCl [Cipro] 500 mg PO Q12HR 04/26/24 04/26/24 History Cyclobenzaprine [Flexeril] 10 mg PO TID PRN 04/26/24 04/26/24 History Omeprazole 40 mg PO DAILY 04/26/24 04/26/24 History metroNIDAZOLE [Flagyl] 500 mg PO TID 04/26/24 04/26/24 History Allergies Allergy/AdvReac Type Severity Reaction Status Date / Time gluten Allergy CELIAC Verified 04/26/24 11:52 Penicillins Allergy STRONG Verified 04/26/24 11:52 SIBLING REACTION OF ANAPHYLAXIS Sulfa (Sulfonamide Allergy Unknown Verified 04/26/24 11:52 Antibiotics) Childhood tree nut Allergy SKIN Verified 04/26/24 11:52 REACTION wheat Allergy CELIAC Verified 04/26/24 11:52 Physical Exam Vitals: Vital Signs Temp Pulse Resp BP Pulse Ox 04/26/24 13:53 82 18 153/99 100 04/26/24 10:33 83 18 125/89 98 04/26/24 08:29 98.3 F 86 20 115/84 96 Intake and Output 04/26/24 04/26/24 04/26/24 06:59 14:59 22:59 Other: Weight 54.431 kg Constitutional: No acute distress, conversant, pleasant Eyes:Anicteric sclerae, moist conjunctiva, no lid-lag, PERRLA, ENMT: Oropharynx clear, no erythema, exudates Neck: Supple, FROM, no masses, or JVD, No carotid bruits, No thyromegaly Lungs: Clear to auscultation, Clear to percussion, Normal respiratory effort, no accessory muscle use Cardiovascular: Heart regular in rate and rhythm, No murmurs, gallops, or rubs, No peripheral edema Abdominal: distended, tender, no guarding, rebound or rigidity, Normoactive bowel sounds, No hepatomegaly, No splenomegaly, No palpable mass Skin: Normal temperature, tone, texture, turgor, no induration, No subcutaneous nodules, No rash, lesions, No ulcers Extremities: No digital cyanosis, No clubbing, Pedal pulses intact and symmetrical, Radial pulses intact and symmetrical, No calf tenderness Psychiatric: Alert and oriented to person, place and time, appropriate affect, intact judgement Neuro: Muscles Strength 5/5 in all 4 extremities, Sensation to light touch grossly present throughout, Cranial nerves II-XII grossly intact, no focal sensory deficits Results CBC & Chem 7: 04/26/24 09:00 04/26/24 09:00 Labs: Abnormal Lab Results - Last 24 Hours (Table) 04/26/24 04/26/24 04/26/24 Range/Units 09:00 09:00 10:37 RBC 3.53 L (3.80-5.40) m/uL Hgb 11.0 L (11.4-16.0) gm/dL Hct 33.2 L (34.0-46.0) % Plt Count 472 H (150-450) k/uL Sodium 136 L (137-145) mmol/L BUN <2 L (7-17) mg/dL Creatinine 0.46 L (0.52-1.04) mg/dL Glucose 100 H (74-99) mg/dL Total Protein 5.4 L (6.3-8.2) g/dL Albumin 2.8 L (3.5-5.0) g/dL Ur Specific [place] >1.050 H (1.001-1.035) Urine Blood Trace H (Negative) Assessment and Plan Plan: Small bowel obstruction management per general surgery She is status post NG tube placement IV fluids Pain control with opiates Follow clinically and thru serial x-rays HTN Hold bp meds as she is NPO Monitor BP Chronic GERD Celiac disease Stable Admit to inpatient expected length of stay more than 2 midnights
[2024-04-26] MEDS: ONDANSETRON 4 MG/2 ML VIAL IVP PRN (17:56)
[2024-04-26] MEDS: CEFEPIME 2 GM in SODIUM CHLORIDE 0.9% 100 ML IVPB SCH (19:28)
[2024-04-27] MEDS ORDERED: HYDROmorphone 1 MG/ML 1 ML SYRINGE ONE (00:05)
[2024-04-27] MEDS ORDERED: ONDANSETRON 4 MG/2 ML VIAL ONE (03:05)
--- NOTE | 2024-04-27 09:57 | P.CONS ---
History of Present Illness - Reason for Consult Consult date: 04/26/24 Antibiotic management Requesting physician: Eun Randall - Chief Complaint Abdominal pain x few days - History of Present Illness Patient is a 53-year-old female with a past medical history significant for fibromyalgia reflux who was recently admitted to this facility for bowel obstruction patient was diagnosed with a cecal volvulus status post right hemicolectomy on 03/24/2024 subsequently did have large small bowel obstruction status post exploratory laparotomy with lysis of adhesion on 04/03/2024 patient did have a abdominal wall abscess during that admission and culture positive for Pseudomonas aeruginosa treated with IV cefepime and the patient was subsequently discharged on oral Cipro and Flagyl 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 Flagyl however mention she was taking it she is now presenting back to the hospital complaining of abdominal pain and distention that apparently has been getting worse for the last few days abdominal pain is mostly on the left side describing it to be sharp moderate intensity without any radiation did have associated nausea but no vomiting and did have small bowel movements no blood or mucus in the stool patient on presentation to the hospital was afebrile no fever had recorded subsequently patient was not tachycardic hypotensive or hypoxic he did have white count 6.6 creatinine was 0.46 electrolytes are normal urine has been negative patient did have abdominal pelvis CT we did shows diffusely dilated fluid-filled small bowel loops remain throughout possible ideation or local inflammation moderate stool throughout the colon patient was admitted to hospital started on Flagyl infectious disease consulted because of allergies for antibiotic management Review of Systems Positive point and negatives has been mentioned in the HPI, complete review of systems was performed and all other systems are negative Past Medical History Past Medical History: Fibromyalgia, GERD/Reflux Additional Past Medical History / Comment(s): celiac disease, "told she has raynaulds", small hiatal hernia. "precancerous colon polyps removed" History of Any Multi-Drug Resistant Organisms: None Reported Past Surgical History: Adenoidectomy, Appendectomy, Cholecystectomy, Hysterectomy, Orthopedic Surgery, Tonsillectomy Additional Past Surgical History / Comment(s): Appendectomy with mesenteric mass excision, diagnostic exploratory laprascopy, surgery for tubal , EGD, colonoscopy, cervical fusion/decompression; 03/24/24 Right hemicolectomy and decompressive colotomy Past Anesthesia/Blood Transfusion Reactions: Previous Problems w/ Anesthesia, Motion Sickness, Postoperative Nausea & Vomiting (PONV) Additional Past Anesthesia/Blood Transfusion Reaction / Comm: Slow to wake Past Psychological History: No Psychological Hx Reported Smoking Status: Former smoker Past Alcohol Use History: Daily Past Drug Use History: None Reported - Past Family History Sister(s) Family Medical History: Cancer Additional Family Medical History / Comment(s): Stage III colon cancer. Mother Additional Family Medical History / Comment(s): lupus, mi of at age 52 Father Family Medical History: AFIB Medications and Allergies Home Medications Medication Instructions Recorded Confirmed Type Ibuprofen [Motrin] 600 mg PO Q8HR PRN #30 tab 03/29/24 04/26/24 Rx Apixaban [Eliquis] 5 mg PO BID 04/26/24 04/26/24 History Ciprofloxacin HCl [Cipro] 500 mg PO Q12HR 04/26/24 04/26/24 History Cyclobenzaprine [Flexeril] 10 mg PO TID PRN 04/26/24 04/26/24 History Omeprazole 40 mg PO DAILY 04/26/24 04/26/24 History metroNIDAZOLE [Flagyl] 500 mg PO TID 04/26/24 04/26/24 History Allergies Allergy/AdvReac Type Severity Reaction Status Date / Time gluten Allergy CELIAC Verified 04/26/24 11:52 Penicillins Allergy STRONG Verified 04/26/24 11:52 SIBLING REACTION OF ANAPHYLAXIS Sulfa (Sulfonamide Allergy Unknown Verified 04/26/24 11:52 Antibiotics) Childhood tree nut Allergy SKIN Verified 04/26/24 11:52 REACTION wheat Allergy CELIAC Verified 04/26/24 11:52 Physical Exam Vitals: Vital Signs Temp Pulse Resp BP Pulse Ox 04/26/24 10:33 83 18 125/89 98 04/26/24 08:29 98.3 F 86 20 115/84 96 Intake and Output 04/25/24 04/26/24 04/26/24 22:59 06:59 14:59 Other: Weight 54.431 kg GENERAL DESCRIPTION: Middle-aged female lying in bed, no distress. No tachypnea or accessory muscle of respiration use. HEENT: Shows Pallor , no scleral icterus. Oral mucous membrane is dry. No pharyngeal erythema or thrush NECK: Trachea central, no thyromegaly. LUNGS: Unlabored breathing. Clear to auscultation anteriorly. No wheeze or crackle. HEART: S1, S2, regular rate and rhythm. No loud murmur ABDOMEN: Soft, mild distention and tenderness EXTREMITIES: No edema of feet. SKIN: No rash, no masses palpable. NEUROLOGICAL: The patient is awake, alert, oriented x3, mood and affect normal. Results CBC & Chem 7: 04/26/24 09:00 04/26/24 09:00 Labs: Abnormal Lab Results - Last 24 Hours (Table) 04/26/24 04/26/24 04/26/24 Range/Units 09:00 09:00 10:37 RBC 3.53 L (3.80-5.40) m/uL Hgb 11.0 L (11.4-16.0) gm/dL Hct 33.2 L (34.0-46.0) % Plt Count 472 H (150-450) k/uL Sodium 136 L (137-145) mmol/L BUN <2 L (7-17) mg/dL Creatinine 0.46 L (0.52-1.04) mg/dL Glucose 100 H (74-99) mg/dL Total Protein 5.4 L (6.3-8.2) g/dL Albumin 2.8 L (3.5-5.0) g/dL Ur Specific [place] >1.050 H (1.001-1.035) Urine Blood Trace H (Negative) Assessment and Plan (1) Allergy to multiple antibiotics Current Visit: Yes Status: Acute Code(s): Z88.1 - ALLERGY STATUS TO OTHER ANTIBIOTIC AGENTS SNOMED Code(s): 490100786 (2) Abdominal pain Current Visit: Yes Status: Acute Code(s): R10.9 - UNSPECIFIED ABDOMINAL PAIN SNOMED Code(s): 27517428 Plan: 1patient presented to hospital with abdominal pain and distention did have evidence of ileus/small bowel obstruction on the CT concerning for inflammation in this patient who recently did have multiple abdominal surgery initially right hemicolectomy for cecal volvulus subsequently did have a laparotomy with lysis evaluation and during that admission patient did have abdominal wall abscess that was positive for Pseudomonas CT this admission did not show any abscess however tissue was inflammation concerning for possible ileus/obstruction 2patient with multiple antibiotic ALLERGIES that would limit the number of antibiotic safe to use 3we will start the patient cefepime 2 g every 8 hours and continue with the Flagyl We will follow on clinical condition and cultures to further adjust medication if needed Thank you for this consultation we will follow the patient along with you Dictation was produced using [employer] dictation software. please excuse any grammatical, word or spelling errors. Time with Patient: Greater than 30
[2024-04-27 10:59] LABS: Basophils # (A) 0.08 X 10*3/uL (0.00-0.10); Basophils % (A) 0.9 %; Eosinophils # (A) 0.56 X 10*3/uL (0.04-0.35); Eosinophils % (A) 6.6 %; HCT 33.4 % (37.2-46.3); HGB 11.1 g/dL (12.0-15.0); Lymphocytes # (A) 1.99 X 10*3/uL (0.90-5.00); Lymphocytes % (A) 23.4 %; MCH 31.6 pg (27.0-32.0); MCHC 33.2 g/dL (32.0-37.0); MCV 95.2 FL (80.0-97.0); Mean Platelet Volume 10.3 FL (9.5-12.2); Monocytes # (A) 0.97 X 10*3/uL (0.20-1.00); Monocytes % (A) 11.4 %; NRBC Per 100 WBC 0 X 10*3/uL (0.00-0.01); Neutrophils # (A) 4.86 X 10*3/uL (1.80-7.70); Neutrophils % (A) 57.3 %; Platelet Count 516 X 10*3/uL (140-440); RBC 3.51 X 10*6/uL (4.10-5.20); RDW 12.7 % (11.5-14.5); WBC 8.49 X 10*3/uL (4.50-10.00)
[2024-04-27 11:12] LABS: BUN/Creat Ratio 9.25 Ratio (12.00-20.00); Blood Urea Nitrogen 3.7 mg/dL (9.0-27.0); Calcium 8.4 mg/dL (8.7-10.3); Carbon Dioxide 22.9 mmol/L (21.6-31.8); Chloride 104 mmol/L (96-109); Glucose 88 mg/dL (70-110); Potassium 3.4 mmol/L (3.5-5.5); Sodium 139 mmol/L (135-145)
--- NOTE | 2024-04-27 12:53 | P.PN ---
Subjective Progress Note Date: 04/27/24 Principal diagnosis: abdominal pain patient states that she has been passing a lot of gas, has not had a bowel movement since admission. No fevers or chills. No chest pain or shortness of breath. Abdominal pain has been improved. She has NG tube that was connected to suction. Objective - Vital Signs Vital signs: Vital Signs Temp 98.7 F 04/27/24 07:00 Pulse 88 04/27/24 07:00 Resp 16 04/27/24 07:00 BP 133/81 04/27/24 07:00 Pulse Ox 94 L 04/27/24 07:00 FiO2 Intake & Output 04/26/24 04/27/24 04/27/24 18:59 06:59 18:59 Weight 54.431 kg Other: Voiding Method Toilet Bedside Commode # Voids 3 - Exam Constitutional: No acute distress, conversant, pleasant Eyes:Anicteric sclerae, moist conjunctiva, no lid-lag, PERRLA, ENMT: Oropharynx clear, no erythema, exudates Neck: Supple, FROM, no masses, or JVD, No carotid bruits, No thyromegaly Lungs: Clear to auscultation, Clear to percussion, Normal respiratory effort, no accessory muscle use Cardiovascular: Heart regular in rate and rhythm, No murmurs, gallops, or rubs, No peripheral edema Abdominal: distended, tender, no guarding, rebound or rigidity, Normoactive bowel sounds, No hepatomegaly, No splenomegaly, No palpable mass Skin: Normal temperature, tone, texture, turgor, no induration, No subcutaneous nodules, No rash, lesions, No ulcers Extremities: No digital cyanosis, No clubbing, Pedal pulses intact and symmetrical, Radial pulses intact and symmetrical, No calf tenderness Psychiatric: Alert and oriented to person, place and time, appropriate affect, intact judgement Neuro: Muscles Strength 5/5 in all 4 extremities, Sensation to light touch grossly present throughout, Cranial nerves II-XII grossly intact, no focal sensory deficits - Labs CBC & Chem 7: 04/27/24 07:37 04/27/24 07:37 Labs: Abnormal Lab Results - Last 24 Hours (Table) 04/27/24 04/27/24 Range/Units 07:37 07:37 RBC 3.51 L (4.10-5.20) X 10*6/uL Hgb 11.1 L (12.0-15.0) g/dL Hct 33.4 L (37.2-46.3) % Plt Count 516 H (140-440) X 10*3/uL Eosinophils # 0.56 H (0.04-0.35) X 10*3/uL Potassium 3.4 L (3.5-5.5) mmol/L Anion Gap 12.10 H (4.00-12.00) mmol/L BUN 3.7 L (9.0-27.0) mg/dL Creatinine 0.4 L (0.6-1.5) mg/dL BUN/Creatinine Ratio 9.25 L (12.00-20.00) Ratio Calcium 8.4 L (8.7-10.3) mg/dL Assessment and Plan Plan: Small bowel obstruction management per general surgery She is status post NG tube placement IV fluids Pain control with opiates Follow clinically and thru serial x-rays Cannot rule out local inflammation/colitis contributing to the obstruction, therefore initiated on antibiotics, ID following. Hypokalemia Replace and follow in a.m. HTN Hold bp meds as she is NPO Monitor BP Chronic GERD Celiac disease Stable DVT prophylaxis Lovenox subcu
[2024-04-27] MEDS: POTASSIUM CHLORIDE 10 MEQ in WATER FOR INJECTION 1 100ML.BAG IVPB STA (14:14)
[2024-04-27 14:31] VITALS: BMI 17.2
--- NOTE | 2024-04-27 15:46 | P.PN ---
Subjective Progress Note Date: 04/27/24 Principal diagnosis: Reason for follow-up is small bowel obstruction multiple antibiotic allergies Patient is a 53-year-old female with a past medical history significan t for fibromyalgia reflux who was recently admitted to this facility for bowel obstruction patient was diagnosed with a cecal volvulus status post right hemicolectomy on 03/24/2024 subsequently did have large small bowel obstruction status post exploratory laparotomy with lysis of adhesion on 04/03/2024 patient did have a abdominal wall abscess culture positive for Pseudomonas presenting back to the hospital with abdominal pain and distention has been diagnosed with ileus. On today's evaluation that is 04/25/2024, the patient continues to be afebrile, the patient is on room air and breathing comfortably, the Pt denies having any chest pain or cough, the patient abdominal discomfort and pain has decreased still have the NG no bowel movement but passing gas. Patient white count is 8.49, creatinine 0.4 Objective - Vital Signs Vital signs: Vital Signs Temp 97.6 F 04/27/24 14:28 Pulse 91 04/27/24 14:28 Resp 16 04/27/24 14:28 BP 133/81 04/27/24 07:00 Pulse Ox 97 04/27/24 14:28 FiO2 Intake & Output 04/26/24 04/27/24 04/27/24 18:59 06:59 18:59 Output Total 500 Balance -500 Weight 54.431 kg 54.431 kg Output: Urine 500 Other: Voiding Method Toilet Bedside Commode # Voids 3 # Bowel Movements 1 - Exam GENERAL DESCRIPTION: Middle-age female lying in bed in no distress RESPIRATORY SYSTEM: Unlabored breathing , decreased breath sounds at bases HEART: S1 S2 regular rate and rhythm , ABDOMEN: Soft , mild tenderness EXTREMITIES: No edema feet - Labs CBC & Chem 7: 04/27/24 07:37 04/27/24 07:37 Labs: Abnormal Lab Results - Last 24 Hours (Table) 04/27/24 04/27/24 Range/Units 07:37 07:37 RBC 3.51 L (4.10-5.20) X 10*6/uL Hgb 11.1 L (12.0-15.0) g/dL Hct 33.4 L (37.2-46.3) % Plt Count 516 H (140-440) X 10*3/uL Eosinophils # 0.56 H (0.04-0.35) X 10*3/uL Potassium 3.4 L (3.5-5.5) mmol/L Anion Gap 12.10 H (4.00-12.00) mmol/L BUN 3.7 L (9.0-27.0) mg/dL Creatinine 0.4 L (0.6-1.5) mg/dL BUN/Creatinine Ratio 9.25 L (12.00-20.00) Ratio Calcium 8.4 L (8.7-10.3) mg/dL Assessment and Plan (1) Allergy to multiple antibiotics Current Visit: Yes Status: Acute Code(s): Z88.1 - ALLERGY STATUS TO OTHER ANTIBIOTIC AGENTS SNOMED Code(s): 847592545 (2) Abdominal pain Current Visit: Yes Status: Acute Code(s): R10.9 - UNSPECIFIED ABDOMINAL PAIN SNOMED Code(s): 68988519 Plan: 1patient presented to hospital with abdominal pain and distention did have evidence of ileus/small bowel obstruction on the CT concerning for inflammation in this patient who recently did have multiple abdominal surgery initially right hemicolectomy for cecal volvulus subsequently did have a laparotomy with lysis evaluation and during that admission patient did have abdominal wall abscess that was positive for Pseudomonas CT this admission did not show any abscess however tissue was inflammation concerning for possible ileus/obstruction 2patient with multiple antibiotic ALLERGIES that would limit the number of antibiotic safe to use 3patient to continue with cefepime 2 g every 8 hours and Flagyl, and monitor clinical course closely Dictation was produced using [employer] dictation software. please excuse any grammatical, word or spelling errors. Time with Patient: Less than 30
--- NOTE | 2024-04-27 17:15 | P.PN ---
Subjective Progress Note Date: 04/27/24 CHIEF COMPLAINT: SBO HISTORY OF PRESENT ILLNESS: patient is having flatus. Her pain has shown improvement. She denies any nausea. Patient does complain of discomfort from the NG tube. Afebrile.WBC 8.49 k 3.4 patient seen and examined with Dr. fuchs PHYSICAL EXAM: VITAL SIGNS: Reviewed. GENERAL: Well-developed in no acute distress. ABDOMEN: Soft. Distended. Nontender. Incision midline with 2 small areas that are scabbed. No drainage noted. NEUROLOGIC: Alert and oriented. Cranial nerves II through XII grossly intact. ASSESSMENT: 1. Small bowel obstruction CT scan reporting possible adhesions or local inflammation contributing to small bowel obstruction 2. Patient with recent small bowel and large bowel obstruction status post lysis of adhesions on April 03 3. History of cecal volvulus status post right hemicolectomy 4. History of multiple abdominal surgeries 5. Abdominal incision infection PLAN: -discontinue NG tube in a.m. and start clear liquid diet -Antibiotics per infectious disease -Continue IV fluids -Encouraged patient to increase activity level -Eliquis on hold -medicine service replacing potassium Physician Floor Scrubber note has been reviewed by physician. Signing provider agrees with the documented findings, assessment, and plan of care. Objective - Vital Signs Vital signs: Vital Signs Temp 97.6 F 04/27/24 14:28 Pulse 91 04/27/24 14:28 Resp 16 04/27/24 14:28 BP 133/81 04/27/24 07:00 Pulse Ox 97 04/27/24 14:28 FiO2 Intake & Output 04/26/24 04/27/24 04/27/24 18:59 06:59 18:59 Output Total 500 Balance -500 Weight 54.431 kg 54.431 kg Output: Urine 500 Other: Voiding Method Toilet Bedside Commode # Voids 3 # Bowel Movements 1 - Labs CBC & Chem 7: 04/27/24 07:37 04/27/24 07:37 Labs: Abnormal Lab Results - Last 24 Hours (Table) 04/27/24 04/27/24 Range/Units 07:37 07:37 RBC 3.51 L (4.10-5.20) X 10*6/uL Hgb 11.1 L (12.0-15.0) g/dL Hct 33.4 L (37.2-46.3) % Plt Count 516 H (140-440) X 10*3/uL Eosinophils # 0.56 H (0.04-0.35) X 10*3/uL Potassium 3.4 L (3.5-5.5) mmol/L Anion Gap 12.10 H (4.00-12.00) mmol/L BUN 3.7 L (9.0-27.0) mg/dL Creatinine 0.4 L (0.6-1.5) mg/dL BUN/Creatinine Ratio 9.25 L (12.00-20.00) Ratio Calcium 8.4 L (8.7-10.3) mg/dL
[2024-04-28 08:52] LABS: Basophils # (A) 0.07 X 10*3/uL (0.00-0.10); Basophils % (A) 0.7 %; Eosinophils # (A) 0.35 X 10*3/uL (0.04-0.35); Eosinophils % (A) 3.5 %; HCT 31.6 % (37.2-46.3); HGB 10.5 g/dL (12.0-15.0); Lymphocytes # (A) 1.93 X 10*3/uL (0.90-5.00); Lymphocytes % (A) 19.5 %; MCH 31.3 pg (27.0-32.0); MCHC 33.2 g/dL (32.0-37.0); MCV 94.3 FL (80.0-97.0); Mean Platelet Volume 10.2 FL (9.5-12.2); Monocytes # (A) 1.23 X 10*3/uL (0.20-1.00); Monocytes % (A) 12.4 %; NRBC Per 100 WBC 0 X 10*3/uL (0.00-0.01); Neutrophils # (A) 6.26 X 10*3/uL (1.80-7.70); Neutrophils % (A) 63.5 %; Platelet Count 509 X 10*3/uL (140-440); RBC 3.35 X 10*6/uL (4.10-5.20); RDW 12.6 % (11.5-14.5); WBC 9.88 X 10*3/uL (4.50-10.00)
[2024-04-28] MEDS: ENOXAPARIN 40 MG/0.4 ML SYRINGE SQ SCH (08:57)
[2024-04-28 09:09] LABS: ALT 8 U/L (8-44); AST 12 U/L (13-35); Albumin 2.9 g/dL (3.8-4.9); Albumin/Globulin Ratio 1.38 Ratio (1.60-3.17); Alkaline Phosphatase 72 U/L (41-126); Blood Urea Nitrogen 5.5 mg/dL (9.0-27.0); Calcium 8.3 mg/dL (8.7-10.3); Carbon Dioxide 19.8 mmol/L (21.6-31.8); Chloride 102 mmol/L (96-109); Globulin 2.1 g/dL (1.6-3.3); Glucose 53 mg/dL (70-110); Magnesium 1.4 mg/dL (1.5-2.4); Potassium 3.7 mmol/L (3.5-5.5); Sodium 137 mmol/L (135-145); Total Bilirubin 0.3 mg/dL (0.3-1.2)
--- NOTE | 2024-04-28 11:14 | P.PN ---
Subjective Progress Note Date: 04/28/24 Patient remained stable. She is tolerated clear liquid diet. She still feels slightly bloated. On exam vital signs appear stable. Abdomen is soft. Resolving ileus. Patient will start full liquid diet. Objective - Vital Signs Vital signs: Vital Signs Temp 98.9 F 04/28/24 08:00 Pulse 86 04/28/24 08:00 Resp 16 04/28/24 08:00 BP 126/74 04/28/24 08:00 Pulse Ox 96 04/28/24 08:00 FiO2 Intake & Output 04/27/24 04/28/24 04/28/24 18:59 06:59 18:59 Intake Total 0 118 Output Total 500 Balance -500 0 118 Weight 54.431 kg Intake: Oral 0 118 Output: Urine 500 Other: Voiding Method Toilet Toilet Toilet Bedside Commode Bedside Commode Bedside Commode # Voids 3 # Bowel Movements 1 - Labs CBC & Chem 7: 04/28/24 05:22 04/28/24 05:22 Labs: Abnormal Lab Results - Last 24 Hours (Table) 04/28/24 04/28/24 Range/Units 05:22 05:22 RBC 3.35 L (4.10-5.20) X 10*6/uL Hgb 10.5 L (12.0-15.0) g/dL Hct 31.6 L (37.2-46.3) % Plt Count 509 H (140-440) X 10*3/uL Monocytes # 1.23 H (0.20-1.00) X 10*3/uL Carbon Dioxide 19.8 L (21.6-31.8) mmol/L Anion Gap 15.20 H (4.00-12.00) mmol/L BUN 5.5 L (9.0-27.0) mg/dL Creatinine 0.5 L (0.6-1.5) mg/dL BUN/Creatinine Ratio 11.00 L (12.00-20.00) Ratio Glucose 53 L (70-110) mg/dL Calcium 8.3 L (8.7-10.3) mg/dL Magnesium 1.4 L (1.5-2.4) mg/dL AST 12 L (13-35) U/L Total Protein 5.0 L (6.2-8.2) g/dL Albumin 2.9 L (3.8-4.9) g/dL Albumin/Globulin Ratio 1.38 L (1.60-3.17) Ratio
--- NOTE | 2024-04-28 12:56 | P.PN ---
Subjective Progress Note Date: 04/28/24 Principal diagnosis: Reason for follow-up is small bowel obstruction multiple antibiotic allergies Patient is a 53-year-old female with a past medical history significan t for fibromyalgia reflux who was recently admitted to this facility for bowel obstruction patient was diagnosed with a cecal volvulus status post right hemicolectomy on 03/24/2024 subsequently did have large small bowel obstruction status post exploratory laparotomy with lysis of adhesion on 04/03/2024 patient did have a abdominal wall abscess culture positive for Pseudomonas presenting back to the hospital with abdominal pain and distention has been diagnosed with ileus. On today's evaluation that is 04/28/2024, Patient is afebrile this morning patient denies having any chest pain shortness of breath or cough, the patient is breathing comfortably and currently on room air, patient abdominal pain and distention and slightly decreased NG has been discontinued no nausea vomiting patient mention has been passing gas. Patient white count is 9.88, creatinine 0.5 Objective - Vital Signs Vital signs: Vital Signs Temp 98.9 F 04/28/24 08:00 Pulse 86 04/28/24 08:00 Resp 16 04/28/24 08:00 BP 126/74 04/28/24 08:00 Pulse Ox 96 04/28/24 08:00 FiO2 Intake & Output 04/27/24 04/28/24 04/28/24 18:59 06:59 18:59 Intake Total 0 118 Output Total 500 Balance -500 0 118 Weight 54.431 kg Intake: Oral 0 118 Output: Urine 500 Other: Voiding Method Toilet Toilet Toilet Bedside Commode Bedside Commode Bedside Commode # Voids 3 # Bowel Movements 1 - Exam GENERAL DESCRIPTION: Middle-age female lying in bed in no distress RESPIRATORY SYSTEM: Unlabored breathing , decreased breath sounds at bases HEART: S1 S2 regular rate and rhythm , ABDOMEN: Soft , mild tenderness EXTREMITIES: No edema feet - Labs CBC & Chem 7: 04/28/24 05:22 04/28/24 05:22 Labs: Abnormal Lab Results - Last 24 Hours (Table) 04/28/24 04/28/24 Range/Units 05:22 05:22 RBC 3.35 L (4.10-5.20) X 10*6/uL Hgb 10.5 L (12.0-15.0) g/dL Hct 31.6 L (37.2-46.3) % Plt Count 509 H (140-440) X 10*3/uL Monocytes # 1.23 H (0.20-1.00) X 10*3/uL Carbon Dioxide 19.8 L (21.6-31.8) mmol/L Anion Gap 15.20 H (4.00-12.00) mmol/L BUN 5.5 L (9.0-27.0) mg/dL Creatinine 0.5 L (0.6-1.5) mg/dL BUN/Creatinine Ratio 11.00 L (12.00-20.00) Ratio Glucose 53 L (70-110) mg/dL Calcium 8.3 L (8.7-10.3) mg/dL Magnesium 1.4 L (1.5-2.4) mg/dL AST 12 L (13-35) U/L Total Protein 5.0 L (6.2-8.2) g/dL Albumin 2.9 L (3.8-4.9) g/dL Albumin/Globulin Ratio 1.38 L (1.60-3.17) Ratio Assessment and Plan (1) Allergy to multiple antibiotics Current Visit: Yes Status: Acute Code(s): Z88.1 - ALLERGY STATUS TO OTHER ANTIBIOTIC AGENTS SNOMED Code(s): 550696984 (2) Abdominal pain Current Visit: Yes Status: Acute Code(s): R10.9 - UNSPECIFIED ABDOMINAL PAIN SNOMED Code(s): 09125700 Plan: 1patient presented to hospital with abdominal pain and distention did have evidence of ileus/small bowel obstruction on the CT concerning for inflammation in this patient who recently did have multiple abdominal surgery initially right hemicolectomy for cecal volvulus subsequently did have a laparotomy with lysis evaluation and during that admission patient did have abdominal wall abscess that was positive for Pseudomonas CT this admission did not show any abscess however tissue was inflammation concerning for possible ileus/obstruction 2patient with multiple antibiotic ALLERGIES that would limit the number of antibiotic safe to use 3patient seem to have some clinical improvement will continue with cefepime 2 g every 8 hours and Flagyl, and monitor clinical course closely Dictation was produced using [employer] dictation software. please excuse any grammatical, word or spelling errors. Time with Patient: Less than 30
--- NOTE | 2024-04-28 14:54 | P.PN ---
Subjective Progress Note Date: 04/28/24 Principal diagnosis: abdominal pain patient continues to improve, pain is feeling better. Passing a lot of gas since last night. Abdomen feels less distended Objective - Vital Signs Vital signs: Vital Signs Temp 98.9 F 04/28/24 08:00 Pulse 86 04/28/24 08:00 Resp 16 04/28/24 08:00 BP 126/74 04/28/24 08:00 Pulse Ox 96 04/28/24 08:00 FiO2 Intake & Output 04/27/24 04/28/24 04/28/24 18:59 06:59 18:59 Intake Total 0 118 Output Total 500 Balance -500 0 118 Weight 54.431 kg Intake: Oral 0 118 Output: Urine 500 Other: Voiding Method Toilet Toilet Toilet Bedside Commode Bedside Commode Bedside Commode # Voids 3 # Bowel Movements 1 - Exam Constitutional: No acute distress, conversant, pleasant Eyes:Anicteric sclerae, moist conjunctiva, no lid-lag, PERRLA, ENMT: Oropharynx clear, no erythema, exudates Neck: Supple, FROM, no masses, or JVD, No carotid bruits, No thyromegaly Lungs: Clear to auscultation, Clear to percussion, Normal respiratory effort, no accessory muscle use Cardiovascular: Heart regular in rate and rhythm, No murmurs, gallops, or rubs, No peripheral edema Abdominal: distended, tender, no guarding, rebound or rigidity, Normoactive bowel sounds, No hepatomegaly, No splenomegaly, No palpable mass Skin: Normal temperature, tone, texture, turgor, no induration, No subcutaneous nodules, No rash, lesions, No ulcers Extremities: No digital cyanosis, No clubbing, Pedal pulses intact and symmetrical, Radial pulses intact and symmetrical, No calf tenderness Psychiatric: Alert and oriented to person, place and time, appropriate affect, intact judgement Neuro: Muscles Strength 5/5 in all 4 extremities, Sensation to light touch grossly present throughout, Cranial nerves II-XII grossly intact, no focal sensory deficits - Labs CBC & Chem 7: 04/28/24 05:22 04/28/24 05:22 Labs: Abnormal Lab Results - Last 24 Hours (Table) 04/28/24 04/28/24 Range/Units 05:22 05:22 RBC 3.35 L (4.10-5.20) X 10*6/uL Hgb 10.5 L (12.0-15.0) g/dL Hct 31.6 L (37.2-46.3) % Plt Count 509 H (140-440) X 10*3/uL Monocytes # 1.23 H (0.20-1.00) X 10*3/uL Carbon Dioxide 19.8 L (21.6-31.8) mmol/L Anion Gap 15.20 H (4.00-12.00) mmol/L BUN 5.5 L (9.0-27.0) mg/dL Creatinine 0.5 L (0.6-1.5) mg/dL BUN/Creatinine Ratio 11.00 L (12.00-20.00) Ratio Glucose 53 L (70-110) mg/dL Calcium 8.3 L (8.7-10.3) mg/dL Magnesium 1.4 L (1.5-2.4) mg/dL AST 12 L (13-35) U/L Total Protein 5.0 L (6.2-8.2) g/dL Albumin 2.9 L (3.8-4.9) g/dL Albumin/Globulin Ratio 1.38 L (1.60-3.17) Ratio Assessment and Plan Plan: Small bowel obstruction management per general surgery NG tube out, she is getting full liquids now per surgery IV fluids Pain control with opiates Follow clinically and thru serial x-rays Cannot rule out local inflammation/colitis contributing to the obstruction, therefore initiated on antibiotics, ID following. Hypokalemia Replaced Hypomagnesemia Replace and follow HTN Hold bp meds as she is NPO Monitor BP Chronic GERD Celiac disease Stable DVT prophylaxis Lovenox subcu
[2024-04-28] MEDS: MAGNESIUM SULFATE-D5W PMX 1 GM in DEXTROSE/WATER 1 100ML.BAG IVPB SCH (15:00)
--- NOTE | 2024-04-29 09:04 | P.PN ---
Subjective Progress Note Date: 04/29/24 Patient main stable. She had complaints of abdominal pain last night. She is passing bowel movements and flatus. On exam vital signs appear stable. Abdomen soft. Patient undergo repeat CT scan of the abdomen pelvis oral contrast to eval for partial small bowel obstruction. Objective - Vital Signs Vital signs: Vital Signs Temp 98.8 F 04/29/24 07:39 Pulse 76 04/29/24 07:39 Resp 16 04/29/24 07:39 BP 123/78 04/29/24 07:39 Pulse Ox 97 04/29/24 07:39 FiO2 Intake & Output 04/28/24 04/29/24 04/29/24 18:59 06:59 18:59 Intake Total 236 354 Balance 236 354 Intake: Oral 236 354 Other: Voiding Method Toilet Toilet Bedside Commode Bedside Commode # Voids 3 3 # Bowel Movements 1 - Labs CBC & Chem 7: 04/28/24 05:22 04/28/24 05:22 Labs: Abnormal Lab Results - Last 24 Hours (Table) 04/28/24 Range/Units 05:22 Carbon Dioxide 19.8 L (21.6-31.8) mmol/L Anion Gap 15.20 H (4.00-12.00) mmol/L BUN 5.5 L (9.0-27.0) mg/dL Creatinine 0.5 L (0.6-1.5) mg/dL BUN/Creatinine Ratio 11.00 L (12.00-20.00) Ratio Glucose 53 L (70-110) mg/dL Calcium 8.3 L (8.7-10.3) mg/dL Magnesium 1.4 L (1.5-2.4) mg/dL AST 12 L (13-35) U/L Total Protein 5.0 L (6.2-8.2) g/dL Albumin 2.9 L (3.8-4.9) g/dL Albumin/Globulin Ratio 1.38 L (1.60-3.17) Ratio
[2024-04-29] MEDS: IOPAMIDOL CONTRAST (ORAL USE) VIAL PO PRN (09:35)
[2024-04-29 09:44] LABS: Basophils # (A) 0.05 X 10*3/uL (0.00-0.10); Basophils % (A) 0.7 %; Eosinophils # (A) 0.33 X 10*3/uL (0.04-0.35); Eosinophils % (A) 4.4 %; HGB 9.2 g/dL (12.0-15.0); Lymphocytes # (A) 1.56 X 10*3/uL (0.90-5.00); Lymphocytes % (A) 20.9 %; MCH 30.9 pg (27.0-32.0); MCHC 34.1 g/dL (32.0-37.0); MCV 90.6 FL (80.0-97.0); Mean Platelet Volume 10.2 FL (9.5-12.2); Monocytes # (A) 1.15 X 10*3/uL (0.20-1.00); Monocytes % (A) 15.4 %; NRBC Per 100 WBC 0 X 10*3/uL (0.00-0.01); Neutrophils # (A) 4.37 X 10*3/uL (1.80-7.70); Neutrophils % (A) 58.3 %; Platelet Count 456 X 10*3/uL (140-440); RBC 2.98 X 10*6/uL (4.10-5.20); RDW 12.5 % (11.5-14.5); WBC 7.48 X 10*3/uL (4.50-10.00)
[2024-04-29 10:52] LABS: Magnesium 1.7 mg/dL (1.5-2.4)
[2024-04-29 13:03] LABS: ALT 6 U/L (8-44); AST 11 U/L (13-35); Albumin 2.6 g/dL (3.8-4.9); Albumin/Globulin Ratio 1.44 Ratio (1.60-3.17); Alkaline Phosphatase 60 U/L (41-126); BUN/Creat Ratio <8.75 Ratio (12.00-20.00); Blood Urea Nitrogen <3.5 mg/dL (9.0-27.0); Calcium 7.6 mg/dL (8.7-10.3); Carbon Dioxide 25.8 mmol/L (21.6-31.8); Chloride 100 mmol/L (96-109); Globulin 1.8 g/dL (1.6-3.3); Glucose 97 mg/dL (70-110); Sodium 134 mmol/L (135-145); Total Bilirubin 0.2 mg/dL (0.3-1.2); Total Protein 4.4 g/dL (6.2-8.2)
--- NOTE | 2024-04-29 13:58 | CT ---
EXAMINATION TYPE: CT abdomen pelvis w con DATE OF EXAM: 04/29/2024 COMPARISON: 04/26/2024 INDICATION: abd pain, partial small bowel obstruction DLP: 648.9 mGycm, Automated exposure control for dose reduction was used. CONTRAST: 100 mL of Isovue 300. Study performed with Oral Contrast TECHNIQUE: Axial images were obtained from above the diaphragm to the pubic rami in the axial plane a t 5 mm thick sections. Reconstructed images are reviewed on the computer in the coronal plane. FINDINGS: Limited CT sections are obtained the lung bases. Some mild compressive atelectasis at the left base. Minimal left pleural effusion is present.. CT ABDOMEN: Liver: Hepatic cyst in the posterior medial mid right lobe liver. Small cysts posterior right lobe li reece Spleen: Normal Pancreas: Normal Adrenal glands: The adrenal glands are normal. Gallbladder: Absent Kidneys: No masses are evident. No hydronephrosis is present. No cysts are present. Delayed images were obtained through the kidneys, which remain unremarkable. Aorta: Vascular calcification is within the aorta. Inferior vena cava: Normal. CT PELVIS: There are dilated fluid-filled small bowel loops. Some air-fluid levels are within dilated loops of b owel. There appears to be a right hemicolectomy with anastomosis. This is widely patent. Fecal debris and air is within the colon. No zone of transition is identified. There are loops of bow el which are incompletely distended or lack oral contrast limiting their evaluation. Oral contrast ex tends only through the proximal jejunum which has a normal caliber. The ileum appears to be dilated w ithout contrast present Appendix: Not identified. Urinary bladder: Normal. Genitourinary structures: Uterus and ovaries are not identified. Osseous structures: No suspicious lytic or sclerotic lesions. IMPRESSION: 1. Dilated fluid-filled small bowel loops extending to the right hemicolectomy anastomosis. No focal obstruction is identified. Differential should include postoperative ileus. Some air and debris is w ithin the distal colon.
--- NOTE | 2024-04-29 14:37 | P.PN ---
Subjective Progress Note Date: 04/29/24 Principal diagnosis: abdominal pain patient states that she continues to improve. Had 3 bowel movements since last night. Stool formed, also passing a lot of gas. Abdominal pain is improved. No nausea or vomiting. No fevers or chills. Tolerating diet. No other overnight events. Objective - Vital Signs Vital signs: Vital Signs Temp 98.8 F 04/29/24 07:39 Pulse 76 04/29/24 07:39 Resp 16 04/29/24 07:39 BP 123/78 04/29/24 07:39 Pulse Ox 97 04/29/24 07:39 FiO2 Intake & Output 04/28/24 04/29/24 04/29/24 18:59 06:59 18:59 Intake Total 236 354 Balance 236 354 Intake: Oral 236 354 Other: Voiding Method Toilet Toilet Toilet Bedside Commode Bedside Commode Bedside Commode # Voids 3 3 # Bowel Movements 1 2 - Exam Constitutional: No acute distress, conversant, pleasant Eyes:Anicteric sclerae, moist conjunctiva, no lid-lag, PERRLA, ENMT: Oropharynx clear, no erythema, exudates Neck: Supple, FROM, no masses, or JVD, No carotid bruits, No thyromegaly Lungs: Clear to auscultation, Clear to percussion, Normal respiratory effort, no accessory muscle use Cardiovascular: Heart regular in rate and rhythm, No murmurs, gallops, or rubs, No peripheral edema Abdominal: distended, tender, no guarding, rebound or rigidity, Normoactive bowel sounds, No hepatomegaly, No splenomegaly, No palpable mass Skin: Normal temperature, tone, texture, turgor, no induration, No subcutaneous nodules, No rash, lesions, No ulcers Extremities: No digital cyanosis, No clubbing, Pedal pulses intact and symmetrical, Radial pulses intact and symmetrical, No calf tenderness Psychiatric: Alert and oriented to person, place and time, appropriate affect, intact judgement Neuro: Muscles Strength 5/5 in all 4 extremities, Sensation to light touch grossly present throughout, Cranial nerves II-XII grossly intact, no focal sensory deficits - Labs CBC & Chem 7: 04/29/24 04:35 04/29/24 04:35 Labs: Abnormal Lab Results - Last 24 Hours (Table) 04/29/24 04/29/24 Range/Units 04:35 04:35 RBC 2.98 L (4.10-5.20) X 10*6/uL Hgb 9.2 L (12.0-15.0) g/dL Hct 27.0 L (37.2-46.3) % Plt Count 456 H (140-440) X 10*3/uL Monocytes # 1.15 H (0.20-1.00) X 10*3/uL Sodium 134 L (135-145) mmol/L Potassium 3.0 L (3.5-5.5) mmol/L BUN <3.5 L (9.0-27.0) mg/dL Creatinine 0.4 L (0.6-1.5) mg/dL BUN/Creatinine Ratio <8.75 L (12.00-20.00) Ratio Calcium 7.6 L (8.7-10.3) mg/dL Total Bilirubin 0.2 L (0.3-1.2) mg/dL AST 11 L (13-35) U/L ALT 6 L (8-44) U/L Total Protein 4.4 L (6.2-8.2) g/dL Albumin 2.6 L (3.8-4.9) g/dL Albumin/Globulin Ratio 1.44 L (1.60-3.17) Ratio Assessment and Plan Plan: Small bowel obstruction management per general surgery NG tube out, she is getting full liquids now per surgery repeat computed tomography scan of the abdomen and pelvis on 04/29 done, reviewed, still showing obstruction, further management per surgery. IV fluids Pain control with opiates Follow clinically Cannot rule out local inflammation/colitis contributing to the obstruction, therefore initiated on antibiotics, ID following. Hypokalemia Replace Hypomagnesemia Replaced HTN Hold bp meds as she is NPO Monitor BP Chronic GERD Celiac disease Stable DVT prophylaxis Lovenox subcu
[2024-04-29] MEDS: POTASSIUM CHLORIDE ER 20 MEQ TAB.ER PO SCH (15:38)
[2024-04-29] MEDS: POTASSIUM CHLORIDE 20 MEQ in WATER FOR INJECTION 1 100ML.BAG IVPB STA (15:50)
--- NOTE | 2024-04-29 21:21 | P.PN ---
Subjective Progress Note Date: 04/29/24 Principal diagnosis: Reason for follow-up is small bowel obstruction multiple antibiotic allergies Patient is a 53-year-old female with a past medical history significan t for fibromyalgia reflux who was recently admitted to this facility for bowel obstruction patient was diagnosed with a cecal volvulus status post right hemicolectomy on 03/24/2024 subsequently did have large small bowel obstruction status post exploratory laparotomy with lysis of adhesion on 04/03/2024 patient did have a abdominal wall abscess culture positive for Pseudomonas presenting back to the hospital with abdominal pain and distention has been diagnosed with ileus. On today's evaluation that is 04/29/2024,the patient denies any fever or any chills, patient is breathing comfortably on room air, the patient denies chest pain shortness of breath and no significant cough, patient still complains of abdominal distention and discomfort no nausea has been passing gas. Patient white count 7.48, creatinine 0.4 Objective - Vital Signs Vital signs: Vital Signs Temp 98.8 F 04/29/24 07:39 Pulse 76 04/29/24 07:39 Resp 16 04/29/24 07:39 BP 123/78 04/29/24 07:39 Pulse Ox 97 04/29/24 07:39 FiO2 Intake & Output 04/28/24 04/29/24 04/29/24 18:59 06:59 18:59 Intake Total 236 Balance 236 Intake: Oral 236 Other: Voiding Method Toilet Toilet Bedside Commode Bedside Commode # Voids 3 3 # Bowel Movements 1 - Exam GENERAL DESCRIPTION: Middle-age female lying in bed in no distress RESPIRATORY SYSTEM: Unlabored breathing , decreased breath sounds at bases HEART: S1 S2 regular rate and rhythm , ABDOMEN: Soft , mild tenderness EXTREMITIES: No edema feet - Labs CBC & Chem 7: 04/29/24 04:35 04/29/24 04:35 Labs: Abnormal Lab Results - Last 24 Hours (Table) 04/28/24 04/28/24 Range/Units 05:22 05:22 RBC 3.35 L (4.10-5.20) X 10*6/uL Hgb 10.5 L (12.0-15.0) g/dL Hct 31.6 L (37.2-46.3) % Plt Count 509 H (140-440) X 10*3/uL Monocytes # 1.23 H (0.20-1.00) X 10*3/uL Carbon Dioxide 19.8 L (21.6-31.8) mmol/L Anion Gap 15.20 H (4.00-12.00) mmol/L BUN 5.5 L (9.0-27.0) mg/dL Creatinine 0.5 L (0.6-1.5) mg/dL BUN/Creatinine Ratio 11.00 L (12.00-20.00) Ratio Glucose 53 L (70-110) mg/dL Calcium 8.3 L (8.7-10.3) mg/dL Magnesium 1.4 L (1.5-2.4) mg/dL AST 12 L (13-35) U/L Total Protein 5.0 L (6.2-8.2) g/dL Albumin 2.9 L (3.8-4.9) g/dL Albumin/Globulin Ratio 1.38 L (1.60-3.17) Ratio Assessment and Plan (1) Allergy to multiple antibiotics Current Visit: Yes Status: Acute Code(s): Z88.1 - ALLERGY STATUS TO OTHER ANTIBIOTIC AGENTS SNOMED Code(s): 735379562 (2) Abdominal pain Current Visit: Yes Status: Acute Code(s): R10.9 - UNSPECIFIED ABDOMINAL PAIN SNOMED Code(s): 88927064 Plan: 1patient presented to hospital with abdominal pain and distention did have evidence of ileus/small bowel obstruction on the CT concerning for inflammation in this patient who recently did have multiple abdominal surgery initially right hemicolectomy for cecal volvulus subsequently did have a laparotomy with lysis evaluation and during that admission patient did have abdominal wall abscess that was positive for Pseudomonas CT this admission did not show any abscess however tissue was inflammation concerning for possible ileus/obstruction 2patient with multiple antibiotic ALLERGIES that would limit the number of antibiotic safe to use 3patient has been reevaluated by surgery CT abdominal pelvis with oral contrast has been ordered results will be followed, continue with cefepime 2 g every 8 hours and Flagyl, and monitor clinical course closely Dictation was produced using [employer] dictation software. please excuse any grammatical, word or spelling errors. Time with Patient: Less than 30
--- NOTE | 2024-04-30 08:49 | P.PN ---
Subjective Progress Note Date: 04/30/24 Patient had several large bowel movements yesterday. Her repeat CAT scan shows no sign of obstruction. She does have some dilated small bowel. On exam vital signs appear stable. Abdomen soft. Patient will have her diet advanced to regular diet. Objective - Vital Signs Vital signs: Vital Signs Temp 98.5 F 04/30/24 07:10 Pulse 76 04/30/24 07:10 Resp 18 04/30/24 07:10 BP 114/75 04/30/24 07:10 Pulse Ox 100 04/30/24 07:10 FiO2 Intake & Output 04/29/24 04/30/24 04/30/24 18:59 06:59 18:59 Intake Total 354 Balance 354 Intake: Oral 354 Other: Voiding Method Toilet Toilet Bedside Commode Bedside Commode # Voids 3 3 # Bowel Movements 0 1 - Labs CBC & Chem 7: 04/29/24 04:35 04/29/24 04:35 Labs: Abnormal Lab Results - Last 24 Hours (Table) 04/29/24 04/29/24 Range/Units 04:35 04:35 RBC 2.98 L (4.10-5.20) X 10*6/uL Hgb 9.2 L (12.0-15.0) g/dL Hct 27.0 L (37.2-46.3) % Plt Count 456 H (140-440) X 10*3/uL Monocytes # 1.15 H (0.20-1.00) X 10*3/uL Sodium 134 L (135-145) mmol/L Potassium 3.0 L (3.5-5.5) mmol/L BUN <3.5 L (9.0-27.0) mg/dL Creatinine 0.4 L (0.6-1.5) mg/dL BUN/Creatinine Ratio <8.75 L (12.00-20.00) Ratio Calcium 7.6 L (8.7-10.3) mg/dL Total Bilirubin 0.2 L (0.3-1.2) mg/dL AST 11 L (13-35) U/L ALT 6 L (8-44) U/L Total Protein 4.4 L (6.2-8.2) g/dL Albumin 2.6 L (3.8-4.9) g/dL Albumin/Globulin Ratio 1.44 L (1.60-3.17) Ratio
[2024-04-30 12:27] LABS: BUN/Creat Ratio <11.67 Ratio (12.00-20.00); Blood Urea Nitrogen <3.5 mg/dL (9.0-27.0); Carbon Dioxide 26.3 mmol/L (21.6-31.8); Chloride 105 mmol/L (96-109); Glucose 102 mg/dL (70-110); Potassium 4.6 mmol/L (3.5-5.5); Sodium 138 mmol/L (135-145)
--- NOTE | 2024-04-30 14:26 | P.PN ---
Subjective Progress Note Date: 04/30/24 Principal diagnosis: abdominal pain Feeling better, BMs better and larger, still passing gas. Abd pain improved. Tolerating diet but she is eating little amounts to try to take it slow. Objective - Vital Signs Vital signs: Vital Signs Temp 98.5 F 04/30/24 07:10 Pulse 76 04/30/24 07:10 Resp 18 04/30/24 07:10 BP 114/75 04/30/24 07:10 Pulse Ox 100 04/30/24 07:10 FiO2 Intake & Output 04/29/24 04/30/24 04/30/24 18:59 06:59 18:59 Intake Total 354 Balance 354 Intake: Oral 354 Other: Voiding Method Toilet Toilet Bedside Commode Bedside Commode # Voids 3 3 # Bowel Movements 0 1 - Exam Constitutional: No acute distress, conversant, pleasant Eyes:Anicteric sclerae, moist conjunctiva, no lid-lag, PERRLA, ENMT: Oropharynx clear, no erythema, exudates Neck: Supple, FROM, no masses, or JVD, No carotid bruits, No thyromegaly Lungs: Clear to auscultation, Clear to percussion, Normal respiratory effort, no accessory muscle use Cardiovascular: Heart regular in rate and rhythm, No murmurs, gallops, or rubs, No peripheral edema Abdominal: distended, tender, no guarding, rebound or rigidity, Normoactive bowel sounds, No hepatomegaly, No splenomegaly, No palpable mass Skin: Normal temperature, tone, texture, turgor, no induration, No subcutaneous nodules, No rash, lesions, No ulcers Extremities: No digital cyanosis, No clubbing, Pedal pulses intact and symmetrical, Radial pulses intact and symmetrical, No calf tenderness Psychiatric: Alert and oriented to person, place and time, appropriate affect, intact judgement Neuro: Muscles Strength 5/5 in all 4 extremities, Sensation to light touch grossly present throughout, Cranial nerves II-XII grossly intact, no focal sensory deficits - Labs CBC & Chem 7: 04/29/24 04:35 04/30/24 03:32 Labs: Abnormal Lab Results - Last 24 Hours (Table) 04/30/24 Range/Units 03:32 BUN <3.5 L (9.0-27.0) mg/dL Creatinine 0.3 L (0.6-1.5) mg/dL BUN/Creatinine Ratio <11.67 L (12.00-20.00) Ratio Calcium 8.0 L (8.7-10.3) mg/dL Assessment and Plan Plan: Small bowel obstruction management per general surgery NG tube out, diet advanced to regular per surgery repeat computed tomography scan of the abdomen and pelvis on 04/29 done, reviewed, showing possible ileus, further management per surgery. IV fluids Pain control with opiates Follow clinically Cannot rule out local inflammation/colitis contributing to the obstruction, therefore initiated on antibiotics, ID following. Hypokalemia Replaced Recheck in am Hypomagnesemia Replaced Recheck in am Moderate protein and calorie malnutrition Ensure HTN Hold bp meds as she is NPO Monitor BP Chronic GERD Celiac disease Stable DVT prophylaxis Lovenox subcu Anticipate d/c in am
--- NOTE | 2024-04-30 15:10 | P.PN ---
Subjective Progress Note Date: 04/30/24 Principal diagnosis: Reason for follow-up is small bowel obstruction multiple antibiotic allergies Patient is a 53-year-old female with a past medical history significan t for fibromyalgia reflux who was recently admitted to this facility for bowel obstruction patient was diagnosed with a cecal volvulus status post right hemicolectomy on 03/24/2024 subsequently did have large small bowel obstruction status post exploratory laparotomy with lysis of adhesion on 04/03/2024 patient did have a abdominal wall abscess culture positive for Pseudomonas presenting back to the hospital with abdominal pain and distention has been diagnosed with ileus. On today's evaluation that is 04/30/2024,the patient remains to be afebrile, patient is on room air not requiring supplemental oxygen and denies any shortness of breath no chest pain or cough.Patient denies having any nausea or vomiting, abdominal pain has decreased in intensity and has been passing gas. No CBC was done today, creatinine 0.3 CT abdominal pelvis with contrast did shows dilated fluid-filled small bowel loops extending to the right hemicolectomy anastomosis no focal obstruction Objective - Vital Signs Vital signs: Vital Signs Temp 98.5 F 04/30/24 07:10 Pulse 76 04/30/24 07:10 Resp 18 04/30/24 07:10 BP 114/75 04/30/24 07:10 Pulse Ox 100 04/30/24 07:10 FiO2 Intake & Output 04/29/24 04/30/24 04/30/24 18:59 06:59 18:59 Intake Total 354 Balance 354 Intake: Oral 354 Other: Voiding Method Toilet Toilet Bedside Commode Bedside Commode # Voids 3 3 # Bowel Movements 0 1 - Exam GENERAL DESCRIPTION: Middle-age female lying in bed in no distress RESPIRATORY SYSTEM: Unlabored breathing , decreased breath sounds at bases HEART: S1 S2 regular rate and rhythm , ABDOMEN: Soft , mild distention upper abdominal incision did have 2 small wound but no drainage EXTREMITIES: No edema feet - Labs CBC & Chem 7: 04/29/24 04:35 04/30/24 03:32 Labs: Abnormal Lab Results - Last 24 Hours (Table) 04/30/24 Range/Units 03:32 BUN <3.5 L (9.0-27.0) mg/dL Creatinine 0.3 L (0.6-1.5) mg/dL BUN/Creatinine Ratio <11.67 L (12.00-20.00) Ratio Calcium 8.0 L (8.7-10.3) mg/dL Assessment and Plan (1) Allergy to multiple antibiotics Current Visit: Yes Status: Acute Code(s): Z88.1 - ALLERGY STATUS TO OTHER ANTIBIOTIC AGENTS SNOMED Code(s): 358022211 (2) Abdominal pain Current Visit: Yes Status: Acute Code(s): R10.9 - UNSPECIFIED ABDOMINAL PAIN SNOMED Code(s): 39001861 (3) Abdominal wall cellulitis Current Visit: Yes Status: Acute Code(s): L03.311 - CELLULITIS OF ABDOMINAL WALL SNOMED Code(s): 24032607 (4) Open abdominal wall wound Current Visit: Yes Status: Acute Code(s): S31.109A - UNSP OPN WND ABD WALL, UNSP Q W/O PENET PERIT CAV, INIT SNOMED Code(s): 417162481 Plan: 1patient presented to hospital with abdominal pain and distention did have evidence of ileus/small bowel obstruction on the CT concerning for inflammation in this patient who recently did have multiple abdominal surgery initially right hemicolectomy for cecal volvulus subsequently did have a laparotomy with lysis evaluation and during that admission patient did have abdominal wall abscess that was positive for Pseudomonas CT this admission did not show any abscess however tissue was inflammation concerning for possible ileus/obstruction 2patient with multiple antibiotic ALLERGIES that would limit the number of antibiotic safe to use 3patient recently did have a abdominal wall abscess and cellulitis culture positive for Pseudomonas still have 2 small area of the wound which did not heal completely Aquacel silver dressing continue with the cefepime and Flagyl question concern answered Dictation was produced using [employer] software. please excuse any grammatical, word or spelling errors. Time with Patient: Less than 30
--- NOTE | 2024-05-01 08:53 | P.PN ---
Subjective Progress Note Date: 05/01/24 The patient tolerated regular diet last night. She has had no diarrhea or vomiting. On exam vital signs appear stable. Abdomen soft. Resolving partial small bowel obstruction. Patient will be continue to be observed. Objective - Vital Signs Vital signs: Vital Signs Temp 98.4 F 05/01/24 07:29 Pulse 76 05/01/24 07:29 Resp 16 05/01/24 07:29 BP 149/88 05/01/24 07:29 Pulse Ox 98 05/01/24 07:29 FiO2 Intake & Output 04/30/24 05/01/24 05/01/24 18:59 06:59 18:59 Intake Total 354 Output Total 3 Balance 354 -3 Intake: Oral 354 Output: Urine 3 Other: Voiding Method Toilet Bedside Commode # Voids 2 1 - Labs CBC & Chem 7: 04/29/24 04:35 04/30/24 03:32 Labs: Abnormal Lab Results - Last 24 Hours (Table) 04/30/24 Range/Units 03:32 BUN <3.5 L (9.0-27.0) mg/dL Creatinine 0.3 L (0.6-1.5) mg/dL BUN/Creatinine Ratio <11.67 L (12.00-20.00) Ratio Calcium 8.0 L (8.7-10.3) mg/dL
[2024-05-01 12:40] LABS: Magnesium 1.5 mg/dL (1.5-2.4)
[2024-05-01 13:16] LABS: BUN/Creat Ratio <11.67 Ratio (12.00-20.00); Blood Urea Nitrogen <3.5 mg/dL (9.0-27.0); Calcium 8.1 mg/dL (8.7-10.3); Carbon Dioxide 28.2 mmol/L (21.6-31.8); Chloride 102 mmol/L (96-109); Glucose 90 mg/dL (70-110); Sodium 137 mmol/L (135-145)
--- NOTE | 2024-05-01 13:29 | P.PN ---
Subjective Progress Note Date: 05/01/24 Subjective: Patient seen and examined at bedside. No acute events overnight. Continues to have abdominal bloating. Having bowel movements and passing flatus. Pertinent positives and negatives as discussed above, a complete review of systems was performed and all other systems are negative. Vitals Signs Reviewed. General: Nontoxic, no distress, appears at stated age Derm: Warm, dry, incisional site dressing clean, dry, intact Head: Atraumatic, normocephalic, symmetric Eyes: EOMI, no lid lag, anicteric sclera Mouth: No lip lesion, mucus membranes moist Cardiovascular: S1S2 reg, no murmur Lungs: CTA bilateral, no rhonchi, no rales, no accessory muscle use Abdominal: Soft, distended, mildly tender to palpation, no guarding, no appreciable organomegaly Ext: No gross muscle atrophy, no edema, no contractures Neuro: CN II-XI grossly intact, no focal neuro deficits Psych: Alert, oriented, appropriate affect Data Reviewed Today: Pertinent Labs: Sodium 137, potassium 4, magnesium 1.5, creatinine 0.3 Imaging: No new imaging Assessment and Plan: Small bowel obstruction versus ileus Moderate protein calorie malnutrition -Surgery note reviewed, continue observation -ID following, continued on IV cefepime 2 g every 8 hours, Flagyl 500 IV 3 times daily -Currently on normal saline 200 cc an hour, decrease rate if patient able to tolerate more oral intake -Protonix IV 40 daily -Zofran IV as needed -Regular diet, Ensure 3 times daily Provoked upper extremity DVT -Holding Eliquis for now -Increase Lovenox to 40 every 12 hours SQ -Resume Eliquis at time of discharge Resolved: Hypokalemia Hypomagnesemia Chronic: GERD Celiac disease Thank you for allowing us to participate in the care of this pleasant patient. Do not hesitate to contact us with questions. Someone can be reached from the [facility] hospitalist group all hours of the day at [phone] or via perfect serve. Objective - Vital Signs Vital signs: Vital Signs Temp 98.4 F 05/01/24 07:29 Pulse 76 05/01/24 07:29 Resp 16 05/01/24 07:29 BP 149/88 05/01/24 07:29 Pulse Ox 98 05/01/24 07:29 FiO2 Intake & Output 04/30/24 05/01/24 05/01/24 18:59 06:59 18:59 Intake Total 354 118 Output Total 3 Balance 354 115 Intake: Oral 354 118 Output: Urine 3 Other: Voiding Method Toilet Bedside Commode # Voids 2 1 - Labs CBC & Chem 7: 04/29/24 04:35 05/01/24 06:02 Labs: Abnormal Lab Results - Last 24 Hours (Table) 05/01/24 Range/Units 06:02 BUN <3.5 L (9.0-27.0) mg/dL Creatinine 0.3 L (0.6-1.5) mg/dL BUN/Creatinine Ratio <11.67 L (12.00-20.00) Ratio Calcium 8.1 L (8.7-10.3) mg/dL
[2024-05-01] MEDS: ENOXAPARIN 40 MG/0.4 ML SYRINGE SQ SCH (22:09)
[2024-05-02] MEDS: PANTOPRAZOLE 40 MG TABLET PO SCH (06:14)
--- NOTE | 2024-05-02 13:03 | P.PN ---
Subjective Progress Note Date: 05/02/24 Subjective: Patient seen and examined at bedside. No acute events overnight. Continues to have abdominal bloating. Having bowel movements and passing flatus. Pertinent positives and negatives as discussed above, a complete review of systems was performed and all other systems are negative. Vitals Signs Reviewed. General: Nontoxic, no distress, appears at stated age Derm: Warm, dry, incisional site dressing clean, dry, intact Head: Atraumatic, normocephalic, symmetric Eyes: EOMI, no lid lag, anicteric sclera Mouth: No lip lesion, mucus membranes moist Cardiovascular: S1S2 reg, no murmur Lungs: CTA bilateral, no rhonchi, no rales, no accessory muscle use Abdominal: Soft, distended, mildly tender to palpation, no guarding, no appreciable organomegaly Ext: No gross muscle atrophy, no edema, no contractures Neuro: CN II-XI grossly intact, no focal neuro deficits Psych: Alert, oriented, appropriate affect Data Reviewed Today: Pertinent Labs: No new labs Imaging: No new imaging Assessment and Plan: Small bowel obstruction versus ileus Moderate protein calorie malnutrition -Surgery note reviewed, continue observation -ID following, continued on IV cefepime 2 g every 8 hours, Flagyl 500 IV 3 times daily -Currently on normal saline 200 cc an hour, decrease rate if patient able to tolerate more oral intake -Protonix IV 40 daily -Zofran IV as needed -Regular diet, Ensure 3 times daily Provoked upper extremity DVT -Holding Eliquis for now -Continue Lovenox to 40 every 12 hours SQ -Resume Eliquis at time of discharge Resolved: Hypokalemia Hypomagnesemia Chronic: GERD Celiac disease Thank you for allowing us to participate in the care of this pleasant patient. Do not hesitate to contact us with questions. Someone can be reached from the [facility] hospitalist group all hours of the day at [phone] or via Si[employer]. Objective - Vital Signs Vital signs: Vital Signs Temp 98.6 F 05/02/24 07:05 Pulse 74 05/02/24 07:05 Resp 17 05/02/24 07:05 BP 142/86 05/02/24 07:05 Pulse Ox 98 05/02/24 07:05 FiO2 Intake & Output 05/01/24 05/02/24 05/02/24 18:59 06:59 18:59 Intake Total 236 474 Output Total 3 Balance 233 474 Weight 54.431 kg Intake: Oral 236 474 Output: Urine 3 Other: # Voids 4 4 4 # Bowel Movements 1 0 - Labs CBC & Chem 7: 04/29/24 04:35 05/01/24 06:02 Labs: Abnormal Lab Results - Last 24 Hours (Table) 05/01/24 Range/Units 06:02 BUN <3.5 L (9.0-27.0) mg/dL Creatinine 0.3 L (0.6-1.5) mg/dL BUN/Creatinine Ratio <11.67 L (12.00-20.00) Ratio Calcium 8.1 L (8.7-10.3) mg/dL
--- NOTE | 2024-05-02 14:24 | P.PN ---
Subjective Progress Note Date: 05/02/24 Patient has complaints of crampy abdominal pain. She has not had a bowel movement since starting regular diet. On exam vital signs appear stable. Abdomen is soft distended with mild tenderness. Patient CT scan was reviewed with Dr. Mccoy. Patient may have a ileocolonic anastomotic stricture. Patient will have a repeat CT scan performed. She also has evidence of thickened small bowel loops in the right side of the abdomen. Objective - Vital Signs Vital signs: Vital Signs Temp 98.6 F 05/02/24 07:05 Pulse 74 05/02/24 07:05 Resp 17 05/02/24 07:05 BP 142/86 05/02/24 07:05 Pulse Ox 98 05/02/24 07:05 FiO2 Intake & Output 05/01/24 05/02/24 05/02/24 18:59 06:59 18:59 Intake Total 236 474 Output Total 3 Balance 233 474 Weight 54.431 kg Intake: Oral 236 474 Output: Urine 3 Other: # Voids 4 4 4 # Bowel Movements 1 0 - Labs CBC & Chem 7: 04/29/24 04:35 05/01/24 06:02
[2024-05-02] MEDS: IOPAMIDOL CONTRAST (ORAL USE) VIAL PO PRN (14:27)
--- NOTE | 2024-05-02 15:12 | P.PN ---
Subjective Progress Note Date: 05/02/24 Principal diagnosis: Reason for follow-up is small bowel obstruction multiple antibiotic allergies Patient is a 53-year-old female with a past medical history significan t for fibromyalgia reflux who was recently admitted to this facility for bowel obstruction patient was diagnosed with a cecal volvulus status post right hemicolectomy on 03/24/2024 subsequently did have large small bowel obstruction status post exploratory laparotomy with lysis of adhesion on 04/03/2024 patient did have a abdominal wall abscess culture positive for Pseudomonas presenting back to the hospital with abdominal pain and distention has been diagnosed with ileus. On today's evaluation that is 05/02/2024, Patient is afebrile patient is currently on room air and denies having any shortness of breath, the patient denies any chest pain or cough, the patient did have some nausea but no vomiting still complaining of abdominal distention and discomfort but no worsening no bowel movement. No lab draw today Objective - Vital Signs Vital signs: Vital Signs Temp 98.6 F 05/02/24 07:05 Pulse 74 05/02/24 07:05 Resp 17 05/02/24 07:05 BP 142/86 05/02/24 07:05 Pulse Ox 98 05/02/24 07:05 FiO2 Intake & Output 05/01/24 05/02/24 05/02/24 18:59 06:59 18:59 Intake Total 236 474 Output Total 3 Balance 233 474 Weight 54.431 kg Intake: Oral 236 474 Output: Urine 3 Other: # Voids 4 4 4 # Bowel Movements 1 0 - Exam GENERAL DESCRIPTION: Middle-age female lying in bed in no distress RESPIRATORY SYSTEM: Unlabored breathing , decreased breath sounds at bases HEART: S1 S2 regular rate and rhythm , ABDOMEN: Soft , mild distention upper abdominal incision did have 2 small wound but no drainage EXTREMITIES: No edema feet - Labs CBC & Chem 7: 04/29/24 04:35 05/01/24 06:02 Assessment and Plan (1) Allergy to multiple antibiotics Current Visit: Yes Status: Acute Code(s): Z88.1 - ALLERGY STATUS TO OTHER ANTIBIOTIC AGENTS SNOMED Code(s): 866281470 (2) Abdominal pain Current Visit: Yes Status: Acute Code(s): R10.9 - UNSPECIFIED ABDOMINAL PAIN SNOMED Code(s): 15616566 (3) Abdominal wall cellulitis Current Visit: Yes Status: Acute Code(s): L03.311 - CELLULITIS OF ABDOMINAL WALL SNOMED Code(s): 59384756 (4) Open abdominal wall wound Current Visit: Yes Status: Acute Code(s): S31.109A - UNSP OPN WND ABD WALL, UNSP Q W/O PENET PERIT CAV, INIT SNOMED Code(s): 658508834 Plan: 1patient presented to hospital with abdominal pain and distention did have evidence of ileus/small bowel obstruction on the CT concerning for inflammation in this patient who recently did have multiple abdominal surgery initially right hemicolectomy for cecal volvulus subsequently did have a laparotomy with lysis evaluation and during that admission patient did have abdominal wall abscess that was positive for Pseudomonas CT this admission did not show any abscess however tissue was inflammation concerning for possible ileus/obstruction 2patient with multiple antibiotic ALLERGIES that would limit the number of antibiotic safe to use 3patient recently did have a abdominal wall abscess and cellulitis culture positive for Pseudomonas still have 2 small area of the wound which did not heal completely healed local care to continue with the silver dressing 4-there is also concern for possible ileocolonic anastomosis stricture as reported by the surgeon await further recommendation and we will continue with cefepime and Flagyl and monitor clinical course closely Dictation was produced using [employer] dictation software. please excuse any gramm atical, word or spelling errors. Time with Patient: Less than 30
--- NOTE | 2024-05-02 15:12 | P.PN ---
Subjective Progress Note Date: 05/01/24 Principal diagnosis: Reason for follow-up is small bowel obstruction multiple antibiotic allergies Patient is a 53-year-old female with a past medical history significan t for fibromyalgia reflux who was recently admitted to this facility for bowel obstruction patient was diagnosed with a cecal volvulus status post right hemicolectomy on 03/24/2024 subsequently did have large small bowel obstruction status post exploratory laparotomy with lysis of adhesion on 04/03/2024 patient did have a abdominal wall abscess culture positive for Pseudomonas presenting back to the hospital with abdominal pain and distention has been diagnosed with ileus. On today's evaluation that is 05/01/2024, the patient continues to be afebrile, the patient is on room air and breathing comfortably, the Pt denies having any chest pain or cough, the patient continued complaining abdominal pain and distention slightly decreased nausea but no vomiting no bowel movement. Patient did have a creatinine of 0.3 no CBC was done today Objective - Vital Signs Vital signs: Vital Signs Temp 98.4 F 05/01/24 07:29 Pulse 76 05/01/24 07:29 Resp 16 05/01/24 07:29 BP 149/88 05/01/24 07:29 Pulse Ox 98 05/01/24 07:29 FiO2 Intake & Output 04/30/24 05/01/24 05/01/24 18:59 06:59 18:59 Intake Total 354 118 Output Total 3 Balance 354 115 Intake: Oral 354 118 Output: Urine 3 Other: Voiding Method Toilet Bedside Commode # Voids 2 1 - Exam GENERAL DESCRIPTION: Middle-age female lying in bed in no distress RESPIRATORY SYSTEM: Unlabored breathing , decreased breath sounds at bases HEART: S1 S2 regular rate and rhythm , ABDOMEN: Soft , mild distention upper abdominal incision did have 2 small wound but no drainage EXTREMITIES: No edema feet - Labs CBC & Chem 7: 04/29/24 04:35 05/01/24 06:02 Labs: Abnormal Lab Results - Last 24 Hours (Table) 04/30/24 Range/Units 03:32 BUN <3.5 L (9.0-27.0) mg/dL Creatinine 0.3 L (0.6-1.5) mg/dL BUN/Creatinine Ratio <11.67 L (12.00-20.00) Ratio Calcium 8.0 L (8.7-10.3) mg/dL Assessment and Plan (1) Allergy to multiple antibiotics Current Visit: Yes Status: Acute Code(s): Z88.1 - ALLERGY STATUS TO OTHER ANTIBIOTIC AGENTS SNOMED Code(s): 254243981 (2) Abdominal pain Current Visit: Yes Status: Acute Code(s): R10.9 - UNSPECIFIED ABDOMINAL PAIN SNOMED Code(s): 65730864 (3) Abdominal wall cellulitis Current Visit: Yes Status: Acute Code(s): L03.311 - CELLULITIS OF ABDOMINAL WALL SNOMED Code(s): 64212364 (4) Open abdominal wall wound Current Visit: Yes Status: Acute Code(s): S31.109A - UNSP OPN WND ABD WALL, UNSP Q W/O PENET PERIT CAV, INIT SNOMED Code(s): 551129310 Plan: 1patient presented to hospital with abdominal pain and distention did have evidence of ileus/small bowel obstruction on the CT concerning for inflammation in this patient who recently did have multiple abdominal surgery initially right hemicolectomy for cecal volvulus subsequently did have a laparotomy with lysis evaluation and during that admission patient did have abdominal wall abscess that was positive for Pseudomonas CT this admission did not show any abscess however tissue was inflammation concerning for possible ileus/obstruction 2patient with multiple antibiotic ALLERGIES that would limit the number of antibiotic safe to use 3patient recently did have a abdominal wall abscess and cellulitis culture positive for Pseudomonas still have 2 small area of the wound which did not heal completely healed 4-patient to continue with cefepime and Flagyl antibiotic medical course closely Dictation was produced using [employer] dictation software. please excuse any grammatical, word or spelling errors. Time with Patient: Less than 30
[2024-05-02 15:43] LABS: Glucose,Whole Blood 103 mg/dL (70-110)
--- NOTE | 2024-05-02 17:13 | CT ---
EXAMINATION TYPE: CT abdomen pelvis w con CT DLP: 545.4 mGycm, Automated exposure control for dose reduction was used. DATE OF EXAM: 05/02/2024 4:49 PM COMPARISON: 04/29/2024 CLINICAL INDICATION: Female, 53 years old with history of small bowel iflamation/anastomotic strictur e; Small bowel inflammation/anastomotic stricture. Priors in PACS TECHNIQUE: Axial CT abdomen pelvis w con;Sagittal and coronal reformats were created on a separate w orkstation. Contrast used:100ml mL of Isovue 300 with IV Contrast, (none if empty) Oral contrast used: with Oral Contrast (none if empty) FINDINGS: LOWER CHEST: Unremarkable ABDOMEN LIVER: Scattered simple appearing cysts are present. GALLBLADDER AND BILE DUCTS: Gallbladder surgically absent. PANCREAS: Unremarkable. SPLEEN: Unremarkable. ADRENAL GLANDS: Unremarkable. KIDNEYS AND URETERS: No evidence of hydronephrosis or renal calculus. The ureters are unremarkable. PELVIS BLADDER: Unremarkable REPRODUCTIVE: Unremarkable. ABDOMEN & PELVIS STOMACH AND BOWEL: Distended gastric lumen with ingested oral contrast. Oral contrast extends through out the small bowel in the left upper quadrant. The distal small bowel was not evaluated as well.. Th e colon demonstrates some contrast possibly from prior exam in the 28/09/2023. Contrast does extend to the rectum. PERITONEUM/RETROPERITONEUM: No evidence of pneumoperitoneum or free fluid. Edematous mesentery presen t. VASCULATURE: No evidence of aortic aneurysm. MUSCULOSKELETAL: No acute osseous abnormalities, postsurgical changes to the spine. LYMPH NODES: No gross evidence for lymphadenopathy. SOFT TISSUE/ABDOMINAL WALL: Unremarkable IMPRESSION: 1. Most of the new oral contrast is in the gastric lumen. Consider follow-up exam to follow the cont rast in the gastric lumen. 2. Contrast seen in the rectum and colon likely from 04/29/2024 exam. Given oral contrast from prior exam in the rectum complete bowel obstruction is excluded. Partial bowel obstruction may still be pre sent.
[2024-05-03] MEDS: IV FLUID CONTINUATION 1,000 ML IV ONE (11:45)
--- NOTE | 2024-05-03 12:08 | P.PN ---
Subjective Progress Note Date: 05/03/24 CHIEF COMPLAINT: SBO HISTORY OF PRESENT ILLNESS: patient complains of crampy abdominal pain. Denies any bowel movement since starting regular diet. Computed tomography scan reported most of new oral contrast is in the gastric lumen. Partial bowel checked may still be present.afebrile. patient seen and examined with Dr. fuchs PHYSICAL EXAM: VITAL SIGNS: Reviewed. GENERAL: Well-developed in no acute distress. ABDOMEN: Soft. Distended. Nontender. Incision midline with 2 small areas that are scabbed. No drainage noted. NEUROLOGIC: Alert and oriented. Cranial nerves II through XII grossly intact. ASSESSMENT: 1. 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 Patient with recent small bowel and large bowel obstruction status post lysis of adhesions on April 03 3. History of cecal volvulus status post right hemicolectomy 4. History of multiple abdominal surgeries 5. Abdominal incision infection PLAN: -patient scheduled for exploratory laparotomy and small bowel resection today with Dr. Fuchs Physician Costumer Assistant note has been reviewed by physician. Signing provider agrees with the documented findings, assessment, and plan of care. Objective - Vital Signs Vital signs: Vital Signs Temp 98.3 F 05/03/24 06:55 Pulse 75 05/03/24 06:55 Resp 18 05/03/24 06:55 BP 158/87 05/03/24 06:55 Pulse Ox 97 05/03/24 06:55 FiO2 Intake & Output 05/02/24 05/03/24 05/03/24 18:59 06:59 18:59 Intake Total 711 Balance 711 Weight 54.431 kg Intake: Oral 711 Other: # Voids 2 # Bowel Movements 0 - Labs CBC & Chem 7: 04/29/24 04:35 05/01/24 06:02
[2024-05-03] MEDS: DEXAMETHASONE SOD PHOSPHATE 4 MG/ML 1 ML VIAL IVP STA (12:17)
[2024-05-03] MEDS: ACETAMINOPHEN TAB 500 MG TAB PO STA (12:17)
[2024-05-03] MEDS: MIDAZOLAM 2 MG/2 ML VIAL IVP ONE (12:33)
[2024-05-03] MEDS: fentaNYL (PF) 50 MCG/ML 2 ML AMP IVP ONE (12:33)
--- NOTE | 2024-05-03 12:37 | P.PN ---
Subjective Progress Note Date: 05/03/24 Subjective: Patient seen and examined at bedside. No acute events overnight. Continues to have abdominal bloating and cramping pain. Pertinent positives and negatives as discussed above, a complete review of systems was performed and all other systems are negative. Vitals Signs Reviewed. General: Nontoxic, no distress, appears at stated age Derm: Warm, dry, incisional site dressing clean, dry, intact Head: Atraumatic, normocephalic, symmetric Eyes: EOMI, no lid lag, anicteric sclera Mouth: No lip lesion, mucus membranes moist Cardiovascular: S1S2 reg, no murmur Lungs: CTA bilateral, no rhonchi, no rales, no accessory muscle use Abdominal: Soft, distended, mildly tender to palpation, no guarding, no appreciable organomegaly Ext: No gross muscle atrophy, no edema, no contractures Neuro: CN II-XI grossly intact, no focal neuro deficits Psych: Alert, oriented, appropriate affect Data Reviewed Today: Pertinent Labs: No new labs Imaging: CT abdomen pelvis showed oral contrast in the gastric lumen which was all new. Contrast seen in rectum and colon from previous exam. Likely has partial bowel obstruction. Assessment and Plan: Partial small bowel obstruction Ileus Moderate protein calorie malnutrition -Surgery note reviewed, scheduled for ex lap and small bowel resection -ID following, continued on IV cefepime 2 g every 8 hours, Flagyl 500 IV 3 times daily -Currently on normal saline 200 cc an hour -Protonix IV 40 daily -Zofran IV as needed Provoked upper extremity DVT -Holding Eliquis for now -Continue Lovenox to 40 every 12 hours SQ, holding for surgery, resume when cleared by surgery -Resume Eliquis at time of discharge Resolved: Hypokalemia Hypomagnesemia Chronic: GERD Celiac disease Thank you for allowing us to participate in the care of this pleasant patient. Do not hesitate to contact us with questions. Someone can be reached from the [facility] hospitalist group all hours of the day at [phone] or via perfect serve. Objective - Vital Signs Vital signs: Vital Signs Temp 98.3 F 05/03/24 06:55 Pulse 80 05/03/24 11:45 Resp 18 05/03/24 06:55 BP 162/82 05/03/24 11:45 Pulse Ox 99 05/03/24 11:45 FiO2 Intake & Output 05/02/24 05/03/24 05/03/24 18:59 06:59 18:59 Intake Total 711 Balance 711 Weight 54.431 kg Intake: Oral 711 Other: Voiding Method Toilet Bedside Commode # Voids 2 # Bowel Movements 0 - Labs CBC & Chem 7: 04/29/24 04:35 05/01/24 06:02
--- NOTE | 2024-05-03 12:46 | P.ANPRN ---
Procedure Note - Anesthesia - Nerve Block Performed Bilateral Rectus Abdominis Single Time Out Performed: Yes ([id number]) Date of Procedure: 05/03/24 Procedure Start Time: 12:33 Procedure Stop Time: 12:38 Location of Patient: PreOp Indication: Acute Post-Operative Pain, Requested by Surgeon Specifically requested for management of pain by DrMarta: Isaías Denney Sedation Type: Sedate with meaningful contact maintained Preparation: Sterile Prep Position: Supine Catheter: None Needle Types: Pajunk Needle Gauge: 21 Ultrasound used to visualize needle placement: Yes Ultrasound used to observe medication spread: Yes Injectate: 0.5% Ropivacaine (see comment for volume) (15cc +10cc nacl pf each side) Blood Aspirated: No Pain Paresthesia on Injection Noted: No Resistance on Injection: Normal Image Stored and Saved: Yes Events: Uneventful and Well Tolerated
[2024-05-03] MEDS ORDERED: KETAMINE HCL IN 0.9 % NACL 50 MG/5 ML SYRINGE ONE (12:54)
[2024-05-03] MEDS ORDERED: GLYCOPYRROLATE 0.2 MG/ML 2 ML VIAL ONE (12:54)
[2024-05-03] MEDS ORDERED: ROCURONIUM 10 MG/ML (5 ML VIAL) IV ONE (12:54)
[2024-05-03] MEDS ORDERED: MIDAZOLAM 2 MG/2 ML VIAL ONE (12:54)
[2024-05-03] MEDS ORDERED: LIDOCAINE 1% INJ 10MG/ML (20 ML MDV) ONE (12:54)
[2024-05-03] MEDS ORDERED: NEOSTIGMINE 1 MG/ML 10 ML VIAL ONE (12:54)
[2024-05-03] MEDS ORDERED: SODIUM CHLORIDE 0.9% (PF) 10 ML VIAL ONE (12:54)
[2024-05-03] MEDS ORDERED: PHENYLEPHRINE-0.9% NACL SYG 1,000 MCG/10 ML SYRINGE ONE (12:54)
[2024-05-03] MEDS ORDERED: fentaNYL (PF) 50 MCG/ML 2 ML AMP ONE (12:54)
[2024-05-03] MEDS ORDERED: SUCCINYLCHOLINE CHLORIDE 200 MG/10 ML VIAL IV ONE (12:54)
[2024-05-03] MEDS ORDERED: PROPOFOL 10 MG/ML 20 ML VIAL IV ONE (12:54)
[2024-05-03] MEDS ORDERED: ROPIVACAINE 5 MG/ML 30 ML VIAL ONE (12:54)
[2024-05-03] MEDS ORDERED: HEPARIN SODIUM,PORCINE 5,000 UNIT/ML 1 ML VIAL ONE (12:54)
[2024-05-03 12:58] LABS: Partial Thromboplastin Time 28.1 sec (22.0-30.0); Prothrombin Time 11.3 sec (10.0-12.5)
[2024-05-03] MEDS: LACTATED RINGERS 1,000 ML IV ONE (14:10)
[2024-05-03] MEDS: HYDROmorphone 0.5 MG/0.5 ML SYRINGE IVP STA (14:54)
[2024-05-03] MEDS: droPERidol 5 MG/2 ML VIAL IVP ONE (15:27)
[2024-05-03] MEDS: HYDROmorphone 1 MG/ML 1 ML SYRINGE IVP PRN (20:40)
[2024-05-03] MEDS: ACETAMINOPHEN IV (For NPO) 1,000 MG in EMPTY BAG 1 BAG IVPB SCH (20:43)
--- NOTE | 2024-05-04 07:48 | P.PN ---
Subjective Progress Note Date: 05/03/24 Principal diagnosis: Reason for follow-up is small bowel obstruction multiple antibiotic allergies Patient is a 53-year-old female with a past medical history significan t for fibromyalgia reflux who was recently admitted to this facility for bowel obstruction patient was diagnosed with a cecal volvulus status post right hemicolectomy on 03/24/2024 subsequently did have large small bowel obstruction status post exploratory laparotomy with lysis of adhesion on 04/03/2024 patient did have a abdominal wall abscess culture positive for Pseudomonas presenting back to the hospital with abdominal pain and distention has been diagnosed with ileus. On today's evaluation that is 05/03/2024, patient has been afebrile, patient is breathing comfortably and is currently on room air, patient denies having any significant cough no chest pain shortness of breath, patient still complaining of some nausea but no vomiting abdominal distention and discomfort and no bowel movement Patient did have INR of 1.0 no CBC or BMP was done today Objective - Vital Signs Vital signs: Vital Signs Temp 98.1 F 05/03/24 03:41 Pulse 102 H 05/03/24 03:41 Resp 18 05/03/24 03:41 BP 133/91 05/03/24 03:41 Pulse Ox 96 05/03/24 03:41 FiO2 - Exam GENERAL DESCRIPTION: Middle-age female lying in bed in no distress RESPIRATORY SYSTEM: Unlabored breathing , decreased breath sounds at bases HEART: S1 S2 regular rate and rhythm , ABDOMEN: Soft , mild distention upper abdominal incision did have 2 small wound but no drainage EXTREMITIES: No edema feet - Labs CBC & Chem 7: 05/04/24 11:01 05/04/24 08:52 Assessment and Plan (1) Allergy to multiple antibiotics Current Visit: Yes Status: Acute Code(s): Z88.1 - ALLERGY STATUS TO OTHER ANTIBIOTIC AGENTS SNOMED Code(s): 571783406 (2) Abdominal pain Current Visit: Yes Status: Acute Code(s): R10.9 - UNSPECIFIED ABDOMINAL PAIN SNOMED Code(s): 74575804 (3) Abdominal wall cellulitis Current Visit: Yes Status: Acute Code(s): L03.311 - CELLULITIS OF ABDOMINAL WALL SNOMED Code(s): 55850294 (4) Open abdominal wall wound Current Visit: Yes Status: Acute Code(s): S31.109A - UNSP OPN WND ABD WALL, UNSP Q W/O PENET PERIT CAV, INIT SNOMED Code(s): 031388876 Plan: 1patient presented to hospital with abdominal pain and distention did have evidence of ileus/small bowel obstruction on the CT concerning for inflammation in this patient who recently did have multiple abdominal surgery initially right hemicolectomy for cecal volvulus subsequently did have a laparotomy with lysis evaluation and during that admission patient did have abdominal wall abscess that was positive for Pseudomonas CT this admission did not show any abscess however tissue was inflammation concerning for possible ileus/obstruction 2patient with multiple antibiotic ALLERGIES that would limit the number of antibiotic safe to use 3patient recently did have a abdominal wall abscess and cellulitis culture positive for Pseudomonas still have 2 small area of the wound which did not heal completely healed local care to continue with the silver dressing 4-with persistent ileus and possible stenosis at the anastomosis site patient is scheduled for surgery this afternoon we will continue patient on cefepime and Flagyl and monitor clinical course closely Question concern answered Dictation was produced using [employer] dictation software. please excuse any grammatical, word or spelling errors. Time with Patient: Less than 30
[2024-05-04 09:33] LABS: Basophils % (A) 0 %; Eosinophils # (A) 0.1 k/uL (0-0.7); Eosinophils % (A) 1 %; HCT 40.6 % (34.0-46.0); HGB 13.2 gm/dL (11.4-16.0); Hypochromasia Slight; Lymphocytes # (A) 1.1 k/uL (1.0-4.8); Lymphocytes % (A) 10 %; MCH 30.1 pg (25.0-35.0); MCHC 32.5 g/dL (31.0-37.0); MCV 92.6 fL (80.0-100.0); Mean Platelet Volume 7.1; Monocytes # (A) 0.8 k/uL (0-1.0); Monocytes % (A) 7 %; Neutrophils % (A) 81 %; Platelet Count 797 k/uL (150-450); RBC 4.39 m/uL (3.80-5.40); RDW 13.3 % (11.5-15.5); WBC 11.2 k/uL (3.8-10.6)
[2024-05-04 09:53] LABS: African American GFR (CKD) >90 (>60 ml/min/1.73 sqM); Anion Gap 4 mmol/L; Blood Urea Nitrogen 8 mg/dL (7-17); Calcium 8.9 mg/dL (8.4-10.2); Carbon Dioxide 33 mmol/L (22-30); Chloride 94 mmol/L (98-107); Glucose 123 mg/dL (74-99); Non-African American GFR(CKD) >90 (>60 ml/min/1.73 sqM); Potassium 4.5 mmol/L (3.5-5.1); Sodium 131 mmol/L (137-145)
[2024-05-04] MEDS: DEXTROSE 5%-0.45% NACL 1,000 ML IV SCH (10:33)
[2024-05-04] MEDS: PANTOPRAZOLE 40 MG/10 ML VIAL IVP SCH (10:33)
[2024-05-04 11:29] LABS: Basophils % (A) 0 %; Eosinophils # (A) 0.1 k/uL (0-0.7); Eosinophils % (A) 1 %; HCT 40.4 % (34.0-46.0); HGB 12.9 gm/dL (11.4-16.0); Hypochromasia Slight; Lymphocytes # (A) 1.1 k/uL (1.0-4.8); Lymphocytes % (A) 10 %; MCH 29.6 pg (25.0-35.0); MCHC 31.9 g/dL (31.0-37.0); MCV 92.7 fL (80.0-100.0); Monocytes # (A) 0.7 k/uL (0-1.0); Monocytes % (A) 6 %; Neutrophils # (A) 8.8 k/uL (1.3-7.7); Neutrophils % (A) 82 %; Platelet Count 814 k/uL (150-450); RBC 4.36 m/uL (3.80-5.40); RDW 13.3 % (11.5-15.5); WBC 10.8 k/uL (3.8-10.6)
[2024-05-04] MEDS: CEFEPIME 2 GM in SODIUM CHLORIDE 0.9% 100 ML IVPB SCH (12:41)
--- NOTE | 2024-05-04 13:15 | P.PN ---
Subjective Progress Note Date: 05/04/24 Subjective: Patient seen and examined at bedside. No acute events overnight. Some abdominal pain, NG tube in place Pertinent positives and negatives as discussed above, a complete review of sy stems was performed and all other systems are negative. Vitals Signs Reviewed. General: Nontoxic, no distress, appears at stated age Derm: Warm, dry, incisional site dressing clean, dry, intact, wound VAC in place, Head: Atraumatic, normocephalic, symmetric Eyes: EOMI, no lid lag, anicteric sclera Mouth: No lip lesion, mucus membranes moist Cardiovascular: S1S2 reg, no murmur Lungs: CTA bilateral, no rhonchi, no rales, no accessory muscle use Abdominal: Soft, distended, mildly tender to palpation, no guarding, no appreciable organomegaly, NG tube with dark gastric content Ext: No gross muscle atrophy, no edema, no contractures Neuro: CN II-XI grossly intact, no focal neuro deficits Psych: Alert, oriented, appropriate affect Data Reviewed Today: Pertinent Labs: WBC 10.8, LAD 814, hemoglobin 12.9, sodium 131, bicarb 33, creatinine 0.43, magnesium 1.6 Imaging: No new imaging Assessment and Plan: Partial small bowel obstruction status post surgery Ileus Moderate protein calorie malnutrition -Surgery following, status post ex lap and small bowel resection, -ID following, continued on IV cefepime 2 g every 8 hours, Flagyl 500 IV 3 times daily -Currently on normal saline 200 cc an hour -Protonix IV 40 daily -Zofran IV as needed -On IV Tylenol, IV Dilaudid as needed, monitor for sedation Provoked upper extremity DVT -Holding Eliquis for now -Continue Lovenox to 40 every 12 hours SQ -Resume Eliquis at time of discharge Mild hyponatremia Contraction alkalosis -Likely hypovolemic in the setting of increased gastric output from NG tube as well as being n.p.o. -Discontinue D5 half-normal saline, started on lactated Ringer's with dextrose. At 125 cc an hour Resolved: Hypokalemia Hypomagnesemia Chronic: GERD Celiac disease Thank you for allowing us to participate in the care of this pleasant patient. Do not hesitate to contact us with questions. Someone can be reached from the [facility] hospitalist group all hours of the day at [phone] or via perfect serve. Objective - Vital Signs Vital signs: Vital Signs Temp 98.1 F 05/04/24 06:48 Pulse 106 H 05/04/24 06:48 Resp 17 05/04/24 08:26 BP 137/92 05/04/24 06:48 Pulse Ox 94 L 05/04/24 06:48 FiO2 Intake & Output 05/03/24 05/04/24 05/04/24 18:59 06:59 18:59 Intake Total 1400 0 Output Total 500 700 Balance 900 -700 0 Intake: IV 1400 Oral 0 Output: Urine 450 700 Estimated Blood Loss 50 Other: Voiding Method Toilet Indwelling Catheter Indwelling Catheter Bedside Commode # Voids 0 # Bowel Movements 0 - Labs CBC & Chem 7: 05/04/24 11:01 05/04/24 08:52 Labs: Abnormal Lab Results - Last 24 Hours (Table) 05/04/24 05/04/24 05/04/24 Range/Units 08:52 08:52 11:01 WBC 11.2 H 10.8 H (3.8-10.6) k/uL Plt Count 797 H 814 H (150-450) k/uL Neutrophils # 9.0 H 8.8 H (1.3-7.7) k/uL Sodium 131 L (137-145) mmol/L Chloride 94 L (98-107) mmol/L Carbon Dioxide 33 H (22-30) mmol/L Creatinine 0.43 L (0.52-1.04) mg/dL Glucose 123 H (74-99) mg/dL
--- NOTE | 2024-05-04 13:37 | P.OP ---
Date of Procedure: 05/03/24 Description of Procedure: Preoperative Diagnosis: Small bowel obstruction Postoperative Diagnosis: Small bowel obstruction Extensive adhesions Adhesions causing internal hernia Anastomotic stricture Procedure(s) Performed: Exploratory laparotomy Colectomy with resection of ileal colonic anastomosis partial omentectomy y Anesthesia: JAY Surgeon: Isaías Denney Estimated Blood Loss (ml): 50 Pathology: other (Colon, small bowel s anastomosis) Condition: stable Disposition: PACU Description of Procedure: The patient was placed on the operative table in the supine position. She received general trach tube anesthesia. Her abdomen was prepped and draped in the sterile fashion. The abdomen centered through the midline scar. Upon in the abdomen there was extensive adhesions. The bowel was quite dilated. The small bowel appeared to be approximately 5 to 6 cm diameter. There were extensive adhesions throughout the small bowel. Approximately 35 minutes of our time use Elase adhesions. There was evidence of a possible internal hernia due to adhesions. The small bowel lysis of adhesions was run from the jejunum to the level of the ileocolonic anastomosis. Due to the CT findings of possible anastomotic stricture. It was decided to perform an excision of the anastomosis and a new ileocolonic anastomosis. The small bowel was transected with a CHARLOTTE stapler approximately 20 cm proximal to the anastomosis. And then the colon was transected with the CHARLOTTE stapler just distal to the anastomosis. Using the LigaSure device the best of the bowel was divided. The specimen of the pathology. There was also portion of omentum splint that appeared to be nonviable. A [id number] functional end-to-end stapled mass was then created using a [place]LOTTE and TA still present through GI silk suture. The wound on the mesentery was closed with 3-0 GI silk suture. The abdomen. There is no blee ding seen. The left colon and sigmoid colon very redundant. There was no sign of any other mechanical obstruction. The fascia was then closed with looped #1 PDS suture. Skin was closed jesus. Patient was sent to the recovery room in stable condition.
--- NOTE | 2024-05-04 13:40 | P.PN ---
Subjective Progress Note Date: 05/04/24 CHIEF COMPLAINT: SBO HISTORY OF PRESENT ILLNESS: Patient postop day #1 status post exploratory laparotomy, colectomy with resection of ileocolonic anastomosis and partial omentectomy, and lysis of adhesions. Patient complains of abdominal pain. She did report nausea and heartburn. NG tube with 700 mL dark output. Patient does report her abdomen distention is much better since surgery. Unfortunately patient had high blood pressure and her fluids were decreased. Patient does report feeling dry and thirsty. Her urine is dark. And she is mildly tachycardic. Patient does complain of her back pain. Afebrile. WBC 10.8 Hgb 12.9 sodium 131 potassium is 4.5 creatinine 0.43 magnesium 1.6 PHYSICAL EXAM: VITAL SIGNS: Reviewed. GENERAL: Well-developed in no acute distress. ABDOMEN: Soft. Nondistended. Prevena wound VAC not holding suctioning. Diffuse tenderness with palpation NEUROLOGIC: Alert and oriented. Cranial nerves II through XII grossly intact. ASSESSMENT: 1. Small bowel obstruction and anastomotic stricture 2. Abdominal incision infection 3. Hypomagnesemia PLAN: -patient scheduled for exploratory laparotomy and small bowel resection today with Dr. Denney -Antibiotics per ID service -Keep patient n.p.o. except for ice chips -New Prevena wound VAC ordered due to it malfunctioning -Resume D5 half-normal saline at 125 mL/h -Repeat labs in a.m. -Replace magnesium and repeat labs in a.m. -Continue DVT prophylaxis Lovenox and GI prophylaxis Protonix Physician Correspondence Dictator note has been reviewed by physician. Signing provider agrees with the documented findings, assessment, and plan of care. Objective - Vital Signs Vital signs: Vital Signs Temp 98.1 F 05/04/24 06:48 Pulse 106 H 05/04/24 06:48 Resp 17 05/04/24 08:26 BP 137/92 05/04/24 06:48 Pulse Ox 94 L 05/04/24 06:48 FiO2 Intake & Output 05/03/24 05/04/24 05/04/24 18:59 06:59 18:59 Intake Total 1400 0 Output Total 500 700 Balance 900 -700 0 Intake: IV 1400 Oral 0 Output: Urine 450 700 Estimated Blood Loss 50 Other: Voiding Method Toilet Indwelling Catheter Indwelling Catheter Bedside Commode # Voids 0 # Bowel Movements 0 - Labs CBC & Chem 7: 05/04/24 11:01 05/04/24 08:52 Labs: Abnormal Lab Results - Last 24 Hours (Table) 05/04/24 05/04/24 05/04/24 Range/Units 08:52 08:52 11:01 WBC 11.2 H 10.8 H (3.8-10.6) k/uL Plt Count 797 H 814 H (150-450) k/uL Neutrophils # 9.0 H 8.8 H (1.3-7.7) k/uL Sodium 131 L (137-145) mmol/L Chloride 94 L (98-107) mmol/L Carbon Dioxide 33 H (22-30) mmol/L Creatinine 0.43 L (0.52-1.04) mg/dL Glucose 123 H (74-99) mg/dL
[2024-05-04] MEDS ORDERED: CEFEPIME 2 GM in SODIUM CHLORIDE 0.9% 100 ML IVPB SCH (16:00)
[2024-05-04] MEDS: KETOROLAC 15 MG/ML 1 ML VIAL IVP SCH (16:14)
[2024-05-04] MEDS: MAGNESIUM SULFATE-D5W PMX 1 GM in DEXTROSE/WATER 1 100ML.BAG IVPB ONE (16:44)
[2024-05-04] MEDS: metroNIDAZOLE-NS PMX 500 MG in SALINE 1 100ML.BAG IVPB SCH (16:44)
[2024-05-04] MEDS: DEXTROSE 5%-LACTATED RINGERS 1,000 ML IV SCH (17:13)
--- NOTE | 2024-05-05 08:24 | P.PN ---
Subjective Progress Note Date: 05/04/24 Principal diagnosis: Reason for follow-up is small bowel obstruction multiple antibiotic allergies Patient is a 53-year-old female with a past medical history significan t for fibromyalgia reflux who was recently admitted to this facility for bowel obstruction patient was diagnosed with a cecal volvulus status post right hemicolectomy on 03/24/2024 subsequently did have large small bowel obstruction status post exploratory laparotomy with lysis of adhesion on 04/03/2024 patient did have a abdominal wall abscess culture positive for Pseudomonas presenting back to the hospital with abdominal pain and distention has been diagnosed with ileus.Patient is status post exploratory laparotomy colectomy with resection of ileocolonic anastomosis procedure completed on 05/03/2024 On today's evaluation that is 05/04/2024, Patient is afebrile this morning patient denies having any chest pain shortness of breath or cough, the patient is breathing comfortably and currently on room air, patient has been complaining of more abdominal pain distention did have NG no bowel movement or passing any gas. Patient white count is 11.2 creatinine 0.43 Objective - Vital Signs Vital signs: Vital Signs Temp 98.6 F 05/04/24 14:05 Pulse 89 05/04/24 14:05 Resp 17 05/04/24 14:05 BP 136/83 05/04/24 14:05 Pulse Ox 97 05/04/24 14:05 FiO2 Intake & Output 05/03/24 05/04/24 05/04/24 18:59 06:59 18:59 Intake Total 1400 0 Output Total 500 700 Balance 900 -700 0 Intake: IV 1400 Oral 0 Output: Urine 450 700 Estimated Blood Loss 50 Other: Voiding Method Toilet Indwelling Catheter Indwelling Catheter Bedside Commode # Voids 0 # Bowel Movements 0 - Exam GENERAL DESCRIPTION: Middle-age female lying in bed in no distress RESPIRATORY SYSTEM: Unlabored breathing , decreased breath sounds at bases HEART: S1 S2 regular rate and rhythm , ABDOMEN: Soft , mild distention upper abdominal incision did have 2 small wound but no drainage EXTREMITIES: No edema feet - Labs CBC & Chem 7: 05/04/24 11:01 05/04/24 08:52 Labs: Abnormal Lab Results - Last 24 Hours (Table) 05/04/24 05/04/24 05/04/24 Range/Units 08:52 08:52 11:01 WBC 11.2 H 10.8 H (3.8-10.6) k/uL Plt Count 797 H 814 H (150-450) k/uL Neutrophils # 9.0 H 8.8 H (1.3-7.7) k/uL Sodium 131 L (137-145) mmol/L Chloride 94 L (98-107) mmol/L Carbon Dioxide 33 H (22-30) mmol/L Creatinine 0.43 L (0.52-1.04) mg/dL Glucose 123 H (74-99) mg/dL Assessment and Plan (1) Allergy to multiple antibiotics Current Visit: Yes Status: Acute Code(s): Z88.1 - ALLERGY STATUS TO OTHER ANTIBIOTIC AGENTS SNOMED Code(s): 588759150 (2) Abdominal pain Current Visit: Yes Status: Acute Code(s): R10.9 - UNSPECIFIED ABDOMINAL PAIN SNOMED Code(s): 79578134 (3) Abdominal wall cellulitis Current Visit: Yes Status: Acute Code(s): L03.311 - CELLULITIS OF ABDOMINAL WALL SNOMED Code(s): 61487850 (4) Open abdominal wall wound Current Visit: Yes Status: Acute Code(s): S31.109A - UNSP OPN WND ABD WALL, UNSP Q W/O PENET PERIT CAV, INIT SNOMED Code(s): 133675705 Plan: 1patient presented to hospital with abdominal pain and distention did have evidence of ileus/small bowel obstruction on the CT concerning for inflammation in this patient who recently did have multiple abdominal surgery initially right hemicolectomy for cecal volvulus subsequently did have a laparotomy with lysis evaluation and during that admission patient did have abdominal wall abscess that was positive for Pseudomonas CT this admission did not show any abscess however tissue was inflammation concerning for possible ileus/obstruction 2patient with multiple antibiotic ALLERGIES that would limit the number of antibiotic safe to use 3patient recently did have a abdominal wall abscess and cellulitis culture positive for Pseudomonas still have 2 small area of the wound which did not heal completely healed local care to continue with the silver dressing 4-patient is status post laparotomy with ileocolectomy and ileocolonic anastomosis did not mention any abscess, patient is currently covered with the cefepime and Flagyl which has been switched to IV and will monitor clinical course closely Dictation was produced using dragon dictation software. please excuse any grammatical, word or spelling errors. Time with Patient: Less than 30
[2024-05-05 08:52] LABS: Basophils # (A) 0.03 X 10*3/uL (0.00-0.10); Basophils % (A) 0.3 %; Eosinophils # (A) 0.66 X 10*3/uL (0.04-0.35); Eosinophils % (A) 6.3 %; HCT 32.5 % (37.2-46.3); HGB 10.8 g/dL (12.0-15.0); Lymphocytes # (A) 1.46 X 10*3/uL (0.90-5.00); MCHC 33.2 g/dL (32.0-37.0); MCV 93.4 FL (80.0-97.0); Monocytes # (A) 1.03 X 10*3/uL (0.20-1.00); Monocytes % (A) 9.9 %; NRBC Per 100 WBC 0 X 10*3/uL (0.00-0.01); Neutrophils # (A) 7.19 X 10*3/uL (1.80-7.70); Platelet Count 646 X 10*3/uL (140-440); RBC 3.48 X 10*6/uL (4.10-5.20); RDW 13.3 % (11.5-14.5); WBC 10.42 X 10*3/uL (4.50-10.00)
[2024-05-05 09:33] LABS: Blood Urea Nitrogen 9.8 mg/dL (9.0-27.0); Calcium 8.6 mg/dL (8.7-10.3); Carbon Dioxide 33.2 mmol/L (21.6-31.8); Chloride 97 mmol/L (96-109); Glucose 90 mg/dL (70-110); Potassium 3.8 mmol/L (3.5-5.5); Sodium 138 mmol/L (135-145)
--- NOTE | 2024-05-05 12:29 | P.PN ---
Subjective Progress Note Date: 05/05/24 CHIEF COMPLAINT: SBO HISTORY OF PRESENT ILLNESS: Patient postop day #2 status post exploratory laparotomy, colectomy with resection of ileocolonic anastomosis and partial omentectomy, and lysis of adhesions. Patient reports her pain is better controlled today. Has NG tube in place. No bowel activity. Afebrile. Elevated BP has improved. WBC 10.42 Hgb 10.8 platelets 646 sodium 138 potassium 3.8 creatinine 0.4 Patient seen and examined with Dr. Denney PHYSICAL EXAM: VITAL SIGNS: Reviewed. GENERAL: Well-developed in no acute distress. ABDOMEN: Soft. Nondistended. Prevena wound VAC intact NEUROLOGIC: Alert and oriented. Cranial nerves II through XII grossly intact. ASSESSMENT: 1. Small bowel obstruction and anastomotic stricture 2. Abdominal incision infection 3. Hypomagnesemia PLAN: -Continue NG tube for decompression -Discontinue Villa catheter -Antibiotics per ID service -Keep patient n.p.o. except for ice chips -New Prevena wound VAC ordered due to it malfunctioning -Continue IV fluids -Continue pain management -Encourage patient to ambulate -Encourage patient to use incentive spirometer -Continue DVT prophylaxis Lovenox and GI prophylaxis Protonix Physician Applications Chemist note has been reviewed by physician. Signing provider agrees with the documented findings, assessment, and plan of care. Objective - Vital Signs Vital signs: Vital Signs Temp 98.5 F 05/05/24 06:50 Pulse 82 05/05/24 06:50 Resp 15 05/05/24 08:00 BP 114/72 05/05/24 06:50 Pulse Ox 95 05/05/24 06:50 FiO2 Intake & Output 05/04/24 05/05/24 05/05/24 18:59 06:59 18:59 Intake Total 0 Output Total 300 200 Balance -300 -200 Intake: Oral 0 Output: Urine 300 200 Other: Voiding Method Indwelling Catheter Indwelling Catheter Indwelling Catheter # Bowel Movements 0 - Labs CBC & Chem 7: 05/05/24 04:03 05/05/24 04:03 Labs: Abnormal Lab Results - Last 24 Hours (Table) 05/05/24 05/05/24 Range/Units 04:03 04:03 WBC 10.42 H (4.50-10.00) X 10*3/uL RBC 3.48 L (4.10-5.20) X 10*6/uL Hgb 10.8 L (12.0-15.0) g/dL Hct 32.5 L (37.2-46.3) % Plt Count 646 H (140-440) X 10*3/uL Immature Gran # 0.05 H (0.00-0.04) X 10*3/uL Monocytes # 1.03 H (0.20-1.00) X 10*3/uL Eosinophils # 0.66 H (0.04-0.35) X 10*3/uL Carbon Dioxide 33.2 H (21.6-31.8) mmol/L Creatinine 0.4 L (0.6-1.5) mg/dL BUN/Creatinine Ratio 24.50 H (12.00-20.00) Ratio Calcium 8.6 L (8.7-10.3) mg/dL
--- NOTE | 2024-05-05 14:37 | P.PN ---
Subjective Progress Note Date: 05/05/24 Principal diagnosis: Reason for follow-up is small bowel obstruction multiple antibiotic allergies Patient is a 53-year-old female with a past medical history significan t for fibromyalgia reflux who was recently admitted to this facility for bowel obstruction patient was diagnosed with a cecal volvulus status post right hemicolectomy on 03/24/2024 subsequently did have large small bowel obstruction status post exploratory laparotomy with lysis of adhesion on 04/03/2024 patient did have a abdominal wall abscess culture positive for Pseudomonas presenting back to the hospital with abdominal pain and distention has been diagnosed with ileus.Patient is status post exploratory laparotomy colectomy with resection of ileocolonic anastomosis procedure completed on 05/03/2024 On today's evaluation that is 05/05/2024,the patient denies any fever or any chills, patient is breathing comfortably on room air, the patient denies chest pain shortness of breath and no significant cough, patient complaining of pain mostly the right side of her abdominal area. Controlled with pain medication still having the NG has not passed any gas yet. Patient white count is 10.4, creatinine 0.4 Objective - Vital Signs Vital signs: Vital Signs Temp 98.5 F 05/05/24 06:50 Pulse 82 05/05/24 06:50 Resp 15 05/05/24 08:00 BP 114/72 05/05/24 06:50 Pulse Ox 95 05/05/24 06:50 FiO2 Intake & Output 05/04/24 05/05/24 05/05/24 18:59 06:59 18:59 Intake Total 0 Output Total 300 200 Balance -300 -200 Intake: Oral 0 Output: Urine 300 200 Other: Voiding Method Indwelling Catheter Indwelling Catheter Indwelling Catheter # Bowel Movements 0 - Exam GENERAL DESCRIPTION: Middle-age female lying in bed in no distress RESPIRATORY SYSTEM: Unlabored breathing , decreased breath sounds at bases HEART: S1 S2 regular rate and rhythm , ABDOMEN: Soft , mild distention upper abdominal incision did have 2 small wound but no drainage EXTREMITIES: No edema feet - Labs CBC & Chem 7: 05/05/24 04:03 05/05/24 04:03 Labs: Abnormal Lab Results - Last 24 Hours (Table) 05/05/24 05/05/24 Range/Units 04:03 04:03 WBC 10.42 H (4.50-10.00) X 10*3/uL RBC 3.48 L (4.10-5.20) X 10*6/uL Hgb 10.8 L (12.0-15.0) g/dL Hct 32.5 L (37.2-46.3) % Plt Count 646 H (140-440) X 10*3/uL Immature Gran # 0.05 H (0.00-0.04) X 10*3/uL Monocytes # 1.03 H (0.20-1.00) X 10*3/uL Eosinophils # 0.66 H (0.04-0.35) X 10*3/uL Carbon Dioxide 33.2 H (21.6-31.8) mmol/L Creatinine 0.4 L (0.6-1.5) mg/dL BUN/Creatinine Ratio 24.50 H (12.00-20.00) Ratio Calcium 8.6 L (8.7-10.3) mg/dL Assessment and Plan (1) Allergy to multiple antibiotics Current Visit: Yes Status: Acute Code(s): Z88.1 - ALLERGY STATUS TO OTHER ANTIBIOTIC AGENTS SNOMED Code(s): 787497995 (2) Abdominal pain Current Visit: Yes Status: Acute Code(s): R10.9 - UNSPECIFIED ABDOMINAL PAIN SNOMED Code(s): 09656634 (3) Abdominal wall cellulitis Current Visit: Yes Status: Acute Code(s): L03.311 - CELLULITIS OF ABDOMINAL WALL SNOMED Code(s): 55432573 (4) Open abdominal wall wound Current Visit: Yes Status: Acute Code(s): S31.109A - UNSP OPN WND ABD WALL, UNSP Q W/O PENET PERIT CAV, INIT SNOMED Code(s): 142837493 Plan: 1patient presented to hospital with abdominal pain and distention did have evidence of ileus/small bowel obstruction on the CT concerning for inflammation in this patient who recently did have multiple abdominal surgery initially right hemicolectomy for cecal volvulus subsequently did have a laparotomy with lysis evaluation and during that admission patient did have abdominal wall abscess that was positive for Pseudomonas CT this admission did not show any abscess however tissue was inflammation concerning for possible ileus/obstruction 2patient with multiple antibiotic ALLERGIES that would limit the number of antibiotic safe to use 3patient recently did have a abdominal wall abscess and cellulitis culture positive for Pseudomonas still have 2 small area of the wound which did not heal completely healed local care to continue with the silver dressing 4-patient is status post laparotomy with ileocolectomy and ileocolonic anastomosis did not mention any abscess, 5-patient to continue with the cefepime and Flagyl and will monitor clinical course closely Dictation was produced using [employer] dictation software. please excuse any grammatical, word or spelling errors. Time with Patient: Less than 30
--- NOTE | 2024-05-05 14:37 | P.PN ---
Subjective Progress Note Date: 05/05/24 Subjective: Patient seen and examined at bedside. No acute events overnight. Some abdominal pain, NG tube in place Pertinent positives and negatives as discussed above, a complete review of sy stems was performed and all other systems are negative. Vitals Signs Reviewed. General: Nontoxic, no distress, appears at stated age Derm: Warm, dry, incisional site dressing clean, dry, intact, wound VAC in place, Head: Atraumatic, normocephalic, symmetric Eyes: EOMI, no lid lag, anicteric sclera Mouth: No lip lesion, mucus membranes moist Cardiovascular: S1S2 reg, no murmur Lungs: CTA bilateral, no rhonchi, no rales, no accessory muscle use Abdominal: Soft, distended, mildly tender to palpation, no guarding, no appreciable organomegaly, NG tube with dark gastric content Ext: No gross muscle atrophy, no edema, no contractures Neuro: CN II-XI grossly intact, no focal neuro deficits Psych: Alert, oriented, appropriate affect Data Reviewed Today: Pertinent Labs: WBC 10.42, hemoglobin 10.8, platelet 646, sodium 138, potassium 3.8, creatinine 0.4 Imaging: No new imaging Assessment and Plan: Patient is severely ill. Prognosis guarded. Partial small bowel obstruction status post surgery Ileus Moderate protein calorie malnutrition -Surgery following, status post ex lap and small bowel resection, note reviewed, shows new wound VAC ordered, continue NG tube for decompression -ID following, continued on IV cefepime 2 g every 8 hours, Flagyl 500 IV 3 times daily -Continue D5 LR at 125 cc an hour -Protonix IV 40 daily -Zofran IV as needed -On IV Tylenol, IV Dilaudid as needed, monitor for sedation Provoked upper extremity DVT -Holding Eliquis for now -Continue Lovenox to 40 every 12 hours SQ -Resume Eliquis at time of discharge Mild hyponatremia, resolved Contraction alkalosis -Likely hypovolemic in the setting of increased gastric output from NG tube as well as being n.p.o. -Continue D5 LR at 125 cc an hour Resolved: Hypokalemia Hypomagnesemia Chronic: GERD Celiac disease Thank you for allowing us to participate in the care of this pleasant patient. Do not hesitate to contact us with questions. Someone can be reached from the [facility] hospitalist group all hours of the day at [phone] or via perfect serve. Objective - Vital Signs Vital signs: Vital Signs Temp 98.5 F 05/05/24 06:50 Pulse 82 05/05/24 06:50 Resp 15 05/05/24 08:00 BP 114/72 05/05/24 06:50 Pulse Ox 95 05/05/24 06:50 FiO2 Intake & Output 05/04/24 05/05/24 05/05/24 18:59 06:59 18:59 Intake Total 0 Output Total 300 200 Balance -300 -200 Weight 54.431 kg Intake: Oral 0 Output: Urine 300 200 Other: Voiding Method Indwelling Catheter Indwelling Catheter Indwelling Catheter # Bowel Movements 0 - Labs CBC & Chem 7: 05/05/24 04:03 05/05/24 04:03 Labs: Abnormal Lab Results - Last 24 Hours (Table) 05/05/24 05/05/24 Range/Units 04:03 04:03 WBC 10.42 H (4.50-10.00) X 10*3/uL RBC 3.48 L (4.10-5.20) X 10*6/uL Hgb 10.8 L (12.0-15.0) g/dL Hct 32.5 L (37.2-46.3) % Plt Count 646 H (140-440) X 10*3/uL Immature Gran # 0.05 H (0.00-0.04) X 10*3/uL Monocytes # 1.03 H (0.20-1.00) X 10*3/uL Eosinophils # 0.66 H (0.04-0.35) X 10*3/uL Carbon Dioxide 33.2 H (21.6-31.8) mmol/L Creatinine 0.4 L (0.6-1.5) mg/dL BUN/Creatinine Ratio 24.50 H (12.00-20.00) Ratio Calcium 8.6 L (8.7-10.3) mg/dL
[2024-05-06 09:35] LABS: Basophils # (A) 0.04 X 10*3/uL (0.00-0.10); Basophils % (A) 0.5 %; Eosinophils # (A) 0.86 X 10*3/uL (0.04-0.35); Eosinophils % (A) 10.5 %; HCT 28.3 % (37.2-46.3); HGB 9.1 g/dL (12.0-15.0); Lymphocytes # (A) 1.56 X 10*3/uL (0.90-5.00); MCH 30.7 pg (27.0-32.0); MCHC 32.2 g/dL (32.0-37.0); MCV 95.6 FL (80.0-97.0); Mean Platelet Volume 9.8 FL (9.5-12.2); Monocytes # (A) 0.93 X 10*3/uL (0.20-1.00); Monocytes % (A) 11.3 %; NRBC Per 100 WBC 0 X 10*3/uL (0.00-0.01); Neutrophils # (A) 4.76 X 10*3/uL (1.80-7.70); Neutrophils % (A) 58.1 %; Platelet Count 604 X 10*3/uL (140-440); RBC 2.96 X 10*6/uL (4.10-5.20); RDW 13.2 % (11.5-14.5)
[2024-05-06 10:07] LABS: BUN/Creat Ratio 17.75 Ratio (12.00-20.00); Blood Urea Nitrogen 7.1 mg/dL (9.0-27.0); Calcium 8.1 mg/dL (8.7-10.3); Carbon Dioxide 33.7 mmol/L (21.6-31.8); Chloride 100 mmol/L (96-109); Glucose 104 mg/dL (70-110); Magnesium 1.6 mg/dL (1.5-2.4); Potassium 3.4 mmol/L (3.5-5.5); Sodium 139 mmol/L (135-145)
--- NOTE | 2024-05-06 14:17 | P.PN ---
Subjective Progress Note Date: 05/06/24 Subjective: Patient seen and examined at bedside. No acute events overnight. Some abdominal pain, NG tube in place. Patient has been getting up out of the bed. Has not passed any flatus yet. Pertinent positives and negatives as discussed above, a complete review of systems was performed and all other systems are negative. Vitals Signs Reviewed. General: Nontoxic, no distress, appears at stated age Derm: Warm, dry, incisional site dressing clean, dry, intact, wound VAC in place, Head: Atraumatic, normocephalic, symmetric Eyes: EOMI, no lid lag, anicteric sclera Mouth: No lip lesion, mucus membranes moist Cardiovascular: S1S2 reg, no murmur Lungs: CTA bilateral, no rhonchi, no rales, no accessory muscle use Abdominal: Soft, distended, mildly tender to palpation, no guarding, no appreciable organomegaly, NG tube with dark gastric content Ext: No gross muscle atrophy, no edema, no contractures Neuro: CN II-XI grossly intact, no focal neuro deficits Psych: Alert, oriented, appropriate affect Data Reviewed Today: Pertinent Labs: WBC 8.2, hemoglobin 9.1, platelets 604, sodium 139, potassium 3.4, creatinine 0.4, magnesium 1.6 Imaging: No new imaging Assessment and Plan: Patient is severely ill. Prognosis guarded. Partial small bowel obstruction status post surgery Ileus Moderate protein calorie malnutrition Mild normocytic anemia, likely in the setting of acute illness -Surgery following, status post ex lap and small bowel resection, has an NG tube for decompression -ID following, continued on IV cefepime 2 g every 8 hours, Flagyl 500 IV 3 times daily -Continue D5 LR at 125 cc an hour -Protonix IV 40 daily -Zofran IV as needed -On IV Tylenol, IV Dilaudid as needed, monitor for sedation Hypokalemia Hypomagnesemia -20 mill equivalent of IV potassium and 2 g of IV magnesium sulfate ordered -Repeat levels tomorrow Provoked upper extremity DVT -Holding Eliquis for now -Continue Lovenox to 40 every 12 hours SQ -Resume Eliquis at time of discharge Mild hyponatremia, resolved Contraction alkalosis -Likely hypovolemic in the setting of increased gastric output from NG tube as well as being n.p.o. -Continue D5 LR at 125 cc an hour Chronic: GERD Celiac disease Thank you for allowing us to participate in the care of this pleasant patient. Do not hesitate to contact us with questions. Someone can be reached from the [facility] [place] hospitalist group all hours of the day at [phone] or via perfect serve. Objective - Vital Signs Vital signs: Vital Signs Temp 98.0 F 05/06/24 08:00 Pulse 76 05/06/24 08:00 Resp 16 05/06/24 08:00 BP 125/81 05/06/24 08:00 Pulse Ox 95 05/06/24 08:00 FiO2 Intake & Output 05/05/24 05/06/24 05/06/24 18:59 06:59 18:59 Intake Total 0 Output Total 250 Balance -250 0 Weight 54.431 kg Intake: Oral 0 Output: Urine 250 Other: Voiding Method Indwelling Catheter Bedside Commode Bedside Commode # Voids 2 3 - Labs CBC & Chem 7: 05/06/24 03:08 05/06/24 03:08 Labs: Abnormal Lab Results - Last 24 Hours (Table) 05/06/24 05/06/24 Range/Units 03:08 03:08 RBC 2.96 L (4.10-5.20) X 10*6/uL Hgb 9.1 L (12.0-15.0) g/dL Hct 28.3 L (37.2-46.3) % Plt Count 604 H (140-440) X 10*3/uL Immature Gran # 0.05 H (0.00-0.04) X 10*3/uL Eosinophils # 0.86 H (0.04-0.35) X 10*3/uL Potassium 3.4 L (3.5-5.5) mmol/L Carbon Dioxide 33.7 H (21.6-31.8) mmol/L BUN 7.1 L (9.0-27.0) mg/dL Creatinine 0.4 L (0.6-1.5) mg/dL Calcium 8.1 L (8.7-10.3) mg/dL
--- NOTE | 2024-05-06 14:45 | P.PN ---
Subjective Progress Note Date: 05/06/24 Principal diagnosis: Reason for follow-up is small bowel obstruction multiple antibiotic allergies Patient is a 53-year-old female with a past medical history significan t for fibromyalgia reflux who was recently admitted to this facility for bowel obstruction patient was diagnosed with a cecal volvulus status post right hemicolectomy on 03/24/2024 subsequently did have large small bowel obstruction status post exploratory laparotomy with lysis of adhesion on 04/03/2024 patient did have a abdominal wall abscess culture positive for Pseudomonas presenting back to the hospital with abdominal pain and distention has been diagnosed with ileus.Patient is status post exploratory laparotomy colectomy with resection of ileocolonic anastomosis procedure completed on 05/03/2024 On today's evaluation that is 05/06/2024,the patient remains to be afebrile, patient is on room air not requiring supplemental oxygen and denies any shortness of breath no chest pain or cough.Patient still have the NG some nausea but no vomiting still complaining abdominal pain better controlled with the Toradol has not passed any gas and no bowel movement. Patient white count normalized to 8.20, creatinine 0.4 Objective - Vital Signs Vital signs: Vital Signs Temp 98.0 F 05/06/24 08:00 Pulse 76 05/06/24 08:00 Resp 16 05/06/24 08:00 BP 125/81 05/06/24 08:00 Pulse Ox 95 05/06/24 08:00 FiO2 Intake & Output 05/05/24 05/06/24 05/06/24 18:59 06:59 18:59 Intake Total 0 Output Total 250 Balance -250 0 Weight 54.431 kg Intake: Oral 0 Output: Urine 250 Other: Voiding Method Indwelling Catheter Bedside Commode Bedside Commode # Voids 2 - Exam GENERAL DESCRIPTION: Middle-age female lying in bed in no distress RESPIRATORY SYSTEM: Unlabored breathing , decreased breath sounds at bases HEART: S1 S2 regular rate and rhythm , ABDOMEN: Soft , mild distention upper abdominal incision did have 2 small wound but no drainage EXTREMITIES: No edema feet - Labs CBC & Chem 7: 05/06/24 03:08 05/06/24 03:08 Labs: Abnormal Lab Results - Last 24 Hours (Table) 05/06/24 05/06/24 Range/Units 03:08 03:08 RBC 2.96 L (4.10-5.20) X 10*6/uL Hgb 9.1 L (12.0-15.0) g/dL Hct 28.3 L (37.2-46.3) % Plt Count 604 H (140-440) X 10*3/uL Immature Gran # 0.05 H (0.00-0.04) X 10*3/uL Eosinophils # 0.86 H (0.04-0.35) X 10*3/uL Potassium 3.4 L (3.5-5.5) mmol/L Carbon Dioxide 33.7 H (21.6-31.8) mmol/L BUN 7.1 L (9.0-27.0) mg/dL Creatinine 0.4 L (0.6-1.5) mg/dL Calcium 8.1 L (8.7-10.3) mg/dL Assessment and Plan (1) Allergy to multiple antibiotics Current Visit: Yes Status: Acute Code(s): Z88.1 - ALLERGY STATUS TO OTHER ANTIBIOTIC AGENTS SNOMED Code(s): 381288001 (2) Abdominal pain Current Visit: Yes Status: Acute Code(s): R10.9 - UNSPECIFIED ABDOMINAL PAIN SNOMED Code(s): 00343463 (3) Abdominal wall cellulitis Current Visit: Yes Status: Acute Code(s): L03.311 - CELLULITIS OF ABDOMINAL WALL SNOMED Code(s): 86439206 (4) Open abdominal wall wound Current Visit: Yes Status: Acute Code(s): S31.109A - UNSP OPN WND ABD WALL, UNSP Q W/O PENET PERIT CAV, INIT SNOMED Code(s): 223042420 Plan: 1patient presented to hospital with abdominal pain and distention did have evidence of ileus/small bowel obstruction on the CT concerning for inflammation in this patient who recently did have multiple abdominal surgery initially right hemicolectomy for cecal volvulus subsequently did have a laparotomy with lysis evaluation and during that admission patient did have abdominal wall abscess that was positive for Pseudomonas CT this admission did not show any abscess however tissue was inflammation concerning for possible ileus/obstruction 2patient with multiple antibiotic ALLERGIES that would limit the number of antibiotic safe to use 3patient recently did have a abdominal wall abscess and cellulitis culture positive for Pseudomonas 4-patient is status post laparotomy with ileocolectomy and ileocolonic anastomosis did not mention any abscess, 5-patient is afebrile and white count normalized,to continue with the cefepime and Flagyl and will monitor clinical course closely Dictation was produced using [employer] dictation software. please excuse any grammatical, word or spelling errors. Time with Patient: Less than 30
[2024-05-06] MEDS: MAGNESIUM SULFATE-D5W PMX 1 GM in DEXTROSE/WATER 1 100ML.BAG IVPB SCH (15:54)
[2024-05-06] MEDS ORDERED: ZINC OXIDE PASTE (Z-GUARD) 1 APPLIC TOPICAL PRN (16:45)
--- NOTE | 2024-05-06 17:13 | P.PN ---
Subjective Progress Note Date: 05/06/24 CHIEF COMPLAINT: Bowel obstruction HISTORY OF PRESENT ILLNESS: The patient is a 53-year-old female with recurrent bowel obstruction. She is status post extensive lysis of adhesions. No flatus. No bowel movements. She is on cefepime and Flagyl. ROS: No reports of nausea and vomiting. No bowel movements. No fevers or chills. No new chest pain. No productive sputum PHYSICAL EXAM: VITAL SIGNS: Reviewed CONSTITUTIONAL: Well developed and in no acute distress. EYES: Conjuctivae without sclera icterus. Extraocular movements grossly intact. HEAD, EARS, NOSE, THROAT: Moist buccal mucosa. Head is atraumatic, normocephalic. Hears conversational speech. No nasal drainage. RESPIRATORY: Non-labored respirations and equal bilateral excursions. CARDIOVASCULAR: Palpable 2+ radial pulses. ABDOMEN: Midline incision intact. Serosanguineous drainage 3 cm along the lateral border of the right upper portion of the dressing. MUSCULOSKELETAL: No gross deformity of the lower extremities noted. No clubbing. No cyanosis. SKIN: Good skin turgor. Well perfused. NEUROLOGIC: Cranial nerves II through XII grossly intact. No focal or lateralizing signs. PSYCH: Appropriate affect. Alert and oriented to person, place and time. CLINICAL LABS: Reviewed. WBC normal. Hemoglobin down 9.1, anemia ASSESSMENT: 1. Bowel obstruction due to adhesions include internal hernia PLAN: 1. Continue nasogastric tube 2. Continue ice chips Objective - Vital Signs Vital signs: Vital Signs Temp 98.1 F 05/06/24 14:00 Pulse 80 05/06/24 14:00 Resp 17 05/06/24 14:00 BP 148/85 05/06/24 14:00 Pulse Ox 100 05/06/24 14:00 FiO2 Intake & Output 05/05/24 05/06/24 05/06/24 18:59 06:59 18:59 Intake Total 0 Output Total 250 Balance -250 0 Weight 54.431 kg Intake: Oral 0 Output: Urine 250 Other: Voiding Method Indwelling Catheter Bedside Commode Bedside Commode # Voids 2 2 - Labs CBC & Chem 7: 05/06/24 03:08 05/06/24 03:08 Labs: Abnormal Lab Results - Last 24 Hours (Table) 05/06/24 05/06/24 Range/Units 03:08 03:08 RBC 2.96 L (4.10-5.20) X 10*6/uL Hgb 9.1 L (12.0-15.0) g/dL Hct 28.3 L (37.2-46.3) % Plt Count 604 H (140-440) X 10*3/uL Immature Gran # 0.05 H (0.00-0.04) X 10*3/uL Eosinophils # 0.86 H (0.04-0.35) X 10*3/uL Potassium 3.4 L (3.5-5.5) mmol/L Carbon Dioxide 33.7 H (21.6-31.8) mmol/L BUN 7.1 L (9.0-27.0) mg/dL Creatinine 0.4 L (0.6-1.5) mg/dL Calcium 8.1 L (8.7-10.3) mg/dL
[2024-05-06] MEDS: POTASSIUM CHLORIDE 10 MEQ in WATER FOR INJECTION 1 100ML.BAG IVPB SCH (18:54)
[2024-05-07 09:38] LABS: Basophils # (A) 0.05 X 10*3/uL (0.00-0.10); Basophils % (A) 0.9 %; Eosinophils # (A) 0.76 X 10*3/uL (0.04-0.35); Eosinophils % (A) 13.2 %; HGB 7.9 g/dL (12.0-15.0); Lymphocytes # (A) 1.29 X 10*3/uL (0.90-5.00); Lymphocytes % (A) 22.4 %; MCH 29.9 pg (27.0-32.0); MCHC 31.6 g/dL (32.0-37.0); MCV 94.7 FL (80.0-97.0); Mean Platelet Volume 9.9 FL (9.5-12.2); Monocytes # (A) 0.71 X 10*3/uL (0.20-1.00); Monocytes % (A) 12.3 %; NRBC Per 100 WBC 0 X 10*3/uL (0.00-0.01); Neutrophils # (A) 2.93 X 10*3/uL (1.80-7.70); Neutrophils % (A) 50.7 %; Platelet Count 527 X 10*3/uL (140-440); RBC 2.64 X 10*6/uL (4.10-5.20); RDW 13.2 % (11.5-14.5); WBC 5.77 X 10*3/uL (4.50-10.00)
[2024-05-07 09:58] LABS: Magnesium 1.5 mg/dL (1.5-2.4)
[2024-05-07 10:53] LABS: BUN/Creat Ratio <8.75 Ratio (12.00-20.00); Blood Urea Nitrogen <3.5 mg/dL (9.0-27.0); Calcium 7.3 mg/dL (8.7-10.3); Carbon Dioxide 23.8 mmol/L (21.6-31.8); Chloride 99 mmol/L (96-109); Glucose 1008 mg/dL (70-110); Potassium 3.4 mmol/L (3.5-5.5); Sodium 134 mmol/L (135-145)
[2024-05-07 11:07] LABS: Glucose,Whole Blood 116 mg/dL (70-110)
[2024-05-07] MEDS: ONDANSETRON 4 MG/2 ML VIAL IVP PRN (11:51)
[2024-05-07 12:25] LABS: Glucose,Whole Blood 112 mg/dL (70-110)
--- NOTE | 2024-05-07 12:47 | P.PN ---
Subjective Progress Note Date: 05/07/24 Subjective: Patient seen and examined at bedside. No acute events overnight. Some abdominal pain, NG tube in place. Patient has been getting up out of the bed. Has not passed any flatus yet. Pertinent positives and negatives as discussed above, a complete review of systems was performed and all other systems are negative. Vitals Signs Reviewed. General: Nontoxic, no distress, appears at stated age Derm: Warm, dry, incisional site dressing clean, dry, intact, wound VAC in place, Head: Atraumatic, normocephalic, symmetric Eyes: EOMI, no lid lag, anicteric sclera Mouth: No lip lesion, mucus membranes moist Cardiovascular: S1S2 reg, no murmur Lungs: CTA bilateral, no rhonchi, no rales, no accessory muscle use Abdominal: Soft, distended, mildly tender to palpation, no guarding, no appreciable organomegaly, NG tube with dark gastric content Ext: No gross muscle atrophy, no edema, no contractures Neuro: CN II-XI grossly intact, no focal neuro deficits Psych: Alert, oriented, appropriate affect Data Reviewed Today: Pertinent Labs: WBC 5.77, hemoglobin 7.9, platelet 527, potassium 3.4, creatinine 0.4, magnesium 1.5, glucose 116 Imaging: No new imaging Assessment and Plan: Patient is severely ill. Prognosis guarded. Partial small bowel obstruction status post surgery Ileus Moderate protein calorie malnutrition Mild normocytic anemia, likely in the setting of acute illness -Surgery following, status post ex lap and small bowel resection, has an NG tube for decompression -ID following, continued on IV cefepime 2 g every 8 hours, Flagyl 500 IV 3 times daily -Continue D5 LR at 125 cc an hour -Protonix IV 40 daily -Zofran IV as needed -On IV Tylenol, IV Dilaudid as needed, monitor for sedation Hypokalemia Hypomagnesemia -20 mill equivalent of IV potassium and 2 g of IV magnesium sulfate ordered -Repeat levels tomorrow Provoked upper extremity DVT -Holding Eliquis for now -Continue Lovenox to 40 every 12 hours SQ -Resume Eliquis at time of discharge Mild hyponatremia Contraction alkalosis, resolved -Likely hypovolemic in the setting of increased gastric output from NG tube as well as being n.p.o. -Continue D5 LR at 125 cc an hour Chronic: GERD Celiac disease Thank you for allowing us to participate in the care of this pleasant patient. Do not hesitate to contact us with questions. Someone can be reached from the [facility] hospitalist group all hours of the day at [phone] or via perfect serve. Objective - Vital Signs Vital signs: Vital Signs Temp 98.4 F 05/07/24 08:00 Pulse 82 05/07/24 08:00 Resp 16 05/07/24 08:00 BP 144/79 05/07/24 08:00 Pulse Ox 98 05/07/24 08:00 FiO2 Intake & Output 05/06/24 05/07/24 05/07/24 18:59 06:59 18:59 Intake Total 0 Balance 0 Intake: Oral 0 Other: Voiding Method Bedside Commode Bedside Commode # Voids 1 3 2 - Labs CBC & Chem 7: 05/07/24 02:51 05/07/24 02:51 Labs: Abnormal Lab Results - Last 24 Hours (Table) 05/07/24 05/07/24 05/07/24 Range/Units 02:51 02:51 11:05 RBC 2.64 L (4.10-5.20) X 10*6/uL Hgb 7.9 L (12.0-15.0) g/dL Hct 25.0 L (37.2-46.3) % MCHC 31.6 L (32.0-37.0) g/dL Plt Count 527 H (140-440) X 10*3/uL Eosinophils # 0.76 H (0.04-0.35) X 10*3/uL Sodium 134 L (135-145) mmol/L Potassium 3.4 L (3.5-5.5) mmol/L BUN <3.5 L (9.0-27.0) mg/dL Creatinine 0.4 L (0.6-1.5) mg/dL BUN/Creatinine Ratio <8.75 L (12.00-20.00) Ratio Glucose 1008 A* (70-110) mg/dL POC Glucose (mg/dL) 116 H (70-110) mg/dL Calcium 7.3 L (8.7-10.3) mg/dL 05/07/24 Range/Units 12:23 RBC (4.10-5.20) X 10*6/uL Hgb (12.0-15.0) g/dL Hct (37.2-46.3) % MCHC (32.0-37.0) g/dL Plt Count (140-440) X 10*3/uL Eosinophils # (0.04-0.35) X 10*3/uL Sodium (135-145) mmol/L Potassium (3.5-5.5) mmol/L BUN (9.0-27.0) mg/dL Creatinine (0.6-1.5) mg/dL BUN/Creatinine Ratio (12.00-20.00) Ratio Glucose (70-110) mg/dL POC Glucose (mg/dL) 112 H (70-110) mg/dL Calcium (8.7-10.3) mg/dL
[2024-05-07] MEDS: MAGNESIUM SULFATE-D5W PMX 1 GM in DEXTROSE/WATER 1 100ML.BAG IVPB SCH (14:21)
--- NOTE | 2024-05-07 14:58 | P.PN ---
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 subsequently did have large small bowel obstruction status post exploratory laparotomy with lysis of adhesion on 04/03/2024 patient did have a abdominal wall abscess culture positive for Pseudomonas presenting back to the hospital with abdominal pain and distention has been diagnosed with ileus.Patient is status post exploratory laparotomy colectomy with resection of ileocolonic anastomosis procedure completed on 05/03/2024 On today's evaluation that is 05/07/2024, the patient continues to be afebrile, the patient is on room air and breathing comfortably, the Pt denies having any chest pain or cough, the patient did have some nausea continue to have NG still complaining of abdominal pain did not have any bowel movement or passed any gas. Patient white count is 5.77, creatinine 0.4 Objective - Vital Signs Vital signs: Vital Signs Temp 98.4 F 05/07/24 08:00 Pulse 82 05/07/24 08:00 Resp 16 05/07/24 08:00 BP 144/79 05/07/24 08:00 Pulse Ox 98 05/07/24 08:00 FiO2 Intake & Output 05/06/24 05/07/24 05/07/24 18:59 06:59 18:59 Intake Total 0 Balance 0 Intake: Oral 0 Other: Voiding Method Bedside Commode Bedside Commode # Voids 1 3 2 - Exam GENERAL DESCRIPTION: Middle-age female lying in bed in no distress RESPIRATORY SYSTEM: Unlabored breathing , decreased breath sounds at bases HEART: S1 S2 regular rate and rhythm , ABDOMEN: Soft , mild distention upper abdominal incision did have 2 small wound but no drainage EXTREMITIES: No edema feet - Labs CBC & Chem 7: 05/07/24 02:51 05/07/24 02:51 Labs: Abnormal Lab Results - Last 24 Hours (Table) 05/07/24 05/07/24 05/07/24 Range/Units 02:51 02:51 11:05 RBC 2.64 L (4.10-5.20) X 10*6/uL Hgb 7.9 L (12.0-15.0) g/dL Hct 25.0 L (37.2-46.3) % MCHC 31.6 L (32.0-37.0) g/dL Plt Count 527 H (140-440) X 10*3/uL Eosinophils # 0.76 H (0.04-0.35) X 10*3/uL Sodium 134 L (135-145) mmol/L Potassium 3.4 L (3.5-5.5) mmol/L BUN <3.5 L (9.0-27.0) mg/dL Creatinine 0.4 L (0.6-1.5) mg/dL BUN/Creatinine Ratio <8.75 L (12.00-20.00) Ratio Glucose 1008 A* (70-110) mg/dL POC Glucose (mg/dL) 116 H (70-110) mg/dL Calcium 7.3 L (8.7-10.3) mg/dL 05/07/24 Range/Units 12:23 RBC (4.10-5.20) X 10*6/uL Hgb (12.0-15.0) g/dL Hct (37.2-46.3) % MCHC (32.0-37.0) g/dL Plt Count (140-440) X 10*3/uL Eosinophils # (0.04-0.35) X 10*3/uL Sodium (135-145) mmol/L Potassium (3.5-5.5) mmol/L BUN (9.0-27.0) mg/dL Creatinine (0.6-1.5) mg/dL BUN/Creatinine Ratio (12.00-20.00) Ratio Glucose (70-110) mg/dL POC Glucose (mg/dL) 112 H (70-110) mg/dL Calcium (8.7-10.3) mg/dL Assessment and Plan (1) Allergy to multiple antibiotics Current Visit: Yes Status: Acute Code(s): Z88.1 - ALLERGY STATUS TO OTHER ANTIBIOTIC AGENTS SNOMED Code(s): 579765303 (2) Abdominal pain Current Visit: Yes Status: Acute Code(s): R10.9 - UNSPECIFIED ABDOMINAL PAIN SNOMED Code(s): 26868633 (3) Abdominal wall cellulitis Current Visit: Yes Status: Acute Code(s): L03.311 - CELLULITIS OF ABDOMINAL WALL SNOMED Code(s): 09801876 (4) Open abdominal wall wound Current Visit: Yes Status: Acute Code(s): S31.109A - UNSP OPN WND ABD WALL, UNSP Q W/O PENET PERIT CAV, INIT SNOMED Code(s): 789537241 Plan: 1patient presented to hospital with abdominal pain and distention did have evidence of ileus/small bowel obstruction on the CT concerning for inflammation in this patient who recently did have multiple abdominal surgery initially right hemicolectomy for cecal volvulus subsequently did have a laparotomy with lysis evaluation and during that admission patient did have abdominal wall abscess that was positive for Pseudomonas CT this admission did not show any abscess however tissue was inflammation concerning for possible ileus/obstruction 2patient with multiple antibiotic ALLERGIES that would limit the number of antibiotic safe to use 3patient recently did have a abdominal wall abscess and cellulitis culture positive for Pseudomonas 4-patient is status post laparotomy with ileocolectomy and ileocolonic anastomosis did not mention any abscess, 5-patient continues to be afebrile and white count normalized, 6-patient is currently being treated cefepime and Flagyl and will monitor clinical course closely Dictation was produced using [employer] dictation software. please excuse any grammatical, word or spelling errors.
[2024-05-07] MEDS: POTASSIUM CHLORIDE 10 MEQ in WATER FOR INJECTION 1 100ML.BAG IVPB SCH (15:25)
--- NOTE | 2024-05-07 17:18 | P.PN ---
Subjective Progress Note Date: 05/07/24 CHIEF COMPLAINT: Bowel obstruction HISTORY OF PRESENT ILLNESS: The patient is a 53-year-old female with recurrent bowel obstruction. She is status post extensive lysis of adhesions. She reports nausea without emesis. No flatus. ROS: She has nasogastric tube. No bowel movements. No fevers or chills. No new chest pain. No productive sputum PHYSICAL EXAM: VITAL SIGNS: Reviewed CONSTITUTIONAL: Well developed and in no acute distress. EYES: Conjuctivae without sclera icterus. Extraocular movements grossly intact. HEAD, EARS, NOSE, THROAT: Moist buccal mucosa. Head is atraumatic, normocep halic. Hears conversational speech. No nasal drainage. RESPIRATORY: Non-labored respirations and equal bilateral excursions. CARDIOVASCULAR: Palpable 2+ radial pulses. ABDOMEN: Midline incision intact. No diffuse peritonitis. MUSCULOSKELETAL: No gross deformity of the lower extremities noted. No clubbing. No cyanosis. SKIN: Good skin turgor. Well perfused. NEUROLOGIC: Cranial nerves II through XII grossly intact. No focal or lateralizing signs. PSYCH: Appropriate affect. Alert and oriented to person, place and time. CLINICAL LABS: Reviewed. WBC normal. Hemoglobin down 9.1-7.9, anemia ASSESSMENT: 1. Bowel obstruction due to adhesions include internal hernia 2. Anemia PLAN: 1. For nausea, scopolamine patch ordered. 2. Hemoglobin has marked decline and we will repeat CBC as spurious CMP for today's lab noted Objective - Vital Signs Vital signs: Vital Signs Temp 98.2 F 05/07/24 14:00 Pulse 75 05/07/24 14:00 Resp 16 05/07/24 14:00 BP 160/84 05/07/24 14:00 Pulse Ox 100 05/07/24 14:00 FiO2 Intake & Output 05/06/24 05/07/24 05/07/24 18:59 06:59 18:59 Intake Total 0 Balance 0 Intake: Oral 0 Other: Voiding Method Bedside Commode Bedside Commode # Voids 1 3 3 - Labs CBC & Chem 7: 05/07/24 02:51 05/07/24 02:51 Labs: Abnormal Lab Results - Last 24 Hours (Table) 05/07/24 05/07/24 05/07/24 Range/Units 02:51 02:51 11:05 RBC 2.64 L (4.10-5.20) X 10*6/uL Hgb 7.9 L (12.0-15.0) g/dL Hct 25.0 L (37.2-46.3) % MCHC 31.6 L (32.0-37.0) g/dL Plt Count 527 H (140-440) X 10*3/uL Eosinophils # 0.76 H (0.04-0.35) X 10*3/uL Sodium 134 L (135-145) mmol/L Potassium 3.4 L (3.5-5.5) mmol/L BUN <3.5 L (9.0-27.0) mg/dL Creatinine 0.4 L (0.6-1.5) mg/dL BUN/Creatinine Ratio <8.75 L (12.00-20.00) Ratio Glucose 1008 A* (70-110) mg/dL POC Glucose (mg/dL) 116 H (70-110) mg/dL Calcium 7.3 L (8.7-10.3) mg/dL 05/07/24 Range/Units 12:23 RBC (4.10-5.20) X 10*6/uL Hgb (12.0-15.0) g/dL Hct (37.2-46.3) % MCHC (32.0-37.0) g/dL Plt Count (140-440) X 10*3/uL Eosinophils # (0.04-0.35) X 10*3/uL Sodium (135-145) mmol/L Potassium (3.5-5.5) mmol/L BUN (9.0-27.0) mg/dL Creatinine (0.6-1.5) mg/dL BUN/Creatinine Ratio (12.00-20.00) Ratio Glucose (70-110) mg/dL POC Glucose (mg/dL) 112 H (70-110) mg/dL Calcium (8.7-10.3) mg/dL
[2024-05-07] MEDS: SCOPOLAMINE 1 MG/72 HR PATCH TRANSDERM STA (17:51)
[2024-05-08 04:38] LABS: Basophils % (A) 0 %; Eosinophils % (A) 13 %; HCT 32.2 % (34.0-46.0); HGB 10.9 gm/dL (11.4-16.0); Lymphocytes # (A) 1.5 k/uL (1.0-4.8); Lymphocytes % (A) 19 %; MCH 30.8 pg (25.0-35.0); MCHC 33.8 g/dL (31.0-37.0); MCV 91.2 fL (80.0-100.0); Mean Platelet Volume 8.5; Monocytes # (A) 0.8 k/uL (0-1.0); Monocytes % (A) 11 %; Neutrophils # (A) 4.3 k/uL (1.3-7.7); Neutrophils % (A) 56 %; Platelet Count 704 k/uL (150-450); RBC 3.54 m/uL (3.80-5.40); RDW 13.1 % (11.5-15.5); WBC 7.7 k/uL (3.8-10.6)
[2024-05-08 05:13] LABS: African American GFR (CKD) >90 (>60 ml/min/1.73 sqM); Anion Gap 4 mmol/L; Blood Urea Nitrogen <2 mg/dL (7-17); Calcium 8.4 mg/dL (8.4-10.2); Carbon Dioxide 34 mmol/L (22-30); Chloride 96 mmol/L (98-107); Glucose 95 mg/dL (74-99); Magnesium 2.1 mg/dL (1.6-2.3); Non-African American GFR(CKD) >90 (>60 ml/min/1.73 sqM); Potassium 3.3 mmol/L (3.5-5.1); Sodium 134 mmol/L (137-145)
[2024-05-08] MEDS: POTASSIUM CHLORIDE 10 MEQ in WATER FOR INJECTION 1 100ML.BAG IVPB SCH (08:25)
--- NOTE | 2024-05-08 11:13 | P.PN ---
Subjective Progress Note Date: 05/08/24 53 year old F with PMH cecal volvulus status post right hemicolectomy on 03/24 complicated with SBO status post exploratory laparotomy with lysis of adhesions on 04/03 with recent diagnosis of recent abdominal wall abscess presented back to the ED on 04/26 with abdominal pain. In the ED she underwent extensive evaluation. BP 115/84, HR 86, RR 20, T 98.3F, 96% on RA. CBC and CMP significant for RBC 3.53, Hg 11, Hct 33.2, Plt 472, Na 136, BUN < 2, Cr 0.46, glu 100, alb 2.8. Lactic acid 0.7. Lipase 39. UA neg LE or nitrite. CT AP showed dilated fluid filled small bowel loops distended up to 5.3 cm. Admitted to surgery with medicine and ID consult. Started on Cefepime and Flagyl IV by ID. NG tube inserted. Underwent exploratory laparotomy with lysis of adhesions on 05/03. 05/08 Patient was seen and examined. NG tube in place. Not passing gas. Asking about starting Reglan. CBC and BMP significant for RBC 3.54, Hg 10.9, Hct 32.2, Plt 704, Na 134, K 3.4, Cl 96, bicarb 34, BUN < 2, Cr 0.36. Mag 2.1. General: Nontoxic, no distress, appears at stated age Derm: Warm, dry Head: Atraumatic, normocephalic, symmetric Eyes: EOMI, no lid lag, anicteric sclera Mouth: No lip lesion, mucus membranes moist Cardiovascular: good distal perfusion in all 4 extremities Lungs: breathing comfortably, no accessory muscle use Abdominal: Soft, distended, mildly tender to palpation, no guarding, no appreciable organomegaly, NG tube with dark gastric content, no appreciable bowel sounds Ext: No gross muscle atrophy, no edema, no contractures Psych: Alert, oriented, appropriate affect Based on my assessment of this patient, this patient meets a high complexity level of care. Partial small bowel obstruction status post ex lap with lysis of adhesions on 05/03: Pain management with Dilaudid 1mg IV Q2H PRN, Toradol 15 mg IV Q6H. Zofran 4 mg IV Q6H PRN for N/V. LD running at 125 cc/hr. Ileus: Reglan 10 mg IV Q6H. NG tube in place. NPO. Surgery on board. History of abdominal wall abscess: Cefepime 2g IV TID. Flagyl 500 mg IV TID. ID on board. Moderate protein calorie malnutrition Normocytic anemia and Thrombocytosis likely reactive in the setting of acute illness, diluational and acute blood loss from surgery. Hypokalemia: KCl 20 meq IV ordered today. Provoked upper extremity DVT: Resume Eliquis when OK with Surgery. Metabolic alkalosis likely contraction from increased gastric output from NG tube. CODE STATUS: FULL CODE DVT Prophylaxis: Lovenox SQ GI Prophylaxis: Protonix IV Designated medical POA if patient is not able to make medical decisions for themselves: I have reviewed the following business information consultant notes: I have reviewed the results of the following tests: CBC, BMP, Mag. I have ordered the following tests: I have discussed the care of this patient with the following independent historian: I have independently interpreted the following test below: I have discussed the management of this patient with the following physician: Objective - Vital Signs Vital signs: Vital Signs Temp 98.3 F 05/08/24 08:00 Pulse 68 05/08/24 08:00 Resp 17 05/08/24 08:00 BP 156/82 05/08/24 08:00 Pulse Ox 100 05/08/24 08:00 FiO2 Intake & Output 05/07/24 05/08/24 05/08/24 18:59 06:59 18:59 Output Total 750 Balance -750 Output: Gastric Drainage 750 Other: Voiding Method Bedside Commode # Voids 2 3 1 - Labs CBC & Chem 7: 05/08/24 02:36 05/08/24 02:36 Labs: Abnormal Lab Results - Last 24 Hours (Table) 05/07/24 05/08/24 05/08/24 Range/Units 12:23 02:36 02:36 RBC 3.54 L (3.80-5.40) m/uL Hgb 10.9 L (11.4-16.0) gm/dL Hct 32.2 L (34.0-46.0) % Plt Count 704 H (150-450) k/uL Eosinophils # 1.0 H (0-0.7) k/uL Sodium 134 L (137-145) mmol/L Potassium 3.3 L (3.5-5.1) mmol/L Chloride 96 L (98-107) mmol/L Carbon Dioxide 34 H (22-30) mmol/L BUN <2 L (7-17) mg/dL Creatinine 0.36 L (0.52-1.04) mg/dL POC Glucose (mg/dL) 112 H (70-110) mg/dL
[2024-05-08] MEDS: METOCLOPRAMIDE 5 MG/ML 2 ML VIAL IVP SCH (12:02)
--- NOTE | 2024-05-08 12:59 | P.PN ---
Subjective Progress Note Date: 05/08/24 CHIEF COMPLAINT: SBO HISTORY OF PRESENT ILLNESS: Patient postop day #5 status post exploratory laparotomy, colectomy with resection of ileocolonic anastomosis and partial omentectomy, and lysis of adhesions. Patient reports her nausea is better than yesterday. NG tube with 500 mL bilious output. Still no bowel activity. Afebrile. WBC 7.7 Hgb 10.9 potassium 3.3 PHYSICAL EXAM: VITAL SIGNS: Reviewed. GENERAL: Well-developed in no acute distress. ABDOMEN: Soft. Nondistended. Dressing clean dry and intact NEUROLOGIC: Alert and oriented. Cranial nerves II through XII grossly intact. ASSESSMENT: 1. Small bowel obstruction and anastomotic stricture 2. Abdominal incision infection 3. Hypokalemia PLAN: -Reglan scheduled added -Encouraged patient to increase activity level -Continue NG tube for decompression -Antibiotics per ID service -Keep patient n.p.o. except for ice chips -Continue IV fluids -Continue pain management -Encourage patient to use incentive spirometer -Continue DVT prophylaxis Lovenox and GI prophylaxis Protonix Physician Doctor Naturopathic note has been reviewed by physician. Signing provider agrees with the documented findings, assessment, and plan of care. Objective - Vital Signs Vital signs: Vital Signs Temp 98.3 F 05/08/24 08:00 Pulse 68 05/08/24 08:00 Resp 17 05/08/24 08:00 BP 156/82 05/08/24 08:00 Pulse Ox 100 05/08/24 08:00 FiO2 Intake & Output 05/07/24 05/08/24 05/08/24 18:59 06:59 18:59 Output Total 750 450 Balance -750 -450 Output: Gastric Drainage 750 450 Other: Voiding Method Bedside Commode # Voids 2 3 2 - Labs CBC & Chem 7: 05/08/24 02:36 05/08/24 02:36 Labs: Abnormal Lab Results - Last 24 Hours (Table) 05/08/24 05/08/24 Range/Units 02:36 02:36 RBC 3.54 L (3.80-5.40) m/uL Hgb 10.9 L (11.4-16.0) gm/dL Hct 32.2 L (34.0-46.0) % Plt Count 704 H (150-450) k/uL Eosinophils # 1.0 H (0-0.7) k/uL Sodium 134 L (137-145) mmol/L Potassium 3.3 L (3.5-5.1) mmol/L Chloride 96 L (98-107) mmol/L Carbon Dioxide 34 H (22-30) mmol/L BUN <2 L (7-17) mg/dL Creatinine 0.36 L (0.52-1.04) mg/dL
[2024-05-09 09:27] LABS: African American GFR (CKD) >90 (>60 ml/min/1.73 sqM); Anion Gap 4 mmol/L; Blood Urea Nitrogen 2 mg/dL (7-17); Calcium 8.5 mg/dL (8.4-10.2); Carbon Dioxide 34 mmol/L (22-30); Chloride 97 mmol/L (98-107); Glucose 90 mg/dL (74-99); Non-African American GFR(CKD) >90 (>60 ml/min/1.73 sqM); Potassium 3.3 mmol/L (3.5-5.1); Sodium 135 mmol/L (137-145)
[2024-05-09] MEDS: POTASSIUM CHLORIDE 10 MEQ in WATER FOR INJECTION 1 100ML.BAG IVPB SCH (10:35)
--- NOTE | 2024-05-09 11:38 | P.PN ---
Subjective Progress Note Date: 05/09/24 CHIEF COMPLAINT: SBO HISTORY OF PRESENT ILLNESS: Patient postop day #6 status post exploratory laparotomy, colectomy with resection of ileocolonic anastomosis and partial omentectomy, and lysis of adhesions. Patient is still had no bowel activity. NG tube output of 300 mL. She reports she has ambulated in the hallway. Afebrile. WBC 135 potassium is 3.3 Patient seen and examined with Dr. Denney PHYSICAL EXAM: VITAL SIGNS: Reviewed. GENERAL: Well-developed in no acute distress. ABDOMEN: Soft. Nondistended. Dressing clean dry and intact NEUROLOGIC: Alert and oriented. Cranial nerves II through XII grossly intact. ASSESSMENT: 1. Small bowel obstruction, extensive adhesions, adhesions causing internal hernia, anastomotic stricture 2. Abdominal incision infection 3. Hypokalemia PLAN: -Discontinue NG tube -Continue patient n.p.o. except for ice chips and popsicles -Dilaudid frequency changed from every 2 hours to every 4 hours as needed for pain -Decadron 4 mg IV every 6 hours added -Potassium being replaced -Patient has PICC line and TPN will be initiated -Patient encouraged to ambulate in the hallway every hour -Encourage patient to use incentive spirometer -Continue DVT prophylaxis Lovenox and GI prophylaxis Protonix Physician Vice President Supply Chain note has been reviewed by physician. Signing provider agrees with the documented findings, assessment, and plan of care. Objective - Vital Signs Vital signs: Vital Signs Temp 98.3 F 05/09/24 07:10 Pulse 71 05/09/24 07:10 Resp 15 05/09/24 07:10 BP 145/83 05/09/24 07:10 Pulse Ox 98 05/09/24 07:10 FiO2 Intake & Output 05/08/24 05/09/24 05/09/24 18:59 06:59 18:59 Output Total 750 Balance -750 Weight 54.431 kg 54.431 kg Output: Gastric Drainage 750 Other: Voiding Method Bedside Commode Bedside Commode # Voids 2 - Labs CBC & Chem 7: 05/08/24 02:36 05/09/24 08:48 Labs: Abnormal Lab Results - Last 24 Hours (Table) 05/09/24 Range/Units 08:48 Sodium 135 L (137-145) mmol/L Potassium 3.3 L (3.5-5.1) mmol/L Chloride 97 L (98-107) mmol/L Carbon Dioxide 34 H (22-30) mmol/L BUN 2 L (7-17) mg/dL Creatinine 0.35 L (0.52-1.04) mg/dL
[2024-05-09 11:59] LABS: Albumin 2.7 g/dL (3.5-5.0); Magnesium 1.6 mg/dL (1.6-2.3); Phosphorus 3.6 mg/dL (2.5-4.5)
--- NOTE | 2024-05-09 12:05 | P.PN ---
Subjective Progress Note Date: 05/09/24 53 year old F with PMH cecal volvulus status post right hemicolectomy on 03/24 complicated with SBO status post exploratory laparotomy with lysis of adhesions on 04/03 with recent diagnosis of recent abdominal wall abscess presented back to the ED on 04/26 with abdominal pain. In the ED she underwent extensive evaluation. BP 115/84, HR 86, RR 20, T 98.3F, 96% on RA. CBC and CMP significant for RBC 3.53, Hg 11, Hct 33.2, Plt 472, Na 136, BUN < 2, Cr 0.46, glu 100, alb 2.8. Lactic acid 0.7. Lipase 39. UA neg LE or nitrite. CT AP showed dilated fluid filled small bowel loops distended up to 5.3 cm. Admitted to surgery with medicine and ID consult. Started on Cefepime and Flagyl IV by ID. NG tube inserted. Underwent exploratory laparotomy with lysis of adhesions on 05/03. 05/08 Patient was seen and examined. NG tube in place. Not passing gas. Asking about starting Reglan. CBC and BMP significant for RBC 3.54, Hg 10.9, Hct 32.2, Plt 704, Na 134, K 3.4, Cl 96, bicarb 34, BUN < 2, Cr 0.36. Mag 2.1. 05/09 Patient was seen and examined. NG tube discontinued. Not passing gas. Continued NPO. BMP Na 135, K 3.3, Cl 97, bicarb 34, BUN 2, Cr 0.35, alb 2.7. Mag 1.6. General: Nontoxic, no distress, appears at stated age Derm: Warm, dry Head: Atraumatic, normocephalic, symmetric Eyes: EOMI, no lid lag, anicteric sclera Mouth: No lip lesion, mucus membranes moist Cardiovascular: good distal perfusion in all 4 extremities Lungs: breathing comfortably, no accessory muscle use Abdominal: Soft, distended, mildly tender to palpation, no guarding, no appreciable organomegaly, NG tube with dark gastric content, no appreciable bowel sounds Ext: No gross muscle atrophy, no edema, no contractures Psych: Alert, oriented, appropriate affect Based on my assessment of this patient, this patient meets a high complexity level of care. Partial small bowel obstruction status post ex lap with lysis of adhesions on 9/4: Pain management with Dilaudid 1mg IV Q2H PRN, Toradol 15 mg IV Q6H. Zofran 4 mg IV Q6H PRN for N/V. LD running at 125 cc/hr. Ileus: Reglan 10 mg IV Q6H. NPO. Surgery on board. History of abdominal wall abscess: Cefepime 2g IV TID. Flagyl 500 mg IV TID. ID on board. Moderate protein calorie malnutrition Normocytic anemia and Thrombocytosis likely reactive in the setting of acute illness, diluational and acute blood loss from surgery. Hypokalemia: KCl 40 meq IV ordered today. HypoMag: Mag sulfate 4g IV ordered today. Provoked upper extremity DVT: Resume Eliquis when OK with Surgery. Metabolic alkalosis likely contraction from increased gastric output from NG tube. CODE STATUS: FULL CODE DVT Prophylaxis: Lovenox SQ GI Prophylaxis: Protonix IV Designated medical POA if patient is not able to make medical decisions for themselves: I have reviewed the following network pricing consultant notes: Surgery. I have reviewed the results of the following tests: BMP, Mag. I have ordered the following tests: I have discussed the care of this patient with the following independent historian: I have independently interpreted the following test below: I have discussed the management of this patient with the following physician: Objective - Vital Signs Vital signs: Vital Signs Temp 98.3 F 05/09/24 07:10 Pulse 71 05/09/24 07:10 Resp 15 05/09/24 07:10 BP 145/83 05/09/24 07:10 Pulse Ox 98 05/09/24 07:10 FiO2 Intake & Output 05/08/24 05/09/24 05/09/24 18:59 06:59 18:59 Output Total 750 Balance -750 Weight 54.431 kg 54.431 kg Output: Gastric Drainage 750 Other: Voiding Method Bedside Commode Bedside Commode # Voids 2 - Labs CBC & Chem 7: 05/08/24 02:36 05/09/24 08:48 Labs: Abnormal Lab Results - Last 24 Hours (Table) 05/09/24 05/09/24 Range/Units 08:48 08:48 Sodium 135 L (137-145) mmol/L Potassium 3.3 L (3.5-5.1) mmol/L Chloride 97 L (98-107) mmol/L Carbon Dioxide 34 H (22-30) mmol/L BUN 2 L (7-17) mg/dL Creatinine 0.35 L (0.52-1.04) mg/dL Albumin 2.7 L (3.5-5.0) g/dL
[2024-05-09] MEDS: DEXAMETHASONE SOD PHOSPHATE 4 MG/ML 1 ML VIAL IVP SCH (12:31)
[2024-05-09] MEDS: THIAMINE 100 MG/ML 2 ML VIAL IVP SCH (12:32)
[2024-05-09] MEDS: HYDROmorphone 1 MG/ML 1 ML SYRINGE IVP PRN (13:14)
--- NOTE | 2024-05-09 13:27 | P.PN ---
Subjective Progress Note Date: 05/08/24 Principal diagnosis: Reason for follow-up is small bowel obstruction multiple antibiotic allergies Patient is a 53-year-old female with a past medical history significan t for fibromyalgia reflux who was recently admitted to this facility for bowel obstruction patient was diagnosed with a cecal volvulus status post right hemicolectomy on 03/24/2024 subsequently did have large small bowel obstruction status post exploratory laparotomy with lysis of adhesion on 04/03/2024 patient did have a abdominal wall abscess culture positive for Pseudomonas presenting back to the hospital with abdominal pain and distention has been diagnosed with ileus.Patient is status post exploratory laparotomy colectomy with resection of ileocolonic anastomosis procedure completed on 05/03/2024 On today's evaluation that is 05/08/2024, Patient is afebrile patient is currently on room air and denies having any shortness of breath, the patient denies any chest pain or cough, the patient did have the NG still some nausea complaining of abdominal pain controlled with pain medication not passing any gas Patient white count 7.7, creatinine 0.36 Objective - Vital Signs Vital signs: Vital Signs Temp 98.3 F 05/08/24 08:00 Pulse 68 05/08/24 08:00 Resp 17 05/08/24 08:00 BP 156/82 05/08/24 08:00 Pulse Ox 100 05/08/24 08:00 FiO2 Intake & Output 05/07/24 05/08/24 05/08/24 18:59 06:59 18:59 Output Total 750 450 Balance -750 -450 Output: Gastric Drainage 750 450 Other: Voiding Method Bedside Commode # Voids 2 3 2 - Exam GENERAL DESCRIPTION: Middle-age female lying in bed in no distress RESPIRATORY SYSTEM: Unlabored breathing , decreased breath sounds at bases HEART: S1 S2 regular rate and rhythm , ABDOMEN: Soft , mild distention upper abdominal incision did have 2 small wound but no drainage EXTREMITIES: No edema feet - Labs CBC & Chem 7: 05/08/24 02:36 05/09/24 08:48 Labs: Abnormal Lab Results - Last 24 Hours (Table) 05/08/24 05/08/24 Range/Units 02:36 02:36 RBC 3.54 L (3.80-5.40) m/uL Hgb 10.9 L (11.4-16.0) gm/dL Hct 32.2 L (34.0-46.0) % Plt Count 704 H (150-450) k/uL Eosinophils # 1.0 H (0-0.7) k/uL Sodium 134 L (137-145) mmol/L Potassium 3.3 L (3.5-5.1) mmol/L Chloride 96 L (98-107) mmol/L Carbon Dioxide 34 H (22-30) mmol/L BUN <2 L (7-17) mg/dL Creatinine 0.36 L (0.52-1.04) mg/dL Assessment and Plan (1) Allergy to multiple antibiotics Current Visit: Yes Status: Acute Code(s): Z88.1 - ALLERGY STATUS TO OTHER ANTIBIOTIC AGENTS SNOMED Code(s): 775399231 (2) Abdominal pain Current Visit: Yes Status: Acute Code(s): R10.9 - UNSPECIFIED ABDOMINAL PAIN SNOMED Code(s): 20326126 (3) Abdominal wall cellulitis Current Visit: Yes Status: Acute Code(s): L03.311 - CELLULITIS OF ABDOMINAL WALL SNOMED Code(s): 44363724 (4) Open abdominal wall wound Current Visit: Yes Status: Acute Code(s): S31.109A - UNSP OPN WND ABD WALL, UNSP Q W/O PENET PERIT CAV, INIT SNOMED Code(s): 272891424 Plan: 1patient presented to hospital with abdominal pain and distention did have evidence of ileus/small bowel obstruction on the CT concerning for inflammation in this patient who recently did have multiple abdominal surgery initially right hemicolectomy for cecal volvulus subsequently did have a laparotomy with lysis evaluation and during that admission patient did have abdominal wall abscess that was positive for Pseudomonas CT this admission did not show any abscess however tissue was inflammation concerning for possible ileus/obstruction 2patient with multiple antibiotic ALLERGIES that would limit the number of antibiotic safe to use 3patient recently did have a abdominal wall abscess and cellulitis culture positive for Pseudomonas 4-patient is status post laparotomy with ileocolectomy and ileocolonic anastomosis did not mention any abscess, 5-patient continues to be afebrile and white count normalized, to continue with cefepime and Flagyl and will monitor clinical course closely Dictation was produced using [employer] dictation software. please excuse any grammatical, word or spelling errors. Time with Patient: Less than 30
[2024-05-09] MEDS: MAGNESIUM SULFATE-D5W PMX 1 GM in DEXTROSE/WATER 1 100ML.BAG IVPB SCH (15:55)
[2024-05-09] MEDS: MVI, ADULT NO.4 WITH VIT K 10 ML, TRACE (CONC-1ML/DOSE) 1 ML, SODIUM CHLORIDE 4MEQ/ML V... IV ONE (21:27)
[2024-05-10 05:15] LABS: Ionized Calcium 4.8 mg/dL (4.5-5.3)
[2024-05-10 08:50] LABS: Magnesium 2.1 mg/dL (1.5-2.4); Phosphorus 3.1 mg/dL (2.4-5.1); Triglycerides 55.6 mg/dL (0.00-149.00)
[2024-05-10 09:03] LABS: ALT 6 U/L (8-44); AST 11 U/L (13-35); Albumin/Globulin Ratio 1.25 Ratio (1.60-3.17); Alkaline Phosphatase 72 U/L (41-126); BUN/Creat Ratio <8.75 Ratio (12.00-20.00); Blood Urea Nitrogen <3.5 mg/dL (9.0-27.0); Calcium 8.4 mg/dL (8.7-10.3); Carbon Dioxide 29.1 mmol/L (21.6-31.8); Chloride 98 mmol/L (96-109); Globulin 2.4 g/dL (1.6-3.3); Glucose 163 mg/dL (70-110); Potassium 3.3 mmol/L (3.5-5.5); Sodium 137 mmol/L (135-145); Total Bilirubin <0.2 mg/dL (0.3-1.2); Total Protein 5.4 g/dL (6.2-8.2)
[2024-05-10] MEDS: FAT EMULSION 20% 250 ML in EMPTY BAG 1 BAG IV SCH (09:18)
--- NOTE | 2024-05-10 11:48 | P.PN ---
Subjective Progress Note Date: 05/10/24 53 year old F with PMH cecal volvulus status post right hemicolectomy on 03/24 complicated with SBO status post exploratory laparotomy with lysis of adhesions on 04/03 with recent diagnosis of recent abdominal wall abscess presented back to the ED on 04/26 with abdominal pain. In the ED she underwent extensive evaluation. BP 115/84, HR 86, RR 20, T 98.3F, 96% on RA. CBC and CMP significant for RBC 3.53, Hg 11, Hct 33.2, Plt 472, Na 136, BUN < 2, Cr 0.46, glu 100, alb 2.8. Lactic acid 0.7. Lipase 39. UA neg LE or nitrite. CT AP showed dilated fluid filled small bowel loops distended up to 5.3 cm. Admitted to surgery with medicine and ID consult. Started on Cefepime and Flagyl IV by ID. NG tube inserted. Underwent exploratory laparotomy with lysis of adhesions on 05/03. 05/08 Patient was seen and examined. NG tube in place. Not passing gas. Asking about starting Reglan. CBC and BMP significant for RBC 3.54, Hg 10.9, Hct 32.2, Plt 704, Na 134, K 3.4, Cl 96, bicarb 34, BUN < 2, Cr 0.36. Mag 2.1. 05/09 Patient was seen and examined. NG tube discontinued. Not passing gas. Continued NPO. BMP Na 135, K 3.3, Cl 97, bicarb 34, BUN 2, Cr 0.35, alb 2.7. Mag 1.6. 05/10 Patient was seen and examined. Had 6 bowel movements. Diet advanced FLD. CMP K 3.3, BUN < 3.5, Cr 0.4, glu 163, Ca 8.3, T. Bili < 0.2, AST 11, ALT 6, total protein 3. Mag 2.1. General: Nontoxic, no distress, appears at stated age Derm: Warm, dry Head: Atraumatic, normocephalic, symmetric Eyes: EOMI, no lid lag, anicteric sclera Mouth: No lip lesion, mucus membranes moist Cardiovascular: good distal perfusion in all 4 extremities Lungs: breathing comfortably, no accessory muscle use Ext: No gross muscle atrophy, no edema, no contractures Psych: Alert, oriented, appropriate affect Based on my assessment of this patient, this patient meets a high complexity level of care. Partial small bowel obstruction status post ex lap with lysis of adhesions on 05/03: Pain management with Dilaudid 1mg IV Q4H PRN, Toradol 15 mg IV Q6H. [place] 5 PO Q4H PRN. Zofran 4 mg IV Q6H PRN for N/V. Ileus: Reglan 10 mg IV Q6H. NPO. Surgery on board. History of abdominal wall abscess: Cefepime 2g IV TID. Flagyl 500 mg IV TID. ID on board. Moderate protein calorie malnutrition Normocytic anemia and Thrombocytosis likely reactive in the setting of acute illness, diluational and acute blood loss from surgery. Hypokalemia: KCl 40 meq PO ordered today. Provoked upper extremity DVT: Resume Eliquis when OK with Surgery. Resolved: HypoMg, Metabolic alkalosis CODE STATUS: FULL CODE DVT Prophylaxis: Lovenox SQ GI Prophylaxis: Protonix IV Designated medical POA if patient is not able to make medical decisions for themselves: I have reviewed the following new vehicle sales consultant notes: Surgery. I have reviewed the results of the following tests: BMP, Mag. I have ordered the following tests: I have discussed the care of this patient with the following independent historian: I have independently interpreted the following test below: I have discussed the management of this patient with the following physician: Dr. Chacon Objective - Vital Signs Vital signs: Vital Signs Temp 98.1 F 05/10/24 07:53 Pulse 68 05/10/24 07:53 Resp 16 05/10/24 08:00 BP 135/70 05/10/24 07:53 Pulse Ox 96 05/10/24 07:53 FiO2 Intake & Output 05/09/24 05/10/24 05/10/24 18:59 06:59 18:59 Intake Total 100 Output Total 100 Balance -100 100 Weight 54.431 kg Intake: Oral 100 Output: Drainage 100 Right nare 100 Other: Voiding Method Toilet Toilet # Voids 4 2 # Bowel Movements 2 - Labs CBC & Chem 7: 05/08/24 02:36 05/10/24 02:52 Labs: Abnormal Lab Results - Last 24 Hours (Table) 05/09/24 05/10/24 Range/Units 08:48 02:52 Potassium 3.3 L (3.5-5.5) mmol/L BUN <3.5 L (9.0-27.0) mg/dL Creatinine 0.4 L (0.6-1.5) mg/dL BUN/Creatinine Ratio <8.75 L (12.00-20.00) Ratio Glucose 163 H (70-110) mg/dL Calcium 8.4 L (8.7-10.3) mg/dL Total Bilirubin <0.2 L (0.3-1.2) mg/dL AST 11 L (13-35) U/L ALT 6 L (8-44) U/L Total Protein 5.4 L (6.2-8.2) g/dL Albumin 2.7 L 3.0 L (3.5-5.0) g/dL Albumin/Globulin Ratio 1.25 L (1.60-3.17) Ratio
[2024-05-10] MEDS: KETOROLAC 15 MG/ML 1 ML VIAL IVP SCH (12:07)
[2024-05-10] MEDS: POTASSIUM CHLORIDE ER 20 MEQ TAB.ER PO STA (12:13)
[2024-05-10] MEDS: HYDROcodone/APAP 5-325MG 1 EACH TAB PO STA (12:14)
[2024-05-10] MEDS ORDERED: DEXTROSE 50% SYRINGE 50 ML IVP PRN ×2 (12:31)
--- NOTE | 2024-05-10 12:34 | P.PN ---
Subjective Progress Note Date: 05/09/24 Principal diagnosis: Reason for follow-up is small bowel obstruction multiple antibiotic allergies Patient is a 53-year-old female with a past medical history significan t for fibromyalgia reflux who was recently admitted to this facility for bowel obstruction patient was diagnosed with a cecal volvulus status post right hemicolectomy on 03/24/2024 subsequently did have large small bowel obstruction status post exploratory laparotomy with lysis of adhesion on 04/03/2024 patient did have a abdominal wall abscess culture positive for Pseudomonas presenting back to the hospital with abdominal pain and distention has been diagnosed with ileus.Patient is status post exploratory laparotomy colectomy with resection of ileocolonic anastomosis procedure completed on 05/03/2024 On today's evaluation that is 05/09/2024, patient has been afebrile, patient is breathing comfortably and is currently on room air, patient denies having any significant cough no chest pain shortness of breath, patient NG has been discontinued patient mention she did pass gas, abdominal pain seems to be controlled with the pain medication. Patient creatinine 0.35 Objective - Vital Signs Vital signs: Vital Signs Temp 98.3 F 05/09/24 07:10 Pulse 71 05/09/24 07:10 Resp 15 05/09/24 07:10 BP 145/83 05/09/24 07:10 Pulse Ox 98 05/09/24 07:10 FiO2 Intake & Output 05/08/24 05/09/24 05/09/24 18:59 06:59 18:59 Output Total 750 Balance -750 Weight 54.431 kg 54.431 kg Output: Gastric Drainage 750 Other: Voiding Method Bedside Commode Bedside Commode # Voids 2 - Exam GENERAL DESCRIPTION: Middle-age female lying in bed in no distress RESPIRATORY SYSTEM: Unlabored breathing , decreased breath sounds at bases HEART: S1 S2 regular rate and rhythm , ABDOMEN: Soft , mild distention upper abdominal incision did have 2 small wound but no drainage EXTREMITIES: No edema feet - Labs CBC & Chem 7: 05/08/24 02:36 05/10/24 02:52 Labs: Abnormal Lab Results - Last 24 Hours (Table) 05/09/24 05/09/24 Range/Units 08:48 08:48 Sodium 135 L (137-145) mmol/L Potassium 3.3 L (3.5-5.1) mmol/L Chloride 97 L (98-107) mmol/L Carbon Dioxide 34 H (22-30) mmol/L BUN 2 L (7-17) mg/dL Creatinine 0.35 L (0.52-1.04) mg/dL Albumin 2.7 L (3.5-5.0) g/dL Assessment and Plan (1) Allergy to multiple antibiotics Current Visit: Yes Status: Acute Code(s): Z88.1 - ALLERGY STATUS TO OTHER ANTIBIOTIC AGENTS SNOMED Code(s): 071829739 (2) Abdominal pain Current Visit: Yes Status: Acute Code(s): R10.9 - UNSPECIFIED ABDOMINAL PAIN SNOMED Code(s): 45477443 (3) Abdominal wall cellulitis Current Visit: Yes Status: Acute Code(s): L03.311 - CELLULITIS OF ABDOMINAL WALL SNOMED Code(s): 59069674 (4) Open abdominal wall wound Current Visit: Yes Status: Acute Code(s): S31.109A - UNSP OPN WND ABD WALL, UNSP Q W/O PENET PERIT CAV, INIT SNOMED Code(s): 942792086 Plan: 1patient presented to hospital with abdominal pain and distention did have evidence of ileus/small bowel obstruction on the CT concerning for inflammation in this patient who recently did have multiple abdominal surgery initially right hemicolectomy for cecal volvulus subsequently did have a laparotomy with lysis evaluation and during that admission patient did have abdominal wall abscess that was positive for Pseudomonas CT this admission did not show any abscess however tissue was inflammation concerning for possible ileus/obstruction 2patient with multiple antibiotic ALLERGIES that would limit the number of ant ibiotic safe to use 3patient recently did have a abdominal wall abscess and cellulitis culture posi tive for Pseudomonas 4-patient is status post laparotomy with ileocolectomy and ileocolonic anastom osis did not mention any abscess, 5-patient is afebrile still having issues with the ileus not passing any gas we will continue with IV cefepime and Flagyl while waiting for resumption of the GI activity Dictation was produced using [employer] dictation software. please excuse any grammatical, word or spelling errors.
--- NOTE | 2024-05-10 12:35 | P.PN ---
Subjective Progress Note Date: 05/10/24 Principal diagnosis: Reason for follow-up is small bowel obstruction multiple antibiotic allergies Patient is a 53-year-old female with a past medical history significan t for fibromyalgia reflux who was recently admitted to this facility for bowel obstruction patient was diagnosed with a cecal volvulus status post right hemicolectomy on 03/24/2024 subsequently did have large small bowel obstruction status post exploratory laparotomy with lysis of adhesion on 04/03/2024 patient did have a abdominal wall abscess culture positive for Pseudomonas presenting back to the hospital with abdominal pain and distention has been diagnosed with ileus.Patient is status post exploratory laparotomy colectomy with resection of ileocolonic anastomosis procedure completed on 05/03/2024 On today's evaluation that is 05/10/2024, Patient is afebrile this morning patient denies having any chest pain shortness of breath or cough, the patient is breathing comfortably and currently on room air, patient denies any nausea vomiting abdominal pain has decreased intensity, patient did have multiple bowel movement. Patient did have a creatinine 0.4 no CBC was done today Objective - Vital Signs Vital signs: Vital Signs Temp 98.1 F 05/10/24 07:53 Pulse 68 05/10/24 07:53 Resp 16 05/10/24 08:00 BP 135/70 05/10/24 07:53 Pulse Ox 96 05/10/24 07:53 FiO2 Intake & Output 05/09/24 05/10/24 05/10/24 18:59 06:59 18:59 Intake Total 100 Output Total 100 Balance -100 100 Weight 54.431 kg 54.431 kg Intake: Oral 100 Output: Drainage 100 Right nare 100 Other: Voiding Method Toilet Toilet # Voids 4 2 # Bowel Movements 2 - Exam GENERAL DESCRIPTION: Middle-age female lying in bed in no distress RESPIRATORY SYSTEM: Unlabored breathing , decreased breath sounds at bases HEART: S1 S2 regular rate and rhythm , ABDOMEN: Soft , mild distention upper abdominal incision did have 2 small wound but no drainage EXTREMITIES: No edema feet - Labs CBC & Chem 7: 05/08/24 02:36 05/10/24 02:52 Labs: Abnormal Lab Results - Last 24 Hours (Table) 05/10/24 Range/Units 02:52 Potassium 3.3 L (3.5-5.5) mmol/L BUN <3.5 L (9.0-27.0) mg/dL Creatinine 0.4 L (0.6-1.5) mg/dL BUN/Creatinine Ratio <8.75 L (12.00-20.00) Ratio Glucose 163 H (70-110) mg/dL Calcium 8.4 L (8.7-10.3) mg/dL Total Bilirubin <0.2 L (0.3-1.2) mg/dL AST 11 L (13-35) U/L ALT 6 L (8-44) U/L Total Protein 5.4 L (6.2-8.2) g/dL Albumin 3.0 L (3.8-4.9) g/dL Albumin/Globulin Ratio 1.25 L (1.60-3.17) Ratio Assessment and Plan (1) Allergy to multiple antibiotics Current Visit: Yes Status: Acute Code(s): Z88.1 - ALLERGY STATUS TO OTHER ANTIBIOTIC AGENTS SNOMED Code(s): 022056483 (2) Abdominal pain Current Visit: Yes Status: Acute Code(s): R10.9 - UNSPECIFIED ABDOMINAL PAIN SNOMED Code(s): 42057339 (3) Abdominal wall cellulitis Current Visit: Yes Status: Acute Code(s): L03.311 - CELLULITIS OF ABDOMINAL WALL SNOMED Code(s): 72389704 (4) Open abdominal wall wound Current Visit: Yes Status: Acute Code(s): S31.109A - UNSP OPN WND ABD WALL, UNSP Q W/O PENET PERIT CAV, INIT SNOMED Code(s): 296929088 Plan: 1patient presented to hospital with abdominal pain and distention did have evidence of ileus/small bowel obstruction on the CT concerning for inflammation in this patient who recently did have multiple abdominal surgery initially right hemicolectomy for cecal volvulus subsequently did have a laparotomy with lysis evaluation and during that admission patient did have abdominal wall abscess that was positive for Pseudomonas CT this admission did not show any abscess however tissue was inflammation concerning for possible ileus/obstruction 2patient with multiple antibiotic ALLERGIES that would limit the number of antibiotic safe to use 3patient recently did have a abdominal wall abscess and cellulitis culture positive for Pseudomonas 4-patient is status post laparotomy with ileocolectomy and ileocolonic anastomosis did not mention any abscess, 5-patient is afebrile, seem to have improvement as the patient did have multiple bowel movements we will continue with IV cefepime and Flagyl for now however if remains to be afebrile no need for antibiotics on discharge discussed with the medical team Dictation was produced using [employer] dictation software. please excuse any grammatical, word or spelling errors. Time with Patient: Less than 30
[2024-05-10 12:48] LABS: Glucose,Whole Blood 137 mg/dL (70-110)
--- NOTE | 2024-05-10 13:51 | P.PN ---
Subjective Progress Note Date: 05/10/24 CHIEF COMPLAINT: SBO HISTORY OF PRESENT ILLNESS: Patient postop day #7 status post exploratory laparotomy, colectomy with resection of ileocolonic anastomosis and partial omentectomy, and lysis of adhesions. Patient had 6 bowel movements yesterday. She is tolerating full liquid diet. She has been up and ambulating. Afebrile. Potassium being replaced. Potassium 3.3 Patient seen and examined with Dr. Denney PHYSICAL EXAM: VITAL SIGNS: Reviewed. GENERAL: Well-developed in no acute distress. ABDOMEN: Soft. Nondistended. Dressing clean dry and intact NEUROLOGIC: Alert and oriented. Cranial nerves II through XII grossly intact. ASSESSMENT: 1. Small bowel obstruction, extensive adhesions, adhesions causing internal hernia, anastomotic stricture 2. Abdominal incision infection 3. Hypokalemia PLAN: -Continue full liquid diet -Start weaning off TPN. Decrease TPN by half -Anticipate discharge tomorrow -Toradol and [place] added for pain management -Discussed with patient to decrease IV Dilaudid use -Encourage patient to ambulate -Remove Optifoam silver dressing. Patient can shower with soap and water to the incision -Continue DVT prophylaxis Lovenox and GI prophylaxis Protonix Physician Assistant Teacher Primary note has been reviewed by physician. Signing provider agrees with the documented findings, assessment, and plan of care. Objective - Vital Signs Vital signs: Vital Signs Temp 98.1 F 05/10/24 07:53 Pulse 68 05/10/24 07:53 Resp 16 05/10/24 08:00 BP 135/70 05/10/24 07:53 Pulse Ox 96 05/10/24 07:53 FiO2 Intake & Output 05/09/24 05/10/24 05/10/24 18:59 06:59 18:59 Intake Total 100 Output Total 100 Balance -100 100 Weight 54.431 kg 54.431 kg Intake: Oral 100 Output: Drainage 100 Right nare 100 Other: Voiding Method Toilet Toilet # Voids 4 2 # Bowel Movements 2 - Labs CBC & Chem 7: 05/08/24 02:36 05/10/24 02:52 Labs: Abnormal Lab Results - Last 24 Hours (Table) 05/10/24 05/10/24 Range/Units 02:52 12:46 Potassium 3.3 L (3.5-5.5) mmol/L BUN <3.5 L (9.0-27.0) mg/dL Creatinine 0.4 L (0.6-1.5) mg/dL BUN/Creatinine Ratio <8.75 L (12.00-20.00) Ratio Glucose 163 H (70-110) mg/dL POC Glucose (mg/dL) 137 H (70-110) mg/dL Calcium 8.4 L (8.7-10.3) mg/dL Total Bilirubin <0.2 L (0.3-1.2) mg/dL AST 11 L (13-35) U/L ALT 6 L (8-44) U/L Total Protein 5.4 L (6.2-8.2) g/dL Albumin 3.0 L (3.8-4.9) g/dL Albumin/Globulin Ratio 1.25 L (1.60-3.17) Ratio
[2024-05-10] MEDS: HYDROcodone/APAP 5-325MG 1 EACH TAB PO PRN (16:13)
[2024-05-10] MEDS: MVI, ADULT NO.4 WITH VIT K 10 ML, TRACE (CONC-1ML/DOSE) 1 ML, SODIUM CHLORIDE 4MEQ/ML V... IV ONE (16:14)
[2024-05-10] MEDS: INSULIN ASPART (NovoLOG) 100 UNIT/ML VIAL SQ SCH (18:14)
[2024-05-10 19:26] VITALS: RESP 18
[2024-05-10 20:08] LABS: Glucose,Whole Blood 157 mg/dL (70-110)
[2024-05-11 05:59] LABS: Glucose,Whole Blood 138 mg/dL (70-110)
[2024-05-11 07:44] VITALS: TEMP 98.4
[2024-05-11 09:04] LABS: BUN/Creat Ratio 9.25 Ratio (12.00-20.00); Blood Urea Nitrogen 3.7 mg/dL (9.0-27.0); Glucose 156 mg/dL (70-110)
[2024-05-11 09:05] LABS: ALT 6 U/L (8-44); AST 9 U/L (13-35); Albumin 3.2 g/dL (3.8-4.9); Albumin/Globulin Ratio 1.28 Ratio (1.60-3.17); Alkaline Phosphatase 73 U/L (41-126); Carbon Dioxide 26.9 mmol/L (21.6-31.8); Chloride 99 mmol/L (96-109); Globulin 2.5 g/dL (1.6-3.3); Magnesium 1.6 mg/dL (1.5-2.4); Potassium 3.6 mmol/L (3.5-5.5); Sodium 137 mmol/L (135-145); Total Bilirubin <0.2 mg/dL (0.3-1.2); Total Protein 5.7 g/dL (6.2-8.2)
--- NOTE | 2024-05-11 11:27 | CDI ---
Documentation Clarification Form Date: 05/11/2024 11:00:32 AM From: Roxanne Sanchez RN, CCDS Phone: [phone] Admit Date: 04/26/2024 11:34:00 AM Patient Name: Glenny Jimenez Visit Number: [id number] Discharge Date: ATTENTION: The Clinical Documentation Specialists (CDI) and [facility] Coding Staff appreciate your assistance in clarifying documentation. Please respond to the clarification below the line at the bottom and electronically sign. The CDI & [facility] Coding staff will review the response and follow-up if needed. Please note: Queries are made part of the Legal Health Record. If you have any questions, please contact the author of this message via ITS. Doctor Shaw Head: Conflicting documentation has been found in the medical record. As attending physician, please provide clarification. Moderate protein calorie malnutrition is documented by IM in the progress notes. Acute severe malnutrition is documented by the Registered Dietitian. History/Risk Factors: Fibromyalgia, GERD, bowel obstructions and cecal volvulus, s/p right hemicolectomy in February 2024. Presented with abdominal pain, nausea, decreased appetite and distention. Admitted with small bowel obstruction. S/P exploratory laparotomy, colectomy and partial omentectomy. Clinical Indicators: BMI: 17.2 Weight: 54kg Height: 5 ft 10 in 04/27 RD: "Acute severe malnutrition related to 11% weight loss in 3 months. Physician appearance is underweight with poor nutrition intake." 05/10 IM: "Moderate protein calorie malnutrition. Treatment: TPN; Full liquid diet; diet advancement to low fiber; Ensure clear TID Please clarify which diagnosis is most appropriate: [ ] Moderate protein calorie malnutrition [x ] Severe protein calorie malnutrition [ ] Other (please specify) [ ] Unable to determine MTDD
[2024-05-11] MEDS: oxyCODONE-APAP 5-325MG 1 EACH TAB PO STA (12:04)
--- NOTE | 2024-05-11 13:41 | P.PN ---
Subjective Progress Note Date: 05/11/24 53 year old F with PMH cecal volvulus status post right hemicolectomy on 03/24 complicated with SBO status post exploratory laparotomy with lysis of adhesions on 04/03 with recent diagnosis of recent abdominal wall abscess presented back to the ED on 04/26 with abdominal pain. In the ED she underwent extensive evaluation. BP 115/84, HR 86, RR 20, T 98.3F, 96% on RA. CBC and CMP significant for RBC 3.53, Hg 11, Hct 33.2, Plt 472, Na 136, BUN < 2, Cr 0.46, glu 100, alb 2.8. Lactic acid 0.7. Lipase 39. UA neg LE or nitrite. CT AP showed dilated fluid filled small bowel loops distended up to 5.3 cm. Admitted to surgery with medicine and ID consult. Started on Cefepime and Flagyl IV by ID. NG tube inserted. Underwent exploratory laparotomy with lysis of adhesions on 05/03. 05/08 Patient was seen and examined. NG tube in place. Not passing gas. Asking about starting Reglan. CBC and BMP significant for RBC 3.54, Hg 10.9, Hct 32.2, Plt 704, Na 134, K 3.4, Cl 96, bicarb 34, BUN < 2, Cr 0.36. Mag 2.1. 05/09 Patient was seen and examined. NG tube discontinued. Not passing gas. Continued NPO. BMP Na 135, K 3.3, Cl 97, bicarb 34, BUN 2, Cr 0.35, alb 2.7. Mag 1.6. 05/10 Patient was seen and examined. Had 6 bowel movements. Diet advanced FLD. CMP K 3.3, BUN < 3.5, Cr 0.4, glu 163, Ca 8.3, T. Bili < 0.2, AST 11, ALT 6, total protein 3. Mag 2.1. 05/11 Patient was seen and examined. Tolerating FLD well. Wants to go home. CMP BUN 3.7, Cr 0.4, glu 156, T. Bili < 0.2, AST 9, ALT 6, alb 3.2. Mag 1.6. General: Nontoxic, no distress, appears at stated age Derm: Warm, dry Head: Atraumatic, normocephalic, symmetric Eyes: EOMI, no lid lag, anicteric sclera Mouth: No lip lesion, mucus membranes moist Cardiovascular: RRR. Normal S1 S2. Lungs: Clear to auscultation bilaterally. Ext: No gross muscle atrophy, no edema, no contractures Psych: Alert, oriented, appropriate affect Based on my assessment of this patient, this patient meets a high complexity level of care. Partial small bowel obstruction status post ex lap with lysis of adhesions on 05/03: Pain management with Dilaudid 1mg IV Q4H PRN, Toradol 15 mg IV Q6H. Chapin 5 PO Q4H PRN. Zofran 4 mg IV Q6H PRN for N/V. Ileus: Reglan 10 mg IV Q6H. NPO. Surgery on board. History of abdominal wall abscess: Completed course of Cefepime and Flagyl. Moderate protein calorie malnutrition Normocytic anemia and Thrombocytosis likely reactive in the setting of acute illness, diluational and acute blood loss from surgery. Provoked upper extremity DVT: Resume Eliquis. Resolved: HypoMg, Metabolic alkalosis, HypoK Medically stable for discharge when OK with surgery. CODE STATUS: FULL CODE DVT Prophylaxis: Lovenox SQ GI Prophylaxis: Protonix IV Designated medical POA if patient is not able to make medical decisions for themselves: I have reviewed the following data center consultant notes: I have reviewed the results of the following tests: CMP, Mag. I have ordered the following tests: I have discussed the care of this patient with the following independent hist orian: I have independently interpreted the following test below: I have discussed the management of this patient with the following physician: Objective - Vital Signs Vital signs: Vital Signs Temp 98.4 F 05/11/24 07:42 Pulse 78 05/11/24 07:42 Resp 18 05/11/24 08:00 BP 174/85 05/11/24 07:42 Pulse Ox 97 05/11/24 07:42 FiO2 Intake & Output 05/10/24 05/11/24 05/11/24 18:59 06:59 18:59 Intake Total 1357 354 221 Balance 1357 354 221 Weight 54.431 kg Intake: Oral 1357 354 221 Other: Voiding Method Toilet Toilet Toilet # Voids 1 3 # Bowel Movements 1 - Labs CBC & Chem 7: 05/08/24 02:36 05/11/24 03:21 Labs: Abnormal Lab Results - Last 24 Hours (Table) 05/10/24 05/11/24 05/11/24 Range/Units 20:07 03:21 05:58 BUN 3.7 L (9.0-27.0) mg/dL Creatinine 0.4 L (0.6-1.5) mg/dL BUN/Creatinine Ratio 9.25 L (12.00-20.00) Ratio Glucose 156 H (70-110) mg/dL POC Glucose (mg/dL) 157 H 138 H (70-110) mg/dL Total Bilirubin <0.2 L (0.3-1.2) mg/dL AST 9 L (13-35) U/L ALT 6 L (8-44) U/L Total Protein 5.7 L (6.2-8.2) g/dL Albumin 3.2 L (3.8-4.9) g/dL Albumin/Globulin Ratio 1.28 L (1.60-3.17) Ratio
--- NOTE | 2024-05-11 14:08 | P.PN ---
Subjective Progress Note Date: 05/11/24 Principal diagnosis: Reason for follow-up is small bowel obstruction multiple antibiotic allergies Patient is a 53-year-old female with a past medical history significan t for fibromyalgia reflux who was recently admitted to this facility for bowel obstruction patient was diagnosed with a cecal volvulus status post right hemicolectomy on 03/24/2024 subsequently did have large small bowel obstruction status post exploratory laparotomy with lysis of adhesion on 04/03/2024 patient did have a abdominal wall abscess culture positive for Pseudomonas presenting back to the hospital with abdominal pain and distention has been diagnosed with ileus.Patient is status post exploratory laparotomy colectomy with resection of ileocolonic anastomosis procedure completed on 05/03/2024 On today's evaluation that is 05/11/2024,the patient denies any fever or any chills, patient is breathing comfortably on room air, the patient denies chest pain shortness of breath and no significant cough, patient did have prominent abdominal pain no nausea vomiting tolerating her diet and did have bowel movements. Patient did have a creatinine 0.4 electrolytes are normal no CBC was done today Objective - Vital Signs Vital signs: Vital Signs Temp 98.4 F 05/11/24 07:42 Pulse 78 05/11/24 07:42 Resp 18 05/11/24 08:00 BP 174/85 05/11/24 07:42 Pulse Ox 97 05/11/24 07:42 FiO2 Intake & Output 05/10/24 05/11/24 05/11/24 18:59 06:59 18:59 Intake Total 1357 354 221 Balance 1357 354 221 Weight 54.431 kg Intake: Oral 1357 354 221 Other: Voiding Method Toilet Toilet Toilet # Voids 1 3 # Bowel Movements 1 - Exam GENERAL DESCRIPTION: Middle-age female lying in bed in no distress RESPIRATORY SYSTEM: Unlabored breathing , decreased breath sounds at bases HEART: S1 S2 regular rate and rhythm , ABDOMEN: Soft , mild distention upper abdominal incision did have 2 small wound but no drainage EXTREMITIES: No edema feet - Labs CBC & Chem 7: 05/08/24 02:36 05/11/24 03:21 Labs: Abnormal Lab Results - Last 24 Hours (Table) 05/10/24 05/11/24 05/11/24 Range/Units 20:07 03:21 05:58 BUN 3.7 L (9.0-27.0) mg/dL Creatinine 0.4 L (0.6-1.5) mg/dL BUN/Creatinine Ratio 9.25 L (12.00-20.00) Ratio Glucose 156 H (70-110) mg/dL POC Glucose (mg/dL) 157 H 138 H (70-110) mg/dL Total Bilirubin <0.2 L (0.3-1.2) mg/dL AST 9 L (13-35) U/L ALT 6 L (8-44) U/L Total Protein 5.7 L (6.2-8.2) g/dL Albumin 3.2 L (3.8-4.9) g/dL Albumin/Globulin Ratio 1.28 L (1.60-3.17) Ratio Assessment and Plan (1) Allergy to multiple antibiotics Status: Acute Code(s): Z88.1 - ALLERGY STATUS TO OTHER ANTIBIOTIC AGENTS SNOMED Code(s): 055654218 (2) Abdominal pain Status: Acute Code(s): R10.9 - UNSPECIFIED ABDOMINAL PAIN SNOMED Code(s): 71821337 (3) Abdominal wall cellulitis Status: Acute Code(s): L03.311 - CELLULITIS OF ABDOMINAL WALL SNOMED Code(s): 94316994 (4) Open abdominal wall wound Status: Acute Code(s): S31.109A - UNSP OPN WND ABD WALL, UNSP Q W/O PENET PERIT CAV, INIT SNOMED Code(s): 229453718 Plan: 1patient presented to hospital with abdominal pain and distention did have evidence of ileus/small bowel obstruction on the CT concerning for inflammation in this patient who recently did have multiple abdominal surgery initially right hemicolectomy for cecal volvulus subsequently did have a laparotomy with lysis evaluation and during that admission patient did have abdominal wall abscess that was positive for Pseudomonas CT this admission did not show any abscess however tissue was inflammation concerning for possible ileus/obstruction 2patient with multiple antibiotic ALLERGIES that would limit the number of antibiotic safe to use 3patient recently did have a abdominal wall abscess and cellulitis culture positive for Pseudomonas 4-patient is status post laparotomy with ileocolectomy and ileocolonic anastomosis did not mention any abscess, 5-patient is afebrile, patient did have clinical improvement has received about 2 weeks of antibiotic should be more than enough we will go ahead and discontinue antibiotics and monitor the patient closely off antibiotic Dictation was produced using [employer] dictation software. please excuse any grammatical, word or spelling errors. Time with Patient: Less than 30
--- NOTE | 2024-05-11 15:09 | P.DS ---
Providers Date of admission: 04/26/24 11:34 Expected date of discharge: 05/11/24 Attending physician: Isaías Denney Consults: 04/26/24 11:42 Consult Physician Routine Consulting Provider: Neftali Chacon Consult Reason/Comments: antibiotic management Do you want consulting provider notified?: Yes 04/26/24 13:17 Consult Physician Routine Consulting Provider: Shaw Head Consult Reason/Comments: medical management Do you want consulting provider notified?: Yes [facility] Course: Discharge diagnosis 1. Small bowel obstruction, extensive adhesions, adhesions causing internal hernia, anastomotic stricture 2. Abdominal incision infection from prior surgery. now resolved Hospital course This is a 53-year-old female who presented with abdominal pain. She was found to have evidence of a small bowel obstruction. Patient is status post exploratory laparotomy, colectomy with resection of ileocolonic anastomosis and partial omentectomy. Patient's pain is controlled. She is having bowel movements. She is tolerating diet. She has been up and ambulating. She is afebrile. She is stable for discharge. Please refer to chart for any further details. Physician Account Coordinator note has been reviewed by physician. Signing provider agrees with the documented findings, assessment, and plan of care. Patient Condition at Discharge: Stable Plan - Discharge Summary New Discharge Prescriptions: New oxyCODONE HCL/ACETAMINOPHEN [Percocet 10-325 mg] 1 tab PO Q4HR PRN 3 Days #18 tab PRN Reason: Severe Breakthrough Pain Lactulose [Cephulac] 30 gm PO DAILY #300 ml Continue Ibuprofen [Motrin] 600 mg PO Q8HR PRN #30 tab PRN Reason: Pain Omeprazole 40 mg PO DAILY Cyclobenzaprine [Flexeril] 10 mg PO TID PRN PRN Reason: Pain Apixaban [Eliquis] 5 mg PO BID Discontinued Ciprofloxacin HCl [Cipro] 500 mg PO Q12HR metroNIDAZOLE [Flagyl] 500 mg PO TID Discharge Medication List Ibuprofen [Motrin] 600 mg PO Q8HR PRN #30 tab 03/29/24 [Rx] Apixaban [Eliquis] 5 mg PO BID 04/26/24 [History] Cyclobenzaprine [Flexeril] 10 mg PO TID PRN 04/26/24 [History] Omeprazole 40 mg PO DAILY 04/26/24 [History] Lactulose [Cephulac] 30 gm PO DAILY #300 ml 05/11/24 [Rx] oxyCODONE HCL/ACETAMINOPHEN [Percocet 10-325 mg] 1 tab PO Q4HR PRN 3 Days #18 tab 05/11/24 [Rx] Follow up Appointment(s)/Referral(s): Curly Singh DO [Primary Care Provider] - 1-2 days Isaías Denney MD [STAFF PHYSICIAN] - 05/23/24 3:15 pm Patient Instructions/Handouts: Full Liquid Diet (DC), Full Liquid Diet (GEN) Activity/Diet/Wound Care/Special Instructions: No driving while taking Percocet No lifting over 10 pounds Shower daily. No soaking or tub baths for 2 weeks Very light activity until you are reevaluated at your follow up appointment with your surgeon Continue a full liquid diet until seen by surgeon RETURN FOR WORSENING SYMPTOMS, PROBLEMS, OR CONCERNS. Discharge Disposition: HOME SELF-CARE
[2024-05-11 19:41] VITALS: BP 146/80; PULSE 67
[2024-05-11] MEDS ORDERED: APIXABAN 5 MG TAB PO SCH (21:00)
--- NOTE | 2024-05-12 22:21 | CDI ---
Documentation Clarification Form Date: 05/12/2024 10:08:15 PM From: Jewels Gong Phone: Admit Date: 04/26/2024 11:34:00 AM Patient Name: Glenny Jimenez Visit Number: [id number] Discharge Date: 05/11/2024 01:36:00 PM ATTENTION: The Clinical Documentation Specialists (CDI) and [facility] Coding Staff appreciate your assistance in clarifying documentation. Please respond to the clarification below the line at the bottom and electronically sign. The CDI & [facility] Coding staff will review the response and follow-up if needed. Please note: Queries are made part of the Legal Health Record. If you have any questions, please contact the author of this message via ITS. Doctor/Provider: Isaías Denney The final diagnosis of the pathology report states small bowel ulceration acute serositis. Coding guidelines do not allow coding professionals to code based on pathology results; therefore, clarification is requested. History/risk factors: 53yo F, Partial SBO, Ileus, celiac disease w severe PCM, anastomotic stricture, normocytic anemia, HypoK, thrombocytosislikelyreactive, ABLA, UE DVT on Eliquis, HypoMg,Metabolic alkalosis, GERD Clinical Indicators: 28 cm in length small bowel segment that is attached to an 8cm in length portion of colon by a raised, granularanastomosisline. The internal circumferences of the small bowel and colon range from 4cm to 8. 5 cm. Areas of luminalnarrowingarenot identified. The serosal surfaces are extensively covered by fibrousadhesions. The mucosa ranges from pink-orellana and prominently folded to orellana-green and flattened. A mucosallesionis not identified. There is a 1. 8 cm in length superficial staple line within the mucosa of the mid small bowel. Separate within the container is a 12. 5 x 6 x 1. 5 cm sheetlike portion of omentum focally covered byadhesions. Treatment: Small Intestine, Resection Please clarify if you agree with the pathology report diagnosis of small bowel ulceration, acute serositis: [ ] Yes [ ] No [ ] Other (please specify) [ xxx ] Unable to determine (Template Last Revised: October 2020) MTDD
--- NOTE | 2024-05-12 22:33 | CDI ---
Documentation Clarification Form Date: 05/12/2024 10:22:53 PM From: Jewels Gong Phone: Admit Date: 04/26/2024 11:34:00 AM Patient Name: Glenny Jimenez Visit Number: [id number] Discharge Date: 05/11/2024 01:36:00 PM ATTENTION: The Clinical Documentation Specialists (CDI) and [facility] Coding Staff appreciate your assistance in clarifying documentation. Please respond to the clarification below the line at the bottom and electronically sign. The CDI & [facility] Coding staff will review the response and follow-up if needed. Please note: Queries are made part of the Legal Health Record. If you have any questions, please contact the author of this message via ITS. Doctor/Provider: Norman Portillo There is documentation of upper extremity DVT per 05/01 Progress Note. Additional clarification regarding the time of development, etiology and laterality is requested. History/Risk Factors: 53yo F, Partial SBO, Ileus, celiac disease w severe PCM, anastomotic stricture, normocytic anemia, HypoK, thrombocytosis likely reactive, ABLA, UE DVT on Eliquis, HypoMg, Metabolic alkalosis, GERD Clinical Indicators: Provoked upper extremity DVT Treatment: Holding Eliquis for now. Increase Lovenox to 40 every 12 hours SQ. Resume Eliquis at time of discharge Can you please clarify etiology and laterality of the upper extremity DVT? Time of development [ x] Present On Admission [ ] Not Present on Admission Etiology [ x] Peripheral Catheter [ ] Arterial Catheter [ ] Other etiology (please specify) Laterality [ x] Left Upper Arm [ ] Left Lower Arm [ ] Right Upper Arm [ ] Right Lower Arm [ ] Other, please specify [ ] Unable to determine (Template Last Revised: October 2020) MTDD
== END 2024-05-11 13:36 | disposition home or self-care (01) | DRG 329 ==
LOC: EC 08:24 → 5NMEDONC 11:34 → 6NMEDSUR 19:55
PROVIDERS: ADMIT Surgery; ATTEND Surgery
PROC: 0D9670Z Drainage of Stomach with Drainage Device, Via Natural or Artificial Opening (ICD-10-PCS; 2024-04-26)
PROC: 0DBU0ZZ Excision of Omentum, Open Approach (ICD-10-PCS; 2024-05-03)
PROC: 0DNB0ZZ Release Ileum, Open Approach (ICD-10-PCS; 2024-05-03)
PROC: 0D1 Gastrointestinal System, Bypass (ICD-10-PCS; 2024-05-03)
PROC: 3E0T3BZ Introduction of Anesthetic Agent into Peripheral Nerves and Plexi, Percutaneous Approach (ICD-10-PCS; 2024-05-03)
PROC: 3E0T33Z Introduction of Anti-inflammatory into Peripheral Nerves and Plexi, Percutaneous Approach (ICD-10-PCS; 2024-05-03)
PROC: 3E0436Z Introduction of Nutritional Substance into Central Vein, Percutaneous Approach (ICD-10-PCS; 2024-05-03)
PROC: 0DB80ZZ Excision of Small Intestine, Open Approach (ICD-10-PCS; principal; 2024-05-03 08:40)
DX: K56.51 Intestinal adhesions [bands], with partial obstruction (principal); E43 Unspecified severe protein-calorie malnutrition; E87.3 Alkalosis; D62 Acute posthemorrhagic anemia; E87.1 Hypo-osmolality and hyponatremia; L03.311 Cellulitis of abdominal wall; Z68.1 Body mass index [BMI] 19.9 or less, adult; K91.89 Other postprocedural complications and disorders of digestive system; I82.622 Acute embolism and thrombosis of deep veins of left upper extremity; T82.868A Thrombosis due to vascular prosthetic devices, implants and grafts, initial encounter; K90.0 Celiac disease; E86.1 Hypovolemia; K45.8 Other specified abdominal hernia without obstruction or gangrene; M79.7 Fibromyalgia; D75.838 Other thrombocytosis; E87.6 Hypokalemia; E83.42 Hypomagnesemia; K21.9 Gastro-esophageal reflux disease without esophagitis; R03.0 Elevated blood-pressure reading, without diagnosis of hypertension; Y71.1 Therapeutic (nonsurgical) and rehabilitative cardiovascular devices associated with adverse incidents; Z87.891 Personal history of nicotine dependence; Z86.718 Personal history of other venous thrombosis and embolism; Z79.01 Long term (current) use of anticoagulants; Z88.1 Allergy status to other antibiotic agents; Z90.49 Acquired absence of other specified parts of digestive tract; Z87.19 Personal history of other diseases of the digestive system; Z79.899 Other long term (current) drug therapy; Z88.2 Allergy status to sulfonamides; Z88.0 Allergy status to penicillin

== ENCOUNTER 2024-08-22 18:43 | Emergency (ER) | payer BC ==
--- NOTE | 2024-08-22 19:15 | ED ---
General Adult HPI - General Chief complaint: Abdominal Pain Stated complaint: abd pain/swelling/post op Time Seen by Provider: 08/22/24 19:14 Source: patient Mode of arrival: ambulatory Limitations: no limitations - History of Present Illness Initial comments: Patient presents to the ED with her for evaluation. Patient states that she had abdominal surgery performed by Dr. Denney on May 04 for a bowel obstruction, and she states that for the past 2 days she has had left lower quadrant abdominal pain/pressure and nausea. Patient states that what has concerned her the most is that for the past couple of days, she has been able to see her bowels "bulge" outside of her abdomen in the area of her surgical scar when she sits up, but she states that it goes away when she lays flat. Patient states that she has never noticed this before. Patient denies trauma or injury, fever or chills, chest pain, dyspnea, palpitations, dizziness, back or flank pain, vomiting, diarrhea or constipation, bloody or melanotic stool, dysuria/hematuria/urinary frequency/urinary symptoms, decreased urine output, or any other symptoms or complaints. - Related Data Home Medications Medication Instructions Recorded Confirmed Apixaban [Eliquis] 5 mg PO BID 04/26/24 04/26/24 Cyclobenzaprine [Flexeril] 10 mg PO TID PRN 04/26/24 04/26/24 Omeprazole 40 mg PO DAILY 04/26/24 04/26/24 Previous Rx's Medication Instructions Recorded Ibuprofen [Motrin] 600 mg PO Q8HR PRN #30 tab 03/29/24 Lactulose [Cephulac] 30 gm PO DAILY #300 ml 05/11/24 oxyCODONE HCL/ACETAMINOPHEN 1 tab PO Q4HR PRN 3 Days #18 tab 05/11/24 [Percocet 10-325 mg] Allergies Allergy/AdvReac Type Severity Reaction Status Date / Time gluten Allergy CELIAC Verified 08/22/24 19:02 Penicillins Allergy STRONG Verified 08/22/24 19:02 SIBLING REACTION OF ANAPHYLAXIS Sulfa (Sulfonamide Allergy Unknown Verified 08/22/24 19:02 Antibiotics) Childhood tree nut Allergy SKIN Verified 08/22/24 19:02 REACTION wheat Allergy CELIAC Verified 08/22/24 19:02 Review of Systems ROS Statement: Those systems with pertinent positive or pertinent negative responses have been documented in the HPI. ROS Other: All systems not noted in ROS Statement are negative. Past Medical History Past Medical History: Fibromyalgia, GERD/Reflux Additional Past Medical History / Comment(s): celiac disease, "told she has raynaulds", small hiatal hernia. "precancerous colon polyps removed" History of Any Multi-Drug Resistant Organisms: None Reported Past Surgical History: Adenoidectomy, Appendectomy, Bowel Resection, Cholecystectomy, Hysterectomy, Orthopedic Surgery, Tonsillectomy Additional Past Surgical History / Comment(s): Appendectomy with mesenteric mass excision, diagnostic exploratory laprascopy, surgery for tubal , EGD, colonoscopy, cervical fusion/decompression; 03/24/24 Right hemicolectomy and decompressive colotomy Past Anesthesia/Blood Transfusion Reactions: Previous Problems w/ Anesthesia, Motion Sickness, Postoperative Nausea & Vomiting (PONV) Additional Past Anesthesia/Blood Transfusion Reaction / Comment(s): Slow to wake Past Psychological History: No Psychological Hx Reported Smoking Status: Former smoker Past Alcohol Use History: Daily Past Drug Use History: None Reported - Past Family History Sister(s) Family Medical History: Cancer Additional Family Medical History / Comment(s): Stage III colon cancer. Mother Additional Family Medical History / Comment(s): lupus, mi of at age 52 Father Family Medical History: AFIB General Exam Limitations: no limitations General appearance: alert, in no apparent distress Head exam: Present: atraumatic Eye exam: Present: normal appearance ENT exam: Present: mucous membranes moist Respiratory exam: Present: normal lung sounds bilaterally. Absent: respiratory distress, wheezes, rales, rhonchi, stridor Cardiovascular Exam: Present: regular rate, normal rhythm, normal heart sounds, other (Normal radial pulses bilaterally) GI/Abdominal exam: Present: soft, normal bowel sounds, other (Mild left lower quadrant abdominal tenderness; large midline surgical scar; easily reducible ventral hernia). Absent: distended, guarding, rebound Extremities exam: Absent: tenderness, pedal edema, calf tenderness Back exam: Absent: CVA tenderness (R), CVA tenderness (L) Neurological exam: Present: alert, oriented X3 Psychiatric exam: Present: anxious Skin exam: Present: warm, dry, normal color Course Vital Signs 08/22/24 18:59 Temperature 98.3 F Pulse Rate 85 Respiratory 18 Rate Blood Pressure 112/72 O2 Sat by Pulse 100 Oximetry - Reevaluation(s) Reevaluation #1: 08/22/24 21:29 Patient denies development of any new symptoms while in the ED. Patient's abdomen remains soft and without any surgical signs on examination. Patient and are aware of the patient's test results, and patient feels comfortable being discharged home at this time. She was counseled about abdominal pain, nausea and ventral hernias. She was clearly explained return and follow-up instructions. She was instructed to follow-up closely with her primary care provider, as well as her general surgeon. She feels comfortable with this plan. Medical Decision Making - Medical Decision Making Was pt. sent in by a medical professional or institution (, PA, AUTOMATIC CLIPPER, urgent care, hospital, or half-way...) When possible be specific @ -No Did you speak to anyone other than the patient for history (EMS, parent, family, police, friend...)? What history was obtained from this source @ -No Did you review nursing and triage notes (agree or disagree)? Why? @ -I reviewed and agree with nursing and triage notes Were old charts reviewed (outside hosp., previous admission, EMS record, old EKG, old radiological studies, urgent care reports/EKG's, half-way records)? Report findings @ -No old charts were reviewed Differential Diagnosis (chest pain, altered mental status, abdominal pain women, abdominal pain men, vaginal bleeding, weakness, fever, dyspnea, syncope, headache, dizziness, GI bleed, back pain, seizure, CVA, palpatations, mental health, musculoskeletal)? @ -Differential Abdominal Pain Women: Appendicitis, diverticulosis, ischemic bowel, pancreatitis, hepatitis, biliary disease, UTI, gastroenteritis, ventral hernia, incarcerated hernia, bowel obstruction, constipation, inflammatory bowel, hepatitis, peptic ulcer disease, perforated viscus, vulvitis, kidney stone, this is not meant to be an all- inclusive list EKG interpreted by me (3pts min.). @ -None done X-rays interpreted by me (1pt min.). @ -None done CT interpreted by me (1pt min.). @ -CT abdomen/pelvis with IV contrast was reviewed myself and does not show any findings of bowel obstruction. I agree with the radiologist's interpretation as above. U/S interpreted by me (1pt. min.). @ -None done What testing was considered but not performed or refused? (CT, X-rays, U/S, labs)? Why? @ -None What meds were considered but not given or refused? Why? @ -None Did you discuss the management of the patient with other professionals (professionals i.e. , PA, AUTOMATIC CLIPPER, lab, RT, psych nurse, social media senior associate, supervisor twisting department, teacher, retail loss prevention officer, family caseworker)? Give summary @ -No Was smoking cessation discussed for >3mins.? @ -No Was critical care preformed (if so, how long)? @ -No Were there social determinants of health that impacted care today? How? (Homelessness, low income, unemployed, alcoholism, drug addiction, transportation, low edu. Level, literacy, decrease access to med. care, residential, rehab)? @ -No Was there de-escalation of care discussed even if they declined (Discuss DNR or withdrawal of care, Hospice)? DNR status @ -No What co-morbidities impacted this encounter? (DM, HTN, Smoking, COPD, CAD, Cancer, CVA, ARF, Chemo, Hep., AIDS, mental health diagnosis, sleep apnea, morb id obesity)? @ -None Was patient admitted / discharged? Hospital course, mention meds given and rou te, prescriptions, significant lab abnormalities, going to OR and other pertinent info. @ -Patient has a soft and nonsurgical abdominal exam. Patient is afebrile and without leukocytosis. Patient's labs are fairly unremarkable. Patient's CT imaging is negative for bowel obstruction or any concerning findings. I do not suspect an emergent medical or surgical condition at this time. Will discharge patient home with her at this time. Patient was instructed to follow-up closely with her primary care provider, as well as her general surgeon. Patient feels comfortable with this plan. Undiagnosed new problem with uncertain prognosis? @ -No Drug Therapy requiring intensive monitoring for toxicity (Heparin, Nitro, Insulin, Cardizem)? @ -No Were any procedures done? @ -No Diagnosis/symptom? @ -Abdominal pain, nausea, ventral hernia Acute, or Chronic, or Acute on Chronic? @ -Default Uncomplicated (without systemic symptoms) or Complicated (systemic symptoms)? @ -Default Side effects of treatment? @ -No Exacerbation, Progression, or Severe Exacerbation? @ -No Poses a threat to life or bodily function? How? (Chest pain, USA, NE, pneumonia, PE, COPD, DKA, ARF, appy, cholecystitis, CVA, Diverticulitis, Homicidal, Suicidal, threat to staff... and all critical care pts) @ -No - Lab Data Result diagrams: 08/22/24 19:41 08/22/24 19:41 Lab Results 08/22/24 08/22/24 08/22/24 Range/Units 19:41 19:41 19:41 WBC 8.0 (3.8-10.6) k/uL RBC 4.62 (3.80-5.40) m/uL Hgb 13.9 (11.4-16.0) gm/dL Hct 42.2 (34.0-46.0) % MCV 91.5 (80.0-100.0) fL MCH 30.2 (25.0-35.0) pg MCHC 33.0 (31.0-37.0) g/dL RDW 13.9 (11.5-15.5) % Plt Count 352 (150-450) k/uL MPV 7.5 Neutrophils % 60 % Lymphocytes % 29 % Monocytes % 6 % Eosinophils % 2 % Basophils % 1 % Neutrophils # 4.8 (1.3-7.7) k/uL Lymphocytes # 2.3 (1.0-4.8) k/uL Monocytes # 0.5 (0-1.0) k/uL Eosinophils # 0.2 (0-0.7) k/uL Basophils # 0.0 (0-0.2) k/uL Sodium 138 (137-145) mmol/L Potassium 4.4 (3.5-5.1) mmol/L Chloride 104 (98-107) mmol/L Carbon Dioxide 31 H (22-30) mmol/L Anion Gap 3 mmol/L BUN 19 H (7-17) mg/dL Creatinine 0.62 (0.52-1.04) mg/dL Est GFR (CKD-EPI)AfAm >90 (>60 ml/min/1.73 sqM) Est GFR (CKD-EPI)NonAf >90 (>60 ml/min/1.73 sqM) Glucose 100 H (74-99) mg/dL Plasma Lactic Acid Royer 0.9 (0.7-2.0) mmol/L Calcium 9.7 (8.4-10.2) mg/dL Total Bilirubin 0.2 (0.2-1.3) mg/dL AST 22 (14-36) U/L ALT 20 (4-34) U/L Alkaline Phosphatase 69 (38-126) U/L Total Protein 6.9 (6.3-8.2) g/dL Albumin 4.4 (3.5-5.0) g/dL Lipase 78 (23-300) U/L - Radiology Data CT abdomen/pelvis with IV contrast: 1. Large volume diffuse colonic stool burden suggestive of constipation. 2. Diastasis recti of the anterior abdominal wall with adjacent tethering of small and large bowel loops. No associated small bowel obstruction. Disposition Clinical Impression: Abdominal pain, Nausea, Ventral hernia Disposition: HOME SELF-CARE Condition: Stable Instructions (If sedation given, give patient instructions): Abdominal Pain (ED), Ventral Hernia (ED) Additional Instructions: Return to the ER immediately should you develop new or worsening pain, persistent vomiting, fever, shortness of breath, feeling dizzy or faint, or new or worsening symptoms. Follow-up closely with your primary care provider, as well as your general surgeon (Dr. Denney). Is patient prescribed a controlled substance at d/c from ED?: No Referrals: Curly Singh DO [Primary Care Provider] - 1-2 days Time of Disposition: 21:30
[2024-08-22 20:29] LABS: ALT 20 U/L (4-34); AST 22 U/L (14-36); African American GFR (CKD) >90 (>60 ml/min/1.73 sqM); Albumin 4.4 g/dL (3.5-5.0); Alkaline Phosphatase 69 U/L (38-126); Anion Gap 3 mmol/L; Blood Urea Nitrogen 19 mg/dL (7-17); Calcium 9.7 mg/dL (8.4-10.2); Carbon Dioxide 31 mmol/L (22-30); Chloride 104 mmol/L (98-107); Glucose 100 mg/dL (74-99); Lipase 78 U/L (23-300); Non-African American GFR(CKD) >90 (>60 ml/min/1.73 sqM); Potassium 4.4 mmol/L (3.5-5.1); Sodium 138 mmol/L (137-145); Total Bilirubin 0.2 mg/dL (0.2-1.3); Total Protein 6.9 g/dL (6.3-8.2)
[2024-08-22 20:31] LABS: Basophils % (A) 1 %; Eosinophils # (A) 0.2 k/uL (0-0.7); Eosinophils % (A) 2 %; HCT 42.2 % (34.0-46.0); HGB 13.9 gm/dL (11.4-16.0); Lymphocytes # (A) 2.3 k/uL (1.0-4.8); Lymphocytes % (A) 29 %; MCH 30.2 pg (25.0-35.0); MCV 91.5 fL (80.0-100.0); Mean Platelet Volume 7.5; Monocytes # (A) 0.5 k/uL (0-1.0); Monocytes % (A) 6 %; Neutrophils # (A) 4.8 k/uL (1.3-7.7); Neutrophils % (A) 60 %; Platelet Count 352 k/uL (150-450); RBC 4.62 m/uL (3.80-5.40); RDW 13.9 % (11.5-15.5)
[2024-08-22] MEDS: SODIUM CHLORIDE 0.9% 1,000 ML IV STA (20:36)
--- NOTE | 2024-08-22 21:13 | CT ---
EXAMINATION TYPE: CT abdomen pelvis w con DATE OF EXAM: 08/22/2024 9:01 PM COMPARISON: Prior CT abdomen/pelvis studies, most recently dated 05/02/2024. CLINICAL INDICATION: Female, 54 years old with history of LLQ abdominal pain, nausea; LLQ abdominal p ain, nausea. TECHNIQUE: Axial CT abdomen pelvis w con;Sagittal and coronal reformats were created on a separate w orkstation. Contrast used:100 ml mL of Isovue 300 with IV Contrast, (none if empty) Oral contrast used: without Oral Contrast (none if empty) CT DLP: 528.7 mGycm, Automated exposure control for dose reduction was used. FINDINGS: LOWER CHEST: Unremarkable ABDOMEN LIVER: Scattered hypodense lesions compatible simple cysts. GALLBLADDER AND BILE DUCTS: The gallbladder is surgically absent. PANCREAS: Unremarkable. SPLEEN: Unremarkable. ADRENAL GLANDS: Unremarkable. KIDNEYS AND URETERS: No evidence of hydronephrosis or renal calculus. The ureters are unremarkable. PELVIS BLADDER: No evidence for wall thickening or mass given limitations of exam. REPRODUCTIVE: Uterus surgically absent. ABDOMEN & PELVIS STOMACH AND BOWEL: Mild gastric wall thickening. Large volume diffuse colonic stool burden. Stable po st surgical changes in the left upper quadrant suggesting previous right hemicolectomy with sutures n oted near the splenic flexure. Tethering of bowel loops to the anterior abdominal wall due to diastas es recti (series 3 image 43). PERITONEUM/RETROPERITONEUM: No evidence of pneumoperitoneum or free fluid. VASCULATURE: No evidence of aortic aneurysm. MUSCULOSKELETAL: No acute osseous abnormalities. Posterior lumbosacral spinal fusion hardware visuali zed at L5-S1 with associated L5-S1 intervertebral disc spacer device. LYMPH NODES: No gross evidence for lymphadenopathy. SOFT TISSUE/ABDOMINAL WALL: Unremarkable IMPRESSION: 1. Large volume diffuse colonic stool burden suggestive of constipation. 2. Diastases recti of the anterior abdominal wall with adjacent tethering of small and large bowel l oops. No associated small bowel obstruction. [facility], , 08/22/2024 9:10 PM
[2024-08-22 21:31] VITALS: BP 115/80; PULSE 62; RESP 16; TEMP 98.2
[2024-08-22] MEDS: ONDANSETRON 4 MG ODT STARTER PACK 2 TAB BTL PO STA (21:37)
== END 2024-08-22 21:57 | disposition home or self-care (01) ==
LOC: EC 18:43
DX: K43.9 Ventral hernia without obstruction or gangrene (principal); Z88.0 Allergy status to penicillin; Z88.1 Allergy status to other antibiotic agents; Z88.2 Allergy status to sulfonamides; Z91.018 Allergy to other foods; Z87.891 Personal history of nicotine dependence
CPT/HCPCS: 36415; 80053; 83605; 83690; 85025; 74177; 99284; S0119; Q9967

== ENCOUNTER 2024-09-11 08:47 | Inpatient (IN) | payer BC ==
[2024-09-11] MEDS ORDERED: LIDOCAINE 1% (10MG/ML) FOR IV START INTRADERMA PRN (08:56)
[2024-09-11] MEDS: LACTATED RINGERS 1,000 ML IV SCH ×2 (09:26→20:56)
[2024-09-11] MEDS: IV FLUID CONTINUATION 1,000 ML IV ONE ×3 (09:26→14:13)
[2024-09-11] MEDS: DEXAMETHASONE SOD PHOSPHATE 4 MG/ML 1 ML VIAL IV ONE (09:31)
[2024-09-11] MEDS: ACETAMINOPHEN TAB 500 MG TAB PO PRN (09:31)
[2024-09-11] MEDS: ONDANSETRON 4 MG/2 ML VIAL IVP ONE (09:31)
[2024-09-11] MEDS: MIDAZOLAM 2 MG/2 ML VIAL IV STA (09:48)
[2024-09-11] MEDS: HEPARIN SODIUM,PORCINE 5,000 UNIT/ML 1 ML VIAL SQ PRN (09:58)
--- NOTE | 2024-09-11 10:01 | P.ANPRN ---
Procedure Note - Anesthesia - Nerve Block Performed Bilateral Erector Spinae Single Time Out Performed: Yes Date of Procedure: 09/11/24 Procedure Start Time: 09:47 Procedure Stop Time: 09:52 Location of Patient: PreOp Indication: Acute Post-Operative Pain, Analgesia, Requested by Surgeon Sedation Type: Sedate with meaningful contact maintained Preparation: Sterile Prep Position: Prone Catheter: None Needle Types: Pajunk Needle Gauge: 21 Ultrasound used to visualize needle placement: Yes Ultrasound used to observe medication spread: Yes Injectate: 0.5% Ropivacaine (see comment for volume) (Ropiv 20ml+[id number], [id number] level----Each side) Blood Aspirated: No Pain Paresthesia on Injection Noted: No Resistance on Injection: Normal Image Stored and Saved: Yes Events: Uneventful and Well Tolerated
[2024-09-11] MEDS ORDERED: fentaNYL (PF) 50 MCG/ML 2 ML AMP ONE (10:28)
[2024-09-11] MEDS ORDERED: NEOSTIGMINE 1 MG/ML 10 ML VIAL ONE (10:28)
[2024-09-11] MEDS ORDERED: LIDOCAINE 1% INJ 10MG/ML (20 ML MDV) ONE (10:28)
[2024-09-11] MEDS ORDERED: MIDAZOLAM 2 MG/2 ML VIAL ONE (10:28)
[2024-09-11] MEDS ORDERED: KETOROLAC 30 MG/ML 1 ML VIAL ONE (10:28)
[2024-09-11] MEDS ORDERED: SUCCINYLCHOLINE CHLORIDE 200 MG/10 ML VIAL IV ONE (10:28)
[2024-09-11] MEDS ORDERED: HYDROmorphone (PF) 1 MG/ML ONE (10:28)
[2024-09-11] MEDS ORDERED: GLYCOPYRROLATE 0.2 MG/ML 2 ML VIAL ONE (10:28)
[2024-09-11] MEDS ORDERED: ROCURONIUM 10 MG/ML (5 ML VIAL) IV ONE (10:28)
[2024-09-11] MEDS ORDERED: DEXAMETHASONE SOD PHOSPHATE 4 MG/ML 1 ML VIAL ONE (10:28)
[2024-09-11] MEDS ORDERED: PHENYLEPHRINE 10 MG/ML VIAL ONE (10:28)
[2024-09-11] MEDS ORDERED: KETAMINE HCL IN 0.9 % NACL 50 MG/5 ML SYRINGE ONE (10:28)
[2024-09-11] MEDS ORDERED: ROPIVACAINE 5 MG/ML 30 ML VIAL ONE (10:28)
[2024-09-11] MEDS ORDERED: PROPOFOL 10 MG/ML 20 ML VIAL IV ONE (10:28)
[2024-09-11] MEDS: HYDROmorphone 0.5 MG/0.5 ML SYRINGE IVP PRN ×2 (12:21→20:53)
[2024-09-11] MEDS ORDERED: NALOXONE 0.4 MG/ML 1 ML VIAL IV PRN (12:41)
[2024-09-11] MEDS ORDERED: ACETAMINOPHEN TAB 325 MG TAB PO PRN (12:41)
--- NOTE | 2024-09-11 12:47 | P.OP ---
Date of Procedure: 09/11/24 Preoperative Diagnosis: Incarcerated incisional hernia Postoperative Diagnosis: Incarcerated central hernia Procedure(s) Performed: Open repair of incarcerated central hernia with Prolene hernia onlay mesh Anesthesia: JAY Surgeon: Isaías Denney Estimated Blood Loss (ml): 25 Pathology: none sent Condition: stable Disposition: PACU Description of Procedure: The patient was prepped on the operative table in the supine position. She received general anesthesia. Her abdomen was then prepped and draped you sterile fashion. Patient a large incisional hernia. Small bowel was seen peristalsing below the skin. The patient's skin was incised with 15 blade. Electrocautery the subcu tissue divided. Then the hernia sac was opened. The incarcerated small bowel was placed back Liparol cavity. The bowel appeared to be viable. The hernial was quite large. Almost the entire scar was hernia. The hernia measured over 10 cm in length. The fascial defect was then closed after the fascia external bleak was dissected. The fascia defect was closed with [id number] 0 Ethibond suture. And then buttressed with #1 STRATAFIX suture. The Prolene mesh was cut to an appropriate size and placed over top of the repair and secured with secure strap tacker. A LEENA drain was placed over top repair and brought through separate stab incision. Skin was closed jesus. The Prevena wound system was placed over top of the close skin. Abdominal binder was placed. Patient was then sent to recovery in stable condition.
[2024-09-11] MEDS: diphenhydrAMINE 50 MG/ML 1 ML VIAL IVP STA (13:22)
[2024-09-11] MEDS: HYDROmorphone 1 MG/ML 1 ML SYRINGE IVP PRN (15:09)
[2024-09-11] MEDS: droPERidol 5 MG/2 ML VIAL IVP ONE (15:34)
[2024-09-11] MEDS: SCOPOLAMINE 1 MG/72 HR PATCH TRANSDERM ONE (15:35)
--- NOTE | 2024-09-11 16:06 | P.CONS ---
History of Present Illness - Reason for Consult Consult date: 09/11/24 - History of Present Illness Patient is a 54-year-old female with history of celiac disease, multiple abdominal surgery, right hemicolectomy, lysis of adhesion presenting for incarcerated incisional central hernia status post open repair. [facility] [place] physicians consulted for medical management. Patient seen and examined at bedside. Patient claims that she is having significant abdominal pain. Denies any chest pain, shortness of breath, urinary or bowel complaints. She smokes 1 pack/day, 1 wine of glass per night, last drink 2 days ago, no illicit drug use. Current temperature 97.4, pulse 61, respiratory rate 16, blood pressure 148/72, saturating at 99% on 2 L. Pertinent positives and negatives as discussed in HPI, a complete review of systems was performed and all other systems are negative. Patient seen and examined at bedside. Vital signs reviewed General: nontoxic, no distress, appears at stated age Derm: warm, dry, dressing clean, dry, intact Head: atraumatic, normocephalic, symmetric Eyes: EOMI, no lid lag, anicteric sclera, pupils equal round reactive to light ENT: Nose and ears atraumatic Neck: No thyromegaly, supple Mouth: no lip lesion, mucus membranes moist Cardiovascular: S1S2 reg, no murmur, no edema Lungs: clear to auscultation bilateral, no rhonchi, no rales, no wheeze, no accessory muscle use Abdominal: soft, diffusely tender to palpation, no guarding, no appreciable organomegaly, abdominal binder in place Ext: no gross muscle atrophy, muscle strength muscle strength 5 out of 5 in all 4 extremities, no contractures Neuro: CN II-XII grossly intact Psych: Alert, oriented, appropriate affect Assessment/Plan: Active: GERD -Continue omeprazole 20 mg daily Allergies -Continue loratadine 10 mg daily Incarcerated incisional ventral hernia status post open repair -Pain control with oral Tylenol as needed, IV Dilaudid as needed, monitor for sedation, IV Toradol 15 mg every 6 hours scheduled -Okay to continue lactated Ringer 125 cc an hour -CBC and CMP tomorrow ordered Thank you for allowing us to participate in the care of this pleasant patient. Do not hesitate to contact us with questions. Someone can be reached from the [facility] [place] Physicians hospitalist group all hours of the day at [phone] or via [place]. Past Medical History Past Medical History: Fibromyalgia, GERD/Reflux Additional Past Medical History / Comment(s): celiac disease, "told she has raynauds", small hiatal hernia. "precancerous colon polyps removed" History of Any Multi-Drug Resistant Organisms: None Reported Past Surgical History: Adenoidectomy, Appendectomy, Bowel Resection, Cholecystectomy, Hysterectomy, Orthopedic Surgery, Tonsillectomy Additional Past Surgical History / Comment(s): Appendectomy with mesenteric mass excision, diagnostic exploratory laprascopy, surgery for tubal , EGD, colonoscopy, cervical & LUMBAR fusion/decompression; 03/24/24 Right hemicolectomy and decompressive colotomy Past Anesthesia/Blood Transfusion Reactions: Previous Problems w/ Anesthesia, Postoperative Nausea & Vomiting (PONV) Additional Past Anesthesia/Blood Transfusion Reaction / Comm: Slow to wake Past Psychological History: No Psychological Hx Reported Additional Psychological History / Comment(s): Pt resides with her spouse. She is independent. Smoking Status: Current every day smoker Past Alcohol Use History: Daily Additional Past Alcohol Use History / Comment(s): Pt started smoking in 2007 1 glass of wine Past Drug Use History: None Reported - Past Family History Sister(s) Family Medical History: Cancer Additional Family Medical History / Comment(s): Stage III colon cancer. Mother Additional Family Medical History / Comment(s): lupus, mi of at age 52 Father Family Medical History: AFIB Medications and Allergies Home Medications Medication Instructions Recorded Confirmed Type Ibuprofen [Motrin] 600 mg PO Q8HR PRN #30 tab 03/29/24 09/11/24 Rx Loratadine [Claritin] 10 mg PO DAILY 09/06/24 09/11/24 History Omeprazole Magnesium [PriLOSEC OTC] 20 mg PO QAM 09/06/24 09/11/24 History Hydrocodone/Acetaminophen 10 - 325 mg PO Q6HR PRN 09/08/24 09/11/24 History [Hydrocodone/Acetaminophen 10-300 mg] Allergies Allergy/AdvReac Type Severity Reaction Status Date / Time gluten Allergy CELIAC Verified 09/11/24 09:07 Penicillins Allergy STRONG Verified 09/11/24 09:07 SIBLING REACTION OF ANAPHYLAXIS Sulfa (Sulfonamide Allergy Unknown Verified 09/11/24 09:07 Antibiotics) Childhood tree nut Allergy SKIN Verified 09/11/24 09:07 REACTION wheat Allergy CELIAC Verified 09/11/24 09:07 Physical Exam Vitals: Vital Signs Temp Pulse Pulse Resp BP Pulse Ox 09/11/24 14:06 61 16 148/72 99 09/11/24 13:51 59 L 16 148/70 99 09/11/24 13:36 60 16 146/70 100 09/11/24 13:21 56 L 16 144/59 100 09/11/24 13:06 61 16 155/72 100 09/11/24 12:51 53 L 16 144/67 100 09/11/24 12:36 53 L 16 141/73 100 09/11/24 12:21 54 L 16 139/70 100 09/11/24 12:06 97.4 F L 61 16 152/80 100 09/11/24 09:58 67 16 110/78 98 09/11/24 09:06 97.4 F L 75 18 123/72 97 Intake and Output 09/11/24 09/11/24 09/11/24 06:59 14:59 22:59 Intake Total 1250 Output Total 25 Balance 1225 Intake: IV 1250 Output: Estimated Blood Loss 25 Other: Weight 56.1 kg
[2024-09-11] MEDS: KETOROLAC 15 MG/ML 1 ML VIAL IVP SCH (17:20)
[2024-09-11] MEDS: ONDANSETRON 4 MG/2 ML VIAL IVP PRN (22:03)
[2024-09-12] MEDS: HYDROmorphone 0.5 MG/0.5 ML SYRINGE IVP PRN (00:18)
[2024-09-12] MEDS: PANTOPRAZOLE 40 MG TABLET PO SCH (06:26)
[2024-09-12] MEDS: THIAMINE 100 MG TAB PO SCH (07:53)
[2024-09-12] MEDS: LORATADINE 10 MG TAB PO SCH (07:53)
[2024-09-12] MEDS: ENOXAPARIN 40 MG/0.4 ML SYRINGE SQ SCH (07:53)
[2024-09-12] MEDS: METOCLOPRAMIDE 5 MG/ML 2 ML VIAL IVP PRN (07:54)
[2024-09-12] MEDS: NICOTINE 21MG/24HR PATCH TRANSDERM SCH (07:54)
[2024-09-12 09:34] LABS: BUN/Creat Ratio 15.17 Ratio (12.00-20.00); Blood Urea Nitrogen 9.1 mg/dL (9.0-27.0); Carbon Dioxide 26.5 mmol/L (21.6-31.8); Chloride 94 mmol/L (96-109); Glucose 92 mg/dL (70-110); Potassium 4.4 mmol/L (3.5-5.5); Sodium 133 mmol/L (135-145)
[2024-09-12 09:35] LABS: ALT 22 U/L (8-44); AST 21 U/L (13-35); Albumin 4.2 g/dL (3.8-4.9); Albumin/Globulin Ratio 1.91 Ratio (1.60-3.17); Alkaline Phosphatase 83 U/L (41-126); Calcium 9.4 mg/dL (8.7-10.3); Globulin 2.2 g/dL (1.6-3.3); Total Bilirubin 0.5 mg/dL (0.3-1.2); Total Protein 6.4 g/dL (6.2-8.2)
[2024-09-12] MEDS: HYDROcodone/APAP 5-325MG 1 EACH TAB PO PRN (10:06)
[2024-09-12 10:19] LABS: Basophils # (A) 0.03 X 10*3/uL (0.00-0.10); Basophils % (A) 0.2 %; Eosinophils # (A) 0.11 X 10*3/uL (0.04-0.35); Eosinophils % (A) 0.8 %; HCT 40.7 % (37.2-46.3); HGB 13.5 g/dL (12.0-15.0); Lymphocytes # (A) 1.56 X 10*3/uL (0.90-5.00); Lymphocytes % (A) 11.7 %; MCH 30.7 pg (27.0-32.0); MCHC 33.2 g/dL (32.0-37.0); MCV 92.5 FL (80.0-97.0); Mean Platelet Volume 10.9 FL (9.5-12.2); Monocytes # (A) 0.98 X 10*3/uL (0.20-1.00); Monocytes % (A) 7.3 %; NRBC Per 100 WBC 0 X 10*3/uL (0.00-0.01); Neutrophils # (A) 10.63 X 10*3/uL (1.80-7.70); Neutrophils % (A) 79.6 %; Platelet Count 335 X 10*3/uL (140-440); RDW 13.9 % (11.5-14.5); WBC 13.36 X 10*3/uL (4.50-10.00)
--- NOTE | 2024-09-12 12:03 | P.PN ---
Subjective Progress Note Date: 09/12/24 SURGICAL PROGRESS NOTE CHIEF COMPLAINT: Incarcerated incisional hernia HISTORY OF PRESENT ILLNESS: Patient is postop day #1 status post open repair of incarcerated incisional hernia with mesh. Patient had urinary retention last night and required to be straight cathed. Patient reports being up to urinate this morning. She also has been having nausea and and did have an episode of vomiting this morning. Patient's oral intake is decreased. Patient denies any flatus. LEENA drain with 55 mL serosanguineous output. Afebrile. WBC 13.36 Hgb 13.5 sodium 133 PHYSICAL EXAM: VITAL SIGNS: Reviewed. GENERAL: Well-developed in no acute distress. HEENT: No sclera icterus. Extraocular movements grossly intact. Moist buccal mucosa. Head is atraumatic, normocephalic. ABDOMEN: Soft. Mildly distended. Prevena wound VAC dressing intact. Mild tenderness with palpation. NEUROLOGIC: Alert and oriented. Cranial nerves II through XII grossly intact. ASSESSMENT: 1. Incarcerated incisional hernia PLAN: -[place] added for pain management -Continue antiemetics -Ensure added for nutritional supplements -Encouraged patient to ambulate -Encouraged patient to use incentive spirometer -GI prophylaxis Protonix and DVT prophylaxis Lovenox Physician Electric Power Line Examiner note has been reviewed by physician. Signing provider agrees with the documented findings, assessment, and plan of care. Objective - Vital Signs Vital signs: Vital Signs Temp 98.0 F 09/12/24 06:49 Pulse 70 09/12/24 08:00 Resp 16 09/12/24 08:00 BP 161/88 09/12/24 06:49 Pulse Ox 95 09/12/24 06:49 FiO2 Intake & Output 09/11/24 09/12/24 09/12/24 18:59 06:59 18:59 Intake Total 1500 Output Total 25 515 Balance 1475 -515 Weight 56.1 kg 56.1 kg Intake: IV 1250 Oral 250 Output: Drainage 115 Abdomen 115 Urine 400 Estimated Blood Loss 25 Other: # Voids 1 5 - Labs CBC & Chem 7: 09/12/24 03:31 09/12/24 03:31 Labs: Abnormal Lab Results - Last 24 Hours (Table) 09/12/24 09/12/24 Range/Units 03:31 03:31 WBC 13.36 H (4.50-10.00) X 10*3/uL Immature Gran # 0.05 H (0.00-0.04) X 10*3/uL Neutrophils # 10.63 H (1.80-7.70) X 10*3/uL Sodium 133 L (135-145) mmol/L Chloride 94 L (96-109) mmol/L Anion Gap 12.50 H (4.00-12.00) mmol/L
--- NOTE | 2024-09-12 12:23 | P.PN ---
Subjective Progress Note Date: 09/12/24 Hospital course: Patient is a 54-year-old female with history of celiac disease, multiple abdominal surgery, right hemicolectomy, lysis of adhesion presenting for incarcerated incisional central hernia status post open repair. Sound physicians consulted for medical management. Patient seen and examined at bedside. Patient claims that she is having significant abdominal pain. Denies any chest pain, shortness of breath, urinary or bowel complaints. She smokes 1 pack/day, 1 wine of glass per night, last drink 2 days ago, no illicit drug use. Current temperature 97.4, pulse 61, respiratory rate 16, blood pressure 148/72, saturating at 99% on 2 L. Subjective: 09/12/2024: Patient seen and examined at bedside. No acute events overnight. Patient states she states she has diffuse pain in her abdomen, but says the pain medication does help control her pain. Patient denies having a bowel movement. Also states she has had difficulty urinating. Patient reports of vomiting once yesterday. Pertinent positives and negatives as discussed above, a complete review of systems was performed and all other systems are negative. Vitals: Signs Reviewed Physical Exam: General: nontoxic, no distress, appears at stated age Derm: warm, dry, dressing clean, dry, intact Head: atraumatic, normocephalic, symmetric Eyes: EOMI, no lid lag, anicteric sclera, pupils equal round reactive to light ENT: Nose and ears atraumatic Cardiovascular: S1S2 reg, no murmur, no edema Lungs: clear to auscultation bilateral, no rhonchi, no rales, no wheeze, no accessory muscle use Abdominal: soft, diffusely tender to palpation, no guarding, no appreciable organomegaly, abdominal binder in place Ext: no gross muscle atrophy, muscle strength muscle strength 5 out of 5 in all 4 extremities, no contractures Neuro: CN II-XII grossly intact Psych: Alert, oriented, appropriate affect Data Received Today: Pertinent Labs: WBC 13.36, sodium 133 Imaging: N/A Assessment and Plan: Patient is a 54-year-old female with history of celiac disease, multiple abdominal surgery, right hemicolectomy, lysis of adhesion presenting for incarcerated incisional central hernia status post open repair. Active: #. GERD -Continue omeprazole 20 mg daily #. Allergies -Continue loratadine 10 mg daily #. Nicotine dependence Nicotine patch ordered #. Incarcerated incisional ventral hernia status post open repair #Leukocytosis, anticipated outcome of surgery -Pain control with oral Tylenol as needed, IV Dilaudid as needed, monitor for sedation, IV Toradol 15 mg every 6 hours scheduled -Okay to continue lactated Ringer 125 cc an hour -CBC and CMP tomorrow ordered Code status: Full code Thank you for allowing us to participate in the care of this pleasant patient. Do not hesitate to contact us with questions. We will continue to follow. Ilan Linton MD PGY-1 IM Dictation was produced using [employer] dictation software. please excuse any grammatical, word or spelling errors. I have seen and evaluated the patient today. Discussed with the resident and agree with the residents finding and plan as documented in the resident's note. Changes highlighted in blue font. Objective - Vital Signs Vital signs: Vital Signs Temp 98.0 F 09/12/24 06:49 Pulse 70 09/12/24 06:49 Resp 16 09/12/24 06:49 BP 161/88 09/12/24 06:49 Pulse Ox 95 09/12/24 06:49 FiO2 Intake & Output 09/11/24 09/12/24 09/12/24 18:59 06:59 18:59 Intake Total 1500 Output Total 25 515 Balance 1475 -515 Weight 56.1 kg 56.1 kg Intake: IV 1250 Oral 250 Output: Drainage 115 Abdomen 115 Urine 400 Estimated Blood Loss 25 Other: # Voids 1 5 - Labs CBC & Chem 7: 09/12/24 03:31 09/12/24 03:31
[2024-09-12] MEDS: SCOPOLAMINE 1 MG/72 HR PATCH TRANSDERM SCH (13:38)
[2024-09-12] MEDS: METOCLOPRAMIDE 5 MG/ML 2 ML VIAL IVP SCH (16:37)
[2024-09-12 16:40] VITALS: BMI 18.2
[2024-09-12] MEDS: CALCIUM CARBONATE 500 MG CHEWABLE PO PRN (20:50)
[2024-09-13 07:56] VITALS: BP 106/62; PULSE 65; RESP 16; TEMP 98.2
[2024-09-13 09:42] LABS: Basophils # (A) 0.01 X 10*3/uL (0.00-0.10); Basophils % (A) 0.2 %; Eosinophils # (A) 0.16 X 10*3/uL (0.04-0.35); Eosinophils % (A) 2.5 %; HCT 35.6 % (37.2-46.3); Lymphocytes # (A) 0.92 X 10*3/uL (0.90-5.00); Lymphocytes % (A) 14.4 %; MCH 30.6 pg (27.0-32.0); MCHC 33.7 g/dL (32.0-37.0); MCV 90.8 FL (80.0-97.0); Mean Platelet Volume 10.6 FL (9.5-12.2); Monocytes # (A) 0.43 X 10*3/uL (0.20-1.00); Monocytes % (A) 6.8 %; NRBC Per 100 WBC 0 X 10*3/uL (0.00-0.01); Neutrophils # (A) 4.82 X 10*3/uL (1.80-7.70); Neutrophils % (A) 75.6 %; Platelet Count 281 X 10*3/uL (140-440); RBC 3.92 X 10*6/uL (4.10-5.20); RDW 13.7 % (11.5-14.5); WBC 6.37 X 10*3/uL (4.50-10.00)
[2024-09-13 09:56] LABS: Blood Urea Nitrogen 4.1 mg/dL (9.0-27.0); Calcium 9.3 mg/dL (8.7-10.3); Carbon Dioxide 29.7 mmol/L (21.6-31.8); Chloride 99 mmol/L (96-109); Glucose 91 mg/dL (70-110); Sodium 137 mmol/L (135-145)
--- NOTE | 2024-09-13 11:42 | P.PN ---
Subjective Progress Note Date: 09/13/24 Hospital course: Patient is a 54-year-old female with history of celiac disease, multiple abdominal surgery, right hemicolectomy, lysis of adhesion presenting for incarcerated incisional central hernia status post open repair. Sound physicians consulted for medical management. Patient seen and examined at bedside. Patient claims that she is having significant abdominal pain. Denies any chest pain, shortness of breath, urinary or bowel complaints. She smokes 1 pack/day, 1 wine of glass per night, last drink 2 days ago, no illicit drug use. Current temperature 97.4, pulse 61, respiratory rate 16, blood pressure 148/72, saturating at 99% on 2 L. Subjective: 09/12/2024: Patient seen and examined at bedside. No acute events overnight. Patient states she states she has diffuse pain in her abdomen, but says the pain medication does help control her pain. Patient denies having a bowel movement. Also states she has had difficulty urinating. Patient reports of vomiting once yesterday. 09/13/2020: Patient seen and examined at bedside. No acute events overnight. No acute complaints. States that the pain has improved. Denies having a bowel movement. Has been voiding frequently. Denies vomiting. States she is ready to go home. She is medically optimized for discharge. Pertinent positives and negatives as discussed above, a complete review of systems was performed and all other systems are negative. Vitals: Signs Reviewed Physical Exam: General: nontoxic, no distress, appears at stated age Derm: warm, dry, dressing clean, dry, intact Head: atraumatic, normocephalic, symmetric Eyes: EOMI, no lid lag, anicteric sclera, pupils equal round reactive to light ENT: Nose and ears atraumatic Cardiovascular: S1S2 reg, no murmur, no edema Lungs: clear to auscultation bilateral, no rhonchi, no rales, no wheeze, no accessory muscle use Abdominal: soft, diffusely tender to palpation, no guarding, no appreciable organomegaly, abdominal binder in place Ext: no gross muscle atrophy, muscle strength muscle strength 5 out of 5 in all 4 extremities, no contractures Neuro: CN II-XII grossly intact Psych: Alert, oriented, appropriate affect Data Received Today: Pertinent Labs: WBC 13.36, sodium 133 Imaging: N/A Assessment and Plan: Patient is a 54-year-old female with history of celiac disease, multiple abdominal surgery, right hemicolectomy, lysis of adhesion presenting for incarcerated incisional central hernia status post open repair. Active: #. GERD -Continue omeprazole 20 mg daily #. Allergies -Continue loratadine 10 mg daily #. Nicotine dependence Nicotine patch ordered #. Incarcerated incisional ventral hernia status post open repair #Leukocytosis, anticipated outcome of surgery -Pain control with oral Tylenol as needed, IV Dilaudid as needed, monitor for sedation, IV Toradol 15 mg every 6 hours scheduled -Okay with lactated Ringer 20 cc an hour Code status: Full code Patient is medically optimized for discharge. Thank you for allowing us to participate in the care of this pleasant patient. Ilan Linton MD PGY-1 IM Dictation was produced using [employer] dictation software. please excuse any grammatical, word or spelling errors. I have seen and evaluated the patient today. Discussed with the resident and agree with the residents finding and plan as documented in the resident's note. Changes highlighted in blue font. Objective - Vital Signs Vital signs: Vital Signs Temp 98.2 F 09/13/24 07:45 Pulse 65 09/13/24 07:45 Resp 16 09/13/24 07:45 BP 106/62 09/13/24 07:45 Pulse Ox 95 09/13/24 07:45 FiO2 Intake & Output 09/12/24 09/13/24 09/13/24 18:59 06:59 18:59 Output Total 30 20 Balance -30 -20 Weight 56.1 kg Output: Drainage 30 20 Abdomen 30 20 Stool 0 Other: # Voids 3 2 - Labs CBC & Chem 7: 09/13/24 03:45 09/13/24 03:45 Labs: Abnormal Lab Results - Last 24 Hours (Table) 09/13/24 09/13/24 Range/Units 03:45 03:45 RBC 3.92 L (4.10-5.20) X 10*6/uL Hct 35.6 L (37.2-46.3) % BUN 4.1 L (9.0-27.0) mg/dL Creatinine 0.5 L (0.6-1.5) mg/dL BUN/Creatinine Ratio 8.20 L (12.00-20.00) Ratio
--- NOTE | 2024-09-13 13:16 | P.DS ---
Providers Date of admission: 09/12/24 13:54 Expected date of discharge: 09/13/24 Attending physician: Isaías Denney Consults: 09/11/24 12:41 Consult Physician Routine Consulting Provider: Norman Portillo Consult Reason/Comments: Medical management Do you want consulting provider notified?: Yes [facility] Course: Discharge diagnosis 1. Incarcerated incisional hernia 2. Ileus can be an expected postoperative finding Hospital course This is a 54-year-old female with a known incarcerated incisional hernia. She is status post open repair of incarcerated incisional hernia with mesh. Patient reports her pain is controlled. She is tolerating diet. She has not difficulty urinating. She has been up and ambulating. She is afebrile. She is stable for discharge. Please refer to chart for further details. Physician Wardrobe Supervisor note has been reviewed by physician. Signing provider agrees with the documented findings, assessment, and plan of care. Patient Condition at Discharge: Stable Plan - Discharge Summary Discharge Rx Participant: Yes New Discharge Prescriptions: Continue Ibuprofen [Motrin] 600 mg PO Q8HR PRN #30 tab PRN Reason: Pain Omeprazole Magnesium [PriLOSEC OTC] 20 mg PO QAM Loratadine [Claritin] 10 mg PO DAILY Hydrocodone/Acetaminophen [Hydrocodone/Acetaminophen 10-300 mg] 10 - 325 mg PO Q6HR PRN PRN Reason: Pain Discharge Medication List Ibuprofen [Motrin] 600 mg PO Q8HR PRN #30 tab 03/29/24 [Rx] Loratadine [Claritin] 10 mg PO DAILY 09/06/24 [History] Omeprazole Magnesium [PriLOSEC OTC] 20 mg PO QAM 09/06/24 [History] Hydrocodone/Acetaminophen [Hydrocodone/Acetaminophen 10-300 mg] 10 - 325 mg PO Q6HR PRN 09/08/24 [History] Follow up Appointment(s)/Referral(s): [facility]idential [facility] [NON-STAFF] - As Needed Isaías Denney MD [STAFF PHYSICIAN] - 09/19/24 2:40 pm Activity/Diet/Wound Care/Special Instructions: No driving while taking [place] No lifting over 10 pounds You may shower. No soaking or tub baths for 2 weeks Very light activity until you are reevaluated at your follow up appointment with your surgeon Keep a log of LEENA drain output and bring with you to your follow-up appointment Milk/strip drains 2-3 times a day Prevena wound vac dressing to be removed on 09/18/24 Discharge Disposition: HOME SELF-CARE
== END 2024-09-13 14:54 | disposition home or self-care (01) | DRG 354 ==
LOC: OR 08:47 → 4SSUR 11:53 → OR 09-12 13:54 → 4SSUR 09-12 13:54
PROVIDERS: ADMIT Surgery; ATTEND Surgery
PROC: 0WUF0JZ Supplement Abdominal Wall with Synthetic Substitute, Open Approach (ICD-10-PCS; principal; 2024-09-11 10:45)
DX: K43.0 Incisional hernia with obstruction, without gangrene (principal); K56.7 Ileus, unspecified; F17.210 Nicotine dependence, cigarettes, uncomplicated; K90.0 Celiac disease; K21.9 Gastro-esophageal reflux disease without esophagitis; R33.9 Retention of urine, unspecified; D72.828 Other elevated white blood cell count; Z71.6 Tobacco abuse counseling
CPT/HCPCS: 64999; 80048; 80053; 85025